=== PATIENT | female | born 1950 | race Caucasian/White ===

== ENCOUNTER 2024-06-10 10:24 | Inpatient (IN) | payer OTHER, MEDICARE ==
--- NOTE | 2024-06-10 10:47 | ED ---
Chest Pain HPI - General Source: patient, family, RN notes reviewed Mode of arrival: wheelchair Limitations: physical limitation - History of Present Illness MD Complaint: chest pain <Yumiko Woody - Last Filed: 06/10/24 10:45> - General Source: patient, family, RN notes reviewed <Omer Singh - Last Filed: 06/10/24 12:01> - General Chief Complaint: Chest Pain Stated Complaint: Chest pain Time Seen by Provider: 06/10/24 10:45 - History of Present Illness Initial Comments: Quick Note: This is a 74-year-old female who presents to the emergency department for chest pain. Patient reports left-sided chest pain starting about 45 minutes prior to arrival. This does radiate into the left arm and back as well. She has had similar pain before, but states that it usually resolves on its own within a few seconds. She tried taking Tums to see if it was related to gas, however that was not effective. Denies any history of heart attacks or stents. (Yumiko Woody) Patient is a 74-year-old female presenting to the emergency department with concerns with chest discomfort. Onset of symptoms was around an hour prior to arrival. Discomfort felt like an ache. Discomfort is improving was severe. Discomfort currently is 6/10. Patient does have some mild associated dyspnea. No nausea. Patient has had similar symptoms previously however normally resolves after around 10 minutes. Patient denies any history of previous heart problems. (Omer Singh) - Related Data Allergies Allergy/AdvReac Type Severity Reaction Status Date / Time lorazepam [From Ativan] Allergy Unknown Verified 06/10/24 10:32 Review of Systems ROS Other: All systems not noted in ROS Statement are negative. <Yumiko Woody - Last Filed: 06/10/24 10:45> ROS Other: All systems not noted in ROS Statement are negative. Constitutional: Denies: fever Eyes: Denies: eye pain ENT: Denies: ear pain Respiratory: Reports: as per HPI Cardiovascular: Reports: as per HPI, chest pain Endocrine: Denies: fatigue Gastrointestinal: Denies: abdominal pain Neurological: Denies: weakness <Omer Singh - Last Filed: 06/10/24 12:01> ROS Statement: Those systems with pertinent positive or pertinent negative responses have been documented in the HPI. EKG Findings - EKG Results: EKG: interpreted by ERMD (non Specific ST-T.), sinus rhythm, normal axis, normal QRS EKG shows: tachycardia <Omer Singh - Last Filed: 06/10/24 12:01> Past Medical History Past Medical History: No Reported History Past Surgical History: Back Surgery Smoking Status: Never smoker Past Alcohol Use History: None Reported Past Drug Use History: None Reported <Yumiko Woody - Last Filed: 06/10/24 10:45> General Exam Limitations: physical limitation <Yumiko Woody - Last Filed: 06/10/24 10:45> Limitations: no limitations General appearance: alert, in no apparent distress Head exam: Present: normocephalic Eye exam: Present: normal appearance Neck exam: Present: normal inspection Respiratory exam: Present: normal lung sounds bilaterally. Absent: chest wall tenderness Cardiovascular Exam: Present: regular rate, normal rhythm, normal heart sounds Expanded Peripheral pulses: 2+: Radial (R), Radial (L), Posterior Tibialis (R), Posterior Tibialis (L) GI/Abdominal exam: Present: soft. Absent: tenderness Extremities exam: Present: normal inspection. Absent: pedal edema, calf tenderness Neurological exam: Present: alert Psychiatric exam: Present: normal affect, normal mood Skin exam: Present: normal color <Omer Singh - Last Filed: 06/10/24 12:01> - General Exam Comments Initial Comments: Visual Physical Exam Vital signs reviewed General: Well-appearing, nontoxic, no acute distress. Head: Normocephalic, atraumatic Eyes: PERRLA, EOMI ENT: Airway patent Chest: Nonlabored breathing Skin: No visual rash, normal skin tone Neuro: Alert and oriented 3 Musculoskeletal: No gross abnormalities (Yumiko Woody) Course Vital Signs 06/10/24 06/10/24 06/10/24 10:28 10:58 11:04 Temperature 97.5 F L Pulse Rate 105 H 94 Pulse Rate [ 97 Pulse Oximetery ] Respiratory 20 18 Rate Blood Pressure 154/93 156/88 O2 Sat by Pulse 92 L 98 Oximetry Chest Pain MDM <Yumiko Woody - Last Filed: 06/10/24 10:45> <Omer Singh - Last Filed: 06/10/24 12:01> - MDM I performed the QuickNote portion of this chart. Signed Yumiko Woody PA-C. (Yumiko oWody) Was pt. sent in by a medical professional or institution (ROSANA Adair, EMERGENCY TECHNICIAN, urgent care, hospital, or longterm...) When possible be specific @ -No Did you speak to anyone other than the patient for history (EMS, parent, family, police, friend...)? What history was obtained from this source @ -Family is present and helps provide history including patient's symptoms and onset of 1 hour ago Did you review nursing and triage notes (agree or disagree)? Why? @ -I reviewed and agree with nursing and triage notes Were old charts reviewed (outside hosp., previous admission, EMS record, old EKG, old radiological studies, urgent care reports/EKG's, longterm records)? Report findings @ -No old charts were reviewed Differential Diagnosis (chest pain, altered mental status, abdominal pain women, abdominal pain men, vaginal bleeding, weakness, fever, dyspnea, syncope, headache, dizziness, GI bleed, back pain, seizure, CVA, palpatations, mental health, musculoskeletal)? @ -MDM differential chest differential Chest Pain: Stable Angina, Unstable Angina, STEMI, NSTEMI Aortic Dissection, Pneumothorax, Musculoskeletal, Esophageal Spasm GERD, Cholecystitis, Pancreatitis, Zoster, this is not meant to be an all-inclusive list. EKG interpreted by me (3pts min.). @ -As above X-rays interpreted by me (1pt min.). @ -Chest x-ray shows no acute process CT interpreted by me (1pt min.). @ -None done U/S interpreted by me (1pt. min.). @ -None done What testing was considered but not performed or refused? (CT, X-rays, U/S, labs)? Why? @ -None What meds were considered but not given or refused? Why? @ -None Did you discuss the management of the patient with other professionals (professionals i.e. ROSANA Adair, EMERGENCY TECHNICIAN, lab, RT, psych nurse, social economist, construction trench digger, teacher, landcare officer, case management social worker)? Give summary @ -[facility] physician groupSmith practitioner who will admit covering hospital call Was smoking cessation discussed for >3mins.? @ -No Was critical care preformed (if so, how long)? @ -No Were there social determinants of health that impacted care today? How? (Homelessness, low income, unemployed, alcoholism, drug addiction, transportation, low edu. Level, literacy, decrease access to med. care, long term, rehab)? @ -No Was there de-escalation of care discussed even if they declined (Discuss DNR or withdrawal of care, Hospice)? DNR status @ -No What co-morbidities impacted this encounter? (DM, HTN, Smoking, COPD, CAD, Cancer, CVA, ARF, Chemo, Hep., AIDS, mental health diagnosis, sleep apnea, morbid obesity)? @ -None Was patient admitted / discharged? Hospital course, mention meds given and route, prescriptions, significant lab abnormalities, going to OR and other pertinent info. @ -Patient presents with chest discomfort. Initial evaluation unremarkable. Patient reevaluated. Patient and family updated. Patient will be admitted with cardiac consult. Admission orders written. Undiagnosed new problem with uncertain prognosis? @ -No Drug Therapy requiring intensive monitoring for toxicity (Heparin, Nitro, Insulin, Cardizem)? @ -No Were any procedures done? @ -No Diagnosis/symptom? @ -Chest pain Acute, or Chronic, or Acute on Chronic? @ -Acute Uncomplicated (without systemic symptoms) or Complicated (systemic symptoms)? @ -Default Side effects of treatment? @ -No Exacerbation, Progression, or Severe Exacerbation? @ -No Poses a threat to life or bodily function? How? (Chest pain, [place], [place], pneumonia, PE, COPD, DKA, ARF, appy, cholecystitis, CVA, Diverticulitis, Homicidal, Suicidal, threat to staff... and all critical care pts) @ -Threat to cardiac function (Omer Singh) Disposition <Yumiko Woody - Last Filed: 06/10/24 10:45> Is patient prescribed a controlled substance at d/c from ED?: No Time of Disposition: 12:01 <Omer Singh - Last Filed: 06/10/24 12:01> Clinical Impression: Chest pain Disposition: ADMITTED IP TO THIS HOSP Referrals: None,Stated [Primary Care Provider] - 1-2 days
[2024-06-10 11:04] LABS: Basophils # (A) 0.1 k/uL (0-0.2); Basophils % (A) 1 %; Eosinophils # (A) 0.3 k/uL (0-0.7); Eosinophils % (A) 4 %; HCT 43.9 % (34.0-46.0); HGB 14.3 gm/dL (11.4-16.0); Lymphocytes # (A) 1.9 k/uL (1.0-4.8); Lymphocytes % (A) 26 %; MCH 31.1 pg (25.0-35.0); MCHC 32.6 g/dL (31.0-37.0); MCV 95.4 fL (80.0-100.0); Mean Platelet Volume 6.5; Monocytes # (A) 0.5 k/uL (0-1.0); Monocytes % (A) 7 %; Neutrophils # (A) 4.3 k/uL (1.3-7.7); Neutrophils % (A) 61 %; Platelet Count 312 k/uL (150-450); RBC 4.61 m/uL (3.80-5.40); RDW 12.5 % (11.5-15.5); WBC 7.1 k/uL (3.8-10.6)
[2024-06-10 11:14] LABS: ALT 15 U/L (4-34); AST 19 U/L (14-36); African American GFR (CKD) 74 (>60 ml/min/1.73 sqM); Albumin 4.3 g/dL (3.5-5.0); Alkaline Phosphatase 85 U/L (38-126); Anion Gap 6 mmol/L; Blood Urea Nitrogen 25 mg/dL (7-17); Calcium 9.2 mg/dL (8.4-10.2); Carbon Dioxide 31 mmol/L (22-30); Chloride 102 mmol/L (98-107); Glucose 114 mg/dL (74-99); Non-African American GFR(CKD) 64 (>60 ml/min/1.73 sqM); Potassium 4.3 mmol/L (3.5-5.1); Sodium 139 mmol/L (137-145); Total Bilirubin 0.5 mg/dL (0.2-1.3); Total Protein 6.9 g/dL (6.3-8.2)
[2024-06-10 11:21] LABS: INR 0.9 (<1.2); Partial Thromboplastin Time 22.1 sec (22.0-30.0); Prothrombin Time 10.1 sec (10.0-12.5)
[2024-06-10 11:22] LABS: NT-Pro-B-Type Natriuretic Pept 52 pg/mL
--- NOTE | 2024-06-10 11:31 | XR ---
EXAMINATION TYPE: XR chest 2V DATE OF EXAM: 06/10/2024 11:24 AM COMPARISON: None. CLINICAL INDICATION: Female, 74 years old with history of Chest Pain, TECHNIQUE: XR chest 2V view(s) obtained. FINDINGS: The heart size is upper limits of normal for size. The pulmonary vasculature is normal. The lungs are clear. IMPRESSION: 1. No acute pulmonary process. [facility], , 06/10/2024 11:28 AM
[2024-06-10] MEDS: NITROGLYCERIN OINT 1 INCH/GM PACKET TOPICAL STA (11:32)
[2024-06-10] MEDS: ASPIRIN 81 MG PO STA (11:32)
[2024-06-10] MEDS ORDERED: NITROGLYCERIN SL TABS 0.4 MG TAB SUBLINGUAL PRN (12:01)
--- NOTE | 2024-06-10 12:28 | P.HPIM ---
History of Present Illness H&P Date: 06/10/24 History of Presenting Illness: Patient is a very pleasant 74-year-old female with a past medical history of hypertension tracheostomy status post reversal (50 years ago) and chronic back pain status postsurgical procedures. She presented to the emergency department with a chief complaint of chest pain. Patient reports awakening this morning with pain to her left anterior chest radiating into her back and left shoulder. She reports the pain was intense and pressure-like. She reports she woke up and took a couple Tums thinking maybe it was some reflux but states she received no improvement and was persistent so her daughter brought her to the emergency department for evaluation. She reports she has experienced pain similar to this in the past but states it typically goes away after a couple of minutes, but states this time it was persistent and lasted greater than an hour prior to resolving. In addition patient reports exertional shortness of breath, fatigue, abdominal bloating, and constipation. She denies having any fevers, chills, diaphoresis, headache, lightheadedness, dizziness, palpitations, cough or congestion, nausea, vomiting, or experiencing any numbness/tingling/weakness/swelling in her extremities. Upon arrival to our facility, patient underwent evaluation in the emergency department. Vital signs upon arrival show blood pressure 154/93, heart rate 105, respiratory rate 20, temp 97.5 F, and SpO2 of 92% on room air. EKG was completed showing sinus tachycardia at 102 bpm with no significant T wave or ST abnormalities upon personal review and interpretation. Chest x-ray completed negative for acute cardiopulmonary process. Labs completed and reviewed. CBC unremarkable. Coagulation profile showing an elevated D-dimer of 1.06. BMP showing hypercarbia with bicarb of 31 and mild prerenal azotemia with BUN of 25. Blood glucose 114. Magnesium 2.0. Liver profile unremarkable. Troponin was negative at less than 0.012. proBNP 52. CTA chest completed negative for pulmonary emboli showing a couple of pulmonary nodules measuring up to 4 mm and a moderate sized hiatal hernia. Patient admitted under our services with consultation to cardiology and general surgery. Review of systems: Pertinent positives and negatives as discussed in HPI, a complete review of systems was performed and all other systems are negative. Physical exam: Vital signs reviewed and stable. General: Nontoxic, no distress and appears stated age. Derm: Skin warm and dry, normal coloration for ethnicity. Head: Atraumatic, normocephalic and symmetric. Eyes: EOM's intact, no lid lag, and anicteric sclera Mouth: no lip lesions, mucus membranes moist Cardiovascular: regular rate and rhythm with normal S1S2, no murmur, positive posterior tibial pulses bilaterally, and cap refill < 2 seconds. Lungs: Respirations even, regular, and unlabored on room air. Lungs CTA bilaterally, no rhonchi, no rales, no wheezing, and no accessory muscle usage. Abdominal: soft, nontender to palpation, no guarding, no appreciable organomegaly Ext: ROM intact. No gross muscle atrophy, no edema, no contractures Neuro: Speech clear, face symmetrical and CN II-XII grossly intact with no noted focal neuro deficits Psych: Alert and oriented to person, place, time, and situation. Appropriate and pleasant affect. Assessment and Plan of Care: Chest pain, rule out acute coronary event Hypertension Elevated D-dimer, CTA negative for PE -Cardiology consulted, appreciate recommendations -Telemetry monitoring -Trend troponins -Cardiac diet, NPO at midnight -Aspirin 81 mg daily, atorvastatin 40 mg nightly, metoprolol 25 mg daily. -Sublingual nitroglycerin 0.4 mg every 5 minutes as needed for chest pain. -Lipid profile with a.m. labs. -Echocardiogram Abdominal bloating and constipation Moderate sized hiatal hernia -Order placed for KUB -Consult placed to general surgery for evaluation and possible recommendations. -Will start patient on MiraLAX 17 g nightly. Chronic back pain -Continue home medication regimen with oxycodone 30 mg p.o. 3 times daily as needed for moderate to severe pain. Pulmonary nodules -Patient will require outpatient follow-up with repeat imaging for surveillance. Data and imaging reviewed: As stated above in HPI The patient is admitted with an anticipated less than 2 midnight stay for evaluation of pain. CODE STATUS: Full code DVT prophylaxis: Heparin Discussed with: ED physician, patient, RN, and patient's family Anticipated discharge date: Pending clinical course Anticipated discharge place: Home Patient was seen independently by Nurse Practitioner. This document was prepared using [employer] dictation software. Please allow for errors in development vice president while rare they do occur. Smith Peter NP rendered care for this patient independently, reviewed the findings and plan as documented in the note above and agree with plan. I did not physically speak with or examine the patient on this date. Past Medical History Past Medical History: No Reported History Past Surgical History: Back Surgery Smoking Status: Never smoker Past Alcohol Use History: None Reported Past Drug Use History: None Reported Medications and Allergies Home Medications Medication Instructions Recorded Confirmed Type DULoxetine HCL [Cymbalta] 60 mg PO BID 06/10/24 06/10/24 History HYDROcodone/APAP 10-325MG [[place] 1 tab PO TID PRN 06/10/24 06/10/24 History 10-325] Metoprolol Tartrate [Lopressor] 25 mg PO DAILY 06/10/24 06/10/24 History oxyCODONE HCL [OxyCONTIN] 30 mg PO TID PRN 06/10/24 06/10/24 History traZODone HCL [Desyrel] 200 mg PO HS 06/10/24 06/10/24 History Allergies Allergy/AdvReac Type Severity Reaction Status Date / Time lorazepam [From Ativan] Allergy Unknown Verified 06/10/24 12:35 Physical Exam Vitals: Vital Signs Temp Pulse Pulse Resp BP Pulse Ox 06/10/24 11:04 94 18 156/88 98 06/10/24 10:58 97 06/10/24 10:28 97.5 F L 105 H 20 154/93 92 L Intake and Output 06/09/24 06/10/24 06/10/24 22:59 06:59 14:59 Other: Weight 72.575 kg Results CBC & Chem 7: 06/10/24 10:52 06/10/24 10:52 Labs: Abnormal Lab Results - Last 24 Hours (Table) 06/10/24 Range/Units 10:52 Carbon Dioxide 31 H (22-30) mmol/L BUN 25 H (7-17) mg/dL Glucose 114 H (74-99) mg/dL
--- NOTE | 2024-06-10 13:18 | CT ---
EXAMINATION TYPE: CT angio chest CT DLP: 235.2 mGycm, Automated exposure control for dose reduction was used. DATE OF EXAM: 06/10/2024 1:02 PM COMPARISON: Chest radiograph from same day. CLINICAL INDICATION:Female, 74 years old with history of cp; POSTIVE DIMER TECHNIQUE/CONTRAST: CTA scan of the thorax is performed with IV Contrast, patient injected with 70 mL of Isovue 370, pulm onary embolism protocol. MIP images are created and reviewed. FINDINGS: Pulmonary Artery: There is no evidence for a filling defect within the pulmonary vasculature to sugge st acute pulmonary embolism. The pulmonary artery is of normal size. Lungs/Pleura: No evidence of focal consolidation, pleural effusion or pneumothorax. Mild biapical ple ural-parenchymal scarring. Right middle lobe 3 mm pulmonary nodule (series 406, image 74). Right midd le lobe 4 mm groundglass pulmonary nodule (series 406, image 71). Airway: Large airways are patent. Heart: The heart is mildly enlarged for size.. Trace pericardial effusion. Moderate coronary artery c alcifications. Vasculature: No evidence of aortic aneurysm. Mediastinum: No evidence of adenopathy. Musculoskeletal: Mild degenerative disc disease changes are present throughout the thoracolumbar spin e. No acute osseous abnormality. Soft Tissues: Multiple dystrophic calcifications within both breasts. Lower neck: No significant findings. Upper Abdomen: Moderate size hiatal hernia.. Periampullary duodenal diverticulum. IMPRESSION: 1. No evidence of pulmonary embolism. 2. Couple of pulmonary nodules measuring up to 4 mm. In a low-risk patient, no follow-up is recommend ed. In a high-risk patient consider optional CT chest in 12 months. 3. Moderate-sized hiatal hernia. [facility], , 06/10/2024 1:15 PM
[2024-06-10] MEDS: HYDROcodone/APAP 10-325MG 1 EACH TAB PO PRN (15:54)
--- NOTE | 2024-06-10 15:54 | XR ---
EXAMINATION TYPE: XR KUB DATE OF EXAM: 06/10/2024 1:38 PM COMPARISON: None. CLINICAL INDICATION: Female, 74 years old with history of abdominal distention, constipation, TECHNIQUE: XR KUB view(s) obtained. FINDINGS: Nonspecific bowel gas is present. No suspicious air-fluid levels are evident. No free air is present. Faint calcification is noted within the renal collecting system. Postsurgical changes are within the lower lumbar spine. Degenerative disc changes are present. Psoas margins are normal. No organomegaly is present. IMPRESSION: 1. Nonspecific abdomen [facility], , 06/10/2024 3:52 PM
[2024-06-10] MEDS: NITROGLYCERIN OINT 1 INCH/GM PACKET TOPICAL SCH (17:20)
[2024-06-10] MEDS ORDERED: HEPARIN SODIUM 1,000 UN/ML (10ML VL) IV PRN (17:45)
[2024-06-10] MEDS: oxyCODONE ER 15 MG TAB.ER.12H PO PRN (20:02)
[2024-06-10] MEDS: HEPARIN SODIUM 1,000 UN/ML (10ML VL) IV ONE (20:03)
[2024-06-10] MEDS: HEPARIN SOD,PORK IN 0.45% NACL 25,000 UNIT in 0.45% NACL 1 250ML.BAG IV SCH (20:05)
[2024-06-10] MEDS: DULoxetine HCL 60 MG CAPSULE.DR PO SCH (20:42)
[2024-06-10] MEDS: ATORVASTATIN 40 MG TAB PO SCH (20:42)
[2024-06-10] MEDS: traZODone HCL 100 MG TAB PO SCH (20:42)
[2024-06-10] MEDS: polyethylene glycoL 3350 17 GM POWD.PACK PO SCH (20:44)
[2024-06-11] MEDS ORDERED: HEPARIN SODIUM,PORCINE 5,000 UNIT/ML 1 ML VIAL SQ SCH
[2024-06-11 02:42] LABS: HCT 38.7 % (34.0-46.0); HGB 12.3 gm/dL (11.4-16.0); MCH 30.7 pg (25.0-35.0); MCHC 31.7 g/dL (31.0-37.0); MCV 96.7 fL (80.0-100.0); Mean Platelet Volume 6.7; Platelet Count 281 k/uL (150-450); RDW 12.7 % (11.5-15.5); WBC 5.4 k/uL (3.8-10.6)
[2024-06-11 03:03] LABS: Prothrombin Time 10.7 sec (10.0-12.5)
[2024-06-11 03:04] LABS: ALT 13 U/L (4-34); AST 17 U/L (14-36); African American GFR (CKD) 72 (>60 ml/min/1.73 sqM); Alkaline Phosphatase 78 U/L (38-126); Anion Gap 5 mmol/L; Blood Urea Nitrogen 21 mg/dL (7-17); Calcium 8.7 mg/dL (8.4-10.2); Carbon Dioxide 33 mmol/L (22-30); Chloride 99 mmol/L (98-107); Glucose 127 mg/dL (74-99); Magnesium 2.2 mg/dL (1.6-2.3); Non-African American GFR(CKD) 62 (>60 ml/min/1.73 sqM); Sodium 137 mmol/L (137-145); Total Bilirubin 0.2 mg/dL (0.2-1.3); Total Protein 6.4 g/dL (6.3-8.2)
[2024-06-11] MEDS: ASPIRIN 81 MG PO SCH (08:34)
[2024-06-11] MEDS: METOPROLOL TARTRATE 25 MG TAB PO SCH ×2 (08:34→20:23)
[2024-06-11] MEDS ORDERED: ASPIRIN 325 MG TAB PO SCH (09:00)
[2024-06-11] MEDS ORDERED: NITROGLYCERIN SL TABS 0.4 MG TAB SUBLINGUAL PRN (09:42)
[2024-06-11] MEDS ORDERED: ALPRAZolam 0.5 MG TAB PO PRN (09:42)
[2024-06-11] MEDS: ATORVASTATIN 80 MG TAB PO STA (09:56)
[2024-06-11] MEDS: ASPIRIN 325 MG TAB PO STA (09:57)
[2024-06-11] MEDS ORDERED: ACETAMINOPHEN TAB 325 MG TAB PO PRN (10:04)
[2024-06-11] MEDS ORDERED: ONDANSETRON 4 MG/2 ML VIAL IVP PRN (10:04)
[2024-06-11 10:37] LABS: Chol/HDL Ratio 3.76 Ratio; LDL Cholesterol,Calculated 137.7 mg/dL (0.0-131.0)
[2024-06-11] MEDS: diphenhydrAMINE 50 MG/ML 1 ML VIAL IVP STA (10:56)
[2024-06-11] MEDS: KETOROLAC 15 MG/ML 1 ML VIAL IVP STA (10:56)
[2024-06-11] MEDS: SODIUM CHLORIDE 0.9% 1,000 ML in EMPTY BAG 1 BAG IV SCH (10:57)
[2024-06-11] MEDS: PROCHLORPERAZINE INJ 10 MG/2 ML VIAL IVP STA (10:57)
--- NOTE | 2024-06-11 12:35 | P.CRDCN ---
History of Present Illness History of present illness: HISTORY OF PRESENT ILLNESS: This is a 74-year-old female with a past medical history significant for hypertension. 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 Patient does report she has not followed with a primary care physician in 20 to 30 years. we have been asked to see the patient in consultation for chest pain. Patient examined at the bedside in the emergency room. Patient states she has been having chest pain on and off for the past month. She states the episodes usually last about 10 minutes and then will resolve on their own or with peppermint candy. She states that the pain is usually in the middle of her chest and then will radiate into her left shoulder and arm. She does report feeling short of breath with these episodes. She states she had another episode of chest discomfort yesterday but this episode lasted for about an hour which concerned her so she came to the emergency room for further evaluation. She does report having another episode since coming to the hospital. She received Nitropaste which improved her chest pain. DIAGNOSTICS: - EKG reveals sinus mechanism with T wave inversions in V3V4. - Chest xray negative for acute process - Chest CTA: Negative for pulmonary embolism. A couple of pulmonary nodules measuring up to 4 mm. Trace pericardial effusion. Moderate coronary artery calcifications. - Laboratory data: WBC 5.4. Hemoglobin 12.3. Platelet count 281. Sodium 137. Potassium 4.0. BUN 21. Creatinine 0.91. Troponin 0.012. 0.021. 0.057. 0.050. - Current home cardiac medications include metoprolol 25 mg daily -No previous echocardiogram, stress test, or cardiac catheterization available in EMR for review REVIEW OF SYSTEMS: At the time of my exam: CONSTITUTIONAL: Denies fever or chills. HEENT: Denies blurred vision, vision changes, or eye pain. Denies hemoptysis CARDIOVASCULAR: Denies chest pain. Denies orthopnea. Denies PND. Denies palpitations RESPIRATORY: Denies shortness of breath. GASTROINTESTINAL: Denies abdominal pain. Denies nausea or vomiting. HEMATOLOGIC: Denies bleeding disorders. GENITOURINARY: Denies any blood in urine. SKIN: Denies pruitis. Denies rash. PHYSICAL EXAM: VITAL SIGNS: Reviewed. GENERAL: Well-developed in no acute distress. HEENT: Head is normocephalic. Pupils are equal, round. Sclerae anicteric. Mucous membranes of the mouth are moist. Neck supple. No JVD or thyromegaly LUNGS: Respirations even and unlabored. Lungs essentially clear to auscultation bilaterally. HEART: Regular rate and rhythm. S1 and S2 heard. ABDOMEN: Soft. Nondistended. Nontender. EXTREMITIES: Normal range of motion. No clubbing or cyanosis. Peripheral pulses intact. No lower extremity edema NEUROLOGIC: Awake and alert. Oriented x 3. ASSESSMENT: Chest pain Non-STEMI Moderate coronary artery calcifications per CTA Hypertension Hyperlipidemia, LDL 137 Moderate sized hiatal hernia Pulmonary nodules noted on CTA History of rheumatic fever as a child PLAN: Obtain 2D echo to assess cardiac structure and function Continue IV heparin Patient has been started on aspirin 81 mg daily and atorvastatin 40 mg at night Continue Nitropaste Continue home dose of metoprolol. Change dosing to twice daily instead of daily. Patient to undergo cardiac catheterization today with Dr. Segal Further recommendations pending patient course Nurse practitioner note has been reviewed by physician. Signing provider agrees with the documented findings, assessment, and plan of care documented by COLLECTION SYSTEMS ADMINISTRATOR as a scribe. Past Medical History Past Medical History: No Reported History Past Surgical History: Back Surgery Smoking Status: Never smoker Past Alcohol Use History: None Reported Past Drug Use History: None Reported Medications and Allergies Home Medications Medication Instructions Recorded Confirmed Type DULoxetine HCL [Cymbalta] 60 mg PO BID 06/10/24 06/10/24 History HYDROcodone/APAP 10-325MG [[place] 1 tab PO TID PRN 06/10/24 06/10/24 History 10-325] Metoprolol Tartrate [Lopressor] 25 mg PO DAILY 06/10/24 06/10/24 History oxyCODONE HCL [OxyCONTIN] 30 mg PO TID PRN 06/10/24 06/10/24 History traZODone HCL [Desyrel] 200 mg PO HS 06/10/24 06/10/24 History Allergies Allergy/AdvReac Type Severity Reaction Status Date / Time lorazepam [From Ativan] Allergy Unknown Verified 06/10/24 12:35 Physical Exam Vitals: Vital Signs Temp Pulse Pulse Resp BP Pulse Ox 06/11/24 08:37 93 128/73 94 L 06/11/24 07:46 85 16 128/73 96 06/11/24 05:19 98 F 84 18 163/93 96 06/11/24 05:17 98.0 F 78 17 163/96 95 06/11/24 03:13 87 16 96 06/11/24 02:10 103 H 16 93 L 06/10/24 23:00 98.5 F 102 H 16 146/87 94 L 06/10/24 20:57 103 H 18 142/92 94 L 06/10/24 17:18 106 H 18 166/84 96 06/10/24 15:52 104 H 18 118/82 94 L 06/10/24 14:22 98.1 F 82 18 118/82 97 06/10/24 11:04 94 18 156/88 98 06/10/24 10:58 97 06/10/24 10:28 97.5 F L 105 H 20 154/93 92 L Intake and Output 06/10/24 06/11/24 06/11/24 22:59 06:59 14:59 Intake Total 61.689 Balance 61.689 Intake: Intake, IV Titration 61.689 Amount Heparin Sod,Pork in 0.45% 61.689 NaCl 25,000 unit In 0.45 % NaCl 1 250ml.bag @ 12 UNITS/KG/HR 8.709 mls/hr IV .Q24H [facility] Rx#: [id number] Results 06/11/24 02:31 06/11/24 02:31 Cardiac Enzymes 06/10/24 06/10/24 06/10/24 Range/Units 10:52 10:52 12:20 AST 19 (14-36) U/L Troponin I <0.012 0.021 (0.000-0.034) ng/mL 06/10/24 06/10/24 06/11/24 Range/Units 16:48 19:10 02:31 AST 17 (14-36) U/L Troponin I 0.057 H* 0.050 H* (0.000-0.034) ng/mL Coagulation 06/10/24 06/11/24 Range/Units 10:52 02:01 PT 10.1 10.7 (10.0-12.5) sec APTT 22.1 44.0 H (22.0-30.0) sec CBC 06/10/24 06/11/24 Range/Units 10:52 02:31 WBC 7.1 5.4 (3.8-10.6) k/uL RBC 4.61 4.00 (3.80-5.40) m/uL Hgb 14.3 12.3 (11.4-16.0) gm/dL Hct 43.9 38.7 (34.0-46.0) % Plt Count 312 281 (150-450) k/uL Comprehensive Metabolic Panel 06/10/24 06/11/24 Range/Units 10:52 02:31 Sodium 139 137 (137-145) mmol/L Potassium 4.3 4.0 (3.5-5.1) mmol/L Chloride 102 99 (98-107) mmol/L Carbon Dioxide 31 H 33 H (22-30) mmol/L BUN 25 H 21 H (7-17) mg/dL Creatinine 0.89 0.91 (0.52-1.04) mg/dL Glucose 114 H 127 H (74-99) mg/dL Calcium 9.2 8.7 (8.4-10.2) mg/dL AST 19 17 (14-36) U/L ALT 15 13 (4-34) U/L Alkaline Phosphatase 85 78 (38-126) U/L Total Protein 6.9 6.4 (6.3-8.2) g/dL Albumin 4.3 4.0 (3.5-5.0) g/dL Current Medications Generic Name Dose Route Start Last Admin Trade Name Freq PRN Reason Stop Dose Admin Hydrocodone Bitart/Acetaminophen 1 each 06/10/24 12:42 06/10/24 15:54 Hydrocodone/Apap 10-325mg 1 Each Tab PO 1 each TID PRN Administration Pain Aspirin 81 mg 06/11/24 09:00 06/11/24 08:34 Aspirin 81 Mg PO 81 mg DAILY ASIF Administration Atorvastatin Calcium 40 mg 06/10/24 21:00 06/10/24 20:42 Atorvastatin 40 Mg Tab PO 40 mg HS ASIF Administration Duloxetine HCl 60 mg 06/10/24 21:00 06/11/24 08:34 Duloxetine Hcl 60 Mg Capsule.Dr PO 60 mg BID ASIF Administration Heparin Sodium (Porcine) 0 unit 06/10/24 17:45 Heparin Sodium 1,000 Un/Ml (10ml Vl) IV PER PROTOCOL PRN Low PTT Protocol Heparin Sodium/Sodium Chloride 250 mls @ 8.709 mls/hr 06/10/24 18:00 06/11/24 03:10 25,000 unit/ Sodium Chloride IV 12 units/kg/hr .Q24H ASIF 8.709 mls/hr Titration Protocol 12 UNITS/KG/HR Metoprolol Tartrate 25 mg 06/11/24 21:00 Metoprolol Tartrate 25 Mg Tab PO BID ASIF Nitroglycerin 0.4 mg 06/10/24 12:01 Nitroglycerin Sl Tabs 0.4 Mg Tab SUBLINGUAL Q5M PRN Chest Pain Nitroglycerin 1 inch 06/10/24 18:00 06/11/24 06:32 Nitroglycerin Oint 1 Inch/Gm Packet TOPICAL 1 inch Q6HR ASIF Administration Oxycodone HCl 30 mg 06/10/24 12:42 06/10/24 20:02 Oxycodone Er 15 Mg Tab.Er.12h PO 30 mg TID PRN Administration Pain Polyethylene Glycol 17 gm 06/10/24 21:00 06/10/24 20:44 Polyethylene Glycol 3350 17 Gm Powd.Pack PO Not Given HS ASIF Trazodone HCl 200 mg 06/10/24 21:00 06/10/24 20:42 Trazodone Hcl 100 Mg Tab PO 200 mg HS ASIF Administration Intake and Output 06/10/24 06/11/24 06/11/24 22:59 06:59 14:59 Intake Total 61.689 Balance 61.689 Intake: Intake, IV Titration 61.689 Amount Heparin Sod,Pork in 0.45% 61.689 NaCl 25,000 unit In 0.45 % NaCl 1 250ml.bag @ 12 UNITS/KG/HR 8.709 mls/hr IV .Q24H AS[facility] Rx#: [id number] 06/11/24 02:31 06/11/24 02:31
--- NOTE | 2024-06-11 12:44 | P.CON ---
Consult Note - . Consult date: 06/11/24 Assessment/Plan:: Patient is a 74-year-old female presenting to the emergency department with concerns with chest discomfort. Onset of symptoms was around an hour prior to arrival. Discomfort felt like an ache. Discomfort is improving was severe. Discomfort currently is 6/10. Patient does have some mild associated dyspnea. No nausea. Patient has had similar symptoms previously however normally resolves after around 10 minutes. Patient denies any history of previous heart problems. She had a CTA Chest which showed a moderate sized hiatal hernia. She is having associated GERD and dysphagia. She is having constipation. Her daughter believes she has never had a colonoscopy. Review of Systems ROS Other: All systems not noted in ROS Statement are negative. <Yumiko Woody - Last Filed: 06/10/24 10:45> ROS Other: All systems not noted in ROS Statement are negative. Constitutional: Denies: fever Eyes: Denies: eye pain ENT: Denies: ear pain Respiratory: Reports: as per HPI Cardiovascular: Reports: as per HPI, chest pain Endocrine: Denies: fatigue Gastrointestinal: Denies: abdominal pain Neurological: Denies: weakness Past Medical History Past Medical History: No Reported History Past Surgical History: Back Surgery Smoking Status: Never smoker Past Alcohol Use History: None Reported Past Drug Use History: None Reported General Exam Limitations: physical limitation <Yumiko Woody - Last Filed: 06/10/24 10:45> Limitations: no limitations General appearance: alert, in no apparent distress Head exam: Present: normocephalic Eye exam: Present: normal appearance Neck exam: Present: normal inspection Respiratory exam: Present: normal lung sounds bilaterally. Absent: chest wall tenderness Cardiovascular Exam: Present: regular rate, normal rhythm, normal heart sounds Expanded Peripheral pulses: 2+: Radial (R), Radial (L), Posterior Tibialis (R), Posterior Tibialis (L) GI/Abdominal exam: Present: soft. Absent: tenderness Extremities exam: Present: normal inspection. Absent: pedal edema, calf tenderness Neurological exam: Present: alert Psychiatric exam: Present: normal affect, normal mood Skin exam: Present: normal color 74 year old female with moderate sized hiatal hernia, dysphagia, and constipation -Patient would benefit from outpatient EGD and colonoscopy -Hiatal Hernia repair discussed extensively with patient and daughter. Instructed to follow up in office and we can discuss in further detail -Ok for Diet from General Surgery perspective -Recommend PPI Peter Brewster DO [facility] [phone]
--- NOTE | 2024-06-11 13:57 | CA ---
Transthoracic Echo Report Name: Carly Mason Age: 74 Gender: F : 1950 Exam Date: 06/11/2024 08:52 Exam Location: [place] Echo Ht (in): 64 Wt (lb): 160 Ordering Physician: Smith Peter Attending/Referring Phys: Special Certificate Dictator Nahed Keating RDCS Procedure CPT: Indications: chest pain, tachycardia hx of htn Cardiac Hx: Technical Quality: Fair Contrast 1: Total Dose (mL): Contrast 2: Total Dose (mL): MEASUREMENTS (Male / Female) Normal Values 2D ECHO LV Diastolic Diameter PLAX 4.4 cm 4.2 - 5.9 / 3.9 - 5.3 cm LV Systolic Diameter PLAX 2.8 cm IVS Diastolic Thickness 1.1 cm 0.6 - 1.0 / 0.6 - 0.9 cm LVPW Diastolic Thickness 1.2 cm 0.6 - 1.0 / 0.6 - 0.9 cm LV Relative Wall Thickness 0.5 RV Internal Dim ED PLAX 1.1 cm M-MODE Aortic Root Diameter MM 3.3 cm LA Systolic Diameter MM 3.4 cm LA Ao Ratio MM 1.0 AV Cusp Separation MM 2.2 cm DOPPLER MV E' Velocity 4.2 cm/s TR Peak Velocity 204.9 cm/s TR Peak Gradient 16.8 mmHg Right Ventricular Systolic Press 26.8 mmHg FINDINGS Left Ventricle Left ventricular ejection fraction is estimated at 55-60 %. Mildly increased left ventricular wall thickness. . Normal left ventricular systolic function with no obvious regional wall motion abnormalities. Right Ventricle Normal right ventricular size and function. Right ventricular systolic pressure within normal limits. Right Atrium Normal right atrial size. Prominent eustachian valve in the right atrium (normal variant). Left Atrium Normal left atrial size. Interatrial septal aneurysm. No evidence for an atrial septal defect. Mitral Valve Structurally normal mitral valve. Mild mitral regurgitation. No mitral stenosis.mitral annular calcification. Aortic Valve Trileaflet aortic valve. Trace aortic regurgitation. No aortic stenosis.aortic valve sclerosis. Tricuspid Valve Structurally normal tricuspid valve. Mild tricuspid regurgitation. No tricuspid stenosis. Pulmonic Valve Structurally normal pulmonic valve. Trace pulmonic regurgitation. No pulmonic stenosis. Pericardium No pericardial or pleural effusion. Aorta Normal size aortic root and proximal ascending aorta. CONCLUSIONS 1. Normal left ventricular size and systolic function 2. Mild mitral and tricuspid regurgitation with no evidence of pulmonary hypertension Previewed by: Dr. Janet Segal MD (Electronically Signed) Final Date: 11 June 2024 13:56
[2024-06-11] MEDS: ASPIRIN 81 MG PO ONE (14:00)
[2024-06-11] MEDS: fentaNYL (PF) 50 MCG/ML 2 ML AMP IVP ONE (14:05)
[2024-06-11] MEDS: LIDOCAINE 1% INJ 10MG/ML (20 ML MDV) SQ ONE (14:08)
[2024-06-11] MEDS: IV FLUID CONTINUATION 500 ML IV ONE (14:08)
[2024-06-11] MEDS: HEPARIN SODIUM,PORCINE 10,000 UNIT in SODIUM CHLORIDE 0.9% 1,000 ML IRRIGATION PRN (14:09)
[2024-06-11] MEDS: HEPARIN SODIUM,PORCINE (1 ML) 2,500 UNIT in SODIUM CHLORIDE 0.9% 250 ML IRRIGATION PRN (14:09)
[2024-06-11] MEDS: VERAPAMIL SYRINGE (5 MG/10 ML) INTRAARTER ONE (14:09)
[2024-06-11] MEDS: HEPARIN SODIUM 1,000 UN/ML (10ML VL) IV ONE (14:15)
[2024-06-11] MEDS: IOPAMIDOL-370 100ML BTL INJ ONE (14:21)
[2024-06-11] MEDS ORDERED: RX INFO: IV CONTRAST WAS GIVEN 1 EACH MISC MISCELLANE PRN (14:33)
--- NOTE | 2024-06-11 14:42 | P.CARDCATH ---
Date of Procedure: 06/11/24 Description of Procedure: Cardiac Catheterization: The patient is a 74-year-old female who has not been seen by a physician for a long time and presented with worsening chest discomfort, had mild troponin elevation and mild EKG changes with T wave inversion in the anterolateral leads. Recommendations were made regarding cardiac catheterization, the risks and the complications were discussed with the patient who is in full understanding and agreement. Procedure Description: Patient was brought to laborer tin can in fasting semi-sedated state after receiving Fentanyl and Benadryl achieiving moderate conscious sedated state. Using Xylocaine Anesthesia and modified Seldinger technique, a 6-Malian sheath was introduced in the right radial artery . Subsequently, selective coronary angiography was performed using a 5-Malian 3.5 bend Katia catheter. Multiple views of the coronary artery including hemiaxial views were obtained. The 5 Malian pigtail catheter was used to cross the aortic valve and LVEDP was calculated. Following that, catheter and sheath were removed. Hemostasis was obtained with deployment of vascular band . There was no immediate complication. Patient was returned to room in stable condition. Of note, the patient received a total of 3500 units of intravenous heparin as well as intra-arterial verapamil. Findings: Fluoroscopy: Significant calcifications in the left main and LAD was noted Left main: This is a short size vessel, bifurcating into LAD and left circumflex, left main has no significant disease. LAD: This vessel is totally occluded proximally with very slow antegrade and retrograde filling of the LAD and the diagonal branch. There is collaterals from the septal pasting inspector from the RCA and through the OM. Left circumflex: This is a codominant vessel, bifurcating distally to PDA and PLV. It gives rise to a first obtuse marginal branch that has a 90% stenosis the left PDA has a 95% stenosis, the proximal left circumflex has a 60 to 70% plaque. RCA: This is a codominant small size vessel, giving rise to a small PDA distally the mid RCA has diffuse intimal disease with a area of stenosis up to 90% and gives collaterals to the distal LAD Left Ventriculogram: Not performed Hemodynamics: There was no gradient across aortic valve, LVEDP was 25-28 mmHg Conclusion: 1. Calcified left main and LAD 2. Totally occluded proximal LAD with collaterals noted, ipsilateral and contralateral 3. Significant disease in the left circumflex, OM1 and left PLV 4. Significant disease in the mid codominant RCA 5. Elevated LVEDP Recommendations: In view of her anatomy and presentation I have recommended to proceed with evaluation for coronary artery bypass grafting. The findings and the recommendations were discussed with the patient and the family and they were in full understanding and agreement. Duration of sedation is 15 minutes.
[2024-06-11 15:27] LABS: Basophils % (A) 1 %; Eosinophils # (A) 0.2 k/uL (0-0.7); Eosinophils % (A) 3 %; HCT 40.6 % (34.0-46.0); HGB 12.9 gm/dL (11.4-16.0); Lymphocytes % (A) 33 %; MCH 30.8 pg (25.0-35.0); MCHC 31.8 g/dL (31.0-37.0); MCV 96.7 fL (80.0-100.0); Mean Platelet Volume 6.7; Monocytes # (A) 0.4 k/uL (0-1.0); Monocytes % (A) 7 %; Neutrophils # (A) 3.3 k/uL (1.3-7.7); Neutrophils % (A) 55 %; Platelet Count 288 k/uL (150-450); RDW 12.7 % (11.5-15.5)
[2024-06-11 15:31] LABS: Prothrombin Time 10.9 sec (10.0-12.5)
[2024-06-11 15:32] LABS: Partial Thromboplastin Time 85.6 sec (22.0-30.0)
[2024-06-11] MEDS: HEPARIN SOD,PORK IN 0.45% NACL 25,000 UNIT in 0.45% NACL 1 250ML.BAG IV SCH (16:29)
[2024-06-11 16:44] LABS: African American GFR (CKD) 76 (>60 ml/min/1.73 sqM); Anion Gap 8 mmol/L; Blood Urea Nitrogen 17 mg/dL (7-17); Carbon Dioxide 30 mmol/L (22-30); Chloride 100 mmol/L (98-107); Glucose 97 mg/dL (74-99); Non-African American GFR(CKD) 66 (>60 ml/min/1.73 sqM); Potassium 4.6 mmol/L (3.5-5.1); Sodium 138 mmol/L (137-145)
--- NOTE | 2024-06-11 17:21 | P.PN ---
Subjective Progress Note Date: 06/11/24 Hospital course: Patient is a very pleasant 74-year-old female with a past medical history of hypertension tracheostomy status post reversal (50 years ago) and chronic back pain status postsurgical procedures. She presented to the emergency department with a chief complaint of chest pain. Patient reports awakening this morning with pain to her left anterior chest radiating into her back and left shoulder. She reports the pain was intense and pressure-like. She reports she woke up and took a couple Tums thinking maybe it was some reflux but states she received no improvement and was persistent so her daughter brought her to the emergency department for evaluation. She reports she has experienced pain similar to this in the past but states it typically goes away after a couple of minutes, but states this time it was persistent and lasted greater than an hour prior to resolving. In addition patient reports exertional shortness of breath, fatigue, abdominal bloating, and constipation. She denies having any fevers, chills, diaphoresis, headache, lightheadedness, dizziness, palpitations, cough or congestion, nausea, vomiting, or experiencing any numbness/tingling/weakness/swelling in her extremities. Upon arrival to our facility, patient underwent evaluation in the emergency department. Vital signs upon arrival show blood pressure 154/93, heart rate 105, respiratory rate 20, temp 97.5 F, and SpO2 of 92% on room air. EKG was completed showing sinus tachycardia at 102 bpm with no significant T wave or ST abnormalities upon personal review and interpretation. Chest x-ray completed negative for acute cardiopulmonary process. Labs completed and reviewed. CBC unremarkable. Coagulation profile showing an elevated D-dimer of 1.06. BMP showing hypercarbia with bicarb of 31 and mild prerenal azotemia with BUN of 25. Blood glucose 114. Magnesium 2.0. Liver profile unremarkable. Troponin was negative at less than 0.012. proBNP 52. CTA chest completed negative for pulmonary emboli showing a couple of pulmonary nodules measuring up to 4 mm and a moderate sized hiatal hernia. Patient admitted under our services with consultation to cardiology and general surgery. Troponins were trended resulting at less than 0.012, 0.021, 0.057 and patient was started on low intensity heparin infusion for treatment of NSTEMI. Cardiology evaluated and planning to take patient for cardiac catheterization later today. Physical exam: Patient seen and fully evaluated at bedside this morning. She reports having a persistent headache this morning. She denies any further episodes of chest pa in/pressure but states feeling a soft ache to left anterior chest and her left shoulder remaining. She denies having any dizziness/lightheadedness, shortness of breath, palpitations, or any other complaints at this time. Vital signs reviewed and stable. General: Nontoxic, no distress and appears stated age. Derm: Skin warm and dry, normal coloration for ethnicity. Head: Atraumatic, normocephalic and symmetric. Eyes: EOM's intact, no lid lag, and anicteric sclera Mouth: no lip lesions, mucus membranes moist Cardiovascular: regular rate and rhythm with normal S1S2, no murmur, positive posterior tibial pulses bilaterally, and cap refill < 2 seconds. Lungs: Respirations even, regular, and unlabored on room air. Lungs CTA bilaterally, no rhonchi, no rales, no wheezing, and no accessory muscle usage. Abdominal: soft, nontender to palpation, no guarding, no appreciable organomegaly Ext: ROM intact. No gross muscle atrophy, no edema, no contractures Neuro: Speech clear, face symmetrical and CN II-XII grossly intact with no noted focal neuro deficits Psych: Alert and oriented to person, place, time, and situation. Appropriate and pleasant affect. Assessment and Plan of Care: NSTEMI Hypertension Elevated D-dimer, CTA negative for PE -Cardiology consulted, planning to take patient for cardiac catheterization later today. -Continue low intensity heparin infusion for treatment of NSTEMI with close monitoring of PTT every 6 hours for goal therapeutic range of 45 to 79 seconds. PTT currently subtherapeutic at 44.0. -Telemetry monitoring -Troponins were trended resulting at less than 0.012, 0.021, 0.057 -Aspirin 81 mg daily, atorvastatin 40 mg nightly, metoprolol 25 mg daily. -Sublingual nitroglycerin 0.4 mg every 5 minutes as needed for chest pain. -Lipid profile with a.m. labs. -Echocardiogram Abdominal bloating and constipation Moderate sized hiatal hernia -KUB negative for acute process showing nonspecific abdomen with nonspecific bowel gas pattern. -Consult placed to general surgery for evaluation and possible recommendations. -Continue MiraLAX 17 g nightly. Chronic back pain -Continue home medication regimen with oxycodone 30 mg p.o. 3 times daily as needed for moderate to severe pain. Pulmonary nodules -Patient will require outpatient follow-up with repeat imaging for surveillance. Data and imaging reviewed: Troponins were trended resulting at less than 0.012, 0.021, 0.057. Morning labs showing CBC unremarkable. Coagulation profile showing PTT subtherapeutic at 44.0. BMP showing hypercarbia with bicarb of 33 and mild prerenal azotemia with BUN of 21. Blood glucose 127. Magnesium 2.2. Liver profile unremarkable. Lipid profile pending. Vital signs reviewed. Blood pressure 135/82, heart rate 71, respiratory rate 19, temp 98.4 F, and SpO2 of 94% on 2 L. CODE STATUS: Full code DVT prophylaxis: Heparin infusion Anticipated discharge date: Pending clinical course Anticipated discharge place: Pending clinical course Patient was seen independently by Nurse Practitioner. This document was prepared using [employer] dictation software. Please allow for errors in chinese language professor while rare they do occur. Smith Peter NP rendered care for this patient independently, reviewed the findings and plan as documented in the note above and agree with plan. I did not physically speak with or examine the patient on this date. Objective - Vital Signs Vital signs: Vital Signs Temp 98 F 06/11/24 05:19 Pulse 93 06/11/24 08:37 Resp 16 06/11/24 07:46 BP 128/73 06/11/24 08:37 Pulse Ox 94 L 06/11/24 08:37 FiO2 Intake & Output 06/10/24 06/11/24 06/11/24 18:59 06:59 18:59 Intake Total 61.689 Balance 61.689 Weight 72.575 kg Intake: Intake, IV Titration 61.689 Amount Heparin Sod,Pork in 0.45% 61.689 NaCl 25,000 unit In 0.45 % NaCl 1 250ml.bag @ 12 UNITS/KG/HR 8.709 mls/hr IV .Q24H [facility] Rx#: [id number] - Labs CBC & Chem 7: 06/11/24 14:53 06/11/24 14:53 Labs: Abnormal Lab Results - Last 24 Hours (Table) 06/10/24 06/10/24 06/10/24 Range/Units 10:52 10:52 16:48 APTT (22.0-30.0) sec D-Dimer 1.06 H (<0.60) mg/L FEU Carbon Dioxide 31 H (22-30) mmol/L BUN 25 H (7-17) mg/dL Glucose 114 H (74-99) mg/dL Troponin I 0.057 H* (0.000-0.034) ng/mL 06/10/24 06/11/24 06/11/24 Range/Units 19:10 02:01 02:31 APTT 44.0 H (22.0-30.0) sec D-Dimer (<0.60) mg/L FEU Carbon Dioxide 33 H (22-30) mmol/L BUN 21 H (7-17) mg/dL Glucose 127 H (74-99) mg/dL Troponin I 0.050 H* (0.000-0.034) ng/mL
[2024-06-11] MEDS: SODIUM CHLORIDE 0.9% 1,000 ML IV SCH (17:30)
[2024-06-11] MEDS: SENNOSIDES 8.6 MG TAB PO PRN (20:23)
[2024-06-11] MEDS: HEPARIN SODIUM 1,000 UN/ML (10ML VL) IV PRN (23:29)
[2024-06-12] MEDS: PANTOPRAZOLE 40 MG/10 ML VIAL IVP SCH (08:26)
[2024-06-12 09:33] LABS: INR 0.9 (<1.2); Prothrombin Time 10.4 sec (10.0-12.5)
[2024-06-12 09:42] LABS: Basophils % (A) 1 %; Eosinophils # (A) 0.2 k/uL (0-0.7); Eosinophils % (A) 4 %; HCT 39.9 % (34.0-46.0); HGB 12.8 gm/dL (11.4-16.0); Lymphocytes # (A) 2.1 k/uL (1.0-4.8); Lymphocytes % (A) 41 %; MCH 31.4 pg (25.0-35.0); MCHC 32.1 g/dL (31.0-37.0); MCV 97.8 fL (80.0-100.0); Mean Platelet Volume 7.4; Monocytes # (A) 0.4 k/uL (0-1.0); Monocytes % (A) 7 %; Neutrophils # (A) 2.4 k/uL (1.3-7.7); Neutrophils % (A) 46 %; Platelet Count 271 k/uL (150-450); RBC 4.08 m/uL (3.80-5.40); RDW 13.1 % (11.5-15.5); WBC 5.2 k/uL (3.8-10.6)
[2024-06-12 10:09] LABS: African American GFR (CKD) 61 (>60 ml/min/1.73 sqM); Albumin 3.6 g/dL (3.5-5.0); Carbon Dioxide 36 mmol/L (22-30); Non-African American GFR(CKD) 53 (>60 ml/min/1.73 sqM)
--- NOTE | 2024-06-12 10:18 | US ---
EXAMINATION TYPE: US vein mapping BILAT DATE OF EXAM: 06/12/2024 9:42 AM COMPARISON: NONE CLINICAL INDICATION: Female, 74 years old with history of PreOp Cardiac Surgery; , Preop- Cardiac Dorota shell TECHNIQUE: Grayscale and color Doppler imaging of the lower extremity venous system. SIDE PERFORMED: Bilateral FINDINGS: DUPLEX FINDINGS: Greater Saphenous: Color flow seen Measurements in mm: Right Greater Saphenous: Groin: 5.4 x 6.7 mm High Thigh: 3.2 x 3.8 mm Mid Thigh: 3.2 x 3.3 mm Above Knee: 3.2 x 3.5 mm Knee: 3.2 x 3.4 mm Below Knee: 2.3 x 2.1 mm Mid Calf: 1.9 x 2.2 mm At Ankle: 2.2 x 1.8 mm Left Greater Saphenous: Groin: 5.2 x 5.8 mm High Thigh: 3.4 x 3.7 mm Mid Thigh: 2.5 x 2.9 mm Above Knee: 3.2 x 3.9 mm Knee: 1.7 x 2.4 mm Below Knee: 2.9 x 3.1 mm Mid Calf: 2.2 x 2.2 mm At Ankle: 2.4 x 3.1 mm IMPRESSION: 1. No evidence for occlusion. 2. GSV measurements listed above. 3. Performing surgeon to determine viability as conduit. [facility], , 06/12/2024 10:16 AM
--- NOTE | 2024-06-12 10:19 | US ---
EXAMINATION TYPE: Pre-Operative Non-Invasive Evaluation of the hand for Potential Radial Artery Todd smith, Measurements only DATE OF EXAM: 06/12/2024 9:42 AM CLINICAL INDICATION: Female, 74 years old with history of Pre-Op Cardiac Surgery;, Preop- Cardiac Dorota shell TECHNIQUE:Grayscale and color Doppler imaging of the radial artery(s) SIDE PERFORMED: Left FINDINGS: Dominant hand: Right Duplex Findings: Radial Artery: Color flow seen Measurements in mm, transverse view: Left Radial: Proximal: 1.9 x 1.9mm Mid: 1.8 x 1.7mm Distal: 1.8 x 2.2mm IMPRESSION: 1. No evidence for vascular occlusion. 2. Measurements as described above. [facility], , 06/12/2024 10:16 AM
--- NOTE | 2024-06-12 10:20 | US ---
EXAMINATION TYPE: US carotid duplex BILAT DATE OF EXAM: 06/12/2024 COMPARISON: NONE CLINICAL INDICATION: Female, 74 years old with history of Pre-Op Cardiac Surgery; precabg Additional History: .... TECHNIQUE: Grayscale, color Doppler and spectral Doppler evaluation of the bilateral carotid systems and vertebral arteries. Indirect Doppler criteria was utilized. FINDINGS: EXAM MEASUREMENTS: RIGHT: Peak Systolic Velocity (PSV) cm/sec ----- Right CCA: 139.0 ----- Right ICA: 85.5 ----- Right ECA: 110.0 ICA/CCA ratio: 0.6 RIGHT: End Diastole cm/sec ----- Right CCA: 27.2 ----- Right ICA: 24.7 ----- Right ECA: 6.9 LEFT: Peak Systolic Velocity (PSV) cm/sec ----- Left CCA: 94.8 ----- Left ICA: 92.2 ----- Left ECA: 119.0 ICA/CCA ratio: 1.0 LEFT: End Diastole cm/sec ----- Left CCA: 26.6 ----- Left ICA: 16.2 ----- Left ECA: 9.7 VERTEBRALS (direction of flow): Right Vertebral: Antegrade Left Vertebral: Antegrade Rhythm: Normal EELER NOTES: Mild homogeneous plaque with no stenosis seen Color Doppler imaging shows patency with blood flow throughout the carotid artery. Spectral waveforms are within normal limits. IMPRESSION: Right: No hemodynamically significant stenosis. Left: No hemodynamically significant stenosis. Criteria for Assigning % of Stenosis / Diameter reduction (Estimation based on the indirect measurements of the internal carotid artery velocities (ICA PSV). 1. Normal (no stenosis)=ICA PSV < 125 cm/s: ratio < 2.0: ICA EDV<40 cm/s. 2. Less than 50% stenosis=ICA PSV < 125 cm/s: ratio < 2.0: ICA EDV<40 cm/s. 3. 50 to 69% stenosis=ICA PSV of 125 to 230 cm/s: ration 2.0 ? 4.0: ICA EDV 40-100 cm/s. 4. Greater than 70% stenosis to near occlusion= ICA PSV > 230 cm/s: ratio > 4.0: ICA EDV > 100 cm/s. 5. Near occlusion= ICA PSV velocities may be low or undetectable: variable ratio and ICA EDV. 6. Total occlusion=unable to detect flow. [facility], , 06/12/2024 10:17 AM
--- NOTE | 2024-06-12 10:52 | US ---
EXAMINATION TYPE: US arterial LE single level DATE OF EXAM: 06/12/2024 10:23 AM COMPARISONS: None. CLINICAL INDICATION: Female, 74 years old with history of Ankle Brachial Index (VIKASH) ; precabg TECHNIQUE: Systolic pressures were taken of the upper and lower extremity arteries with ankle-brachia l indices and toe brachial indices calculated bilaterally. FINDINGS: Doppler Waveforms: Right: Multiphasic Left: Multiphasic Brachial Artery systolic pressure: Right: not done, radial cath Left: 133 Posterior Tibial artery systolic pressure: Right: 172 Left: 161 Dorsalis Pedis artery systolic pressure: Right: 129 Left: 139 Ankle-Brachial Indices: Right: 1.29 Left: 1.21 IMPRESSION: VIKASH: Right: Normal 0.9 - 1.4, Recommendation: None Left: Normal 0.9 - 1.4, Recommendation: None [facility], , 06/12/2024 10:50 AM
[2024-06-12 11:33] LABS: ALT 13 U/L (4-34); AST 17 U/L (14-36); Alkaline Phosphatase 86 U/L (38-126); Anion Gap 3 mmol/L; Blood Urea Nitrogen 23 mg/dL (7-17); Chloride 102 mmol/L (98-107); Glucose 143 mg/dL (74-99); Magnesium 2.3 mg/dL (1.6-2.3); Potassium 4.3 mmol/L (3.5-5.1); Sodium 141 mmol/L (137-145); Total Bilirubin 0.2 mg/dL (0.2-1.3)
--- NOTE | 2024-06-12 11:35 | P.GSCN ---
History of Present Illness Consult date: 06/12/24 Reason for Consult: Multivessel coronary artery disease, non-ST elevated myocardial infarction this admission Requesting physician: Janet Segal History of present illness: This is a 74-year-old female patient who does not follow with a primary care physician on a regular basis. Her family present at the bedside says she has not seen a doctor in about 20 years. She has a past medical history significant for hypertension, tracheostomy, status post reversal 50 years ago, reports she had the tracheostomy for about 10 years, chronic back pain, dropfoot to her right foot, constipation, dysphagia, depression and is a lifetime non-smoker. She presented to the emergency department here at [facility] on June 10, 2024 with complaints of chest pain radiating to her left shoulder and left arm, she also complained of some abdominal discomfort and bloating. She denies any complaints of nausea, vomiting, diarrhea, diaphoresis, shortness of breath, headache, visual disturbances, palpitations, presyncope or syncope. The patient states that she took couple of Tums and a candycane thinking it may be gas pain. There is no relief with the pain after the Tums or candycane, the pain was present for about an hour and she decided to present to the emergency department for further evaluation and treatment recommendations. The patient reports she has been having episodes of chest pain off and on for the past year. A twelve-lead EKG was completed which showed sinus tachycardia with nonspecific T wave abnormality with a heart rate of 102 bpm. Initial laboratory results showed a WBC count of 7.1, hemoglobin 14.3, hematocrit 43.9, platelets 312, PT 10.1, INR 0.9, PTT 22.1, D-dimer 1.06, sodium 139, potassium 4.3, chloride 102, CO2 31, BUN 25, creatinine 0.89, glucose 114, calcium 9.2, magnesium 2.0, AST 19, ALT 15, proBNP 52 and serial troponins were as high as 0.057. Due to the patient's elevated D-dimer and presenting symptoms a CTA of the chest was completed which showed no evidence of pulmonary embolism, a couple of pulmonary nodules measuring up to 4 mm, and a moderate-sized hiatal hernia. A chest x-ray was also completed which showed no acute pulmonary process. Cardiology was consulted due to her presenting symptoms and elevated troponins, and the patient underwent a transthoracic 2D echocardiogram which demonstrated a left ventricular ejection fraction estimated at 55 to 60%, normal left ventricular systolic function with no obvious wall motion abnormalities, mild mitral valve regurgitation, trace aortic valve regurgitation, mild tricuspid valve regurgitation, trace pulmonic valve regurgitation, and no pericardial or pleural effusion. Dr. Segal from cardiology met with the patient and recommended a cardiac catheterization which was completed yesterday June 11, 2024. The cardiac catheterization revealed triple-vessel coronary artery disease with a totally occluded LAD proximally with very slow antegrade and retrograde filling of the LAD and the diagonal branch, collaterals from the septal senior reactor operator from the right coronary artery and through the obtuse marginal coronary artery. It also demonstrated a 90% stenosis to the first obtuse marginal coronary artery, a 95% stenosis to the left posterior descending coronary artery, and a 60 to 70% stenosis to the left circumflex coronary artery, and her right coronary artery showed a 90% stenosis to her mid right coronary artery. Subsequently due to the findings on the cardiac catheterization films a consult was placed to Dr. Meadows from cardiothoracic surgery for further evaluation and treatment recommendations including myocardial revascularization surgery. Review of Systems A review of systems was completed and was negative except as mentioned in the HPI. 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 History of Any Multi-Drug Resistant Organisms: None Reported Past Surgical History: Back Surgery, Orthopedic Surgery (Right leg surgery) Additional Past Surgical History / Comment(s): trachea surgery Past Anesthesia/Blood Transfusion Reactions: No Reported Reaction Past Psychological History: Depression Smoking Status: Never smoker Past Alcohol Use History: None Reported Past Drug Use History: None Reported - Past Family History Father Family Medical History: Cancer, Dementia Mother Additional Family Medical History / Comment(s): Gastrointestinal issues Medications and Allergies Home Medications Medication Instructions Recorded Confirmed Type DULoxetine HCL [Cymbalta] 60 mg PO BID 06/10/24 06/10/24 History HYDROcodone/APAP 10-325MG [[place] 1 tab PO TID PRN 06/10/24 06/10/24 History 10-325] Metoprolol Tartrate [Lopressor] 25 mg PO DAILY 06/10/24 06/10/24 History oxyCODONE HCL [OxyCONTIN] 30 mg PO TID PRN 06/10/24 06/10/24 History traZODone HCL [Desyrel] 200 mg PO HS 06/10/24 06/10/24 History Allergies Allergy/AdvReac Type Severity Reaction Status Date / Time lorazepam [From Ativan] Allergy Unknown Verified 06/10/24 12:35 Surgical - Exam Vital Signs Temp Pulse Resp BP Pulse Ox 97.5 F L 105 H 20 154/93 92 L 06/10/24 10:28 06/10/24 10:28 06/10/24 10:28 06/10/24 10:28 06/10/24 10:28 - General well developed, well nourished, no distress, no pain - Eyes PERRL, normal ocular movement, no pale, no icteric - ENT normal pinna, normal nares, normal mucosa, no hearing loss, no congestion, den tures - Neck Neck is supple, no lymphadenopathy. no masses, no bruits, trachea midline, no venous distension - Respiratory Lung sounds essentially clear throughout. No wheezes, rhonchi or crackles. Respirations are symmetrical and nonlabored. - Cardiovascular Regular rhythm and rate. S1 and S2 present, negative for S3, gallop or murmur. No peripheral edema. - Abdomen Abdomen is soft, nontender and nondistended. Active bowel sounds present all 4 abdominal quadrants. No guarding or rigidity. No organomegaly appreciated. - Genitourinary Deferred - Rectum Deferred - Integumentary Skin is warm and dry. No clubbing or cyanosis is present. no rash, no growths, no abnormal pigmentation - Neurologic No focal deficits. - Musculoskeletal Moves all 4 extremities with equal strength bilateral, chronic dropfoot to her right foot. - Psychiatric oriented to time, oriented to person, oriented to place, speech is normal, memory intact Results - Labs 06/12/24 08:36 06/12/24 08:36 Abnormal Lab Results - Last 24 Hours (Table) 06/11/24 06/11/24 Range/Units 02:31 14:53 APTT 85.6 H (22.0-30.0) sec Cholesterol 219.00 H (0.00-200.00) mg/dL LDL Cholesterol, Calc 137.7 H (0.0-131.0) mg/dL Diabetes panel 06/11/24 06/11/24 Range/Units 02:31 14:53 Sodium 138 (137-145) mmol/L Potassium 4.6 (3.5-5.1) mmol/L Chloride 100 (98-107) mmol/L Carbon Dioxide 30 (22-30) mmol/L BUN 17 (7-17) mg/dL Creatinine 0.87 (0.52-1.04) mg/dL Glucose 97 (74-99) mg/dL Calcium 9.0 (8.4-10.2) mg/dL Triglycerides 115.00 (0.00-149.00) mg/dL HDL Cholesterol 58.30 (40.00-60.00) mg/dL Calcium panel 06/11/24 Range/Units 14:53 Calcium 9.0 (8.4-10.2) mg/dL Pituitary panel 06/11/24 Range/Units 14:53 Sodium 138 (137-145) mmol/L Potassium 4.6 (3.5-5.1) mmol/L Chloride 100 (98-107) mmol/L Carbon Dioxide 30 (22-30) mmol/L BUN 17 (7-17) mg/dL Creatinine 0.87 (0.52-1.04) mg/dL Glucose 97 (74-99) mg/dL Calcium 9.0 (8.4-10.2) mg/dL Adrenal panel 06/11/24 Range/Units 14:53 Sodium 138 (137-145) mmol/L Potassium 4.6 (3.5-5.1) mmol/L Chloride 100 (98-107) mmol/L Carbon Dioxide 30 (22-30) mmol/L BUN 17 (7-17) mg/dL Creatinine 0.87 (0.52-1.04) mg/dL Glucose 97 (74-99) mg/dL Calcium 9.0 (8.4-10.2) mg/dL - Imaging Chest x-ray: report reviewed, image reviewed CT scan - chest: report reviewed, image reviewed EKG: image reviewed Additional studies: Transthoracic 2D echocardiogram results and cardiac catheterization films results reviewed. Assessment and Plan Assessment: Multivessel coronary artery disease Non-ST elevated myocardial infarction this admission Hypertension Chronic back pain Chronic dropfoot, right foot Depression, recent loss of her History of tracheostomy with reversal 50 years ago, had trach for 10 years History of dysphagia Moderate-sized hiatal hernia on CT scan Lifetime non-smoker Plan: The patient was seen and examined at her bedside on the third floor cardiac stepdown unit. She has 3 family members present at her bedside. Her chart and diagnostics were reviewed. Her case was discussed in detail with Dr. Power Meadows from cardiothoracic surgery. At this time the patient is unsure whether she wants to proceed with myocardial revascularization surgery if she is deemed a surgical candidate. The usual course of myocardial vascularization surgery was discussed with the patient and her family members present at her bedside. She i s willing to undergo preoperative workup, preoperative teaching and preoperative testing has been initiated. A clinical frailty score has been calculated, her score equaling 3. A 5 m walk test has been completed with the patient, the patient tolerated well and used a cane during the walk test time 1: 6.50 seconds, time 2: 7.66 seconds, time 3: 6.88 seconds. The patient uses a cane with ambulating. Once her preoperative testing has been completed and results obtained an STS risk or will be calculated and discussed with the patient. Medical management of other comorbidities per internal medicine, and cardiology services. Continue to maximize medical management with aspirin, statin and be ta-jason. Heparin drip management per cardiology recommendations. More recommendations to follow based on patient's clinical course and has her preoperative testing has been obtained. Thank you Dr. Segal for this consult and we look forward to working with you in the care of this patient. I have personally seen and examined the patient, performed the documentation and the assessment and plan as written. Number of minutes spent on the visit: 30. ROYA Fisher. The patient was seen and examined. Cardiac cath reveals multi-vessel CAD with CENTRIFUGAL EXTRACTOR OPERATOR of proximal LAD and faint distal filling via collaterals. Echo reveals preserved EF with mild valvular pathology. We have started to obtain pre- operative workup. She has a history of some sort of airway surgery 40 years ago for which she had a tracheostomy. Her FEV1 is 40% and she is overall inactive and frail-appearing. At this point, the patient is unsure whether she wants surgery and would like to discuss her options with her family. She is currently hemodynamically stable and chest pain free. Additional recommendations will follow pending completion of her workup. I have personally seen and examined the patient, reviewed the documentation and the assessment and plan as written. Number of minutes spent on the visit: 45. Power Meadows M.D.
[2024-06-12 12:58] LABS: Hepatitis A Antibody IgM Nonreactive (Nonreactive); Hepatitis B Core IgM Nonreactive (Nonreactive); Hepatitis B Surface Antigen Nonreactive (Nonreactive); Hepatitis C IgG Antibody Nonreactive (Nonreactive)
[2024-06-12] MEDS: ALPRAZolam 0.25 MG TAB PO PRN (13:11)
--- NOTE | 2024-06-12 13:23 | P.PN ---
Subjective HISTORY OF PRESENT ILLNESS: This is a 74-year-old female with a past medical history significant for hypertension. Patient does not follow with a drop wire builder. Patient does report she has not followed with a primary care physician in 20 to 30 years. we have been asked to see the patient in consultation for chest pain. Patient examined at the bedside in the emergency room. Patient states she has been having chest pain on and off for the past month. She states the episodes usually last about 10 minutes and then will resolve on their own or with peppermint candy. She states that the pain is usually in the middle of her chest and then will radiate into her left shoulder and arm. She does report feeling short of breath with these episodes. She states she had another episode of chest discomfort yesterday but this episode lasted for about an hour which concerned her so she came to the emergency room for further evaluation. She does report having another episode since coming to the hospital. She received Nitropaste which improved her chest pain. DIAGNOSTICS: - EKG reveals sinus mechanism with T wave inversions in V3V4. - Chest xray negative for acute process - Chest CTA: Negative for pulmonary embolism. A couple of pulmonary nodules measuring up to 4 mm. Trace pericardial effusion. Moderate coronary artery calcifications. - Laboratory data: WBC 5.4. Hemoglobin 12.3. Platelet count 281. Sodium 137. Potassium 4.0. BUN 21. Creatinine 0.91. Troponin 0.012. 0.021. 0.057. 0.050. - Current home cardiac medications include metoprolol 25 mg daily -No previous echocardiogram, stress test, or cardiac catheterization available in EMR for review 06/12/2024 Patient underwent cardiac catheterization yesterday with Dr. Segal revealing calcified left main and LAD, totally occluded proximal LAD with collaterals noted ipsilateral and contralateral, significant disease in the left circumflex, OM1, and left PLV, and significant disease in the mid codominant RCA. CT surgery has been consulted for evaluation of coronary artery bypass grafting. She is to be evaluated by the surgeon today. Patient currently remains on IV heparin. She denies chest pain or pressure. She denies shortness of breath. Vital signs are stable. Echocardiogram completed revealing ejection fraction 55 to 60% with mild tricuspid regurgitation PHYSICAL EXAM: VITAL SIGNS: Reviewed. GENERAL: Well-developed in no acute distress. HEENT: Head is normocephalic. Pupils are equal, round. Sclerae anicteric. Mucous membranes of the mouth are moist. Neck supple. No JVD or thyromegaly LUNGS: Respirations even and unlabored. Lungs essentially clear to auscultation bilaterally. HEART: Regular rate and rhythm. S1 and S2 heard. ABDOMEN: Soft. Nondistended. Nontender. EXTREMITIES: Normal range of motion. No clubbing or cyanosis. Peripheral pulses intact. No lower extremity edema NEUROLOGIC: Awake and alert. Oriented x 3. ASSESSMENT: Chest pain Non-STEMI, status post cardiac catheterization revealing multivessel coronary artery disease Hypertension Hyperlipidemia, LDL 137 Moderate sized hiatal hernia Pulmonary nodules noted on CTA History of rheumatic fever as a child PLAN: Continue IV heparin Continue high intensity statin Continue aspirin aspirin and metoprolol Continue telemetry monitoring CT surgery consulted for CABG evaluation. Await further input and recommendations Further recommendations pending patient course Nurse practitioner note has been reviewed by physician. Signing provider agrees with the documented findings, assessment, and plan of care documented by CLAIM CLINICIAN as a scribe. Objective - Vital Signs Vital signs: Vital Signs Temp 98.1 F 06/12/24 08:00 Pulse 70 06/12/24 11:09 Resp 18 06/12/24 11:09 BP 137/80 06/12/24 11:09 Pulse Ox 91 L 06/12/24 11:09 FiO2 Intake & Output 06/11/24 06/12/24 06/12/24 18:59 06:59 18:59 Intake Total 200 61.108 388.231 Balance 200 61.108 388.231 Weight 72.575 kg 68.6 kg Intake: IV 200 Intake, IV Titration 61.108 148.231 Amount Heparin Sod,Pork in 0.45% 61.108 148.231 NaCl 25,000 unit In 0.45 % NaCl 1 250ml.bag @ 12 UNITS/KG/HR 8.709 mls/hr IV .Q24H ASIF Rx#: [id number] Oral 240 Other: Voiding Method Toilet Toilet # Voids 1 1 - Labs CBC & Chem 7: 06/12/24 08:36 06/12/24 08:36 Labs: Abnormal Lab Results - Last 24 Hours (Table) 06/11/24 06/12/24 06/12/24 Range/Units 14:53 08:36 08:36 APTT 85.6 H 98.6 H (22.0-30.0) sec Carbon Dioxide 36 H (22-30) mmol/L BUN 23 H (7-17) mg/dL Glucose 143 H (74-99) mg/dL Total Protein 6.0 L (6.3-8.2) g/dL
--- NOTE | 2024-06-12 14:07 | P.PN ---
Subjective Progress Note Date: 06/12/24 Hospital course: Patient is a very pleasant 74-year-old female with a past medical history of hypertension tracheostomy status post reversal (50 years ago) and chronic back pain status postsurgical procedures. She presented to the emergency department with a chief complaint of chest pain. Patient reports awakening this morning with pain to her left anterior chest radiating into her back and left shoulder. She reports the pain was intense and pressure-like. She reports she woke up and took a couple Tums thinking maybe it was some reflux but states she received no improvement and was persistent so her daughter brought her to the emergency department for evaluation. She reports she has experienced pain similar to this in the past but states it typically goes away after a couple of minutes, but states this time it was persistent and lasted greater than an hour prior to resolving. In addition patient reports exertional shortness of breath, fatigue, abdominal bloating, and constipation. She denies having any fevers, chills, diaphoresis, headache, lightheadedness, dizziness, palpitations, cough or congestion, nausea, vomiting, or experiencing any numbness/tingling/weakness/swelling in her extremities. Upon arrival to our facility, patient underwent evaluation in the emergency department. Vital signs upon arrival show blood pressure 154/93, heart rate 105, respiratory rate 20, temp 97.5 F, and SpO2 of 92% on room air. EKG was completed showing sinus tachycardia at 102 bpm with no significant T wave or ST abnormalities upon personal review and interpretation. Chest x-ray completed negative for acute cardiopulmonary process. Labs completed and reviewed. CBC unremarkable. Coagulation profile showing an elevated D-dimer of 1.06. BMP showing hypercarbia with bicarb of 31 and mild prerenal azotemia with BUN of 25. Blood glucose 114. Magnesium 2.0. Liver profile unremarkable. Troponin was negative at less than 0.012. proBNP 52. CTA chest completed negative for pulmonary emboli showing a couple of pulmonary nodules measuring up to 4 mm and a moderate sized hiatal hernia. Patient admitted under our services with consultation to cardiology and general surgery. Troponins were trended resulting at less than 0.012, 0.021, 0.057 and patient was started on low intensity heparin infusion for treatment of NSTEMI. Cardiology evaluated and planning to take patient for cardiac catheterization later today. Physical exam: Patient seen and fully evaluated at bedside this morning. She was visiting with family at bedside. She denies any further episodes of headache. She currently denies any further episodes of chest pain or discomfort at this time. Patient expresses that she is undecided on whether or not she wants to go through with CABG as recommended. Patient reports once preoperative testing is completed she will discuss further with cardiothoracic surgeon and make her decision then. Vital signs reviewed and stable. General: Nontoxic, no distress and appears stated age. Derm: Skin warm and dry, normal coloration for ethnicity. Head: Atraumatic, normocephalic and symmetric. Eyes: EOM's intact, no lid lag, and anicteric sclera Mouth: no lip lesions, mucus membranes moist Cardiovascular: regular rate and rhythm with normal S1S2, no murmur, positive posterior tibial pulses bilaterally, and cap refill < 2 seconds. Lungs: Respirations even, regular, and unlabored on room air. Lungs CTA bilaterally, no rhonchi, no rales, no wheezing, and no accessory muscle usage. Abdominal: soft, nontender to palpation, no guarding, no appreciable organomegaly Ext: ROM intact. No gross muscle atrophy, no edema, no contractures Neuro: Speech clear, face symmetrical and CN II-XII grossly intact with no noted focal neuro deficits Psych: Alert and oriented to person, place, time, and situation. Appropriate and pleasant affect. Assessment and Plan of Care: NSTEMI Hypertension Elevated D-dimer, CTA negative for PE -Cardiology following and took patient for cardiac catheterization on 06/11/24. Revealing severe triple-vessel disease recommending evaluation for CABG. -CardiothoracicThoracic surgery following, patient undergoing evaluation for CABG. Discussed plan of care in detail with cardiothoracic HIDE CURER. -Continue low intensity heparin infusion with close monitoring of PTT every 6 hours for goal therapeutic range of 45 to 79 seconds. PTT currently supratherapeutic at 98.6. -Telemetry monitoring -Aspirin 81 mg daily, atorvastatin 80 mg nightly, and metoprolol 25 mg twice daily. -Sublingual nitroglycerin 0.4 mg every 5 minutes as needed for chest pain. -Lipid profile revealed elevated total cholesterol of 219.00 and LDL of 137.7. -Echocardiogram revealing a preserved EF of 55 to 60% with mild mitral and tricuspid regurgitation and no evidence of pulmonary hypertension. Abdominal bloating and constipation Moderate sized hiatal hernia -KUB negative for acute process showing nonspecific abdomen with nonspecific bowel gas pattern. -Consult placed to general surgery for evaluation and possible recommendations. -Continue MiraLAX 17 g nightly. Chronic back pain -Continue home medication regimen with oxycodone 30 mg p.o. 3 times daily as needed for moderate to severe pain. Pulmonary nodules -Patient will require outpatient follow-up with repeat imaging for surveillance. Data and imaging reviewed: -Labs reviewed. CBC unremarkable. Coagulation profile showing a supratherapeutic PTT of 98.6. BMP showing hypercarbia with bicarb of 36 and mild prerenal azotemia with BUN of 23. Liver profile unremarkable. Magnesium 2.3. TSH 2.060. Lipid profile revealed elevated total cholesterol of 219.00 and LDL of 137.7. -Echocardiogram revealing a preserved EF of 55 to 60% with mild mitral and tr icuspid regurgitation and no evidence of pulmonary hypertension. -Vital signs reviewed. Blood pressure 133/79, heart rate 82, respiratory rate 16, temp 98.1 F, and SpO2 of 91% on room air. CODE STATUS: Full code DVT prophylaxis: Heparin infusion Anticipated discharge date: Pending clinical course Anticipated discharge place: Pending clinical course Patient was seen independently by Nurse Practitioner. This document was prepared using [employer] dictation software. Please allow for errors in hims manager while rare they do occur. Smith Peter NP rendered care for this patient independently, reviewed the findings and plan as documented in the note above and agree with plan. I did not physically speak with or examine the patient on this date. Objective - Vital Signs Vital signs: Vital Signs Temp 97.9 F 06/12/24 03:35 Pulse 67 06/12/24 03:35 Resp 16 06/12/24 03:35 BP 111/56 06/12/24 03:35 Pulse Ox 92 L 06/12/24 03:35 FiO2 Intake & Output 06/11/24 06/12/24 06/12/24 18:59 06:59 18:59 Intake Total 200 61.108 Balance 200 61.108 Weight 72.575 kg 68.6 kg Intake: IV 200 Intake, IV Titration 61.108 Amount Heparin Sod,Pork in 0.45% 61.108 NaCl 25,000 unit In 0.45 % NaCl 1 250ml.bag @ 12 UNITS/KG/HR 8.709 mls/hr IV .Q24H ASIF Rx#: [id number] Other: Voiding Method Toilet # Voids 1 - Labs CBC & Chem 7: 06/12/24 08:36 06/12/24 08:36 Labs: Abnormal Lab Results - Last 24 Hours (Table) 06/11/24 06/11/24 Range/Units 02:31 14:53 APTT 85.6 H (22.0-30.0) sec Cholesterol 219.00 H (0.00-200.00) mg/dL LDL Cholesterol, Calc 137.7 H (0.0-131.0) mg/dL
[2024-06-12 16:01] LABS: Appearance,Urine Clear (Clear); Bilirubin,Urine Negative (Negative); Blood,Urine Negative (Negative); Color,Urine Yellow; Glucose,Urine (UA) Negative (Negative); Ketones,Urine Negative (Negative); Leukocyte Esterase,Urine Small (Negative); Mucus,Urine Occasional /hpf; Nitrite,Urine Negative (Negative); PH, Urine 5.5 (5.0-8.0); Protein,Urine Negative (Negative); RBC,Urine <1 /hpf (0-5); Specific Gravity,Urine 1.023 (1.001-1.035); Squamous Epithelial Cell,Urine 1 /hpf (0-4); Urobilinogen,Urine <2.0 mg/dL (<2.0); WBC,Urine 1 /hpf (0-5)
[2024-06-12] MEDS: MUPIROCIN 2% OINT 22 GM TUBE NASAL SCH (20:24)
[2024-06-12] MEDS: ATORVASTATIN 80 MG TAB PO SCH (20:25)
--- NOTE | 2024-06-13 04:44 | P.CNPUL ---
History of Present Illness Consult date: 06/13/24 Requesting physician: Jimmy Hernandez Reason for consult: other (Preop CABG) Chief complaint: Chest pain History of present illness: Patient is a 74-year-old female with past medical history significant for hypertension, previous tracheostomy that was reversed approximately 50 years ago. States that she has had issues with her breathing after a previous suicide attempt and she spent some time on a mechanical ventilator. She has had multiple neck surgeries at the [facility]. She has not followed up with a primary care provider in some time. She is a lifelong non-smoker. Presented to the emergency department back on June 10 with a chief complaint of chest pain. Chest pain described as substernal intermittent and radiating to her left chest and left arm. Lasts approximately 10 to 15 minutes with exertion. Usually subsides with rest or antacids, however, persistent on June 10, so she called her daughter to take her to the emergency department. Denies any associated nausea, diaphoresis, heart palpitations, lightheadedness/syncopal events. Denies any lower extremity swelling. Was found to have elevated troponins and admitted with non-ST elevation [place]. Heart catheterization done on 06/11/2024 showing multivessel coronary artery disease with a calcified left main and LAD, totally occluded proximal LAD with collaterals, significant disease of involving the left circumflex, OM1, PLV, and significant disease in the mid codominant RCA. With elevated LVEDP. Echocardiogram showing preserved left ventricular ejection fraction of 55 to 60%, with mild mitral and tricuspid regurgitation. A surgical consult was placed. Pulmonary was also consulted for surgical clearance. CBC and CMP unremarkable. Recent APTT therapeutic. Chest CTA did not show any evidence of pulmonary embolism. Couple pulmonary nodules measuring up to 4 mm. Stated above, patient is not a non-smoker. Moderate size hiatal hernia. Bedside spirometry performed demonstrating and FEV1 0.85 L or 41% of predicted. Patient is a lifelong nontobacco smoker. Has no known history of COPD. She is currently sitting up in bed on room air oxygen. Nondistressed. She does have hoarse voice. Remote appearing tracheostomy incisional scar. Patient remains on heparin infusion per protocol. Also nitroglycerin paste ordered. Denies any current chest pain. Current vitals: Temperature 97.1 F, heart rate 62 bpm, blood pressure 100/63 mmHg, nontachypneic, 93% on room air oxygen. Review of Systems Constitutional: Reports fatigue, Denies chills, Denies fever, Denies poor appetite, Denies weight gain, Denies weight loss Ears, nose, mouth and throat: Reports voice changes, Denies dysphagia, Denies epistaxis, Denies headache, Denies nasal congestion, Denies nasal discharge, Denies neck fullness/pressure, Denies odynophagia, Denies post-nasal drip, Denies sinus pain, Denies sinus pressure, Denies sore throat Cardiovascular: Reports as per HPI Respiratory: Denies congestion, Denies cough, Denies cough with sputum, Denies dyspnea, Denies hemoptysis, Denies home oxygen, Denies wheezing Gastrointestinal: Denies abdominal pain, Denies change in bowel habits, Denies diarrhea, Denies heartburn, Denies nausea, Denies vomiting Genitourinary: Denies dysuria Musculoskeletal: Denies limitation of motion Integumentary: Denies rash Neurological: Denies head injury, Denies headaches, Denies seizures, Denies syncope Psychiatric: Reports depression, Denies anxiety, Denies suicidal ideation Past Medical History Past Medical History: Hypertension Additional Past Medical History / Comment(s): 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 History of Any Multi-Drug Resistant Organisms: None Reported Past Surgical History: Back Surgery, Orthopedic Surgery (Right leg surgery) Additional Past Surgical History / Comment(s): trachea surgery Past Anesthesia/Blood Transfusion Reactions: No Reported Reaction Past Psychological History: Depression Smoking Status: Never smoker Past Alcohol Use History: None Reported Past Drug Use History: None Reported - Past Family History Father Family Medical History: Cancer, Dementia Mother Additional Family Medical History / Comment(s): Gastrointestinal issues Medications and Allergies Home Medications Medication Instructions Recorded Confirmed Type DULoxetine HCL [Cymbalta] 60 mg PO BID 06/10/24 06/10/24 History HYDROcodone/APAP 10-325MG [Jasper 1 tab PO TID PRN 06/10/24 06/10/24 History 10-325] Metoprolol Tartrate [Lopressor] 25 mg PO DAILY 06/10/24 06/10/24 History oxyCODONE HCL [OxyCONTIN] 30 mg PO TID PRN 06/10/24 06/10/24 History traZODone HCL [Desyrel] 200 mg PO HS 06/10/24 06/10/24 History Allergies Allergy/AdvReac Type Severity Reaction Status Date / Time lorazepam [From Ativan] Allergy Unknown Verified 06/10/24 12:35 Physical Exam Vitals: Vital Signs Temp Pulse Resp BP Pulse Ox 06/13/24 04:00 97.1 F L 63 18 100/63 91 L 06/12/24 23:32 63 16 99/58 93 L 06/12/24 20:00 98.1 F 66 18 136/68 93 L 06/12/24 19:28 66 18 06/12/24 16:00 97.5 F L 64 18 117/70 92 L 06/12/24 13:35 70 18 06/12/24 11:09 70 18 137/80 91 L 06/12/24 08:00 98.1 F 82 16 133/79 91 L Intake and Output 06/12/24 06/12/24 06/13/24 14:59 22:59 06:59 Intake Total 1011.231 400.661 Balance 1011.231 400.661 Intake: Intake, IV Titration 231.231 40.661 Amount Heparin Sod,Pork in 0.45% 148.231 40.661 NaCl 25,000 unit In 0.45 % NaCl 1 250ml.bag @ 12 UNITS/KG/HR 8.709 mls/hr IV .Q24H ASIF Rx#: [id number] Sodium Chloride 0.9% 1, 83 000 ml In Empty Bag 1 bag @ 1 ML/KG/HR 72.575 mls/ hr IV .[id number] ASIF Rx#: [id number] Oral 780 360 Other: Voiding Method Toilet Toilet Toilet # Voids 1 1 1 GENERAL EXAM: Alert, pleasant 74-year-old white female, sitting up in bed, comfortable in no apparent distress. HEAD: Normocephalic and atraumatic EYES: Normal reaction of pupils, equal size. NOSE: Clear with pink turbinates. THROAT: No erythema or exudates. Voice hoarseness. No stridor NECK: No masses, no JVD. Remote appearing tracheostomy incisional scar. CHEST: No chest wall deformity. LUNGS: Equal air entry with no crackles, wheeze, rhonchi or dullness. On room air. No conversational dyspnea or accessory muscle use.. CVS: S1 and S2 normal with no audible murmur, regular rhythm. No extra heart sounds ABDOMEN: No hepatosplenomegaly, active bowel sounds, no guarding or rigidity. SPINE: No scoliosis or deformity SKIN: No rashes CENTRAL NERVOUS SYSTEM: No focal deficits, tone is normal in all 4 extremities. EXTREMITIES: There is no peripheral edema, clubbing, or cyanosis. Peripheral pulses are intact. Right-sided foot drop Results - Laboratory Findings CBC and BMP: 06/13/24 05:57 06/13/24 05:57 PT/INR, D-dimer PT 10.4 sec (10.0-12.5) 06/12/24 08:36 INR 0.9 (<1.2) 06/12/24 08:36 D-Dimer 1.06 mg/L FEU (<0.60) H 06/10/24 10:52 Abnormal lab findings: Abnormal Labs 06/10/24 06/10/24 06/10/24 10:52 10:52 16:48 APTT D-Dimer 1.06 H Carbon Dioxide 31 H BUN 25 H Glucose 114 H Troponin I 0.057 H* Total Protein Cholesterol LDL Cholesterol, Calc Ur Leukocyte Esterase Urine Mucus 06/10/24 06/11/24 06/11/24 19:10 02:01 02:31 APTT 44.0 H D-Dimer Carbon Dioxide 33 H BUN 21 H Glucose 127 H Troponin I 0.050 H* Total Protein Cholesterol 219.00 H LDL Cholesterol, Calc 137.7 H Ur Leukocyte Esterase Urine Mucus 06/11/24 06/12/24 06/12/24 14:53 08:36 08:36 APTT 85.6 H 98.6 H D-Dimer Carbon Dioxide 36 H BUN 23 H Glucose 143 H Troponin I Total Protein 6.0 L Cholesterol LDL Cholesterol, Calc Ur Leukocyte Esterase Urine Mucus 06/12/24 06/12/24 15:35 19:40 APTT 40.0 H D-Dimer Carbon Dioxide BUN Glucose Troponin I Total Protein Cholesterol LDL Cholesterol, Calc Ur Leukocyte Esterase Small H Urine Mucus Occasional H - Diagnostic Findings Chest x-ray: image reviewed CT scan - chest: image reviewed Assessment and Plan Assessment: Multivessel coronary artery disease; heart catheterization done on 06/11/2024 showing multivessel coronary artery disease with a calcified left main and LAD, totally occluded proximal LAD with collaterals, significant disease of involving the left circumflex, OM1, PLV, and significant disease in the mid codominant RCA. With elevated LVEDP. Patient is being considered for surgical revascularization Non-ST elevation myocardial infarction, currently on IV heparin infusion per protocol History of tracheostomy, with reversal approximately 50 years ago, states she has had multiple neck surgeries FEV1 0.85 L or 41% of predicted. Lifelong non-smoker Hypertension Moderate-sized hiatal hernia, as reported in CT scan Chronic lumbar back pain Plan: Patient's medications, labs, imaging reviewed Patient continues on heparin infusion per cardiology Patient is currently being worked up for possible surgical revascularization, STS score is being calculated Ordered CT without contrast of the upper airway/neck FEV1 0.85 L or 41% of predicted We will continue to follow, additional recommendations to follow. I have personally seen and examined the patient, performed the documentation and the assessment and plan as written. Number of minutes spent on the visit:20 On 06/13/2024, the patient is being seen in joint evaluation along with the nurse practitioner. This evaluation was done more than 30 minutes. Case was also discussed with the nurse practitioner from the cardiothoracic team. The patient is being considered for cardiac bypass surgery as the patient was found to have multivessel coronary artery disease based on a cardiac catheterization that was done on 06/11/2024. The patient is also status post non-ST segment elevation myocardial infarction the patient remains on IV heparin. In terms of her respiratory status, the patient is a lifetime non-smoker. Nevertheless, she has had a previous tracheostomy tube insertion at a young age. The spirometry was done and showed restrictive physiology with an FVC of 45% and FEV1 of 41% of predicted. Based on the flow volume loops, there is no evidence of any upper airway obstruction. CAT scan of the chest and the neck was also noted. The CAT scan of the chest showed no acute abnormalities. CAT scan of the neck showed some midline scarring related to the previous tracheostomy and there is also evidence of tracheal distortion and asymmetric thickening of the left aryepiglottic fold and medial positioning of the left vocal cord. Consider vocal cord dysfunction versus paralysis of the left vocal cord. She has a weak cough. No active stridor. Will discuss the findings with the cardiothoracic team. May be beneficial to do a bronchoscopic upper and lower airway inspection prior to the procedure if the patient is decided to proceed with the surgery. Will continue to follow. P Time with Patient: Greater than 30
[2024-06-13 07:15] LABS: HCT 38.6 % (34.0-46.0); HGB 11.9 gm/dL (11.4-16.0); Hypochromasia Slight; MCH 30.4 pg (25.0-35.0); MCHC 30.8 g/dL (31.0-37.0); MCV 98.6 fL (80.0-100.0); Mean Platelet Volume 6.7; Platelet Count 266 k/uL (150-450); RBC 3.91 m/uL (3.80-5.40); RDW 12.7 % (11.5-15.5); WBC 5.8 k/uL (3.8-10.6)
[2024-06-13 07:40] LABS: ALT 11 U/L (4-34); AST 17 U/L (14-36); African American GFR (CKD) 65 (>60 ml/min/1.73 sqM); Albumin 3.6 g/dL (3.5-5.0); Alkaline Phosphatase 74 U/L (38-126); Anion Gap 3 mmol/L; Blood Urea Nitrogen 19 mg/dL (7-17); Calcium 8.7 mg/dL (8.4-10.2); Carbon Dioxide 34 mmol/L (22-30); Chloride 103 mmol/L (98-107); Glucose 96 mg/dL (74-99); Magnesium 2.4 mg/dL (1.6-2.3); Non-African American GFR(CKD) 57 (>60 ml/min/1.73 sqM); Potassium 4.6 mmol/L (3.5-5.1); Sodium 140 mmol/L (137-145); Total Bilirubin 0.2 mg/dL (0.2-1.3); Total Protein 5.9 g/dL (6.3-8.2)
--- NOTE | 2024-06-13 07:49 | P.PN ---
Progress Note - Text Progress Note Date: 06/12/24 No acute events overnight. General appearance: alert, in no apparent distress Head exam: Present: normocephalic Eye exam: Present: normal appearance Neck exam: Present: normal inspection Respiratory exam: Present: normal lung sounds bilaterally. Absent: chest wall tenderness Cardiovascular Exam: Present: regular rate, normal rhythm, normal heart sounds Expanded Peripheral pulses: 2+: Radial (R), Radial (L), Posterior Tibialis (R), Posterior Tibialis (L) GI/Abdominal exam: Present: soft. Absent: tenderness Extremities exam: Present: normal inspection. Absent: pedal edema, calf tenderness Neurological exam: Present: alert Psychiatric exam: Present: normal affect, normal mood Skin exam: Present: normal color 74 year old female with moderate sized hiatal hernia, dysphagia, and constipation -Patient would benefit from outpatient EGD and colonoscopy -Hiatal Hernia repair discussed extensively with patient and daughter. Instructed to follow up in office and we can discuss in further detail -Ok for Diet from General Surgery perspective -No acute surgical intervention -Recommend PPI Peter Brewster DO [facility] [phone]
--- NOTE | 2024-06-13 09:15 | P.PN ---
Subjective Progress Note Date: 06/13/24 Principal diagnosis: Multivessel coronary artery disease, non-ST elevated myocardial infarction this admission. Past medical history significant for hypertension, tracheostomy aft er a suicide attempt years ago, status post reversal 50 years ago, reports she had the tracheostomy for about 10 years, chronic back pain, dropfoot to her right foot, constipation, dysphagia, depression and is a lifetime non-smoker. The patient was seen and examined in follow-up today June 13, 2024 at her bedside on the third floor cardiac stepdown unit. The patient is currently laying in bed, is awake, alert, oriented x 3 and is in no acute apparent distress. She denies any complaints of shortness of breath, nausea, vomiting, or chest pain/chest pressure. Heparin drip remains infusing per protocol. Oxygen saturations are 91% on room air and she is achieving 1500 mL on her incentive spirometry with encouragement. A bedside FEV1 was completed yesterday which showed a 0.85 L which is a predicted value of 41%. Pulmonary/critical care medicine has been consulted for further evaluation. A CT scan of the neck and chest is pending. An STS risk or has been calculated and discussed with the patient and the patient's daughter present at her bedside. The patient reports she has been up ambulating in the cardiac stepdown unit hallway with standby assistance from nursing staff and family and tolerating well. A clinical frailty score was calculated yesterday which equaled 3. A carotid duplex study was completed yesterday which showed no hemodynamically significant stenosis. Objective - Vital Signs Vital signs: Vital Signs Temp 97.1 F L 06/13/24 04:00 Pulse 63 06/13/24 04:00 Resp 18 06/13/24 04:00 BP 100/63 06/13/24 04:00 Pulse Ox 91 L 06/13/24 04:00 FiO2 Intake & Output 06/12/24 06/13/24 06/13/24 18:59 06:59 18:59 Intake Total 1171.892 240 Balance 1171.892 240 Weight 68.8 kg Intake: Intake, IV Titration 271.892 Amount Heparin Sod,Pork in 0.45% 188.892 NaCl 25,000 unit In 0.45 % NaCl 1 250ml.bag @ 12 UNITS/KG/HR 8.709 mls/hr IV .Q24H [facility] Rx#: [id number] Sodium Chloride 0.9% 1, 83 000 ml In Empty Bag 1 bag @ 1 ML/KG/HR 72.575 mls/ hr IV .[id number] [facility] Rx#: [id number] Oral 900 240 Other: Voiding Method Toilet Toilet # Voids 1 1 - Exam CONSTITUTIONAL: Appears comfortable, cooperative, no apparent acute distress. HEENT: Neck is supple, no JVD, no lymphadenopathy. RESPIRATORY: Lungs sounds essentially clear throughout, diminished to his bilateral bases. Respirations are symmetrical and nonlabored. Currently on room air with oxygen saturations 91%. Able to achieve 1500 mL on her incentive s pirometry. Strong cough. CARDIOVASCULAR: Regular rhythm and rate. S1 and S2 present, negative for S3, gallop or murmur. Sternum is stable. Palpable peripheral pulses bilaterally. No calf pain or tenderness noted. GASTROINTESTINAL: Abdomen soft, nontender, nondistended. Active bowel sounds present 4 quadrants. Tolerating diet. Passing flatus. GENITOURINARY: Continues to void. INTEGUMENTARY: Skin is warm and dry with no evidence of clubbing or cyanosis. NEUROLOGIC: Cranial nerves II through XII intact. No focal deficits. MUSKULOSKELETAL: Able to move all extremities, strength equal bilaterally, chronic dropfoot, right foot. PSYCHIATRIC: Alert and oriented to person place and time, appropriate affect, intact judgment and insight. - Allied health notes Allied health notes reviewed: nursing - Labs CBC & Chem 7: 06/13/24 05:57 06/13/24 05:57 Labs: Abnormal Lab Results - Last 24 Hours (Table) 06/12/24 06/12/24 06/12/24 Range/Units 08:36 08:36 15:35 MCHC (31.0-37.0) g/dL APTT 98.6 H (22.0-30.0) sec Carbon Dioxide 36 H (22-30) mmol/L BUN 23 H (7-17) mg/dL Glucose 143 H (74-99) mg/dL Magnesium (1.6-2.3) mg/dL Total Protein 6.0 L (6.3-8.2) g/dL Ur Leukocyte Esterase Small H (Negative) Urine Mucus Occasional H (None) /hpf 06/12/24 06/13/24 06/13/24 Range/Units 19:40 05:57 05:57 MCHC 30.8 L (31.0-37.0) g/dL APTT 40.0 H (22.0-30.0) sec Carbon Dioxide 34 H (22-30) mmol/L BUN 19 H (7-17) mg/dL Glucose (74-99) mg/dL Magnesium 2.4 H (1.6-2.3) mg/dL Total Protein 5.9 L (6.3-8.2) g/dL Ur Leukocyte Esterase (Negative) Urine Mucus (None) /hpf 06/13/24 Range/Units 05:57 MCHC (31.0-37.0) g/dL APTT 45.1 H (22.0-30.0) sec Carbon Dioxide (22-30) mmol/L BUN (7-17) mg/dL Glucose (74-99) mg/dL Magnesium (1.6-2.3) mg/dL Total Protein (6.3-8.2) g/dL Ur Leukocyte Esterase (Negative) Urine Mucus (None) /hpf Assessment and Plan Assessment: Multivessel coronary artery disease Non-ST elevated myocardial infarction this admission Hypertension Hyperlipidemia, cholesterol 219, LDL 137 Chronic back pain Chronic dropfoot, right foot Depression, recent loss of her History of tracheostomy with reversal 50 years ago, had trach for 10 years, status post suicide attempt History of dysphagia Moderate-sized hiatal hernia on CT scan Lifetime non-smoker Plan: An STS risk or has been calculated and discussed with the patient and her daughter present at her bedside. CT of the chest/neck pending. Pulmonary/critical care medicine consult noted and appreciated. Increase activity as tolerated. Preoperative teaching has been reinforced with the patient. The patient is still unsure whether she would like to proceed with myocardial revascularization surgery, the patient is still wanting time to decide. Encourage use of incentive spirometry 10 times every hour while awake. Continue to maximize medical management with aspirin, statin and beta-jason. Heparin drip management per cardiology recommendations. More recommendations to follow based on patient's clinical course and when the patient makes her decision regarding proceeding with myocardial revascularization surgery. Time with Patient: Greater than 30
--- NOTE | 2024-06-13 09:48 | CT ---
EXAMINATION TYPE: CT neck chest without con DATE OF EXAM: 06/13/2024 COMPARISON: Chest 06/10/2024 CLINICAL INDICATION: Female, 74 years old with shortness of breath, history of questionable tracheal stenosis; PHH, tracheal stenosis TECHNIQUE: CT of the soft tissues of the neck and chest were performed without IV contrast. Coronal a nd sagittal reconstructions performed. CT DLP: 684.7 mGycm Automated exposure control for dose reduction was used. FINDINGS: Neck: There is medial deviation of the left vocal fold, axial image 31 and slight asymmetric thickening of the left aryepiglottic fold, axial image 35. Mild left-sided lingual tonsillar hypertrophy noted, axial image 41. Mild to moderate bilateral palatine tonsillar hypertrophy with foci of calcification on both sides me asuring up to 5 mm, possibly sequela of prior infection. Rightward nasal septal deviation. Trace mucosal thickening floors of the maxillary sinuses. Visualized nasopharynx is clear. Epiglottis and prevertebral soft tissues are satisfactory. There is some scarring in the suprasternal midline suggesting prior tracheotomy. No abnormal tracheal narrowing is seen here. Bones: Moderate to severe degenerative disc disease C4-C7 levels with reversal of the normal cervical lordosis. CHEST: Heart normal size without pericardial effusion. LAD coronary artery calcifications are present. Ectatic ascending aorta 3.5 cm. Conventional arch vessel branching anatomy. No thoracic lymphadenopathy by CT size criteria. Minimal biapical pleural-parenchymal scarring. Mild diffuse bronchial wall thickening. Mild emphysema tous change. Some strandy scarring/atelectasis at the lung bases. A couple pulmonary nodules right mi d lung measuring 4 mm and 5 mm back in the reassessed at follow-up. No pleural effusion. Small to moderate-sized hiatal hernia. Partially visualized cyst posterior right liver lobe measuring at least 1.6 cm. Moderate degenerative disc disease throughout the thoracic spine. IMPRESSION: NECK: 1. SOME SUPRASTERNAL MIDLINE SCARRING SUGGESTING PREVIOUS TRACHEOSTOMY. THERE IS SOME TRACHEAL DISTOR TION RELATING TO THE PRIOR SURGERY BUT NO SIGNIFICANT TRACHEAL NARROWING HERE. 2. ASYMMETRIC THICKENING ALONG THE LEFT ARYEPIGLOTTIC FOLD AND MEDIAL POSITIONING OF THE LEFT VOCAL F OLD. RECOMMEND DIRECT VISUALIZATION TO EXCLUDE A MUCOSAL LESION AND ANY VOCAL FOLD DYSFUNCTION. 3. Bilateral palatine tonsillar hypertrophy. Numerous foci of calcification measuring up to 5 mm sugg est sequela of prior infection. CHEST: 4. COPD with mild emphysema. Strandy bibasilar scarring/atelectasis. 5. A couple pulmonary nodules at the right midlung measuring 4 mm and 5 mm. Six-month follow-up CT ch est to reassess. 6. LAD coronary artery calcifications. Small to moderate-sized hiatal hernia. [facility], Workstation: [facility], 06/13/2024 9:45 AM
--- NOTE | 2024-06-13 10:31 | XR ---
EXAMINATION TYPE: XR shoulder complete RT DATE OF EXAM: 06/13/2024 10:25 AM COMPARISON: None. CLINICAL INDICATION: Female, 74 years old with history of right shoulder pain, pain TECHNIQUE: Three views of the right shoulder are obtained. FINDINGS: Demineralization is present. There is no acute fracture/dislocation evident in the right shoulder. [id number]-dw-[id number] narrowing at the acromioclavicular joint with moderate to severe superior capsular hypertrophy. Glenohumeral joint is maintained. The visualized right lung is clear. IMPRESSION: As above. [facility], , 06/13/2024 10:29 AM
--- NOTE | 2024-06-13 11:42 | P.PN ---
Subjective HISTORY OF PRESENT ILLNESS: This is a 74-year-old female with a past medical history significant for hypertension. 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 Patient does report she has not followed with a primary care physician in 20 to 30 years. we have been asked to see the patient in consultation for chest pain. Patient examined at the bedside in the emergency room. Patient states she has been having chest pain on and off for the past month. She states the episodes usually last about 10 minutes and then will resolve on their own or with peppermint candy. She states that the pain is usually in the middle of her chest and then will radiate into her left shoulder and arm. She does report feeling short of breath with these episodes. She states she had another episode of chest discomfort yesterday but this episode lasted for about an hour which concerned her so she came to the emergency room for further evaluation. She does report having another episode since coming to the hospital. She received Nitropaste which improved her chest pain. DIAGNOSTICS: - EKG reveals sinus mechanism with T wave inversions in V3V4. - Chest xray negative for acute process - Chest CTA: Negative for pulmonary embolism. A couple of pulmonary nodules measuring up to 4 mm. Trace pericardial effusion. Moderate coronary artery calcifications. - Laboratory data: WBC 5.4. Hemoglobin 12.3. Platelet count 281. Sodium 137. Potassium 4.0. BUN 21. Creatinine 0.91. Troponin 0.012. 0.021. 0.057. 0.050. - Current home cardiac medications include metoprolol 25 mg daily -No previous echocardiogram, stress test, or cardiac catheterization available in EMR for review 06/12/2024 Patient underwent cardiac catheterization yesterday with Dr. Segal revealing calcified left main and LAD, totally occluded proximal LAD with collaterals noted ipsilateral and contralateral, significant disease in the left circumflex, OM1, and left PLV, and significant disease in the mid codominant RCA. CT surgery has been consulted for evaluation of coronary artery bypass grafting. She is to be evaluated by the surgeon today. Patient currently remains on IV heparin. She denies chest pain or pressure. She denies shortness of breath. Vital signs are stable. Echocardiogram completed revealing ejection fraction 55 to 60% with mild tricuspid regurgitation 06/13/24 Patient examined this morning at the bedside. Patients family present. Patient reports having an episode of chest pain after using the bathroom this morning. Pain lasted for 15 minutes and resolved on its own. She remains on IV heparin. Vital signs stable. PHYSICAL EXAM: VITAL SIGNS: Reviewed. GENERAL: Well-developed in no acute distress. HEENT: Head is normocephalic. Pupils are equal, round. Sclerae anicteric. Mucous membranes of the mouth are moist. Neck supple. No JVD or thyromegaly LUNGS: Respirations even and unlabored. Lungs essentially clear to auscultation bilaterally. HEART: Regular rate and rhythm. S1 and S2 heard. ABDOMEN: Soft. Nondistended. Nontender. EXTREMITIES: Normal range of motion. No clubbing or cyanosis. Peripheral pulses intact. No lower extremity edema NEUROLOGIC: Awake and alert. Oriented x 3. ASSESSMENT: Chest pain Non-STEMI, status post cardiac catheterization revealing multivessel coronary artery disease Hypertension Hyperlipidemia, LDL 137 Moderate sized hiatal hernia Pulmonary nodules noted on CTA History of rheumatic fever as a child PLAN: Continue IV heparin Continue high intensity statin Continue aspirin aspirin and metoprolol Continue telemetry monitoring CT surgery consulted for CABG evaluation. Patient hesitant to pursue CABG. Await further input from CT surgery. Further recommendations pending patient course Nurse practitioner note has been reviewed by physician. Signing provider agrees with the documented findings, assessment, and plan of care documented by BARREL HANDLER as a scribe. Objective - Vital Signs Vital signs: Vital Signs Temp 98.1 F 06/13/24 11:09 Pulse 60 06/13/24 11:09 Resp 16 06/13/24 11:09 BP 149/86 06/13/24 11:09 Pulse Ox 93 L 06/13/24 11:09 FiO2 Intake & Output 06/12/24 06/13/24 06/13/24 18:59 06:59 18:59 Intake Total 1171.892 240 200 Balance 1171.892 240 200 Weight 68.8 kg Intake: Intake, IV Titration 271.892 Amount Heparin Sod,Pork in 0.45% 188.892 NaCl 25,000 unit In 0.45 % NaCl 1 250ml.bag @ 12 UNITS/KG/HR 8.709 mls/hr IV .Q24H [facility] Rx#: [id number] Sodium Chloride 0.9% 1, 83 000 ml In Empty Bag 1 bag @ 1 ML/KG/HR 72.575 mls/ hr IV .[id number] [facility] Rx#: [id number] Oral 900 240 200 Other: Voiding Method Toilet Toilet Toilet # Voids 1 1 - Labs CBC & Chem 7: 06/13/24 05:57 06/13/24 05:57 Labs: Abnormal Lab Results - Last 24 Hours (Table) 06/12/24 06/12/24 06/13/24 Range/Units 15:35 19:40 05:57 MCHC 30.8 L (31.0-37.0) g/dL APTT 40.0 H (22.0-30.0) sec Carbon Dioxide (22-30) mmol/L BUN (7-17) mg/dL Magnesium (1.6-2.3) mg/dL Total Protein (6.3-8.2) g/dL Ur Leukocyte Esterase Small H (Negative) Urine Mucus Occasional H (None) /hpf 06/13/24 06/13/24 Range/Units 05:57 05:57 MCHC (31.0-37.0) g/dL APTT 45.1 H (22.0-30.0) sec Carbon Dioxide 34 H (22-30) mmol/L BUN 19 H (7-17) mg/dL Magnesium 2.4 H (1.6-2.3) mg/dL Total Protein 5.9 L (6.3-8.2) g/dL Ur Leukocyte Esterase (Negative) Urine Mucus (None) /hpf
--- NOTE | 2024-06-13 12:45 | P.PN ---
Subjective Progress Note Date: 06/13/24 Hospital course: Patient is a very pleasant 74-year-old female with a past medical history of hypertension tracheostomy status post reversal (50 years ago) and chronic back pain status postsurgical procedures. She presented to the emergency department with a chief complaint of chest pain. Patient reports awakening this morning with pain to her left anterior chest radiating into her back and left shoulder. She reports the pain was intense and pressure-like. She reports she woke up and took a couple Tums thinking maybe it was some reflux but states she received no improvement and was persistent so her daughter brought her to the emergency department for evaluation. She reports she has experienced pain similar to this in the past but states it typically goes away after a couple of minutes, but states this time it was persistent and lasted greater than an hour prior to resolving. In addition patient reports exertional shortness of breath, fatigue, abdominal bloating, and constipation. She denies having any fevers, chills, diaphoresis, headache, lightheadedness, dizziness, palpitations, cough or congestion, nausea, vomiting, or experiencing any numbness/tingling/weakness/swelling in her extremities. Upon arrival to our facility, patient underwent evaluation in the emergency department. Vital signs upon arrival show blood pressure 154/93, heart rate 105, respiratory rate 20, temp 97.5 F, and SpO2 of 92% on room air. EKG was completed showing sinus tachycardia at 102 bpm with no significant T wave or ST abnormalities upon personal review and interpretation. Chest x-ray completed negative for acute cardiopulmonary process. Labs completed and reviewed. CBC unremarkable. Coagulation profile showing an elevated D-dimer of 1.06. BMP showing hypercarbia with bicarb of 31 and mild prerenal azotemia with BUN of 25. Blood glucose 114. Magnesium 2.0. Liver profile unremarkable. Troponin was negative at less than 0.012. proBNP 52. CTA chest completed negative for pulmonary emboli showing a couple of pulmonary nodules measuring up to 4 mm and a moderate sized hiatal hernia. Patient admitted under our services with consultation to cardiology and general surgery. Troponins were trended resulting at less than 0.012, 0.021, 0.057 and patient was started on low intensity heparin infusion for treatment of NSTEMI. Cardiology evaluated and planning to take patient for cardiac catheterization later today. Physical exam: Patient seen and fully evaluated at bedside this morning. She was visiting with family at bedside. Patient currently making pros and cons list to discuss with cardiothoracic surgeon regarding CABG. She denies any further episodes of chest pain or any other complaints at this time.. Vital signs reviewed and stable. General: Nontoxic, no distress and appears stated age. Derm: Skin warm and dry, normal coloration for ethnicity. Head: Atraumatic, normocephalic and symmetric. Eyes: EOM's intact, no lid lag, and anicteric sclera Mouth: no lip lesions, mucus membranes moist Cardiovascular: regular rate and rhythm with normal S1S2, no murmur, positive posterior tibial pulses bilaterally, and cap refill < 2 seconds. Lungs: Respirations even, regular, and unlabored on room air. Lungs CTA bilaterally, no rhonchi, no rales, no wheezing, and no accessory muscle usage. Abdominal: soft, nontender to palpation, no guarding, no appreciable organomeg reilly Ext: ROM intact. No gross muscle atrophy, no edema, no contractures Neuro: Speech clear, face symmetrical and CN II-XII grossly intact with no noted focal neuro deficits Psych: Alert and oriented to person, place, time, and situation. Appropriate and pleasant affect. Assessment and Plan of Care: NSTEMI Hypertension Elevated D-dimer, CTA negative for PE -Cardiology following and took patient for cardiac catheterization on 06/11/24. Revealing severe triple-vessel disease recommending evaluation for CABG. -CardiothoracicThoracic surgery following, patient undergoing evaluation for CABG. Discussed plan of care in detail with cardiothoracic SALES VICE PRESIDENT, patient to discuss further with cardiothoracic surgeon later today. -Continue low intensity heparin infusion with close monitoring of PTT every 6 hours for goal therapeutic range of 45 to 79 seconds. PTT currently therapeutic at 45.1. -Telemetry monitoring -Aspirin 81 mg daily, atorvastatin 80 mg nightly, and metoprolol 25 mg twice daily. -Sublingual nitroglycerin 0.4 mg every 5 minutes as needed for chest pain. -Lipid profile revealed elevated total cholesterol of 219.00 and LDL of 137.7. -Echocardiogram revealing a preserved EF of 55 to 60% with mild mitral and tricuspid regurgitation and no evidence of pulmonary hypertension. Abdominal bloating and constipation Moderate sized hiatal hernia -KUB negative for acute process showing nonspecific abdomen with nonspecific bowel gas pattern. -Consult placed to general surgery for evaluation and possible recommendations. -Continue MiraLAX 17 g nightly. Chronic back pain -Continue home medication regimen with oxycodone 30 mg p.o. 3 times daily as needed for moderate to severe pain. Pulmonary nodules -Patient will require outpatient follow-up with repeat imaging for surveillance. Data and imaging reviewed: -Labs reviewed. CBC unremarkable. Coagulation profile showing a therapeutic PTT of 45.1. BMP showing hypercarbia with bicarb of 34 and mild prerenal azotemia with BUN of 19. Liver profile unremarkable. Magnesium 2.3. TSH 2.060. Liver profile unremarkable. -Echocardiogram revealing a preserved EF of 55 to 60% with mild mitral and tricuspid regurgitation and no evidence of pulmonary hypertension. -Vital signs reviewed. Blood pressure 149/86, heart rate 60, respiratory rate 16, temp 98.1 F, and SpO2 of 93% on room air.. CODE STATUS: Full code DVT prophylaxis: Heparin infusion Anticipated discharge date: Pending clinical course Anticipated discharge place: Pending clinical course Patient was seen independently by Nurse Practitioner. This document was prepared using [employer] dictation software. Please allow for errors in breeding technician while rare they do occur. Smith Peter NP rendered care for this patient independently, reviewed the findings and plan as documented in the note above and agree with plan. I did not physically speak with or examine the patient on this date. Objective - Vital Signs Vital signs: Vital Signs Temp 98.0 F 06/13/24 08:00 Pulse 67 06/13/24 08:00 Resp 18 06/13/24 08:00 BP 153/84 06/13/24 08:00 Pulse Ox 93 L 06/13/24 08:00 FiO2 Intake & Output 06/12/24 06/13/24 06/13/24 18:59 06:59 18:59 Intake Total 1171.892 240 Balance 1171.892 240 Weight 68.8 kg Intake: Intake, IV Titration 271.892 Amount Heparin Sod,Pork in 0.45% 188.892 NaCl 25,000 unit In 0.45 % NaCl 1 250ml.bag @ 12 UNITS/KG/HR 8.709 mls/hr IV .Q24H [facility] Rx#: [id number] Sodium Chloride 0.9% 1, 83 000 ml In Empty Bag 1 bag @ 1 ML/KG/HR 72.575 mls/ hr IV .[id number] [facility] Rx#: [id number] Oral 900 240 Other: Voiding Method Toilet Toilet # Voids 1 1 - Labs CBC & Chem 7: 06/13/24 05:57 06/13/24 05:57 Labs: Abnormal Lab Results - Last 24 Hours (Table) 06/12/24 06/12/24 06/12/24 Range/Units 08:36 08:36 15:35 MCHC (31.0-37.0) g/dL APTT 98.6 H (22.0-30.0) sec Carbon Dioxide 36 H (22-30) mmol/L BUN 23 H (7-17) mg/dL Glucose 143 H (74-99) mg/dL Magnesium (1.6-2.3) mg/dL Total Protein 6.0 L (6.3-8.2) g/dL Ur Leukocyte Esterase Small H (Negative) Urine Mucus Occasional H (None) /hpf 06/12/24 06/13/24 06/13/24 Range/Units 19:40 05:57 05:57 MCHC 30.8 L (31.0-37.0) g/dL APTT 40.0 H (22.0-30.0) sec Carbon Dioxide 34 H (22-30) mmol/L BUN 19 H (7-17) mg/dL Glucose (74-99) mg/dL Magnesium 2.4 H (1.6-2.3) mg/dL Total Protein 5.9 L (6.3-8.2) g/dL Ur Leukocyte Esterase (Negative) Urine Mucus (None) /hpf 06/13/24 Range/Units 05:57 MCHC (31.0-37.0) g/dL APTT 45.1 H (22.0-30.0) sec Carbon Dioxide (22-30) mmol/L BUN (7-17) mg/dL Glucose (74-99) mg/dL Magnesium (1.6-2.3) mg/dL Total Protein (6.3-8.2) g/dL Ur Leukocyte Esterase (Negative) Urine Mucus (None) /hpf
--- NOTE | 2024-06-13 13:50 | P.PN ---
Subjective Progress Note Date: 06/13/24 SURGICAL PROGRESS NOTE CHIEF COMPLAINT: Chest pain HISTORY OF PRESENT ILLNESS: Surgical service following in regards to patient's moderate hiatal hernia, dysphagia and constipation. Patient did have a bowel movement. She is tolerating diet. Cardiothoracic surgery is following patient regards to evaluation for CABG. Patient with non-ST elevated [place] and multivessel coronary artery disease. Afebrile. WBC 5.8 PHYSICAL EXAM: VITAL SIGNS: Reviewed. GENERAL: Well-developed in no acute distress. ABDOMEN: Soft. Nondistended. Nontender. NEUROLOGIC: Alert and oriented. Cranial nerves II through XII grossly intact. ASSESSMENT: 1. Moderate size hiatal hernia, dysphagia and constipation PLAN: -Recommend outpatient EGD and colonoscopy -Recommend hiatal hernia repair outpatient -No surgical intervention planned during this admission -Continue Senokot for constipation -Continue Protonix -Continue heart healthy diet Physician Principal Web Developer note has been reviewed by physician. Signing provider agrees with the documented findings, assessment, and plan of care. Objective - Vital Signs Vital signs: Vital Signs Temp 98.1 F 06/13/24 11:09 Pulse 60 06/13/24 11:09 Resp 16 06/13/24 11:09 BP 149/86 06/13/24 11:09 Pulse Ox 93 L 06/13/24 11:09 FiO2 Intake & Output 06/12/24 06/13/24 06/13/24 18:59 06:59 18:59 Intake Total 1171.892 240 400 Balance 1171.892 240 400 Weight 68.8 kg Intake: Intake, IV Titration 271.892 Amount Heparin Sod,Pork in 0.45% 188.892 NaCl 25,000 unit In 0.45 % NaCl 1 250ml.bag @ 12 UNITS/KG/HR 8.709 mls/hr IV .Q24H [facility] Rx#: [id number] Sodium Chloride 0.9% 1, 83 000 ml In Empty Bag 1 bag @ 1 ML/KG/HR 72.575 mls/ hr IV .[id number] [facility] Rx#: [id number] Oral 900 240 400 Other: Voiding Method Toilet Toilet Toilet # Voids 1 1 - Labs CBC & Chem 7: 06/13/24 05:57 06/13/24 05:57 Labs: Abnormal Lab Results - Last 24 Hours (Table) 06/12/24 06/12/24 06/13/24 Range/Units 15:35 19:40 05:57 MCHC 30.8 L (31.0-37.0) g/dL APTT 40.0 H (22.0-30.0) sec Carbon Dioxide (22-30) mmol/L BUN (7-17) mg/dL Magnesium (1.6-2.3) mg/dL Total Protein (6.3-8.2) g/dL Ur Leukocyte Esterase Small H (Negative) Urine Mucus Occasional H (None) /hpf 06/13/24 06/13/24 Range/Units 05:57 05:57 MCHC (31.0-37.0) g/dL APTT 45.1 H (22.0-30.0) sec Carbon Dioxide 34 H (22-30) mmol/L BUN 19 H (7-17) mg/dL Magnesium 2.4 H (1.6-2.3) mg/dL Total Protein 5.9 L (6.3-8.2) g/dL Ur Leukocyte Esterase (Negative) Urine Mucus (None) /hpf
[2024-06-14 08:02] LABS: HCT 34.1 % (34.0-46.0); Hypochromasia Moderate; MCH 31.7 pg (25.0-35.0); MCHC 32.2 g/dL (31.0-37.0); MCV 98.5 fL (80.0-100.0); Mean Platelet Volume 6.9; Platelet Count 256 k/uL (150-450); RBC 3.47 m/uL (3.80-5.40); RDW 12.9 % (11.5-15.5); WBC 5.2 k/uL (3.8-10.6)
[2024-06-14 08:21] LABS: ALT 11 U/L (4-34); AST 15 U/L (14-36); African American GFR (CKD) 60 (>60 ml/min/1.73 sqM); Albumin 3.1 g/dL (3.5-5.0); Alkaline Phosphatase 70 U/L (38-126); Anion Gap 0 mmol/L; Blood Urea Nitrogen 18 mg/dL (7-17); Calcium 8.2 mg/dL (8.4-10.2); Carbon Dioxide 37 mmol/L (22-30); Chloride 103 mmol/L (98-107); Glucose 100 mg/dL (74-99); Magnesium 2.2 mg/dL (1.6-2.3); Non-African American GFR(CKD) 52 (>60 ml/min/1.73 sqM); Potassium 4.5 mmol/L (3.5-5.1); Sodium 140 mmol/L (137-145); Total Bilirubin <0.1 mg/dL (0.2-1.3); Total Protein 5.3 g/dL (6.3-8.2)
--- NOTE | 2024-06-14 11:05 | P.PN ---
Subjective Progress Note Date: 06/14/24 SURGICAL PROGRESS NOTE CHIEF COMPLAINT: Chest pain HISTORY OF PRESENT ILLNESS: Surgical service following in regards to patient's moderate hiatal hernia, dysphagia and constipation. Patient denies any ab dominal pain. Denies any difficulty swallowing. She did have a bowel movement yesterday. She is anticipating CABG tomorrow. Afebrile. PHYSICAL EXAM: VITAL SIGNS: Reviewed. GENERAL: Well-developed in no acute distress. ABDOMEN: Soft. Nondistended. Nontender. NEUROLOGIC: Alert and oriented. Cranial nerves II through XII grossly intact. ASSESSMENT: 1. Moderate size hiatal hernia, dysphagia and constipation PLAN: -Recommend outpatient EGD and colonoscopy -Recommend hiatal hernia repair outpatient -No surgical intervention planned during this admission -Continue Senokot for constipation -Continue Protonix -Continue heart healthy diet Physician Winch Driver note has been reviewed by physician. Signing provider agrees with the documented findings, assessment, and plan of care. Objective - Vital Signs Vital signs: Vital Signs Temp 97.4 F L 06/14/24 08:30 Pulse 68 06/14/24 08:30 Resp 15 06/14/24 08:30 BP 117/68 06/14/24 08:30 Pulse Ox 91 L 06/14/24 08:30 FiO2 Intake & Output 06/13/24 06/14/24 06/14/24 18:59 06:59 18:59 Intake Total 1240 352.385 Balance 1240 352.385 Weight 68.9 kg Intake: Intake, IV Titration 160 232.385 Amount Heparin Sod,Pork in 0.45% 232.385 NaCl 25,000 unit In 0.45 % NaCl 1 250ml.bag @ 12 UNITS/KG/HR 8.709 mls/hr IV .Q24H [facility] Rx#: [id number] IV Fluid Continuation 500 80 ml @ 0 mls/hr IV .STK- [facility] Rx#:[id number] Sodium Chloride 0.9% 1, 80 000 ml In Empty Bag 1 bag @ 1 ML/KG/HR 72.575 mls/ hr IV .[id number] [facility] Rx#: [id number] Oral 1080 120 Other: Voiding Method Toilet Toilet Toilet # Voids 1 - Labs CBC & Chem 7: 06/14/24 06:36 06/14/24 06:36 Labs: Abnormal Lab Results - Last 24 Hours (Table) 06/14/24 06/14/24 06/14/24 Range/Units 06:36 06:36 06:36 RBC 3.47 L (3.80-5.40) m/uL Hgb 11.0 L (11.4-16.0) gm/dL APTT 52.8 H (22.0-30.0) sec Carbon Dioxide 37 H (22-30) mmol/L BUN 18 H (7-17) mg/dL Creatinine 1.06 H (0.52-1.04) mg/dL Glucose 100 H (74-99) mg/dL Calcium 8.2 L (8.4-10.2) mg/dL Total Bilirubin <0.1 L (0.2-1.3) mg/dL Total Protein 5.3 L (6.3-8.2) g/dL Albumin 3.1 L (3.5-5.0) g/dL
--- NOTE | 2024-06-14 13:06 | P.PN ---
Subjective HISTORY OF PRESENT ILLNESS: This is a 74-year-old female with a past medical history significant for hypertension. Patient does not follow with a traveling electrician. Patient does report she has not followed with a primary care physician in 20 to 30 years. we have been asked to see the patient in consultation for chest pain. Patient examined at the bedside in the emergency room. Patient states she has been having chest pain on and off for the past month. She states the episodes usually last about 10 minutes and then will resolve on their own or with peppermint candy. She states that the pain is usually in the middle of her chest and then will radiate into her left shoulder and arm. She does report feeling short of breath with these episodes. She states she had another episode of chest discomfort yesterday but this episode lasted for about an hour which concerned her so she came to the emergency room for further evaluation. She does report having another episode since coming to the hospital. She received Nitropaste which improved her chest pain. DIAGNOSTICS: - EKG reveals sinus mechanism with T wave inversions in V3V4. - Chest xray negative for acute process - Chest CTA: Negative for pulmonary embolism. A couple of pulmonary nodules measuring up to 4 mm. Trace pericardial effusion. Moderate coronary artery calcifications. - Laboratory data: WBC 5.4. Hemoglobin 12.3. Platelet count 281. Sodium 137. Potassium 4.0. BUN 21. Creatinine 0.91. Troponin 0.012. 0.021. 0.057. 0.050. - Current home cardiac medications include metoprolol 25 mg daily -No previous echocardiogram, stress test, or cardiac catheterization available in EMR for review 06/12/2024 Patient underwent cardiac catheterization yesterday with Dr. Segal revealing calcified left main and LAD, totally occluded proximal LAD with collaterals noted ipsilateral and contralateral, significant disease in the left circumflex, OM1, and left PLV, and significant disease in the mid codominant RCA. CT surgery has been consulted for evaluation of coronary artery bypass grafting. She is to be evaluated by the surgeon today. Patient currently remains on IV heparin. She denies chest pain or pressure. She denies shortness of breath. Vital signs are stable. Echocardiogram completed revealing ejection fraction 55 to 60% with mild tricuspid regurgitation 06/13/24 Patient examined this morning at the bedside. Patients family present. Patient reports having an episode of chest pain after using the bathroom this morning. Pain lasted for 15 minutes and resolved on its own. She remains on IV heparin. Vital signs stable. 06/14/2024 Patient examined this morning at the bedside. Patient remains on IV heparin. No complaints of shortness of breath. She currently denies any chest pain or pressure. Vital signs are stable. Telemetry reveals sinus mechanism. PHYSICAL EXAM: VITAL SIGNS: Reviewed. GENERAL: Well-developed in no acute distress. HEENT: Head is normocephalic. Pupils are equal, round. Sclerae anicteric. Mucous membranes of the mouth are moist. Neck supple. No JVD or thyromegaly LUNGS: Respirations even and unlabored. Lungs essentially clear to auscultation bilaterally. HEART: Regular rate and rhythm. S1 and S2 heard. ABDOMEN: Soft. Nondistended. Nontender. EXTREMITIES: Normal range of motion. No clubbing or cyanosis. Peripheral pulses intact. No lower extremity edema NEUROLOGIC: Awake and alert. Oriented x 3. ASSESSMENT: Chest pain Non-STEMI, status post cardiac catheterization revealing multivessel coronary artery disease Hypertension Hyperlipidemia, LDL 137 Moderate sized hiatal hernia Pulmonary nodules noted on CTA History of rheumatic fever as a child PLAN: Continue IV heparin Continue high intensity statin Continue aspirin and metoprolol Continue telemetry monitoring CT surgery following. Timing of CABG to be determined. Further recommendations pending patient course Nurse practitioner note has been reviewed by physician. Signing provider agrees with the documented findings, assessment, and plan of care documented by MEDIA RELATIONS COORDINATOR as a scribe. Objective - Vital Signs Vital signs: Vital Signs Temp 98.4 F 06/14/24 04:00 Pulse 66 06/14/24 04:00 Resp 12 06/14/24 04:00 BP 95/51 06/14/24 04:00 Pulse Ox 92 L 06/14/24 04:00 FiO2 Intake & Output 06/13/24 06/14/24 06/14/24 18:59 06:59 18:59 Intake Total 1240 352.385 Balance 1240 352.385 Weight 68.9 kg Intake: Intake, IV Titration 160 232.385 Amount Heparin Sod,Pork in 0.45% 232.385 NaCl 25,000 unit In 0.45 % NaCl 1 250ml.bag @ 12 UNITS/KG/HR 8.709 mls/hr IV .Q24H [facility] Rx#: [id number] IV Fluid Continuation 500 80 ml @ 0 mls/hr IV .STK- [facility] Rx#:[id number] Sodium Chloride 0.9% 1, 80 000 ml In Empty Bag 1 bag @ 1 ML/KG/HR 72.575 mls/ hr IV .[id number] [facility] Rx#: [id number] Oral 1080 120 Other: Voiding Method Toilet Toilet # Voids 1 - Labs CBC & Chem 7: 06/14/24 06:36 06/14/24 06:36 Labs: Abnormal Lab Results - Last 24 Hours (Table) 06/14/24 06/14/24 06/14/24 Range/Units 06:36 06:36 06:36 RBC 3.47 L (3.80-5.40) m/uL Hgb 11.0 L (11.4-16.0) gm/dL APTT 52.8 H (22.0-30.0) sec Carbon Dioxide 37 H (22-30) mmol/L BUN 18 H (7-17) mg/dL Creatinine 1.06 H (0.52-1.04) mg/dL Glucose 100 H (74-99) mg/dL Calcium 8.2 L (8.4-10.2) mg/dL Total Bilirubin <0.1 L (0.2-1.3) mg/dL Total Protein 5.3 L (6.3-8.2) g/dL Albumin 3.1 L (3.5-5.0) g/dL
--- NOTE | 2024-06-14 13:24 | P.PN ---
Subjective Progress Note Date: 06/14/24 Hospital course: Patient is a very pleasant 74-year-old female with a past medical history of hypertension tracheostomy status post reversal (50 years ago) and chronic back pain status postsurgical procedures. She presented to the emergency department with a chief complaint of chest pain. Patient reports awakening this morning with pain to her left anterior chest radiating into her back and left shoulder. She reports the pain was intense and pressure-like. She reports she woke up and took a couple Tums thinking maybe it was some reflux but states she received no improvement and was persistent so her daughter brought her to the emergency department for evaluation. She reports she has experienced pain similar to this in the past but states it typically goes away after a couple of minutes, but states this time it was persistent and lasted greater than an hour prior to resolving. In addition patient reports exertional shortness of breath, fatigue, abdominal bloating, and constipation. She denies having any fevers, chills, diaphoresis, headache, lightheadedness, dizziness, palpitations, cough or congestion, nausea, vomiting, or experiencing any numbness/tingling/weakness/swelling in her extremities. Upon arrival to our facility, patient underwent evaluation in the emergency department. Vital signs upon arrival show blood pressure 154/93, heart rate 105, respiratory rate 20, temp 97.5 F, and SpO2 of 92% on room air. EKG was completed showing sinus tachycardia at 102 bpm with no significant T wave or ST abnormalities upon personal review and interpretation. Chest x-ray completed negative for acute cardiopulmonary process. Labs completed and reviewed. CBC unremarkable. Coagulation profile showing an elevated D-dimer of 1.06. BMP showing hypercarbia with bicarb of 31 and mild prerenal azotemia with BUN of 25. Blood glucose 114. Magnesium 2.0. Liver profile unremarkable. Troponin was negative at less than 0.012. proBNP 52. CTA chest completed negative for pulmonary emboli showing a couple of pulmonary nodules measuring up to 4 mm and a moderate sized hiatal hernia. Patient admitted under our services with consultation to cardiology and general surgery. Troponins were trended resulting at less than 0.012, 0.021, 0.057 and patient was started on low intensity heparin infusion for treatment of NSTEMI. Cardiology evaluated and planning to take patient for cardiac catheterization later today. Physical exam: Patient seen and fully evaluated at bedside this morning. Daughter and grandaughter at bedside. Patient has made the decision to undergo CABG. She is scheduled to undergo cardiac revascularization surgery tomorrow. Patient and family deny having any questions, needs, or concerns at this time. Vital signs reviewed and stable. General: Nontoxic, no distress and appears stated age. Derm: Skin warm and dry, normal coloration for ethnicity. Head: Atraumatic, normocephalic and symmetric. Eyes: EOM's intact, no lid lag, and anicteric sclera Mouth: no lip lesions, mucus membranes moist Cardiovascular: regular rate and rhythm with normal S1S2, no murmur, positive posterior tibial pulses bilaterally, and cap refill < 2 seconds. Lungs: Respirations even, regular, and unlabored on room air. Lungs CTA bilaterally, no rhonchi, no rales, no wheezing, and no accessory muscle usage. Abdominal: soft, nontender to palpation, no guarding, no appreciable organomegaly Ext: ROM intact. No gross muscle atrophy, no edema, no contractures Neuro: Speech clear, face symmetrical and CN II-XII grossly intact with no noted focal neuro deficits Psych: Alert and oriented to person, place, time, and situation. Appropriate and pleasant affect. Assessment and Plan of Care: NSTEMI Triple-vessel occlusive coronary artery disease Hypertension Elevated D-dimer, CTA negative for PE -Cardiology following and took patient for cardiac catheterization on 06/11/24. Revealing severe triple-vessel disease recommending evaluation for CABG. -CardiothoracicThoracic surgery following, patient scheduled for CABG tomorrow. -Continue low intensity heparin infusion with close monitoring of PTT every 6 hours for goal therapeutic range of 45 to 79 seconds. PTT currently therapeutic at 52.8. -Telemetry monitoring -Aspirin 81 mg daily, atorvastatin 80 mg nightly, and metoprolol 25 mg twice daily. -Sublingual nitroglycerin 0.4 mg every 5 minutes as needed for chest pain. -Lipid profile revealed elevated total cholesterol of 219.00 and LDL of 137.7. -Echocardiogram revealing a preserved EF of 55 to 60% with mild mitral and tricuspid regurgitation and no evidence of pulmonary hypertension. Abdominal bloating and constipation Moderate sized hiatal hernia -KUB negative for acute process showing nonspecific abdomen with nonspecific bowel gas pattern. -Consult placed to general surgery for evaluation and possible recommendations. -Continue MiraLAX 17 g nightly. Chronic back pain -Continue home medication regimen with oxycodone 30 mg p.o. 3 times daily as needed for moderate to severe pain. Pulmonary nodules -Patient will require outpatient follow-up with repeat imaging for surveillance. Data and imaging reviewed: -Labs reviewed. CBC showing stable normocytic anemia with hemoglobin of 11.0. Coagulation profile showing therapeutic PTT of 52.8. BMP showing hypercarbia with bicarb of 37 and renal function showing BUN of 18, creatinine of 1.06, GFR 52. Magnesium 2.2. -Vital signs reviewed. Blood pressure 117/68, heart rate 68, respiratory rate 15, temp 97.4 F, and SpO2 of 91% on room air. CODE STATUS: Full code DVT prophylaxis: Heparin infusion Anticipated discharge date: Pending clinical course Anticipated discharge place: Pending clinical course Patient was seen independently by Nurse Practitioner. This document was prepared using [employer] dictation software. Please allow for errors in railroad operating engineer while rare they do occur. Smith Peter NP rendered care for this patient independently, reviewed the findings and plan as documented in the note above and agree with plan. I did not physically speak with or examine the patient on this date. Objective - Vital Signs Vital signs: Vital Signs Temp 98.4 F 06/14/24 04:00 Pulse 66 06/14/24 04:00 Resp 12 06/14/24 04:00 BP 95/51 06/14/24 04:00 Pulse Ox 92 L 06/14/24 04:00 FiO2 Intake & Output 06/13/24 06/14/24 06/14/24 18:59 06:59 18:59 Intake Total 1240 352.385 Balance 1240 352.385 Weight 68.9 kg Intake: Intake, IV Titration 160 232.385 Amount Heparin Sod,Pork in 0.45% 232.385 NaCl 25,000 unit In 0.45 % NaCl 1 250ml.bag @ 12 UNITS/KG/HR 8.709 mls/hr IV .Q24H [facility] Rx#: [id number] IV Fluid Continuation 500 80 ml @ 0 mls/hr IV .STK- [facility] Rx#:[id number] Sodium Chloride 0.9% 1, 80 000 ml In Empty Bag 1 bag @ 1 ML/KG/HR 72.575 mls/ hr IV .[id number] [facility] Rx#: [id number] Oral 1080 120 Other: Voiding Method Toilet Toilet # Voids 1 - Labs CBC & Chem 7: 06/14/24 06:36 06/14/24 06:36
--- NOTE | 2024-06-14 16:22 | P.PN ---
Subjective Progress Note Date: 06/14/24 Principal diagnosis: Multivessel coronary artery disease, non-ST elevated myocardial infarction this admission. Past medical history significant for hypertension, tracheostomy aft er a suicide attempt years ago, status post reversal 50 years ago, reports she had the tracheostomy for about 10 years, chronic back pain, dropfoot to her right foot, constipation, dysphagia, depression and is a lifetime non-smoker. The patient was seen and examined in follow-up today June 14, 2024 at her bedside on the third floor cardiac stepdown unit. Her daughter is present at her bedside. The patient is sitting up in bed, is awake, alert, oriented x 3 and is in no acute apparent distress. She denies any complaints of pain or shortness of breath at this time. She also denies any complaints of nausea or vomiting. Heparin drip remains infusing per protocol. She remains hemodynamic ally stable and is currently on no inotropic or pressor support. She continues on maximize medical therapy with aspirin, statin and beta-jason. Dr. Jimenez met with the patient today, and the patient's daughter, the patient is willing to proceed with myocardial vascularization surgery. Objective - Vital Signs Vital signs: Vital Signs Temp 98.7 F 06/14/24 11:30 Pulse 64 06/14/24 11:30 Resp 17 06/14/24 14:00 BP 105/60 06/14/24 11:30 Pulse Ox 92 L 06/14/24 11:30 FiO2 Intake & Output 06/13/24 06/14/24 06/14/24 18:59 06:59 18:59 Intake Total 1240 352.385 180 Balance 1240 352.385 180 Weight 68.9 kg Intake: Intake, IV Titration 160 232.385 Amount Heparin Sod,Pork in 0.45% 232.385 NaCl 25,000 unit In 0.45 % NaCl 1 250ml.bag @ 12 UNITS/KG/HR 8.709 mls/hr IV .Q24H [facility] Rx#: [id number] IV Fluid Continuation 500 80 ml @ 0 mls/hr IV .STK- [facility] Rx#:[id number] Sodium Chloride 0.9% 1, 80 000 ml In Empty Bag 1 bag @ 1 ML/KG/HR 72.575 mls/ hr IV .[id number] [facility] Rx#: [id number] Oral 1080 120 180 Other: Voiding Method Toilet Toilet Toilet # Voids 1 - Exam CONSTITUTIONAL: Appears comfortable, cooperative, no apparent acute distress. HEENT: Neck is supple, no JVD, no lymphadenopathy. RESPIRATORY: Lungs sounds essentially clear throughout, diminished to his bilateral bases. Respirations are symmetrical and nonlabored. Currently on room air with oxygen saturations 92%. Able to achieve 1500 mL on her incentive spirometry. Strong cough. CARDIOVASCULAR: Regular rhythm and rate. S1 and S2 present, negative for S3, gallop or murmur. Sternum is stable. Palpable peripheral pulses bilaterally. No calf pain or tenderness noted. GASTROINTESTINAL: Abdomen soft, nontender, nondistended. Active bowel sounds present 4 quadrants. Tolerating diet. Passing flatus. GENITOURINARY: Continues to void. INTEGUMENTARY: Skin is warm and dry with no evidence of clubbing or cyanosis. NEUROLOGIC: Cranial nerves II through XII intact. No focal deficits. MUSKULOSKELETAL: Able to move all extremities, strength equal bilaterally, chronic dropfoot, right foot. PSYCHIATRIC: Alert and oriented to person place and time, appropriate affect, intact judgment and insight. - Allied health notes Allied health notes reviewed: nursing - Labs CBC & Chem 7: 06/14/24 06:36 06/14/24 06:36 Labs: Abnormal Lab Results - Last 24 Hours (Table) 06/14/24 06/14/24 06/14/24 Range/Units 06:36 06:36 06:36 RBC 3.47 L (3.80-5.40) m/uL Hgb 11.0 L (11.4-16.0) gm/dL APTT 52.8 H (22.0-30.0) sec Carbon Dioxide 37 H (22-30) mmol/L BUN 18 H (7-17) mg/dL Creatinine 1.06 H (0.52-1.04) mg/dL Glucose 100 H (74-99) mg/dL Calcium 8.2 L (8.4-10.2) mg/dL Total Bilirubin <0.1 L (0.2-1.3) mg/dL Total Protein 5.3 L (6.3-8.2) g/dL Albumin 3.1 L (3.5-5.0) g/dL Microbiology - Last 24 Hours (Table) 06/12/24 11:00 Nasal Screen MRSA/MSSA - Final Nasal Swab Staphylococcus aureus,Not MRSA Assessment and Plan Assessment: Multivessel coronary artery disease Non-ST elevated myocardial infarction this admission Hypertension Hyperlipidemia, cholesterol 219, LDL 137 Chronic back pain Chronic dropfoot, right foot Depression, recent loss of her History of tracheostomy with reversal 50 years ago, had trach for 10 years, status post suicide attempt History of dysphagia Moderate-sized hiatal hernia on CT scan Lifetime non-smoker Plan: An STS risk or has been calculated and discussed with the patient and her daughter present at her bedside. Dr. Jimenez met with the patient again today, the patient is willing to proceed w [facility] myocardial vascularization surgery. She will be scheduled for myocardial vascularization surgery with left internal mammary artery, endoscopic vein harvest, exclusion left atrial appendage and intraoperative transesophageal echocardiogram to be scheduled for 2024 to be completed by Dr. Armani Cho. Dr. Pulido from ENT has been consulted to evaluate the patient's vocal cords. Increase activity as tolerated. Preoperative teaching has been reinforced with the patient. Encourage use of incentive spirometry 10 times every hour while awake. Continue to maximize medical management with aspirin, statin and beta-jason. Heparin drip management per cardiology recommendations. Continue to maximize medical management with aspirin, statin and beta-jason. More recommendations to follow based on patient's clinical course and when the patient makes her decision regarding proceeding with myocardial revascularization surgery. Time with Patient: Greater than 30
--- NOTE | 2024-06-14 21:08 | P.PN ---
Subjective Progress Note Date: 06/14/24 Patient is a 74-year-old female with past medical history significant for hypertension, previous tracheostomy that was reversed approximately 50 years ago. States that she has had issues with her breathing after a previous suicide attempt and she spent some time on a mechanical ventilator. She has had multiple neck surgeries at the [facility]. She has not followed up with a primary care provider in some time. She is a lifelong non-smoker. Presented to the emergency department back on June 10 with a chief complaint of chest pain. Chest pain described as substernal intermittent and radiating to her left chest and left arm. Lasts approximately 10 to 15 minutes with exertion. [facility] ally subsides with rest or antacids, however, persistent on June 10, so she called her daughter to take her to the emergency department. Denies any associated nausea, diaphoresis, heart palpitations, lightheadedness/syncopal events. Denies any lower extremity swelling. Was found to have elevated troponins and admitted with non-ST elevation [place]. Heart catheterization done on 06/11/2024 showing multivessel coronary artery disease with a calcified left main and LAD, totally occluded proximal LAD with collaterals, significant disease of involving the left circumflex, OM1, PLV, and significant disease in the mid codominant RCA. With elevated LVEDP. Echocardiogram showing preserved left ventricular ejection fraction of 55 to 60%, with mild mitral and tricuspid regurgitation. A surgical consult was placed. Pulmonary was also consulted for surgical clearance. CBC and CMP unremarkable. Recent APTT therapeutic. Chest CTA did not show any evidence of pulmonary embolism. Couple pulmonary nodules measuring up to 4 mm. Stated above, patient is not a non-smoker. Moderate size hiatal hernia. Bedside spirometry performed demonstrating and FEV1 0.85 L or 41% of predicted. Patient is a lifelong nontobacco smoker. Has no known history of COPD. She is currently sitting up in bed on room air oxygen. Nondistressed. She does have hoarse voice. Remote appearing tracheostomy inci sional scar. Patient remains on heparin infusion per protocol. Also nitroglycerin paste ordered. Denies any current chest pain. Current vitals: Temperature 97.1 F, heart rate 62 bpm, blood pressure 100/63 mmHg, nontachypneic, 93% on room air oxygen. On 06/14/2024, the patient is being seen for a follow-up. Doing well and she is free of any chest pain and the patient remains on IV heparin. The patient is status post non-ST segment elevation myocardial infarction due to an underlying multivessel coronary artery disease. She is awake and alert and communicating. Denies having any chest pain or shortness of breath. No nausea or emesis and the patient remains in sinus rhythm and hemodynamically stable. The patient is to meet the cardiothoracic surgeon today. Sodium is at 140, BUN is 18 with a creatinine of 1.06. Potassium level is at 4.5. WBC count is at 5.2 with a hemoglobin of 11 and a platelet count of 256. No other significant events overnight. The plan is still still undergo cardiac revascularization surgery and the patient is meeting their cardiothoracic surgeon today. The patient will also have a ENT evaluation by Dr. Beaulieu regarding possibility of vocal cord dysfunction. Objective - Vital Signs Vital signs: Vital Signs Temp 98.7 F 06/14/24 11:30 Pulse 64 06/14/24 11:30 Resp 17 06/14/24 11:30 BP 105/60 06/14/24 11:30 Pulse Ox 92 L 06/14/24 11:30 FiO2 Intake & Output 06/13/24 06/14/24 06/14/24 18:59 06:59 18:59 Intake Total 1240 352.385 Balance 1240 352.385 Weight 68.9 kg Intake: Intake, IV Titration 160 232.385 Amount Heparin Sod,Pork in 0.45% 232.385 NaCl 25,000 unit In 0.45 % NaCl 1 250ml.bag @ 12 UNITS/KG/HR 8.709 mls/hr IV .Q[facility]H [facility] Rx#: [id number] IV Fluid Continuation 500 80 ml @ 0 mls/hr IV .[facility] Rx#:[id number] Sodium Chloride 0.9% 1, 80 000 ml In Empty Bag 1 bag @ 1 ML/KG/HR 72.575 mls/ hr IV .[id number] [facility] Rx#: [id number] Oral 1080 120 Other: Voiding Method Toilet Toilet Toilet # Voids 1 - Exam GENERAL EXAM: Alert, pleasant 74-year-old white female, sitting up in bed, comfortable in no apparent distress. HEAD: Normocephalic and atraumatic EYES: Normal reaction of pupils, equal size. NOSE: Clear with pink turbinates. THROAT: No erythema or exudates. Voice hoarseness. No stridor NECK: No masses, no JVD. Remote appearing tracheostomy incisional scar. CHEST: No chest wall deformity. LUNGS: Equal air entry with no crackles, wheeze, rhonchi or dullness. On room air. No conversational dyspnea or accessory muscle use.. CVS: S1 and S2 normal with no audible murmur, regular rhythm. No extra heart sounds ABDOMEN: No hepatosplenomegaly, active bowel sounds, no guarding or rigidity. SPINE: No scoliosis or deformity SKIN: No rashes CENTRAL NERVOUS SYSTEM: No focal deficits, tone is normal in all 4 extremities. EXTREMITIES: There is no peripheral edema, clubbing, or cyanosis. Peripheral pulses are intact. Right-sided foot drop - Labs CBC & Chem 7: 06/14/24 06:36 06/14/24 06:36 Labs: Abnormal Lab Results - Last 24 Hours (Table) 06/14/24 06/14/24 06/14/24 Range/Units 06:36 06:36 06:36 RBC 3.47 L (3.80-5.40) m/uL Hgb 11.0 L (11.4-16.0) gm/dL APTT 52.8 H (22.0-30.0) sec Carbon Dioxide 37 H (22-30) mmol/L BUN 18 H (7-17) mg/dL Creatinine 1.06 H (0.52-1.04) mg/dL Glucose 100 H (74-99) mg/dL Calcium 8.2 L (8.4-10.2) mg/dL Total Bilirubin <0.1 L (0.2-1.3) mg/dL Total Protein 5.3 L (6.3-8.2) g/dL Albumin 3.1 L (3.5-5.0) g/dL Microbiology - Last 24 Hours (Table) 06/12/24 11:00 Nasal Screen MRSA/MSSA - Final Nasal Swab Staphylococcus aureus,Not MRSA Assessment and Plan Assessment: Multivessel coronary artery disease; heart catheterization done on 06/11/2024 showing multivessel coronary artery disease with a calcified left main and LAD, totally occluded proximal LAD with collaterals, significant disease of involving the left circumflex, OM1, PLV, and significant disease in the mid codominant RCA. With elevated LVEDP. Patient is being considered for surgical revascularization. The patient is currently on IV heparin. Free of any chest pain. Cardiac rhythm is sinus. Awaiting consultation with cardiothoracic surgery. Non-ST elevation myocardial infarction, currently on IV heparin infusion per protocol History of tracheostomy, with reversal approximately 50 years ago, states she has had multiple neck surgeries. Ongoing concern for vocal cord dysfunction/paralysis (unilateral) and the patient is awaiting ENT evaluation by Dr. Pulido. FEV1 0.85 L or 41% of predicted. Lifelong non-smoker Hypertension Moderate-sized hiatal hernia, as reported in CT scan Chronic lumbar back pain Plan: Continue IV heparin Cardiothoracic consultation today ENT consultation and the patient would likely need a direct laryngoscopy FEV1 0.85 L or 41% of predicted We will continue to follow, additional recommendations to follow. P
--- NOTE | 2024-06-15 00:15 | CONS ---
CONSULTATION REASON FOR CONSULTATION: Laryngoscopy. HISTORY: This is a 74-year-old white female, who presented last week with chest pain and workup has ensued. She apparently scheduled for bypass surgery tomorrow, but they wanted her larynx checked and upper airway due to the fact that she has history of tracheostomy after a failed suicide attempt 47 years ago, which required intubation, long-term ventilation and tracheostomy. Since that time, she has had hoarseness and apparently was told she had a right vocal cord paralysis at one time, but is not sure when this was. She does not have stridor, but does have some chronic hoarseness. She has no respiratory difficulty. She did have back surgery about 25 years ago, which required general anesthesia with intubation and she tolerated this well with no airway issues. PAST MEDICAL HISTORY: Positive for hypertension, coronary artery disease, moderate size hiatal hernia. PAST SURGICAL HISTORY: Back surgery as well as above otherwise. SOCIAL HISTORY: Does not have history of smoking or alcohol use. MEDICATIONS: At home: 1. Cymbalta. 2. Hydrocodone. 3. Lopressor. 4. OxyContin. 5. Desyrel. ALLERGIES: To lorazepam. REVIEW OF SYSTEMS: Pertinent positives are as above and negative otherwise. PHYSICAL EXAMINATION: VITAL SIGNS: In the chart already and will not be reviewed. GENERAL: This is a well-developed adult white female, in no acute distress. She does have mild hoarseness. No stridor is noted. HEENT: Head, normocephalic and atraumatic. Ears, bilateral canals are clear. Tympanic membranes unremarkable and mobile. The nose shows no drainage or obstruction. Septum is deviated to the right, however, mildly. The nasopharynx is unremarkable. Oropharynx and oral cavity, no abnormal masses or erythema. Hypopharynx and larynx exam including a flexible laryngoscopy shows a right vocal cord paralysis in the paramedian position. Good overall airway on abduction with minimal posterior glottic approximately 1 mm. Subglottis cannot be evaluated. NECK: Supple without adenopathy or tenderness. There is a well-healed tracheostomy scar with indentation. PROCEDURE: Flexible laryngoscopy. Note, the patient was in her hospital bed in a sitting position. Informed consent was obtained. Flexible laryngoscopy was performed through the left nasal cavity with systematic evaluation of the left nasal cavity, nasopharynx, oropharynx, hypopharynx, and larynx with the above findings noted. The patient tolerated this well with no complications. ASSESSMENT: Right vocal cord paralysis. PLAN: The patient is scheduled for coronary artery bypass surgery, possibly tomorrow. She has tolerated general anesthesia with intubation previously and therefore it is expected that she should tolerate this well. We would recommend a small endotracheal tube possible with the possibility that due to the fact that her vocal cord does not completely abduct with any intraoperative swelling from intubation could result in some issues with airway obstruction and need for tracheostomy tube at least temporarily. If there are any questions or concerns regarding this consultation, please feel free to contact me. LORE / IJN: [id number] /
--- NOTE | 2024-06-15 08:10 | P.PN ---
Subjective Progress Note Date: 06/15/24 Principal diagnosis: Multivessel coronary artery disease, non-ST elevated myocardial infarction this admission. Past medical history significant for hypertension, tracheostomy aft er a suicide attempt years ago, status post reversal 50 years ago, reports she had the tracheostomy for about 10 years, chronic back pain, dropfoot to her right foot, constipation, dysphagia, depression and is a lifetime non-smoker. The patient was seen and examined in follow-up today June 2024 at her bedside in the third floor cardiac stepdown unit. The patient is currently sitting up in bed, is awake, alert, oriented x 3 and is in no acute apparent distress. Her daughter is present at her bedside. The patient denies any complaints of pain or shortness of breath at this time. No further complaints of chest pain. She remains on heparin drip per protocol. The patient reports she was being prepping her for surgery this morning, although the patient is scheduled for surgery on Thursday, June 17, 2024. She is scheduled for myocardial revascularization surgery with left internal mammary artery, endoscopic vein harvest, exclusion left atrial appendage and intraoperative transesophageal echocardiogram for June 17, 2024 to be performed by Dr. Armani Cho. She was seen by Dr. Pulido from ENT yesterday and has been cleared for surgery by his standpoint. The patient has been up ambulating in the room. Oxygen saturations are 92% on room air and she is achieving 1500 mL on her incentive spirometry with encouragement. Remote telemetry is showing normal sinus rhythm heart rate 63 bpm. She remains hemodynamically stable and is currently on no inotropic or pressor support. Preoperative teaching has been reinforced with the patient and her family member present at her bedside. Objective - Vital Signs Vital signs: Vital Signs Temp 98.1 F 06/15/24 04:08 Pulse 63 06/15/24 04:08 Resp 17 06/15/24 04:08 BP 163/78 06/15/24 04:08 Pulse Ox 92 L 06/15/24 04:08 FiO2 Intake & Output 06/14/24 06/15/24 06/15/24 18:59 06:59 18:59 Intake Total 180 370 Balance 180 370 Weight 70.2 kg Intake: Intake, IV Titration 250 Amount Heparin Sod,Pork in 0.45% 250 NaCl 25,000 unit In 0.45 % NaCl 1 250ml.bag @ 12 UNITS/KG/HR 8.709 mls/hr IV .Q24H [facility] Rx#: [id number] Oral 180 120 Other: Voiding Method Toilet Toilet # Voids 1 2 - Exam CONSTITUTIONAL: Appears comfortable, cooperative, no apparent acute distress. HEENT: Neck is supple, no JVD, no lymphadenopathy. RESPIRATORY: Lungs sounds essentially clear throughout, diminished to his bilateral bases. Respirations are symmetrical and nonlabored. Currently on room air with oxygen saturations 92%. Able to achieve 1500 mL on her incentive spirometry. Strong cough. CARDIOVASCULAR: Regular rhythm and rate. S1 and S2 present, negative for S3, gallop or murmur. Palpable peripheral pulses bilaterally. No calf pain or tenderness noted. GASTROINTESTINAL: Abdomen soft, nontender, nondistended. Active bowel sounds present 4 quadrants. Tolerating diet. Passing flatus. GENITOURINARY: Continues to void. INTEGUMENTARY: Skin is warm and dry with no evidence of clubbing or cyanosis. NEUROLOGIC: Cranial nerves II through XII intact. No focal deficits. MUSKULOSKELETAL: Able to move all extremities, strength equal bilaterally, chronic dropfoot, right foot. PSYCHIATRIC: Alert and oriented to person place and time, appropriate affect, intact judgment and insight. - Allied health notes Allied health notes reviewed: nursing - Labs CBC & Chem 7: 06/14/24 06:36 06/14/24 06:36 Labs: Abnormal Lab Results - Last 24 Hours (Table) 06/14/24 06/14/24 06/14/24 Range/Units 06:36 06:36 06:36 RBC 3.47 L (3.80-5.40) m/uL Hgb 11.0 L (11.4-16.0) gm/dL APTT 52.8 H (22.0-30.0) sec Carbon Dioxide 37 H (22-30) mmol/L BUN 18 H (7-17) mg/dL Creatinine 1.06 H (0.52-1.04) mg/dL Glucose 100 H (74-99) mg/dL Calcium 8.2 L (8.4-10.2) mg/dL Total Bilirubin <0.1 L (0.2-1.3) mg/dL Total Protein 5.3 L (6.3-8.2) g/dL Albumin 3.1 L (3.5-5.0) g/dL Microbiology - Last 24 Hours (Table) 06/12/24 11:00 Nasal Screen MRSA/MSSA - Final Nasal Swab Staphylococcus aureus,Not MRSA Assessment and Plan Assessment: Multivessel coronary artery disease Non-ST elevated myocardial infarction this admission Hypertension Hyperlipidemia, cholesterol 219, LDL 137 Chronic back pain Chronic dropfoot, right foot Depression, recent loss of her History of tracheostomy with reversal 50 years ago, had trach for 10 years, status post suicide attempt History of dysphagia Moderate-sized hiatal hernia on CT scan Lifetime non-smoker Preoperative nasal screening positive for Staphylococcus aureus, not MRSA, treated Plan: An STS risk or has been calculated and discussed with the patient and her daughter present at her bedside. Dr. Jimenez met with the patient again yesterday June 14, 2024. The patient is willing to proceed with myocardial vascularization surgery. She is scheduled for myocardial vascularization surgery with left internal mammary artery, endoscopic vein harvest, exclusion left atrial appendage and intraoperative transesophageal echocardiogram to be scheduled for Thursday,June 17, 2024 to be completed by Dr. Armani Cho. Dr. Pulido's consult has been noted and appreciated. Increase activity as tolerated. Preoperative teaching has been reinforced with the patient. Preoperative info rmation binder has been given to the patient and reviewed with the patient and her daughter. Encourage use of incentive spirometry 10 times every hour while awake. Continue to maximize medical management with aspirin, statin and beta-jason. Heparin drip management per cardiology recommendations. More recommendations to follow based on patient's clinical course. Time with Patient: Greater than 30
--- NOTE | 2024-06-15 10:28 | P.PN ---
Subjective Progress Note Date: 06/15/24 SURGICAL PROGRESS NOTE CHIEF COMPLAINT: Chest pain HISTORY OF PRESENT ILLNESS: Surgical service following in regards to patient's moderate hiatal hernia, dysphagia and constipation. Patient denies any ab dominal pain. Denies any difficulty swallowing. She did have a bowel movement yesterday. She is anticipating cardiac surgery on Thursday. PHYSICAL EXAM: VITAL SIGNS: Reviewed. GENERAL: Well-developed in no acute distress. ABDOMEN: Soft. Nondistended. Nontender. NEUROLOGIC: Alert and oriented. Cranial nerves II through XII grossly intact. ASSESSMENT: 1. Moderate size hiatal hernia, dysphagia and constipation PLAN: -Recommend outpatient EGD and colonoscopy -Recommend hiatal hernia repair outpatient -No surgical intervention planned during this admission -Continue Senokot for constipation -Continue Protonix -Continue heart healthy diet -Surgical service will sign off. Please call with any questions or concerns Physician Assistant Press Operator note has been reviewed by physician. Signing provider agrees with the documented findings, assessment, and plan of care. Attestation Patient seen and examined at bedside. Denies any difficulty swallowing and abdominal pain at this time. Her chief complaint is chest pain. She is anticipating cardiothoracic surgery on Thursday. No plan for surgical intervention for this hiatal hernia at this time as she is requiring cardiac surgery. Once she recovers from this, hiatal hernia can be addressed as an outpatient with workup with EGD and colonoscopy and further discussion at that time. Please contact surgical service for any reevaluation should her clinical progress change. Bety Harmon, DO Objective - Vital Signs Vital signs: Vital Signs Temp 97.8 F 06/15/24 08:25 Pulse 72 06/15/24 08:25 Resp 18 06/15/24 08:25 BP 153/77 06/15/24 08:25 Pulse Ox 90 L 06/15/24 08:25 FiO2 Intake & Output 06/14/24 06/15/24 06/15/24 18:59 06:59 18:59 Intake Total 180 370 221.077 Balance 180 370 221.077 Weight 70.2 kg Intake: Intake, IV Titration 250 41.077 Amount Heparin Sod,Pork in 0.45% 250 41.077 NaCl 25,000 unit In 0.45 % NaCl 1 250ml.bag @ 12 UNITS/KG/HR 8.709 mls/hr IV .Q24H [facility] Rx#: [id number] Oral 180 120 180 Other: Voiding Method Toilet Toilet Toilet # Voids 1 2 - Labs CBC & Chem 7: 06/14/24 06:36 06/14/24 06:36 Labs: Abnormal Lab Results - Last 24 Hours (Table) 06/15/24 Range/Units 07:25 APTT 39.7 H (22.0-30.0) sec Microbiology - Last 24 Hours (Table) 06/12/24 11:00 Nasal Screen MRSA/MSSA - Final Nasal Swab Staphylococcus aureus,Not MRSA
--- NOTE | 2024-06-15 11:27 | P.PN ---
Subjective HISTORY OF PRESENT ILLNESS: This is a 74-year-old female with a past medical history significant for hypertension. 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 Patient does report she has not followed with a primary care physician in 20 to 30 years. we have been asked to see the patient in consultation for chest pain. Patient examined at the bedside in the emergency room. Patient states she has been having chest pain on and off for the past month. She states the episodes usually last about 10 minutes and then will resolve on their own or with peppermint candy. She states that the pain is usually in the middle of her chest and then will radiate into her left shoulder and arm. She does report feeling short of breath with these episodes. She states she had another episode of chest discomfort yesterday but this episode lasted for about an hour which concerned her so she came to the emergency room for further evaluation. She does report having another episode since coming to the hospital. She received Nitropaste which improved her chest pain. DIAGNOSTICS: - EKG reveals sinus mechanism with T wave inversions in V3V4. - Chest xray negative for acute process - Chest CTA: Negative for pulmonary embolism. A couple of pulmonary nodules measuring up to 4 mm. Trace pericardial effusion. Moderate coronary artery calcifications. - Laboratory data: WBC 5.4. Hemoglobin 12.3. Platelet count 281. Sodium 137. Potassium 4.0. BUN 21. Creatinine 0.91. Troponin 0.012. 0.021. 0.057. 0.050. - Current home cardiac medications include metoprolol 25 mg daily -No previous echocardiogram, stress test, or cardiac catheterization available in EMR for review 06/12/2024 Patient underwent cardiac catheterization yesterday with Dr. Segal revealing calcified left main and LAD, totally occluded proximal LAD with collaterals noted ipsilateral and contralateral, significant disease in the left circumflex, OM1, and left PLV, and significant disease in the mid codominant RCA. CT surgery has been consulted for evaluation of coronary artery bypass grafting. She is to be evaluated by the surgeon today. Patient currently remains on IV heparin. She denies chest pain or pressure. She denies shortness of breath. Vital signs are stable. Echocardiogram completed revealing ejection fraction 55 to 60% with mild tricuspid regurgitation 06/13/24 Patient examined this morning at the bedside. Patients family present. Patient reports having an episode of chest pain after using the bathroom this morning. Pain lasted for 15 minutes and resolved on its own. She remains on IV heparin. Vital signs stable. 06/14/2024 Patient examined this morning at the bedside. Patient remains on IV heparin. No complaints of shortness of breath. She currently denies any chest pain or pressure. Vital signs are stable. Telemetry reveals sinus mechanism. 06/15/2024 Patient examined this morning at the bedside. Patient remains on IV heparin. No complaints of shortness of breath. She currently denies any chest pain or pressure. Vital signs are stable. Telemetry reveals sinus mechanism. PHYSICAL EXAM: VITAL SIGNS: Reviewed. GENERAL: Well-developed in no acute distress. HEENT: Head is normocephalic. Pupils are equal, round. Sclerae anicteric. Mucous membranes of the mouth are moist. Neck supple. No JVD or thyromegaly LUNGS: Respirations even and unlabored. Lungs essentially clear to auscultation bilaterally. HEART: Regular rate and rhythm. S1 and S2 heard. ABDOMEN: Soft. Nondistended. Nontender. EXTREMITIES: Normal range of motion. No clubbing or cyanosis. Peripheral pulses intact. No lower extremity edema NEUROLOGIC: Awake and alert. Oriented x 3. ASSESSMENT: Chest pain Non-STEMI, status post cardiac catheterization revealing multivessel coronary artery disease Hypertension Hyperlipidemia, LDL 137 Moderate sized hiatal hernia Pulmonary nodules noted on CTA History of rheumatic fever as a child PLAN: Continue IV heparin Continue high intensity statin Continue aspirin and metoprolol Continue telemetry monitoring CT surgery following. Patient is scheduled to undergo CABG on 06/17/2024 Further recommendations pending patient course Nurse practitioner note has been reviewed by physician. Signing provider agrees with the documented findings, assessment, and plan of care documented by MULTIFOCAL LENS INSPECTOR as a scribe. Objective - Vital Signs Vital signs: Vital Signs Temp 97.8 F 06/15/24 08:25 Pulse 72 06/15/24 08:25 Resp 18 06/15/24 08:25 BP 153/77 06/15/24 08:25 Pulse Ox 90 L 06/15/24 08:25 FiO2 Intake & Output 06/14/24 06/15/24 06/15/24 18:59 06:59 18:59 Intake Total 180 370 221.077 Balance 180 370 221.077 Weight 70.2 kg Intake: Intake, IV Titration 250 41.077 Amount Heparin Sod,Pork in 0.45% 250 41.077 NaCl 25,000 unit In 0.45 % NaCl 1 250ml.bag @ 12 UNITS/KG/HR 8.709 mls/hr IV .Q24H [facility] Rx#: [id number] Oral 180 120 180 Other: Voiding Method Toilet Toilet Toilet # Voids 1 2 - Labs CBC & Chem 7: 06/14/24 06:36 06/14/24 06:36 Labs: Abnormal Lab Results - Last 24 Hours (Table) 06/15/24 Range/Units 07:25 APTT 39.7 H (22.0-30.0) sec Microbiology - Last 24 Hours (Table) 06/12/24 11:00 Nasal Screen MRSA/MSSA - Final Nasal Swab Staphylococcus aureus,Not MRSA
--- NOTE | 2024-06-15 13:35 | P.PN ---
Subjective Progress Note Date: 06/15/24 Patient is a 74-year-old female with past medical history significant for hypertension, previous tracheostomy that was reversed approximately 50 years ago. States that she has had issues with her breathing after a previous suicide attempt and she spent some time on a mechanical ventilator. She has had multiple neck surgeries at the [facility]. She has not followed up with a primary care provider in some time. She is a lifelong non-smoker. Presented to the emergency department back on June 10 with a chief complaint of chest pain. Chest pain described as substernal intermittent and radiating to her left chest and left arm. Lasts approximately 10 to 15 minutes with exertion. Usu ally subsides with rest or antacids, however, persistent on June 10, so she called her daughter to take her to the emergency department. Denies any associated nausea, diaphoresis, heart palpitations, lightheadedness/syncopal events. Denies any lower extremity swelling. Was found to have elevated troponins and admitted with non-ST elevation AK. Heart catheterization done on 06/11/2024 showing multivessel coronary artery disease with a calcified left main and LAD, totally occluded proximal LAD with collaterals, significant disease of involving the left circumflex, OM1, PLV, and significant disease in the mid codominant RCA. With elevated LVEDP. Echocardiogram showing preserved left ventricular ejection fraction of 55 to 60%, with mild mitral and tricuspid regurgitation. A surgical consult was placed. Pulmonary was also consulted for surgical clearance. CBC and CMP unremarkable. Recent APTT therapeutic. Chest CTA did not show any evidence of pulmonary embolism. Couple pulmonary nodules measuring up to 4 mm. Stated above, patient is not a non-smoker. Moderate size hiatal hernia. Bedside spirometry performed demonstrating and FEV1 0.85 L or 41% of predicted. Patient is a lifelong nontobacco smoker. Has no known history of COPD. She is currently sitting up in bed on room air oxygen. Nondistressed. She does have hoarse voice. Remote appearing tracheostomy inci sional scar. Patient remains on heparin infusion per protocol. Also nitroglycerin paste ordered. Denies any current chest pain. Current vitals: Temperature 97.1 F, heart rate 62 bpm, blood pressure 100/63 mmHg, nontachypneic, 93% on room air oxygen. On 06/14/2024, the patient is being seen for a follow-up. Doing well and she is free of any chest pain and the patient remains on IV heparin. The patient is status post non-ST segment elevation myocardial infarction due to an underlying multivessel coronary artery disease. She is awake and alert and communicating. Denies having any chest pain or shortness of breath. No nausea or emesis and the patient remains in sinus rhythm and hemodynamically stable. The patient is to meet the cardiothoracic surgeon today. Sodium is at 140, BUN is 18 with a creatinine of 1.06. Potassium level is at 4.5. WBC count is at 5.2 with a hemoglobin of 11 and a platelet count of 256. No other significant events overnight. The plan is still still undergo cardiac revascularization surgery and the patient is meeting their cardiothoracic surgeon today. The patient will also have a ENT evaluation by Dr. Beaulieu regarding possibility of vocal cord dysfunction. On 06/15/2024, the patient is resting comfortably in bed. She is free of any chest pain. Scheduled tentatively for cardiac revascularization surgery on 06/17/2024. Meanwhile, the patient had an ENT evaluation and a direct laryngoscopy was also done and the patient was found to have a right vocal cord paralysis. This is probably related to an injury that occurred many years back and the patient required a tracheostomy tube insertion following a suicidal attempt and at that time the patient required intubation and long-term mechanical ventilation and tracheostomy tube insertion. Since then, the patient has been hoarse. No stridor. Rest of the medications remain unchanged. The patient remains on IV heparin. Hemodynamically stable. Cardiac rhythm is sinus. Objective - Vital Signs Vital signs: Vital Signs Temp 97.8 F 06/15/24 08:25 Pulse 78 06/15/24 12:00 Resp 17 06/15/24 12:00 BP 120/65 06/15/24 12:00 Pulse Ox 91 L 06/15/24 12:00 FiO2 Intake & Output 06/14/24 06/15/24 06/15/24 18:59 06:59 18:59 Intake Total 180 370 221.077 Balance 180 370 221.077 Weight 70.2 kg Intake: Intake, IV Titration 250 41.077 Amount Heparin Sod,Pork in 0.45% 250 41.077 NaCl 25,000 unit In 0.45 % NaCl 1 250ml.bag @ 12 UNITS/KG/HR 8.709 mls/hr IV .Q24H [facility] Rx#: [id number] Oral 180 120 180 Other: Voiding Method Toilet Toilet Toilet # Voids 1 2 - Exam GENERAL EXAM: Alert, pleasant 74-year-old white female, sitting up in bed, comfortable in no apparent distress. HEAD: Normocephalic and atraumatic EYES: Normal reaction of pupils, equal size. NOSE: Clear with pink turbinates. THROAT: No erythema or exudates. Voice hoarseness. No stridor NECK: No masses, no JVD. Remote appearing tracheostomy incisional scar. CHEST: No chest wall deformity. LUNGS: Equal air entry with no crackles, wheeze, rhonchi or dullness. On room air. No conversational dyspnea or accessory muscle use.. CVS: S1 and S2 normal with no audible murmur, regular rhythm. No extra heart so unds ABDOMEN: No hepatosplenomegaly, active bowel sounds, no guarding or rigidity. SPINE: No scoliosis or deformity SKIN: No rashes CENTRAL NERVOUS SYSTEM: No focal deficits, tone is normal in all 4 extremities. EXTREMITIES: There is no peripheral edema, clubbing, or cyanosis. Peripheral pulses are intact. Right-sided foot drop - Labs CBC & Chem 7: 06/14/24 06:36 06/14/24 06:36 Labs: Abnormal Lab Results - Last 24 Hours (Table) 06/15/24 Range/Units 07:25 APTT 39.7 H (22.0-30.0) sec Microbiology - Last 24 Hours (Table) 06/12/24 11:00 Nasal Screen MRSA/MSSA - Final Nasal Swab Staphylococcus aureus,Not MRSA Assessment and Plan Assessment: Multivessel coronary artery disease; heart catheterization done on 06/11/2024 showing multivessel coronary artery disease with a calcified left main and LAD, totally occluded proximal LAD with collaterals, significant disease of involving the left circumflex, OM1, PLV, and significant disease in the mid codominant RCA. With elevated LVEDP. Patient is being considered for surgical r evascularization. The patient is currently on IV heparin. Free of any chest pain. Cardiac rhythm is sinus. Awaiting consultation with cardiothoracic surgery. Non-ST elevation myocardial infarction, currently on IV heparin infusion per protocol Right vocal cord paralysis History of tracheostomy, with reversal approximately 50 years ago, states she has had multiple neck surgeries. FEV1 0.85 L or 41% of predicted. Lifelong non-smoker Hypertension Moderate-sized hiatal hernia, as reported in CT scan Chronic lumbar back pain Plan: Continue IV heparin Awaiting coronary bypass surgery scheduled to be on 07/07/2024 ENT consultation is appreciated Right vocal cord paralysis No stridor FEV1 0.85 L or 41% of predicted We will continue to follow, additional recommendations to follow. P
--- NOTE | 2024-06-15 16:41 | P.PN ---
Subjective Progress Note Date: 06/15/24 Hospital course: Patient is a very pleasant 74-year-old female with a past medical history of hypertension tracheostomy status post reversal (50 years ago) and chronic back pain status postsurgical procedures. She presented to the emergency department with a chief complaint of chest pain. Upon arrival to our facility, patient underwent evaluation in the emergency department. Vital signs upon arrival show blood pressure 154/93, heart rate 105, respiratory rate 20, temp 97.5 F, and SpO2 of 92% on room air. EKG was completed showing sinus tachycardia at 102 bpm with no significant T wave or ST abnormalities upon personal review and interpretation. Chest x-ray completed negative for acute cardiopulmonary process. Labs completed and reviewed. CBC unremarkable. Coagulation profile showing an elevated D-dimer of 1.06. BMP showing hypercarbia with bicarb of 31 and mild prerenal azotemia with BUN of 25. Blood glucose 114. Magnesium 2.0. Liver profile unremarkable. Troponin was negative at less than 0.012. proBNP 52. CTA chest completed negative for pulmonary emboli showing a couple of pulmonary nodules measuring up to 4 mm and a moderate sized hiatal hernia. Patient admitted under our services with consultation to cardiology and general surgery. Troponins were trended resulting at less than 0.012, 0.021, 0.057 and patient was started on low intensity heparin infusion for treatment of NSTEMI. Cardiology evaluated and took patient for cardiac catheterization on 06/11/24. Revealing severe triple-vessel disease recommending evaluation for CABG. CardiothoracicThoracic surgery following, patient scheduled for CABG on 06/17/24. Physical exam: Patient seen and fully evaluated at bedside this morning. She was again visiting with family at bedside. She currently denies having any complaints at this time and denies having any chest pain, palpitations, shortness of breath, cough or congestion, or any numbness/tingling/weakness in her extremities. Vital signs reviewed and stable. General: Nontoxic, no distress and appears stated age. Derm: Skin warm and dry, normal coloration for ethnicity. Head: Atraumatic, normocephalic and symmetric. Eyes: EOM's intact, no lid lag, and anicteric sclera Mouth: no lip lesions, mucus membranes moist Cardiovascular: regular rate and rhythm with normal S1S2, no murmur, positive posterior tibial pulses bilaterally, and cap refill < 2 seconds. Lungs: Respirations even, regular, and unlabored on room air. Lungs CTA bilaterally, no rhonchi, no rales, no wheezing, and no accessory muscle usage. Abdominal: soft, nontender to palpation, no guarding, no appreciable organomegaly Ext: ROM intact. No gross muscle atrophy, no edema, no contractures Neuro: Speech clear, face symmetrical and CN II-XII grossly intact with no noted focal neuro deficits Psych: Alert and oriented to person, place, time, and situation. Appropriate and pleasant affect. Assessment and Plan of Care: NSTEMI Triple-vessel occlusive coronary artery disease Hypertension Elevated D-dimer, CTA negative for PE -Cardiology following and took patient for cardiac catheterization on 06/11/24. Revealing severe triple-vessel disease recommending evaluation for CABG. -CardiothoracicThoracic surgery following, patient scheduled for CABG on 06/17/24 -Continue low intensity heparin infusion with close monitoring of PTT every 6 hours for goal therapeutic range of 45 to 79 seconds. PTT currently subtherapeutic at 39.7.. -Telemetry monitoring -Aspirin 81 mg daily, atorvastatin 80 mg nightly, and metoprolol 25 mg twice daily. -Sublingual nitroglycerin 0.4 mg every 5 minutes as needed for chest pain. -Lipid profile revealed elevated total cholesterol of 219.00 and LDL of 137.7. -Echocardiogram revealing a preserved EF of 55 to 60% with mild mitral and tricuspid regurgitation and no evidence of pulmonary hypertension. Abdominal bloating and constipation Moderate sized hiatal hernia -KUB negative for acute process showing nonspecific abdomen with nonspecific bowel gas pattern. -General Surgery evaluated, reviewed documentation in chart. -Continue MiraLAX 17 g nightly. Chronic back pain -Continue home medication regimen with oxycodone 30 mg p.o. 3 times daily as needed for moderate to severe pain. Pulmonary nodules -Patient will require outpatient follow-up with repeat imaging for surveillance. Data and imaging reviewed: -Labs reviewed. CBC showing stable normocytic anemia with hemoglobin of 11.0. BMP showing hypercarbia with bicarb of 37 and renal function showing BUN of 18, creatinine of 1.06, GFR 52. Magnesium 2.2. Coagulation profile showing subtherapeutic PTT of 39.7. -Vital signs reviewed. Blood pressure 153/77, heart rate 72, respiratory rate 18, temp 97.8 F, and SpO2 of 90% on room air. CODE STATUS: Full code DVT prophylaxis: Heparin infusion Anticipated discharge date: Pending clinical course Anticipated discharge place: Pending clinical course Patient was seen independently by Nurse Practitioner. This document was prepared using [employer] dictation software. Please allow for errors in motor vehicle field representative while rare they do occur. Smith Peter DIRECTOR OPERATING rendered care for this patient independently, reviewed the findings and plan as documented in the note above and agree with plan. I did not physically speak with or examine the patient on this date. Objective - Vital Signs Vital signs: Vital Signs Temp 98.1 F 06/15/24 04:08 Pulse 63 06/15/24 04:08 Resp 17 06/15/24 04:08 BP 163/78 06/15/24 04:08 Pulse Ox 92 L 06/15/24 04:08 FiO2 Intake & Output 06/14/24 06/15/24 06/15/24 18:59 06:59 18:59 Intake Total 180 370 Balance 180 370 Weight 70.2 kg Intake: Intake, IV Titration 250 Amount Heparin Sod,Pork in 0.45% 250 NaCl 25,000 unit In 0.45 % NaCl 1 250ml.bag @ 12 UNITS/KG/HR 8.709 mls/hr IV .Q24H [facility] Rx#: [id number] Oral 180 120 Other: Voiding Method Toilet Toilet # Voids 1 2 - Labs CBC & Chem 7: 06/14/24 06:36 06/14/24 06:36 Labs: Abnormal Lab Results - Last 24 Hours (Table) 06/14/24 06/14/24 06/14/24 Range/Units 06:36 06:36 06:36 RBC 3.47 L (3.80-5.40) m/uL Hgb 11.0 L (11.4-16.0) gm/dL APTT 52.8 H (22.0-30.0) sec Carbon Dioxide 37 H (22-30) mmol/L BUN 18 H (7-17) mg/dL Creatinine 1.06 H (0.52-1.04) mg/dL Glucose 100 H (74-99) mg/dL Calcium 8.2 L (8.4-10.2) mg/dL Total Bilirubin <0.1 L (0.2-1.3) mg/dL Total Protein 5.3 L (6.3-8.2) g/dL Albumin 3.1 L (3.5-5.0) g/dL Microbiology - Last 24 Hours (Table) 06/12/24 11:00 Nasal Screen MRSA/MSSA - Final Nasal Swab Staphylococcus aureus,Not MRSA
[2024-06-16 07:12] LABS: HCT 36.2 % (34.0-46.0); HGB 11.6 gm/dL (11.4-16.0); MCH 31.1 pg (25.0-35.0); MCV 97.4 fL (80.0-100.0); Mean Platelet Volume 7.8; Platelet Count 267 k/uL (150-450); RBC 3.72 m/uL (3.80-5.40); RDW 13.2 % (11.5-15.5); WBC 6.5 k/uL (3.8-10.6)
[2024-06-16 07:26] LABS: ALT 15 U/L (4-34); AST 20 U/L (14-36); African American GFR (CKD) 66 (>60 ml/min/1.73 sqM); Albumin 3.5 g/dL (3.5-5.0); Alkaline Phosphatase 77 U/L (38-126); Anion Gap 4 mmol/L; Blood Urea Nitrogen 16 mg/dL (7-17); Calcium 8.7 mg/dL (8.4-10.2); Carbon Dioxide 34 mmol/L (22-30); Chloride 103 mmol/L (98-107); Glucose 105 mg/dL (74-99); Magnesium 2.2 mg/dL (1.6-2.3); Non-African American GFR(CKD) 57 (>60 ml/min/1.73 sqM); Potassium 4.2 mmol/L (3.5-5.1); Sodium 141 mmol/L (137-145); Total Bilirubin 0.2 mg/dL (0.2-1.3); Total Protein 5.7 g/dL (6.3-8.2)
--- NOTE | 2024-06-16 08:51 | P.PN ---
Subjective Progress Note Date: 06/16/24 Principal diagnosis: Multivessel coronary artery disease, non-ST elevated myocardial infarction this admission, moderate size hiatal hernia found on CT scan. Previous medical hist ory of hypertension, hyperlipidemia, tracheostomy 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 status post reversal 50 years ago, depression, severe restrictive lung disease, chronic back pain, right drop foot, chronic constipation and dysphagia, lifelong non- smoker. Preoperative nasal screen positive for MSSA The patient was seen and examined this morning laying in bed on the cardiac stepdown unit in no acute distress. Denies any chest pain or shortness of breath. Remains in sinus rhythm, hemodynamically stable. Currently on room air with oxygen saturation in the low to mid 90s. She was seen by Dr. Jimenez yes to reinforce surgery being scheduled Thursday, no new questions. Objective - Vital Signs Vital signs: Vital Signs Temp 98.2 F 06/16/24 03:49 Pulse 64 06/16/24 03:49 Resp 19 06/16/24 03:49 BP 131/81 06/16/24 03:49 Pulse Ox 93 L 06/16/24 03:49 FiO2 Intake & Output 06/15/24 06/16/24 06/16/24 18:59 06:59 18:59 Intake Total 581.077 191.027 Balance 581.077 191.027 Weight 70.5 kg Intake: Intake, IV Titration 41.077 191.027 Amount Heparin Sod,Pork in 0.45% 41.077 191.027 NaCl 25,000 unit In 0.45 % NaCl 1 250ml.bag @ 12 UNITS/KG/HR 8.709 mls/hr IV .Q24H [facility] Rx#: [id number] Oral 540 Other: Voiding Method Toilet Toilet # Voids 2 2 - Exam CONSTITUTIONAL: Appears comfortable, cooperative, no acute distress RESPIRATORY: Lungs sounds diminished bilaterally. Respirations even, nonlabored. Currently on room air with oxygen saturation 93% CARDIOVASCULAR: S1, S2 present. Regular rate and rhythm, sinus rhythm on telemetry. Palpable peripheral pulses bilaterally. No edema present GASTROINTESTINAL: Abdomen soft, nontender, nondistended. Active bowel sounds present 4 quadrants. Tolerating diet GENITOURINARY: Continues to void INTEGUMENTARY: Skin is warm and dry. Well-healed tracheostomy scar present NEUROLOGIC: Cranial nerves II through XII intact MUSKULOSKELETAL: Able to move all extremities, strength equal bilaterally, gait normal PSYCHIATRIC: Alert and oriented to person place and time, appropriate affect, intact judgment and insight - Allied health notes Allied health notes reviewed: nursing - Labs CBC & Chem 7: 06/16/24 05:59 06/16/24 05:59 Labs: Abnormal Lab Results - Last 24 Hours (Table) 06/15/24 06/16/24 06/16/24 Range/Units 16:18 05:59 05:59 RBC 3.72 L (3.80-5.40) m/uL APTT 58.5 H 69.6 H (22.0-30.0) sec Carbon Dioxide (22-30) mmol/L Glucose (74-99) mg/dL Total Protein (6.3-8.2) g/dL Crossmatch 06/16/24 06/16/24 Range/Units 05:59 06:39 RBC (3.80-5.40) m/uL APTT (22.0-30.0) sec Carbon Dioxide 34 H (22-30) mmol/L Glucose 105 H (74-99) mg/dL Total Protein 5.7 L (6.3-8.2) g/dL Crossmatch See Detail Assessment and Plan Assessment: Multivessel coronary artery disease, non-ST elevated myocardial infarction this admission Moderate size hiatal hernia found on CT scan, no surgical intervention planned at this time Preoperative nasal screen positive for MSSA, treated Previous medical history of hypertension Hyperlipidemia, cholesterol 219, LDL 137 Right vocal cord paralysis Tracheostomy 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 status post reversal 50 years ago Depression Severe restrictive lung disease, preoperative FEV1 41% of predicted Chronic back pain, on multiple narcotics Right drop foot Chronic constipation and dysphagia Lifelong non-smoker Plan: Continue to maximize medical therapy with aspirin, statin, beta-jason IV heparin per cardiology, needs to be stopped 2 hours prior to surgery Encourage incentive spirometry use Increase activity as tolerated Preoperative teaching reinforced Anticipate off-pump myocardial revascularization with left internal mammary artery, endoscopic vein harvesting, exclusion of the left atrial appendage by Dr. Jimenez tomorrow, June 17 N.p.o. after midnight More recommendations to follow
--- NOTE | 2024-06-16 10:27 | P.PN ---
Subjective HISTORY OF PRESENT ILLNESS: This is a 74-year-old female with a past medical history significant for hypertension. Patient does not follow with a veterans service representative. Patient does report she has not followed with a primary care physician in 20 to 30 years. we have been asked to see the patient in consultation for chest pain. Patient examined at the bedside in the emergency room. Patient states she has been having chest pain on and off for the past month. She states the episodes usually last about 10 minutes and then will resolve on their own or with peppermint candy. She states that the pain is usually in the middle of her chest and then will radiate into her left shoulder and arm. She does report feeling short of breath with these episodes. She states she had another episode of chest discomfort yesterday but this episode lasted for about an hour which concerned her so she came to the emergency room for further evaluation. She does report having another episode since coming to the hospital. She received Nitropaste which improved her chest pain. DIAGNOSTICS: - EKG reveals sinus mechanism with T wave inversions in V3V4. - Chest xray negative for acute process - Chest CTA: Negative for pulmonary embolism. A couple of pulmonary nodules measuring up to 4 mm. Trace pericardial effusion. Moderate coronary artery calcifications. - Laboratory data: WBC 5.4. Hemoglobin 12.3. Platelet count 281. Sodium 137. Potassium 4.0. BUN 21. Creatinine 0.91. Troponin 0.012. 0.021. 0.057. 0.050. - Current home cardiac medications include metoprolol 25 mg daily -No previous echocardiogram, stress test, or cardiac catheterization available in EMR for review 06/12/2024 Patient underwent cardiac catheterization yesterday with Dr. Segal revealing calcified left main and LAD, totally occluded proximal LAD with collaterals noted ipsilateral and contralateral, significant disease in the left circumflex, OM1, and left PLV, and significant disease in the mid codominant RCA. CT surgery has been consulted for evaluation of coronary artery bypass grafting. She is to be evaluated by the surgeon today. Patient currently remains on IV heparin. She denies chest pain or pressure. She denies shortness of breath. Vital signs are stable. Echocardiogram completed revealing ejection fraction 55 to 60% with mild tricuspid regurgitation 06/13/24 Patient examined this morning at the bedside. Patients family present. Patient reports having an episode of chest pain after using the bathroom this morning. Pain lasted for 15 minutes and resolved on its own. She remains on IV heparin. Vital signs stable. 06/14/2024 Patient examined this morning at the bedside. Patient remains on IV heparin. No complaints of shortness of breath. She currently denies any chest pain or pressure. Vital signs are stable. Telemetry reveals sinus mechanism. 06/15/2024 Patient examined this morning at the bedside. Patient remains on IV heparin. No complaints of shortness of breath. She currently denies any chest pain or pressure. Vital signs are stable. Telemetry reveals sinus mechanism. 06/16/2024 Patient examined this morning at the bedside. No family present. Patient remains on IV heparin. No complaints of shortness of breath. She currently denies any chest pain or pressure. Vital signs are stable. Telemetry reveals sinus mechanism. PHYSICAL EXAM: VITAL SIGNS: Reviewed. GENERAL: Well-developed in no acute distress. HEENT: Head is normocephalic. Pupils are equal, round. Sclerae anicteric. Mucous membranes of the mouth are moist. Neck supple. No JVD or thyromegaly LUNGS: Respirations even and unlabored. Lungs essentially clear to auscultation bilaterally. HEART: Regular rate and rhythm. S1 and S2 heard. ABDOMEN: Soft. Nondistended. Nontender. EXTREMITIES: Normal range of motion. No clubbing or cyanosis. Peripheral pulses intact. No lower extremity edema NEUROLOGIC: Awake and alert. Oriented x 3. ASSESSMENT: Chest pain Non-STEMI, status post cardiac catheterization revealing multivessel coronary artery disease Hypertension Hyperlipidemia, LDL 137 Moderate sized hiatal hernia Pulmonary nodules noted on CTA History of rheumatic fever as a child PLAN: Continue IV heparin Continue high intensity statin Continue aspirin and metoprolol Continue telemetry monitoring CT surgery following. Patient is scheduled to undergo CABG on 06/17/2024 Further recommendations pending patient course Nurse practitioner note has been reviewed by physician. Signing provider agrees with the documented findings, assessment, and plan of care documented by FILTER TIP CATCHER as a scribe. Objective - Vital Signs Vital signs: Vital Signs Temp 97.9 F 06/16/24 09:20 Pulse 65 06/16/24 09:20 Resp 18 06/16/24 09:20 BP 160/80 06/16/24 09:20 Pulse Ox 93 L 06/16/24 09:20 FiO2 Intake & Output 06/15/24 06/16/24 06/16/24 18:59 06:59 18:59 Intake Total 581.077 191.027 Balance 581.077 191.027 Weight 70.5 kg Intake: Intake, IV Titration 41.077 191.027 Amount Heparin Sod,Pork in 0.45% 41.077 191.027 NaCl 25,000 unit In 0.45 % NaCl 1 250ml.bag @ 12 UNITS/KG/HR 8.709 mls/hr IV .Q24H [facility] Rx#: [id number] Oral 540 Other: Voiding Method Toilet Toilet Toilet # Voids 2 2 - Labs CBC & Chem 7: 06/16/24 05:59 06/16/24 05:59 Labs: Abnormal Lab Results - Last 24 Hours (Table) 06/15/24 06/16/24 06/16/24 Range/Units 16:18 05:59 05:59 RBC 3.72 L (3.80-5.40) m/uL APTT 58.5 H 69.6 H (22.0-30.0) sec Carbon Dioxide (22-30) mmol/L Glucose (74-99) mg/dL Total Protein (6.3-8.2) g/dL Crossmatch 06/16/24 06/16/24 Range/Units 05:59 06:39 RBC (3.80-5.40) m/uL APTT (22.0-30.0) sec Carbon Dioxide 34 H (22-30) mmol/L Glucose 105 H (74-99) mg/dL Total Protein 5.7 L (6.3-8.2) g/dL Crossmatch See Detail
--- NOTE | 2024-06-16 12:16 | P.PN ---
Subjective Progress Note Date: 06/16/24 Subjective: Patient seen and examined at bedside. No acute events overnight. Pertinent positives and negatives as discussed above, a complete review of systems was performed and all other systems are negative. Vitals Signs Reviewed. General: Nontoxic, no distress, appears at stated age Derm: Warm, dry Head: Atraumatic, normocephalic, symmetric Eyes: EOMI, no lid lag, anicteric sclera Mouth: No lip lesion, mucus membranes moist Cardiovascular: S1S2 reg, no murmur Lungs: CTA bilateral, no rhonchi, no rales, no accessory muscle use Abdominal: Soft, nontender to palpation, no guarding, no appreciable organomegaly Ext: No gross muscle atrophy, no edema, no contractures Neuro: CN II-XI grossly intact, no focal neuro deficits Psych: Alert, oriented, appropriate affect Data Reviewed Today: Pertinent Labs: Hemoglobin 11.6, bicarb 34, creatinine 0.98, blood sugars 105 Imaging: No new imaging Assessment and Plan: Active: Acute NSTEMI Multivessel coronary artery disease Hypertension -Continue heparin drip, monitor APTT, monitor for bleeding -Cardiothoracic surgery note reviewed, plan for CABG tomorrow -Cardiology note reviewed, continue aspirin 81 mg, metoprolol 25 twice daily, atorvastatin 80 mg nightly -Pulmonology also following Constipation Moderate-sized hiatal hernia -General Surgery following -On MiraLAX 17 g daily Chronic: Chronic back pain Pulmonary nodules, outpatient follow-up Insomnia DVT ppx: Heparin drip Code status: Full code Anticipated discharge place: Pending clinical course Anticipated discharge time: Pending clinical course Objective - Vital Signs Vital signs: Vital Signs Temp 97.9 F 06/16/24 09:20 Pulse 65 06/16/24 09:20 Resp 18 06/16/24 09:20 BP 160/80 06/16/24 09:20 Pulse Ox 93 L 06/16/24 09:20 FiO2 Intake & Output 06/15/24 06/16/24 06/16/24 18:59 06:59 18:59 Intake Total 581.077 191.027 Balance 581.077 191.027 Weight 70.5 kg Intake: Intake, IV Titration 41.077 191.027 Amount Heparin Sod,Pork in 0.45% 41.077 191.027 NaCl 25,000 unit In 0.45 % NaCl 1 250ml.bag @ 12 UNITS/KG/HR 8.709 mls/hr IV .Q[facility]H [facility] Rx#: [id number] Oral 540 Other: Voiding Method Toilet Toilet Toilet # Voids 2 2 - Labs CBC & Chem 7: 06/16/24 05:59 06/16/24 05:59 Labs: Abnormal Lab Results - Last 24 Hours (Table) 06/15/24 06/16/24 06/16/24 Range/Units 16:18 05:59 05:59 RBC 3.72 L (3.80-5.40) m/uL APTT 58.5 H 69.6 H (22.0-30.0) sec Carbon Dioxide (22-30) mmol/L Glucose (74-99) mg/dL Total Protein (6.3-8.2) g/dL Crossmatch 06/16/24 06/16/24 Range/Units 05:59 06:39 RBC (3.80-5.40) m/uL APTT (22.0-30.0) sec Carbon Dioxide 34 H (22-30) mmol/L Glucose 105 H (74-99) mg/dL Total Protein 5.7 L (6.3-8.2) g/dL Crossmatch See Detail
--- NOTE | 2024-06-16 16:56 | P.PN ---
Subjective Progress Note Date: 06/16/24 Patient is a 74-year-old female with past medical history significant for hypertension, previous tracheostomy that was reversed approximately 50 years ago. States that she has had issues with her breathing after a previous suicide attempt and she spent some time on a mechanical ventilator. She has had multiple neck surgeries at the [facility]. She has not followed up with a primary care provider in some time. She is a lifelong non-smoker. Presented to the emergency department back on June 10 with a chief complaint of chest pain. Chest pain described as substernal intermittent and radiating to her left chest and left arm. Lasts approximately 10 to 15 minutes with exertion. Usu ally subsides with rest or antacids, however, persistent on June 10, so she called her daughter to take her to the emergency department. Denies any associated nausea, diaphoresis, heart palpitations, lightheadedness/syncopal events. Denies any lower extremity swelling. Was found to have elevated troponins and admitted with non-ST elevation [place]. Heart catheterization done on 06/11/2024 showing multivessel coronary artery disease with a calcified left main and LAD, totally occluded proximal LAD with collaterals, significant disease of involving the left circumflex, OM1, PLV, and significant disease in the mid codominant RCA. With elevated LVEDP. Echocardiogram showing preserved left ventricular ejection fraction of 55 to 60%, with mild mitral and tricuspid regurgitation. A surgical consult was placed. Pulmonary was also consulted for surgical clearance. CBC and CMP unremarkable. Recent APTT therapeutic. Chest CTA did not show any evidence of pulmonary embolism. Couple pulmonary nodules measuring up to 4 mm. Stated above, patient is not a non-smoker. Moderate size hiatal hernia. Bedside spirometry performed demonstrating and FEV1 0.85 L or 41% of predicted. Patient is a lifelong nontobacco smoker. Has no known history of COPD. She is currently sitting up in bed on room air oxygen. Nondistressed. She does have hoarse voice. Remote appearing tracheostomy inci sional scar. Patient remains on heparin infusion per protocol. Also nitroglycerin paste ordered. Denies any current chest pain. Current vitals: Temperature 97.1 F, heart rate 62 bpm, blood pressure 100/63 mmHg, nontachypneic, 93% on room air oxygen. On 06/14/2024, the patient is being seen for a follow-up. Doing well and she is free of any chest pain and the patient remains on IV heparin. The patient is status post non-ST segment elevation myocardial infarction due to an underlying multivessel coronary artery disease. She is awake and alert and communicating. Denies having any chest pain or shortness of breath. No nausea or emesis and the patient remains in sinus rhythm and hemodynamically stable. The patient is to meet the cardiothoracic surgeon today. Sodium is at 140, BUN is 18 with a creatinine of 1.06. Potassium level is at 4.5. WBC count is at 5.2 with a hemoglobin of 11 and a platelet count of 256. No other significant events overnight. The plan is still still undergo cardiac revascularization surgery and the patient is meeting their cardiothoracic surgeon today. The patient will also have a ENT evaluation by Dr. Beaulieu regarding possibility of vocal cord dysfunction. On 06/15/2024, the patient is resting comfortably in bed. She is free of any chest pain. Scheduled tentatively for cardiac revascularization surgery on 06/17/2024. Meanwhile, the patient had an ENT evaluation and a direct laryngoscopy was also done and the patient was found to have a right vocal cord paralysis. This is probably related to an injury that occurred many years back and the patient required a tracheostomy tube insertion following a suicidal attempt and at that time the patient required intubation and long-term mechanical ventilation and tracheostomy tube insertion. Since then, the patient has been hoarse. No stridor. Rest of the medications remain unchanged. The patient remains on IV heparin. Hemodynamically stable. Cardiac rhythm is sinus. On 06/16/2024, no new complaints of the patient's condition remains essentially stable. Using incentive spirometer. Remains on IV heparin. Free of any chest pain or shortness of breath. The patient is scheduled to undergo coronary revascularization surgery on 06/17/2024. Labs were checked. Hemoglobin 11.6, white cell count 6.5, BUN 16 with a creatinine of 0.9 and sodium levels at 141. She remains on room air oxygen. No respiratory difficulties for now. Will continue to follow. Objective - Vital Signs Vital signs: Vital Signs Temp 97.9 F 06/16/24 09:20 Pulse 65 06/16/24 09:20 Resp 18 06/16/24 09:20 BP 160/80 06/16/24 09:20 Pulse Ox 93 L 06/16/24 09:20 FiO2 Intake & Output 06/15/24 06/16/24 06/16/24 18:59 06:59 18:59 Intake Total 581.077 191.027 Balance 581.077 191.027 Weight 70.5 kg Intake: Intake, IV Titration 41.077 191.027 Amount Heparin Sod,Pork in 0.45% 41.077 191.027 NaCl 25,000 unit In 0.45 % NaCl 1 250ml.bag @ 12 UNITS/KG/HR 8.709 mls/hr IV .Q24H [facility] Rx#: [id number] Oral 540 Other: Voiding Method Toilet Toilet Toilet # Voids 2 2 - Exam GENERAL EXAM: Alert, pleasant 74-year-old white female, sitting up in bed, comfortable in no apparent distress. HEAD: Normocephalic and atraumatic EYES: Normal reaction of pupils, equal size. NOSE: Clear with pink turbinates. THROAT: No erythema or exudates. Voice hoarseness. No stridor NECK: No masses, no JVD. Remote appearing tracheostomy incisional scar. CHEST: No chest wall deformity. LUNGS: Equal air entry with no crackles, wheeze, rhonchi or dullness. On room air. No conversational dyspnea or accessory muscle use.. CVS: S1 and S2 normal with no audible murmur, regular rhythm. No extra heart sounds ABDOMEN: No hepatosplenomegaly, active bowel sounds, no guarding or rigidity. SPINE: No scoliosis or deformity SKIN: No rashes CENTRAL NERVOUS SYSTEM: No focal deficits, tone is normal in all 4 extremities. EXTREMITIES: There is no peripheral edema, clubbing, or cyanosis. Peripheral pulses are intact. Right-sided foot drop - Labs CBC & Chem 7: 06/16/24 05:59 06/16/24 05:59 Labs: Abnormal Lab Results - Last 24 Hours (Table) 06/15/24 06/16/24 06/16/24 Range/Units 16:18 05:59 05:59 RBC 3.72 L (3.80-5.40) m/uL APTT 58.5 H 69.6 H (22.0-30.0) sec Carbon Dioxide (22-30) mmol/L Glucose (74-99) mg/dL Total Protein (6.3-8.2) g/dL Crossmatch 06/16/24 06/16/24 Range/Units 05:59 06:39 RBC (3.80-5.40) m/uL APTT (22.0-30.0) sec Carbon Dioxide 34 H (22-30) mmol/L Glucose 105 H (74-99) mg/dL Total Protein 5.7 L (6.3-8.2) g/dL Crossmatch See Detail Assessment and Plan Assessment: Multivessel coronary artery disease; heart catheterization done on 06/11/2024 showing multivessel coronary artery disease with a calcified left main and LAD, totally occluded proximal LAD with collaterals, significant disease of involving the left circumflex, OM1, PLV, and significant disease in the mid codominant RCA. With elevated LVEDP. Patient is being considered for surgical revascularization. The patient is currently on IV heparin. Free of any chest pain. Cardiac rhythm is sinus. Awaiting consultation with cardiothoracic surgery. Non-ST elevation myocardial infarction, currently on IV heparin infusion per protocol Right vocal cord paralysis History of tracheostomy, with reversal approximately 50 years ago, states she has had multiple neck surgeries. FEV1 0.85 L or 41% of predicted. Lifelong non-smoker Hypertension Moderate-sized hiatal hernia, as reported in CT scan Chronic lumbar back pain Plan: Clinically stable and the patient has no complaints. Will proceed with coronary revascularization surgery on 06/17/2024 Continue IV heparin ENT consultation is appreciated Right vocal cord paralysis No stridor FEV1 0.85 L or 41% of predicted We will continue to follow, additional recommendations to follow. P
[2024-06-17] MEDS ORDERED: NOREPINEPHRINE 4 MG in SODIUM CHLORIDE 0.9% 250 ML IV SCH (05:00)
[2024-06-17] MEDS ORDERED: INSULIN REGULAR 100 UNIT in SODIUM CHLORIDE 0.9% 100 ML IV SCH (05:00)
[2024-06-17] MEDS ORDERED: CARDIOPLEGIC SOLN (K+ 16 MEQ/L 1,000 ML with SOD BICARB SYR 8.4% (1 MEQ/ML) 20 ML, LIDO... PERFUSION NR (05:00)
[2024-06-17] MEDS: ASPIRIN 325 MG TAB PO ONE (05:14)
[2024-06-17] MEDS: METOPROLOL TARTRATE 12.5 MG TAB PO ONE (05:14)
[2024-06-17] MEDS: ATORVASTATIN 10 MG TAB PO ONE (05:14)
[2024-06-17 06:30] LABS: Glucose,Whole Blood 99 mg/dL (70-110)
[2024-06-17] MEDS: IV FLUID CONTINUATION 1,000 ML IV ONE (06:38)
[2024-06-17] MEDS: LACTATED RINGERS 1,000 ML IV SCH (06:39)
[2024-06-17] MEDS ORDERED: fentaNYL (PF) 50 MCG/ML 50 ML VIAL ONE (07:38)
[2024-06-17] MEDS ORDERED: PROPOFOL 10 MG/ML 20 ML VIAL IV ONE (07:38)
[2024-06-17] MEDS ORDERED: PROTAMINE SULFATE 10 MG/ML 25 ML VIAL IV ONE (07:38)
[2024-06-17] MEDS ORDERED: MIDAZOLAM HCL 10 MG/10 ML VIAL ONE (07:38)
[2024-06-17] MEDS ORDERED: ALBUMIN HUMAN 5% (25gm) 500 ML VIAL IVPB ONE (07:38)
[2024-06-17] MEDS ORDERED: HEPARIN SODIUM,PORCINE 10,000 UNIT/ML 1 ML VIAL ONE (07:38)
[2024-06-17] MEDS ORDERED: VECURONIUM 10 MG VIAL IV ONE (07:38)
[2024-06-17] MEDS ORDERED: HEPARIN SODIUM,PORCINE 5,000 UNIT/ML 1 ML VIAL ONE (07:38)
[2024-06-17 08:32] LABS: ABG Base Excess 5.4 mmol/L; ABG HCO3 30 mmol/L (21-25); ABG Hematocrit 29 % (34.0-46.0); ABG Ionized Calcium 4.6 mg/dL (4.5-5.3); ABG Lactic Acid Whole Blood 0.9 mmol/L (0.5-1.6); ABG Oxygen Saturation >99.4 % (94-97); ABG PCO2 45 mmHg (35-45); ABG PH 7.44 (7.35-7.45); ABG Potassium Whole Blood 4.5 mmol/L (3.4-4.5); ABG Sodium Whole Blood 141 mmol/L (135-146); Allen Test Performed? Yes
[2024-06-17 08:33] LABS: ABG Base Excess 5.6 mmol/L; ABG HCO3 30 mmol/L (21-25); ABG Hematocrit 30 % (34.0-46.0); ABG Ionized Calcium 4.6 mg/dL (4.5-5.3); ABG Lactic Acid Whole Blood 0.9 mmol/L (0.5-1.6); ABG Oxygen Saturation >99.4 % (94-97); ABG PCO2 44 mmHg (35-45); ABG PH 7.44 (7.35-7.45); ABG Potassium Whole Blood 4.5 mmol/L (3.4-4.5); ABG Sodium Whole Blood 141 mmol/L (135-146); Allen Test Performed? Yes
[2024-06-17] MEDS: HEPARIN SODIUM,PORCINE (1 ML) 5,000 UNIT in SODIUM CHLORIDE 0.9% 500 ML 500 ML IV ONE (08:56)
[2024-06-17] MEDS: PAPAVERINE 360 MG in SODIUM CHLORIDE 0.9% 90 ML IV ONE (08:57)
[2024-06-17] MEDS: ceFAZolin 1,000 MG in SODIUM CHLORIDE 0.9% IRRIGATIO 1,000 ML IRRIGATION ONE (08:57)
--- NOTE | 2024-06-17 09:34 | P.ANPRN ---
Procedure Note - Anesthesia - Invasive Line Right Central Line Time Out Performed: Yes Date of Procedure: 06/17/24 Location of Patient: PreOp Preparation: Sterile Prep, Sterile Dressing Central Line Location: Internal Jugular Ultrasound Used: Yes Purpose - Visualization and Identification of Vasculature: Yes Image Stored and Saved: Yes Narrative: Invasive line placement per sterile protocol utilized. Informed consent obtained.Right Internal jugular vein cannulated under aseptic p recautions. 3cc 1% lidocaine infiltrated initially after cleaning with iodine based prep and draping. Ultrasound used to locate the vein and Seldinger technique used. 9Fr introduced sheath inserted and after the finding the needle with steamboat pilot needle/catheter. The introducer sheath was sutured in place. After the insertion of PA Catheter the insertion site was dressed with biopatch and tegaderm. Patient tolerated the procedure well. Right [place] Karen Time Out Performed: Yes Location of Patient: PreOp Preparation: Sterile Prep, Sterile Dressing [place] Karen Line Location: Internal Jugular Narrative: Invasive line placement per sterile protocol utilized. 8Ff PA catheter threaded through the Right IJ introducer sheath under asepsis with continuous waveform monitoring. Catheter at 48 cms gordo. - DARYL Intraop Pre Bypass DARYL Intraop - Anesthesia Indication: coronary artery disease for CABG Date of Procedure: 06/17/24 Pre-operative Diagnosis: coronary artery disease Post-operative Diagnosis: status post coronary artery bypass graft Surgeon: Dc Jimenez Ejection Fraction: Normal Left Ventricle Hypertrophy: No R. Ventricle Function: Normal Anatomy: Trileaflet Aortic Stenosis: None Aortic Regurgitation: None Mitral Stenosis: None Mitral Regurgitation: Trace Tricuspid Stenosis: None Tricuspid Regurgitation: Trace Pulmonic Stenosis: None Pulmonic Regurgitation: None R. Atrial Dilation: No R. Atrial PFO: No L. Atrial Dilation: No Aortic Dissection: No - DARYL Intraop Post Bypass DARYL Intraop Post Bypass Procedure Performed: coronary artery bypass graft Ejection Fraction: Normal Regional Wall Motion Abnormalities: None R. Ventricle Function: Normal Aortic Valve: Unchanged Mitral Valve: Unchanged Tricuspid: Unchanged Pulmonic: Unchanged Aortic Dissection: No
[2024-06-17 10:07] LABS: ABG Base Excess 4.8 mmol/L; ABG Glucose Whole Blood 114 mg/dL (75-99); ABG HCO3 29 mmol/L (21-25); ABG Hematocrit 26 % (34.0-46.0); ABG Ionized Calcium 4.4 mg/dL (4.5-5.3); ABG Lactic Acid Whole Blood 1.1 mmol/L (0.5-1.6); ABG Oxygen Saturation 98.8 % (94-97); ABG PCO2 39 mmHg (35-45); ABG PH 7.47 (7.35-7.45); ABG PO2 134 mmHg (83-108); ABG Potassium Whole Blood 4.1 mmol/L (3.4-4.5); ABG Sodium Whole Blood 140 mmol/L (135-146); ABG TCO2 27 mmol/L (19-24); Allen Test Performed? Yes
[2024-06-17 10:50] LABS: ABG Base Excess 3.6 mmol/L; ABG Glucose Whole Blood 115 mg/dL (75-99); ABG HCO3 28 mmol/L (21-25); ABG Ionized Calcium 4.4 mg/dL (4.5-5.3); ABG Lactic Acid Whole Blood 1.2 mmol/L (0.5-1.6); ABG Oxygen Saturation 99.1 % (94-97); ABG PCO2 43 mmHg (35-45); ABG PH 7.43 (7.35-7.45); ABG PO2 156 mmHg (83-108); ABG Sodium Whole Blood 141 mmol/L (135-146); ABG TCO2 27 mmol/L (19-24); Allen Test Performed? Yes
[2024-06-17 11:27] LABS: ABG Base Excess 3.4 mmol/L; ABG Glucose Whole Blood 123 mg/dL (75-99); ABG HCO3 28 mmol/L (21-25); ABG Ionized Calcium 4.3 mg/dL (4.5-5.3); ABG PCO2 42 mmHg (35-45); ABG PH 7.43 (7.35-7.45); ABG PO2 127 mmHg (83-108); ABG Potassium Whole Blood 3.9 mmol/L (3.4-4.5); ABG Sodium Whole Blood 141 mmol/L (135-146); ABG TCO2 27 mmol/L (19-24); Allen Test Performed? Yes
[2024-06-17 11:50] LABS: ABG PO2 325 mmHg (83-108)
[2024-06-17 11:51] LABS: ABG Glucose Whole Blood 95 mg/dL (75-99)
[2024-06-17 11:55] LABS: ABG Hematocrit 24 % (34.0-46.0)
[2024-06-17 11:56] LABS: ABG Hematocrit 22 % (34.0-46.0)
[2024-06-17 12:16] LABS: ABG Base Excess 3.2 mmol/L; ABG Glucose Whole Blood 126 mg/dL (75-99); ABG HCO3 28 mmol/L (21-25); ABG Ionized Calcium 5.4 mg/dL (4.5-5.3); ABG Lactic Acid Whole Blood 1.2 mmol/L (0.5-1.6); ABG Oxygen Saturation 98.4 % (94-97); ABG PCO2 45 mmHg (35-45); ABG PH 7.41 (7.35-7.45); ABG PO2 98 mmHg (83-108); ABG Potassium Whole Blood 3.9 mmol/L (3.4-4.5); ABG Sodium Whole Blood 140 mmol/L (135-146); ABG TCO2 27 mmol/L (19-24); Allen Test Performed? Yes
--- NOTE | 2024-06-17 12:57 | P.OP ---
Date of Procedure: 06/17/24 Preoperative Diagnosis: Three-vessel coronary artery disease, non-ST elevation AR Postoperative Diagnosis: Same Procedure(s) Performed: Off-pump CABG x 4 with JESSICA to LAD, sequential saphenous vein graft to first obtuse marginal and third obtuse marginal (posterior lateral circumflex branch), saphenous vein graft to posterior descending (terminal circumflex), bilateral endoscopic harvest of greater saphenous vein, ligation left atrial appendage with 35 mm AtriCure clip, DARYL by anesthesia. Implants: 35 mm AtriCure clip Anesthesia: AYAKA Surgeon: Dc Jimenez Jig Worker #1: Jimmy Hernandez Estimated Blood Loss (ml): 400 IV fluids (ml): 2,000 Urine output (ml): 500 Pathology: none sent Condition: stable Disposition: ICU Indications for Procedure: 74-year-old female who has no good primary medical care for many years presented with anginal symptomatology and ruled in for subendocardial infarction. She underwent cardiac catheterization shortly after admission and was found to have severe three-vessel coronary artery disease with occluded LAD. Patient was recommended to undergo bypass surgery. She took some time to decide that she would agree to this. We then proceeded with appropriate workup in preparation and brought her to surgery as an inpatient on June 17. Operative Findings: Ventricular function was good by DARYL. Coronary targets were reasonable. The LAD was a severely and diffusely diseased vessel which was very deep in the intramyocardial fat. We could palpate a soft area and exposed it and grafted the LAD here. This was just beyond the second diagonal branch. There was significant back wall plaque in the LAD however it had a good 1.5+ millimeter lumen. The other 3 coronary targets were good quality vessels. Saphenous vein was somewhat limited due to irregularities in size and the patient's short stature. The saphenous vein was initially harvested from the left lower extremity but we did not have adequate vein to do all 3 branches that we wish to graft and so a second piece was taken from the right thigh. Description of Procedure: Patient was brought to the operating room and placed supine on the operating table. General anesthesia was induced. She was intubated and DARYL probe was placed. [place]Karen and radial arterial lines have been placed in the preop holding area. Anterior torso and bilateral lower extremities were sterilely prepped and draped. Greater saphenous vein was harvested initially from the left lower extremity from mid calf to groin. Simultaneous sternotomy was performed and the left hemisternum was retracted upwards. The left internal mammary artery was harvested on a vascularized pedicle and left intact on its origin from the subclavian proximally. Left chest was drained with 36 [place] chest tube through separate stab incision secured with an 0 Ethibond suture. Standard sternal retractor was placed. The pericardium was opened in the midl ine. The heart was exposed. Targets were identified. Graft lengths were measured. Saphenous vein was now evaluated. Was not felt to be adequate to reach all 3 distal targets that we needed. Here for a second piece of saphenous vein was harvested from the right thigh endoscopically. While this was proceeding we proceeded with heparinizing the patient. ACT's were maintained greater than 250 during grafting. The left atrial appendage was exposed and occluded in its base with a 35 mm AtriCure clip. The JESSICA was tunneled into the left pleural space. The LAD was explored and a soft spot identified and exposed and stabilized with the suction stabilizer. The lead was cut to appropriate length and the end prepared. LAD was opened and blood flow controlled with a 1.5 mm flow-through. End-to-side anastomosis between the JESSICA to the LAD was performed with running 8-0 Prolene suture. On completion of the anastomosis the flow through was removed effectively probing the proximal and distal portion of the anastomosis. Suture was tied with good resultant hemostasis. Inflow was opened. The heart was noted to fill well. There was good hemostasis. Next the inferior wall of the heart was exposed. Posterior lateral branch of the circumflex was stabilized and opened fairly proximally. It was a 1.75 mm vessel. Blood flow was controlled with a 1.5 mm flow-through. Left greater s aphenous vein was anastomosed end to side fashion with running 7-0 Prolene suture. On completion of the anastomosis the flow through was removed effectively probing the proximal distal portion of the anastomosis. Suture was tied with good resultant hemostasis. Good backbleeding was noted into the vein graft to the first valve. Vein was brought around the left side of the heart. First obtuse marginal coronary artery was now exposed and stabilized. It was opened and blood flow controlled with a 1.5 mm flow-through. It was a 2 mm good vessel. [id number] anastomosis between the saphenous vein to the first obtuse marginal was performed with running 7-0 Prolene suture. On completion of the anastomosis the flow through was removed effectively probing the proximal and distal portion of the anastomosis. Suture was tied with good resultant hemostasis. The heart was lowered into anatomic position. Vein was cut to appropriate length to reach the ascending aorta. Heartstring device was deployed in the ascending aorta to the left of midline at the distal third of the ascending aorta. Proximal anastomosis was constructed with running 5-0 Prolene suture. On completion of the proximal anastomosis, heartstring device was removed and the suture tied with good resultant hemostasis. Inflow was opened. Graft was noted to lay well with apparent good flow to both distal anastomoses. Saphenous vein from the right thigh was now available. The inferior wall was again exposed and the posterior descending coronary artery (terminal circumflex) was stabilized proximally. It was opened and blood flow controlled with a 1.5 mm flow-through. It was a 1.75 mm vessel. End-to-side anastomosis between the second piece of saphenous vein of the PDA was performed with running 7-0 Prolene suture. On completion of the anastomosis the flow through was removed effectively probing the proximal and distal portion of the anastomosis. Suture was tied with good resultant hemostasis. The heart was lowered into anatomic position and the vein brought to the right side of the heart up to the ascending aorta. Heartstring to plot device was deployed in the mid ascending aorta in the midline. Proximal anastomosis was constructed with running 5-0 Prolene suture. On completion of the anastomosis the heartstring device was removed and the suture tied with good hemostasis. Vein graft was de- aired with needle holes and inflow open. Vein was noted to lay well with good length. There was no kinking. Mosher filled well. All anastomoses were hemostatic. Heparin was reversed with protamine. Good hemostasis was obtained throughout. The right pleural space and then opened it was drained with a 32 [place] chest tube. Mediastinum was drained with a 36 [place] chest tube. Mediastinum was irrigated with antibiotic solution. After assuring good hemostasis, sternum was closed with 3 manubrial wires and 4 Mersilene bands in the sternal body. Fascia was closed with 0 Ethibond. Subcutaneous layer of the subcutaneous layers and the chest and both legs were closed with layers of Vicryl suture. Dry sterile dressings were applied. Patient was transferred to the ICU in stable condition. She was on no inotropic support and received no blood products.
[2024-06-17] MEDS ORDERED: Magnesium Replacement Protocol 1 EACH MISC MISCELLANE PRN (13:00)
[2024-06-17] MEDS ORDERED: DEXTROSE 5% IN WATER 100 ML with AMIODARONE 150 MG IV PRN (13:00)
[2024-06-17] MEDS ORDERED: DEXTROSE 50% SYRINGE 50 ML IVP PRN ×2 (13:00)
[2024-06-17] MEDS ORDERED: Potassium Replacement Protocol 1 EACH MISC MISCELLANE PRN (13:00)
[2024-06-17] MEDS ORDERED: BENZOCAINE/MENTHOL LOZENG 1 EACH LOZENGE MUCOUS MEM PRN (13:00)
[2024-06-17] MEDS ORDERED: AMIODARONE 360 MG in DEXTROSE 5% IN WATER 200 ML IV PRN (13:00)
[2024-06-17] MEDS ORDERED: ONDANSETRON 4 MG/2 ML VIAL IVP PRN (13:00)
[2024-06-17] MEDS ORDERED: IPRATROPIUM-ALBUTEROL 3 ML NEB INHALATION PRN (13:00)
[2024-06-17] MEDS ORDERED: AMIODARONE 450 MG in DEXTROSE 5% IN WATER 250 ML IV PRN (13:00)
[2024-06-17] MEDS ORDERED: CALCIUM GLUCONATE IN NACL 2 GM in SALINE 1 100ML.BAG IVPB PRN (13:00)
[2024-06-17 13:18] LABS: Glucose,Whole Blood 121 mg/dL (70-110)
[2024-06-17 13:36] LABS: Basophils % (A) 0 %; Eosinophils # (A) 0.2 k/uL (0-0.7); Eosinophils % (A) 2 %; HCT 25.8 % (34.0-46.0); Lymphocytes # (A) 1.4 k/uL (1.0-4.8); Lymphocytes % (A) 17 %; MCH 31.7 pg (25.0-35.0); MCV 95.8 fL (80.0-100.0); Mean Platelet Volume 7.7; Monocytes # (A) 0.4 k/uL (0-1.0); Monocytes % (A) 5 %; Neutrophils # (A) 6.2 k/uL (1.3-7.7); Neutrophils % (A) 76 %; Platelet Count 143 k/uL (150-450); RBC 2.69 m/uL (3.80-5.40); RDW 13.3 % (11.5-15.5); WBC 8.2 k/uL (3.8-10.6)
[2024-06-17 13:42] LABS: ABG Base Excess 1.9 mmol/L; ABG HCO3 26 mmol/L (21-25); ABG Oxygen Saturation >100.0 % (94-97); ABG PCO2 40 mmHg (35-45); ABG PH 7.43 (7.35-7.45); ABG PO2 338 mmHg (83-108); ABG TCO2 28 mmol/L (19-24)
[2024-06-17 13:43] LABS: HGB 8.5 gm/dL (11.4-16.0)
[2024-06-17 13:45] LABS: Allen Test Performed? no
[2024-06-17 13:46] LABS: Ionized Calcium 4.7 mg/dL (4.5-5.3)
--- NOTE | 2024-06-17 13:49 | P.PN ---
Subjective Progress Note Date: 06/17/24 Hospital Course: A 74-year-old female with PMH of HTN, history of tracheostomy around 40 years ago, who presented to the ED on 06/10/2024 with chest pain, was found to have elevated troponins and admitted with non-ST CO, heart cath done 06/11/2024 and showed multivessel CAD, calcified left main and LAD, complete occlusion of proximal LAD with collaterals, significant disease involving left circumflex, OM1, PLV, mid codominant RCA, elevated LVEDP. DARYL DARYL showed EF of 55 to 60% with mild tricuspid and mitral regurg. Chest CTA showed no PE, couple pulmonary nodules up to 4 mm. CABG was performed on 06/17/2024, patient was transferred to the ICU in stable condition, intubated, no inotropic support or blood products needed during the surgery. Patient was seen postop, intubated, sedated. Postop blood work showed hemoglobin drop from 11.6-8.5. Subjective: D intubated sedated Vitals Signs Reviewed. General: Intubated, sedated Derm: [warm], [dry] Head: [atraumatic], [normocephalic], [symmetric] Eyes: [EOMI], [no lid lag], [anicteric sclera] Mouth: [no lip lesion], [mucus membranes moist], ETT in place Cardiovascular: [S1S2 reg], Lungs: [CTA bilateral], [no rhonchi, no rales] , [no accessory muscle use]. Chest tubes in place, serosanguineous drainage Abdominal: [soft], [ nontender to palpation], [no guarding], [no appreciable organomegaly] Ext: [no gross muscle atrophy], [no edema], [no contractures], bilateral lower extremity veins were used for CABG Neuro: [ CN II-XI grossly intact], [no focal neuro deficits], unable to perform full exam as patient is intubated and sedated Psych: Intubated and sedated, unable to assess Assessment and Plan: Acute NSTEMI Multivessel coronary artery disease s/p CABG 06/17/2024 Hypertension -Patient in the ICU, intubated on 06/17/2024 -Postop management per cardiothoracic surgery, ICU -Operative note reviewed -Pulmonology following -Patient's blood pressure in 160s, blood glucose 110s to 120s, no insulin drip ordered as of now -Continue Accu-Cheks [id number] -Patient has chronic hoarseness, history of tracheostomy, might require tracheostomy at this time per Anesthesia Constipation Moderate-sized hiatal hernia -General Surgery following -On MiraLAX 17 g daily Chronic: Chronic back pain Pulmonary nodules, outpatient follow-up Insomnia DVT ppx: Heparin drip Code status: Full code Anticipated discharge place: Pending clinical course Anticipated discharge time: Pending clinical course Objective - Vital Signs Vital signs: Vital Signs Temp 96.8 F L 06/17/24 06:31 Pulse 60 06/17/24 06:31 Resp 16 06/17/24 06:31 BP 172/84 06/17/24 06:31 Pulse Ox 94 L 06/17/24 06:31 FiO2 50 06/17/24 13:45 Intake & Output 06/16/24 06/17/24 06/17/24 18:59 06:59 18:59 Intake Total 360 220 53 Output Total 1350 Balance 360 220 -1297 Weight 70.5 kg 70.3 kg Intake: IV 100 53 Oral 360 120 Output: Urine 1100 Estimated Blood Loss 250 Other: Voiding Method Toilet Toilet # Voids 2 1 - Labs CBC & Chem 7: 06/17/24 13:15 06/16/24 05:59 Labs: Abnormal Lab Results - Last 24 Hours (Table) 06/16/24 06/17/24 06/17/24 Range/Units 06:39 08:33 10:08 RBC (3.80-5.40) m/uL Hgb (11.4-16.0) gm/dL Hct (34.0-46.0) % Plt Count (150-450) k/uL ABG pH 7.47 H (7.35-7.45) ABG pO2 325 H 134 H (83-108) mmHg ABG HCO3 30 H 29 H (21-25) mmol/L ABG Total CO2 27 H (19-24) mmol/L ABG O2 Saturation >99.4 H 98.8 H (94-97) % ABG Hematocrit 29 L 26 L (34.0-46.0) % ABG Ionized Calcium 4.4 L (4.5-5.3) mg/dL ABG Glucose 114 H (75-99) mg/dL Hemoglobin 9.6 L 8.3 L (11.4-16.0) gm/dL POC Glucose (mg/dL) (70-110) mg/dL Arterial Blood Glucose 114 H (75-99) mg/dL Crossmatch See Detail 06/17/24 06/17/24 06/17/24 Range/Units 10:50 11:28 13:15 RBC 2.69 L (3.80-5.40) m/uL Hgb 8.5 L D (11.4-16.0) gm/dL Hct 25.8 L (34.0-46.0) % Plt Count 143 L (150-450) k/uL ABG pH (7.35-7.45) ABG pO2 156 H 127 H (83-108) mmHg ABG HCO3 28 H 28 H (21-25) mmol/L ABG Total CO2 27 H 27 H (19-24) mmol/L ABG O2 Saturation 99.1 H 99.0 H (94-97) % ABG Hematocrit 24 L 22 L (34.0-46.0) % ABG Ionized Calcium 4.4 L 4.3 L (4.5-5.3) mg/dL ABG Glucose 115 H 123 H (75-99) mg/dL Hemoglobin 7.9 L 7.3 L (11.4-16.0) gm/dL POC Glucose (mg/dL) (70-110) mg/dL Arterial Blood Glucose 115 H 123 H (75-99) mg/dL Crossmatch 06/17/24 06/17/24 Range/Units 13:16 13:40 RBC (3.80-5.40) m/uL Hgb (11.4-16.0) gm/dL Hct (34.0-46.0) % Plt Count (150-450) k/uL ABG pH (7.35-7.45) ABG pO2 338 H (83-108) mmHg ABG HCO3 26 H (21-25) mmol/L ABG Total CO2 28 H (19-24) mmol/L ABG O2 Saturation >100.0 H (94-97) % ABG Hematocrit (34.0-46.0) % ABG Ionized Calcium (4.5-5.3) mg/dL ABG Glucose (75-99) mg/dL Hemoglobin 8.2 L (11.4-16.0) gm/dL POC Glucose (mg/dL) 121 H (70-110) mg/dL Arterial Blood Glucose (75-99) mg/dL Crossmatch
[2024-06-17 13:51] LABS: INR 1.2 (<1.2); Partial Thromboplastin Time 31.1 sec (22.0-30.0); Prothrombin Time 13.3 sec (10.0-12.5)
[2024-06-17 13:57] LABS: ALT 11 U/L (4-34); AST 19 U/L (14-36); African American GFR (CKD) >90 (>60 ml/min/1.73 sqM); Albumin 3.4 g/dL (3.5-5.0); Alkaline Phosphatase 30 U/L (38-126); Anion Gap 6 mmol/L; Blood Urea Nitrogen 12 mg/dL (7-17); Calcium 8.7 mg/dL (8.4-10.2); Carbon Dioxide 26 mmol/L (22-30); Chloride 106 mmol/L (98-107); Glucose 115 mg/dL (74-99); Magnesium 1.6 mg/dL (1.6-2.3); Non-African American GFR(CKD) 81 (>60 ml/min/1.73 sqM); Potassium 4.4 mmol/L (3.5-5.1); Sodium 138 mmol/L (137-145); Total Bilirubin 0.3 mg/dL (0.2-1.3); Total Protein 4.7 g/dL (6.3-8.2)
[2024-06-17] MEDS: SODIUM CHLORIDE 0.9% 1,000 ML IV SCH (14:04)
[2024-06-17] MEDS: CLEVIDIPINE BUTYRATE 25 MG in EMPTY BAG 1 BAG IV SCH (14:04)
[2024-06-17] MEDS: HYDROcodone/APAP 10-325MG 1 EACH TAB PO PRN (14:12)
[2024-06-17] MEDS: NITROGLYCERIN-D5W PMX 50 MG in DEXTROSE/WATER 1 250ML.BAG IV SCH (14:14)
[2024-06-17 14:19] LABS: Glucose,Whole Blood 125 mg/dL (70-110)
[2024-06-17] MEDS: INSULIN REGULAR 100 UNIT in SODIUM CHLORIDE 0.9% 100 ML IV SCH (14:20)
[2024-06-17] MEDS: ALBUMIN HUMAN 5% 250 ML in EMPTY BAG 1 BAG IVPB PRN (14:21)
--- NOTE | 2024-06-17 14:47 | XR ---
EXAMINATION TYPE: XR chest 1V portable DATE OF EXAM: 06/17/2024 CLINICAL HISTORY: Postoperative cardiac surgery. TECHNIQUE: Single AP portable upright view of the chest is obtained. COMPARISON CTA chest from one week earlier FINDINGS: Endotracheal tube is low lying at the wolf into the right mainstem bronchus and should b e pulled back approximately 4 to 5 cm to be in more ideal position. Orogastric tube projects below the diaphragm. There is a right internal jugular Bogata-Karen catheter te rminating likely in the proximal right pulmonary artery outflow tract. There is mediastinal drainage catheter along with bilateral chest tubes. No obvious pneumothorax given limitation of supine technique. Overlying sternal wires and mediastinal clips along the left atrial appendage are now present. There is left basilar opacity and central vas cular congestion. Osseous structures are intact. IMPRESSION: 1. Low-lying endotracheal tube past wolf should be pulled back 4 to 5 cm to be in ideal position. 2. Bilateral chest tubes without obvious pneumothorax on supine x-ray. If this is a concern repeat up right view would be advised. 3. New moderate central vascular congestion and left basilar opacity favoring atelectasis. [facility], , 06/17/2024 2:44 PM
--- NOTE | 2024-06-17 14:54 | P.PN ---
Subjective Progress Note Date: 06/17/24 Patient is a 74-year-old female with past medical history significant for hypertension, previous tracheostomy that was reversed approximately 50 years ago. States that she has had issues with her breathing after a previous suicide attempt and she spent some time on a mechanical ventilator. She has had multiple neck surgeries at the [facility]. She has not followed up with a primary care provider in some time. She is a lifelong non-smoker. Presented to the emergency department back on June 10 with a chief complaint of chest pain. Chest pain described as substernal intermittent and radiating to her left chest and left arm. Lasts approximately 10 to 15 minutes with exertion. Usu ally subsides with rest or antacids, however, persistent on June 10, so she called her daughter to take her to the emergency department. Denies any associated nausea, diaphoresis, heart palpitations, lightheadedness/syncopal events. Denies any lower extremity swelling. Was found to have elevated troponins and admitted with non-ST elevation VT. Heart catheterization done on 06/11/2024 showing multivessel coronary artery disease with a calcified left main and LAD, totally occluded proximal LAD with collaterals, significant disease of involving the left circumflex, OM1, PLV, and significant disease in the mid codominant RCA. With elevated LVEDP. Echocardiogram showing preserved left ventricular ejection fraction of 55 to 60%, with mild mitral and tricuspid regurgitation. A surgical consult was placed. Pulmonary was also consulted for surgical clearance. CBC and CMP unremarkable. Recent APTT therapeutic. Chest CTA did not show any evidence of pulmonary embolism. Couple pulmonary nodules measuring up to 4 mm. Stated above, patient is not a non-smoker. Moderate size hiatal hernia. Bedside spirometry performed demonstrating and FEV1 0.85 L or 41% of predicted. Patient is a lifelong nontobacco smoker. Has no known history of COPD. She is currently sitting up in bed on room air oxygen. Nondistressed. She does have hoarse voice. Remote appearing tracheostomy inci sional scar. Patient remains on heparin infusion per protocol. Also nitroglycerin paste ordered. Denies any current chest pain. Current vitals: Temperature 97.1 F, heart rate 62 bpm, blood pressure 100/63 mmHg, nontachypneic, 93% on room air oxygen. On 06/14/2024, the patient is being seen for a follow-up. Doing well and she is free of any chest pain and the patient remains on IV heparin. The patient is status post non-ST segment elevation myocardial infarction due to an underlying multivessel coronary artery disease. She is awake and alert and communicating. Denies having any chest pain or shortness of breath. No nausea or emesis and the patient remains in sinus rhythm and hemodynamically stable. The patient is to meet the cardiothoracic surgeon today. Sodium is at 140, BUN is 18 with a creatinine of 1.06. Potassium level is at 4.5. WBC count is at 5.2 with a hemoglobin of 11 and a platelet count of 256. No other significant events overnight. The plan is still still undergo cardiac revascularization surgery and the patient is meeting their cardiothoracic surgeon today. The patient will also have a ENT evaluation by Dr. Beaulieu regarding possibility of vocal cord dysfunction. On 06/15/2024, the patient is resting comfortably in bed. She is free of any chest pain. Scheduled tentatively for cardiac revascularization surgery on 06/17/2024. Meanwhile, the patient had an ENT evaluation and a direct laryngoscopy was also done and the patient was found to have a right vocal cord paralysis. This is probably related to an injury that occurred many years back and the patient required a tracheostomy tube insertion following a suicidal attempt and at that time the patient required intubation and long-term mechanical ventilation and tracheostomy tube insertion. Since then, the patient has been hoarse. No stridor. Rest of the medications remain unchanged. The patient remains on IV heparin. Hemodynamically stable. Cardiac rhythm is sinus. On 06/16/2024, no new complaints of the patient's condition remains essentially stable. Using incentive spirometer. Remains on IV heparin. Free of any chest pain or shortness of breath. The patient is scheduled to undergo coronary revascularization surgery on 06/17/2024. Labs were checked. Hemoglobin 11.6, white cell count 6.5, BUN 16 with a creatinine of 0.9 and sodium levels at 141. She remains on room air oxygen. No respiratory difficulties for now. Will continue to follow. 06/17/2024, the patient is being seen in the intensive care unit. The patient was seen immediately after the patient arrived to the intensive care unit following her off-pump four-vessel bypass surgery. The patient had JESSICA to LAD and sequential vein graft to obtuse marginal and third obtuse marginal branch/posterior lateral circumflex branch. Also had a saphenous vein graft to PDA. Postop, the patient was kept intubated on mechanical ventilator and the patient was brought in to the intensive care unit. At this point, the patient is sedated on propofol which is running at 20 mcg/kg/min. The patient arrived to the ICU on Cleviprex drip for blood pressure control and this was weaned off and discontinued. Currently, on assist-control mode rate of 14, tidal volume of 400, FiO2 of 50% with a PEEP of 5. Blood gas showed a pH of 7.43 with a pCO2 of 40 and pO2 of 338. Chest x-ray postop showed adequate positioning of the ET tube, and the patient has a right pleural left pleural and mediastinal chest tube. No evidence of any pneumothorax. There is some mild pulm vascular congestion and left basilar atelectatic change. Knifley-Karen catheter is appropriately placed. The patient's cardiac output is at 4.6 with an index of 2.6. The patient is on insulin drip at 1 unit an hour. Cardiac rhythm is sinus. The output from the right right, left and mediastinal chest tube was noted. Output from mediastinal chest tube was 75, left was 50 and right was 0. No evidence of any air leak. Urine output is excellent at this point in time. The blood work showed a WBC count of 8.2 with a hemoglobin 8.5 and a platelet count of 143. Electrolytes are all within normal limits with a BUN of 12 and a creatinine of 0.7. The patient is slightly hypothermic and the patient has a Marcus hugger. Patient is currently postop day #0. Objective - Vital Signs Vital signs: Vital Signs Temp 93.2 F L 06/17/24 13:15 Pulse 54 L 06/17/24 14:30 Resp 14 06/17/24 14:30 BP 113/70 06/17/24 14:30 Pulse Ox 96 06/17/24 14:30 FiO2 50 06/17/24 13:45 Intake & Output 06/16/24 06/17/24 06/17/24 18:59 06:59 18:59 Intake Total 360 220 353 Output Total 2004 Balance 360 220 -1652 Weight 70.5 kg 70.3 kg Intake: IV 100 353 Albumin Human 5% 250 ml 250 In Empty Bag 1 bag @ 250 mls/hr IVPB Q1HR PRN Rx#: [id number] Sodium Chloride 0.9% 1, 50 000 ml @ 50 mls/hr IV . Q20H ASIF Rx#:[id number] Oral 360 120 Output: Chest Tube Drainage 130 Left Pleural 40 Mediastinal 90 Right Pleural 0 Urine 1625 Estimated Blood Loss 250 Other: Voiding Method Toilet Toilet # Voids 2 1 ABP, PAP, CO, CI - Last Documented Arterial Blood Pressure 127/58 Pulmonary Artery Pressure 25/14 Cardiac Output 4.6 Cardiac Index 2.6 - Exam GENERAL EXAM: Intubated on the mechanical ventilator. Orotracheal and orogastric tube are both in place. The patient is sedated and calm and comfortable. HEAD: Normocephalic and atraumatic EYES: Normal reaction of pupils, equal size. NOSE: Clear with pink turbinates. THROAT: No erythema or exudates. Voice hoarseness. No stridor NECK: No masses, no JVD. Remote appearing tracheostomy incisional scar. The patient has a right IJ Knifley-Karen catheter. CHEST: No chest wall deformity. LUNGS: Equal air entry with no crackles, wheeze, rhonchi or dullness. On room air. No conversational dyspnea or accessory muscle use.. The patient has a right pleural, left pleural and mediastinal chest tube and there is no evidence of any air leak. CVS: S1 and S2 normal with no audible murmur, regular rhythm. No extra heart sounds, thoracotomy scar is dry clean and intact. ABDOMEN: No hepatosplenomegaly, active bowel sounds, no guarding or rigidity. SPINE: No scoliosis or deformity SKIN: No rashes CENTRAL NERVOUS SYSTEM: No focal deficits, tone is normal in all 4 extremities. EXTREMITIES: There is no peripheral edema, clubbing, or cyanosis. Peripheral pulses are intact. Right-sided foot drop. Surgical wound site over the lower extremities are dry clean and intact. - Labs CBC & Chem 7: 06/17/24 13:15 06/17/24 13:15 Labs: Abnormal Lab Results - Last 24 Hours (Table) 06/16/24 06/17/24 06/17/24 Range/Units 06:39 08:33 10:08 RBC (3.80-5.40) m/uL Hgb (11.4-16.0) gm/dL Hct (34.0-46.0) % Plt Count (150-450) k/uL PT (10.0-12.5) sec INR (<1.2) APTT (22.0-30.0) sec ABG pH 7.47 H (7.35-7.45) ABG pO2 325 H 134 H (83-108) mmHg ABG HCO3 30 H 29 H (21-25) mmol/L ABG Total CO2 27 H (19-24) mmol/L ABG O2 Saturation >99.4 H 98.8 H (94-97) % ABG Hematocrit 29 L 26 L (34.0-46.0) % ABG Ionized Calcium 4.4 L (4.5-5.3) mg/dL ABG Glucose 114 H (75-99) mg/dL Hemoglobin 9.6 L 8.3 L (11.4-16.0) gm/dL Glucose (74-99) mg/dL POC Glucose (mg/dL) (70-110) mg/dL Alkaline Phosphatase (38-126) U/L Total Protein (6.3-8.2) g/dL Albumin (3.5-5.0) g/dL Arterial Blood Glucose 114 H (75-99) mg/dL Crossmatch See Detail 06/17/24 06/17/24 06/17/24 Range/Units 10:50 11:28 13:15 RBC 2.69 L (3.80-5.40) m/uL Hgb 8.5 L D (11.4-16.0) gm/dL Hct 25.8 L (34.0-46.0) % Plt Count 143 L (150-450) k/uL PT (10.0-12.5) sec INR (<1.2) APTT (22.0-30.0) sec ABG pH (7.35-7.45) ABG pO2 156 H 127 H (83-108) mmHg ABG HCO3 28 H 28 H (21-25) mmol/L ABG Total CO2 27 H 27 H (19-24) mmol/L ABG O2 Saturation 99.1 H 99.0 H (94-97) % ABG Hematocrit 24 L 22 L (34.0-46.0) % ABG Ionized Calcium 4.4 L 4.3 L (4.5-5.3) mg/dL ABG Glucose 115 H 123 H (75-99) mg/dL Hemoglobin 7.9 L 7.3 L (11.4-16.0) gm/dL Glucose (74-99) mg/dL POC Glucose (mg/dL) (70-110) mg/dL Alkaline Phosphatase (38-126) U/L Total Protein (6.3-8.2) g/dL Albumin (3.5-5.0) g/dL Arterial Blood Glucose 115 H 123 H (75-99) mg/dL Crossmatch 06/17/24 06/17/24 06/17/24 Range/Units 13:15 13:15 13:16 RBC (3.80-5.40) m/uL Hgb (11.4-16.0) gm/dL Hct (34.0-46.0) % Plt Count (150-450) k/uL PT 13.3 H (10.0-12.5) sec INR 1.2 H (<1.2) APTT 31.1 H (22.0-30.0) sec ABG pH (7.35-7.45) ABG pO2 (83-108) mmHg ABG HCO3 (21-25) mmol/L ABG Total CO2 (19-24) mmol/L ABG O2 Saturation (94-97) % ABG Hematocrit (34.0-46.0) % ABG Ionized Calcium (4.5-5.3) mg/dL ABG Glucose (75-99) mg/dL Hemoglobin (11.4-16.0) gm/dL Glucose 115 H (74-99) mg/dL POC Glucose (mg/dL) 121 H (70-110) mg/dL Alkaline Phosphatase 30 L (38-126) U/L Total Protein 4.7 L (6.3-8.2) g/dL Albumin 3.4 L (3.5-5.0) g/dL Arterial Blood Glucose (75-99) mg/dL Crossmatch 06/17/24 06/17/24 Range/Units 13:40 14:18 RBC (3.80-5.40) m/uL Hgb (11.4-16.0) gm/dL Hct (34.0-46.0) % Plt Count (150-450) k/uL PT (10.0-12.5) sec INR (<1.2) APTT (22.0-30.0) sec ABG pH (7.35-7.45) ABG pO2 338 H (83-108) mmHg ABG HCO3 26 H (21-25) mmol/L ABG Total CO2 28 H (19-24) mmol/L ABG O2 Saturation >100.0 H (94-97) % ABG Hematocrit (34.0-46.0) % ABG Ionized Calcium (4.5-5.3) mg/dL ABG Glucose (75-99) mg/dL Hemoglobin 8.2 L (11.4-16.0) gm/dL Glucose (74-99) mg/dL POC Glucose (mg/dL) 125 H (70-110) mg/dL Alkaline Phosphatase (38-126) U/L Total Protein (6.3-8.2) g/dL Albumin (3.5-5.0) g/dL Arterial Blood Glucose (75-99) mg/dL Crossmatch Assessment and Plan Assessment: Multivessel coronary artery disease; heart catheterization done on 06/11/2024 showing multivessel coronary artery disease with a calcified left main and LAD, totally occluded proximal LAD with collaterals, significant disease of involving the left circumflex, OM1, PLV, and significant disease in the mid codominant RCA. With elevated LVEDP. The patient is status post Off-pump CABG x 4 with JESSICA to LAD, sequential saphenous vein graft to first obtuse marginal and third obtuse marginal (posterior lateral circumflex branch), saphenous vein graft to posterior descending (terminal circumflex), bilateral endoscopic harvest of gre ater saphenous vein, ligation left atrial appendage with 35 mm AtriCure clip, and the patient is currently postop day #0. Hemodynamically stable. Adequate cardiac output and index. No pressors Postthoracotomy, remains intubated on mechanical ventilator. Chest tubes are in place. Output is minimal and there is no evidence of air leak. Chest x-ray was noted. Blood gas were also noted. Postop hypertension, currently off Cleviprex drip. Non-ST elevation myocardial infarction, currently on IV heparin infusion per protocol Right vocal cord paralysis History of tracheostomy, with reversal approximately 50 years ago, states she has had multiple neck surgeries. FEV1 0.85 L or 41% of predicted. Lifelong non-smoker Hypertension Moderate-sized hiatal hernia, as reported in CT scan Chronic lumbar back pain Plan: Wean down FiO2 as tolerated to maintain saturation above 90% Monitor hemodynamics including cardiac output and index No need for pressors at this point in time Monitor output from the chest tubes Insulin drip at 1 unit an hour Cardiac rhythm is sinus Patient is currently off Cleviprex Anticipate weaning and possible extubation within the next 2 to 4 hours. Will continue to follow. Critical care evaluation that was done more than 30 minutes. Will continue to follow. P Time with Patient: Greater than 30
[2024-06-17 15:09] LABS: Glucose,Whole Blood 132 mg/dL (70-110)
[2024-06-17] MEDS: DEXMEDETOMIDINE/0.9% NACL(PMX) 400 MCG in EMPTY BAG 1 BAG IV SCH (15:25)
[2024-06-17] MEDS: MAGNESIUM SULFATE-D5W PMX 1 GM in DEXTROSE/WATER 1 100ML.BAG IVPB SCH (15:50)
[2024-06-17] MEDS: HEPARIN SODIUM,PORCINE 5,000 UNIT/ML 1 ML VIAL SQ SCH (15:51)
[2024-06-17] MEDS: IPRATROPIUM-ALBUTEROL 3 ML NEB INHALATION SCH ×2 (16:09→20:12)
[2024-06-17 16:10] LABS: Glucose,Whole Blood 127 mg/dL (70-110)
[2024-06-17 16:39] LABS: Basophils % (A) 0 %; Eosinophils # (A) 0.1 k/uL (0-0.7); Eosinophils % (A) 1 %; HCT 26.6 % (34.0-46.0); HGB 8.6 gm/dL (11.4-16.0); Lymphocytes # (A) 1.3 k/uL (1.0-4.8); Lymphocytes % (A) 15 %; MCHC 32.5 g/dL (31.0-37.0); MCV 95.4 fL (80.0-100.0); Mean Platelet Volume 8.1; Monocytes # (A) 0.4 k/uL (0-1.0); Monocytes % (A) 5 %; Neutrophils # (A) 6.9 k/uL (1.3-7.7); Neutrophils % (A) 79 %; Platelet Count 168 k/uL (150-450); RBC 2.79 m/uL (3.80-5.40); RDW 13.2 % (11.5-15.5); WBC 8.8 k/uL (3.8-10.6)
[2024-06-17] MEDS: ACETAMINOPHEN IV (For NPO) 1,000 MG in EMPTY BAG 1 BAG IVPB SCH (16:59)
[2024-06-17 17:07] LABS: Glucose,Whole Blood 153 mg/dL (70-110)
[2024-06-17 18:11] LABS: Glucose,Whole Blood 138 mg/dL (70-110)
[2024-06-17 19:00] LABS: Glucose,Whole Blood 131 mg/dL (70-110)
[2024-06-17 19:08] LABS: Basophils % (A) 0 %; Eosinophils % (A) 0 %; HCT 27.8 % (34.0-46.0); HGB 9.1 gm/dL (11.4-16.0); Lymphocytes # (A) 0.8 k/uL (1.0-4.8); Lymphocytes % (A) 9 %; MCH 31.5 pg (25.0-35.0); MCHC 32.8 g/dL (31.0-37.0); MCV 95.9 fL (80.0-100.0); Mean Platelet Volume 8.3; Monocytes # (A) 0.6 k/uL (0-1.0); Monocytes % (A) 7 %; Neutrophils # (A) 7.8 k/uL (1.3-7.7); Neutrophils % (A) 84 %; Platelet Count 175 k/uL (150-450); RDW 12.8 % (11.5-15.5); WBC 9.3 k/uL (3.8-10.6)
[2024-06-17 19:51] LABS: Glucose,Whole Blood 132 mg/dL (70-110)
[2024-06-17 21:11] LABS: Glucose,Whole Blood 124 mg/dL (70-110)
[2024-06-17] MEDS: SENNOSIDES-DOCUSATE SODIUM 1 EACH TAB PO SCH (21:41)
[2024-06-17] MEDS: MUPIROCIN 2% OINT 22 GM TUBE NASAL SCH (21:50)
[2024-06-17 22:08] LABS: Glucose,Whole Blood 129 mg/dL (70-110)
[2024-06-17 23:01] LABS: Glucose,Whole Blood 141 mg/dL (70-110)
[2024-06-18 00:11] LABS: Glucose,Whole Blood 138 mg/dL (70-110)
[2024-06-18 01:08] LABS: Glucose,Whole Blood 124 mg/dL (70-110)
[2024-06-18 02:04] LABS: Glucose,Whole Blood 119 mg/dL (70-110)
[2024-06-18 03:04] LABS: Glucose,Whole Blood 118 mg/dL (70-110)
[2024-06-18 04:08] LABS: Glucose,Whole Blood 123 mg/dL (70-110)
[2024-06-18 04:32] LABS: Ionized Calcium 4.7 mg/dL (4.5-5.3)
[2024-06-18 04:34] LABS: Basophils % (A) 0 %; Eosinophils % (A) 0 %; HCT 30.6 % (34.0-46.0); HGB 10.2 gm/dL (11.4-16.0); Lymphocytes % (A) 8 %; MCH 31.5 pg (25.0-35.0); MCHC 33.2 g/dL (31.0-37.0); MCV 94.7 fL (80.0-100.0); Mean Platelet Volume 7.7; Monocytes # (A) 0.8 k/uL (0-1.0); Monocytes % (A) 6 %; Neutrophils # (A) 9.9 k/uL (1.3-7.7); Neutrophils % (A) 84 %; Platelet Count 216 k/uL (150-450); RBC 3.23 m/uL (3.80-5.40); RDW 12.7 % (11.5-15.5); WBC 11.7 k/uL (3.8-10.6)
[2024-06-18 04:44] LABS: ALT 12 U/L (4-34); AST 23 U/L (14-36); African American GFR (CKD) >90 (>60 ml/min/1.73 sqM); Albumin 4.1 g/dL (3.5-5.0); Alkaline Phosphatase 37 U/L (38-126); Anion Gap 12 mmol/L; Blood Urea Nitrogen 10 mg/dL (7-17); Calcium 8.8 mg/dL (8.4-10.2); Carbon Dioxide 23 mmol/L (22-30); Chloride 98 mmol/L (98-107); Glucose 118 mg/dL (74-99); Magnesium 1.9 mg/dL (1.6-2.3); Non-African American GFR(CKD) 88 (>60 ml/min/1.73 sqM); Potassium 4.2 mmol/L (3.5-5.1); Sodium 133 mmol/L (137-145); Total Bilirubin 0.6 mg/dL (0.2-1.3); Total Protein 5.7 g/dL (6.3-8.2)
[2024-06-18] MEDS: MAGNESIUM SULFATE-D5W PMX 1 GM in DEXTROSE/WATER 1 100ML.BAG IVPB ONE (05:58)
[2024-06-18 06:04] LABS: Glucose,Whole Blood 135 mg/dL (70-110)
[2024-06-18 06:05] LABS: ABG Base Excess 0.2 mmol/L; ABG HCO3 25 mmol/L (21-25); ABG Oxygen Saturation 96.8 % (94-97); ABG PCO2 39 mmHg (35-45); ABG PH 7.41 (7.35-7.45); ABG PO2 79 mmHg (83-108); ABG TCO2 26 mmol/L (19-24)
[2024-06-18 06:06] LABS: Allen Test Performed? no
[2024-06-18 06:30] LABS: ABG Hematocrit 23 % (34.0-46.0)
[2024-06-18 06:58] LABS: Glucose,Whole Blood 161 mg/dL (70-110)
[2024-06-18] MEDS: METOPROLOL TARTRATE 12.5 MG TAB PO SCH (07:45)
[2024-06-18] MEDS: ASPIRIN 325 MG TAB PO SCH (07:45)
[2024-06-18] MEDS: CLOPIDOGREL 75 MG TAB PO SCH (07:45)
[2024-06-18 08:03] LABS: Glucose,Whole Blood 118 mg/dL (70-110)
[2024-06-18] MEDS: KETOROLAC 15 MG/ML 1 ML VIAL IVP SCH (08:04)
[2024-06-18] MEDS: methylPREDNISolone SOD SUCCI 125 MG/2 ML VIAL IV STA (08:36)
[2024-06-18] MEDS: fentaNYL (PF) 50 MCG/ML 2 ML AMP IVP PRN (08:41)
--- NOTE | 2024-06-18 08:41 | P.PN ---
Subjective Progress Note Date: 06/18/24 Principal diagnosis: Multivessel coronary artery disease, non-ST elevated myocardial infarction this admission, moderate size hiatal hernia found on CT scan. Previous medical hist ory of hypertension, hyperlipidemia, tracheostomy 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 status post reversal 50 years ago, depression, severe restrictive lung disease, chronic back pain, right drop foot, chronic constipation and dysphagia, lifelong non- smoker. Preoperative nasal screen positive for MSSA POD #1 off-pump CABG x 4 with JESSICA to LAD, sequential saphenous vein graft to first obtuse marginal and third obtuse marginal (posterior lateral circumflex branch), saphenous vein graft to posterior descending (terminal circumflex), bilateral endoscopic harvest of greater saphenous vein, ligation left atrial appendage with 35 mm AtriCure clip, DARYL by anesthesia Postoperative acute blood loss anemia, expected given hemodilution The patient was seen and examined this morning laying in bed in the intensive care unit in no acute distress although does complain of expected postsurgical pain. She failed weaning trials last night multiple times due to tachypnea, tachycardia, hypertension. Each time when asked if she felt she could not breathe she nodded her head yes, likely due to small endotracheal tube. She was extubated this morning to BiPAP, reevaluated at the bedside with Dr. Connors, patient does have some stridor, she is a bit tachycardic and hypertensive. Will give IV Solu-Medrol, IV pain medication, start low-dose Precedex. If she decompensates or does not significantly improve over the next couple of hours Dr. Connors may reintubate with larger ET tube. Chest x-ray, labs reviewed. Right internal jugular [place]/Cordis, right radial arterial line, mediastinal/right/left pleural chest tubes all remain. Case discussed with Dr. Peterson, on-call cardiothoracic surgeon. Objective - Vital Signs Vital signs: Vital Signs Temp 99.7 F H 06/18/24 04:00 Pulse 122 H 06/18/24 08:07 Resp 37 H 06/18/24 08:07 BP 135/65 06/18/24 06:45 Pulse Ox 92 L 06/18/24 07:54 FiO2 40 06/18/24 08:12 Intake & Output 06/17/24 06/18/24 06/18/24 18:59 06:59 18:59 Intake Total 1834.042 7487.445 147.1 Output Total 3450 2225 65 Balance -2136.907 -564.276 82.1 Weight 73.4 kg Intake: IV 1198 1086 79 ACETAMINOPHEN IV (For NPO 100 ) 1,000 mg In Empty Bag 1 bag @ 400 mls/hr IVPB Q6HR [facility] Rx#:[id number] Albumin Human 5% 250 ml 500 In Empty Bag 1 bag @ 250 mls/hr IVPB Q1HR PRN Rx#: [id number] CO/CI 100 240 20 Lines 45 96 9 Magnesium Sulfate-D5w Pmx 200 1 gm In Dextrose/Water 1 100ml.bag @ 100 mls/hr IVPB Q1H ASIF Rx#: [id number] Sodium Chloride 0.9% 1, 250 600 50 000 ml @ 50 mls/hr IV . Q20H [facility] Rx#:[id number] ceFAZolin 2 gm In Sodium 50 50 Chloride 0.9% 50 ml @ 100 mls/hr IVPB ONCE ONE Rx# :[id number] Intake, IV Titration 45.093 214.445 8.1 Amount Clevidipine Butyrate 25 86.034 8.1 mg In Empty Bag 1 bag @ 1 MG/HR 2 mls/hr IV .Q24H ASIF Rx#:[id number] Dexmedetomidine/0.9% NaCl 20.154 3.165 (Pmx) 400 mcg In Empty Bag 1 bag @ Titrate IV . Q0M [facility] Rx#:[id number] Insulin Regular 100 unit 2.794 16.843 In Sodium Chloride 0.9% 100 ml @ Per Protocol IV .Q0M [facility] Rx#:[id number] propofoL 1,000 mg In 22.145 108.403 Empty Bag 1 bag @ Titrate IV .Q0M [facility] Rx#: [id number] Oral 70 Tube Feeding 120 60 Other 240 Output: Chest Tube Drainage 245 345 20 Left Pleural 85 160 10 Mediastinal 130 170 10 Right Pleural 30 15 0 Drainage 20 45 Left Calf 20 15 Right Calf 30 Urine 2935 1835 45 Estimated Blood Loss 250 Other: Voiding Method Indwelling Catheter ABP, PAP, CO, CI - Last Documented Arterial Blood Pressure 140/49 Pulmonary Artery Pressure 15/9 Cardiac Output 5.1 Cardiac Index 2.9 - Exam CONSTITUTIONAL: Appears anxious but cooperative RESPIRATORY: Lungs sounds diminished in the bases. Respirations slightly tachypneic. Currently on BiPAP, FiO2 40%, IPAP 14, EPAP 8 CARDIOVASCULAR: S1, S2 present. Tacky but regular rate and rhythm, sinus tach on telemetry. Sternum stable. Palpable peripheral pulses bilaterally. No edema present. No calf pain or tenderness noted. Heart hugger, antiembolism stockings, SCDs present. GASTROINTESTINAL: Abdomen soft, nontender, nondistended. Hypoactive bowel sounds present 4 quadrants. GENITOURINARY: Naik present draining clear, yellow urine. Output overnight 60-240 mL per hour INTEGUMENTARY: Skin is warm and dry with evidence of good perfusion. Anterior chest incision well approximated and covered with dry intact dressing. Bilateral lower extremity EVH sites well approximated without redness, JAYE drains present with minimal drainage NEUROLOGIC: Cranial nerves II through XII intact MUSKULOSKELETAL: Able to move all extremities, strength equal bilaterally PSYCHIATRIC: Alert and oriented to person place and time, appropriate affect INVASIVE LINES AND TUBES: Mediastinal/left/right pleural chest tubes present and connected to wall suction, no air leaks present. Mediastinal tube with 110 mL serosanguineous drainage overnight, 300 mL since surgery. Left pleural chest tube with 130 mL serosanguineous drainage overnight, 250 mL since surgery. Right pleural chest tube with 10 mL serosanguineous drainage overnight, 45 mL since surgery. Right internal jugular [place]/Cordis, right radial arterial line present. Last CO/CI 5.1/2.9, PA 24/04, CVP 3. - Allied health notes Allied health notes reviewed: nursing - Labs CBC & Chem 7: 06/18/24 04:08 06/18/24 04:08 Labs: Abnormal Lab Results - Last 24 Hours (Table) 06/16/24 06/17/24 06/17/24 Range/Units 06:39 08:33 08:34 WBC (3.8-10.6) k/uL RBC (3.80-5.40) m/uL Hgb (11.4-16.0) gm/dL Hct (34.0-46.0) % Plt Count (150-450) k/uL Neutrophils # (1.3-7.7) k/uL Lymphocytes # (1.0-4.8) k/uL PT (10.0-12.5) sec INR (<1.2) APTT (22.0-30.0) sec ABG pH (7.35-7.45) ABG pO2 325 H (83-108) mmHg ABG HCO3 30 H 30 H (21-25) mmol/L ABG Total CO2 (19-24) mmol/L ABG O2 Saturation >99.4 H >99.4 H (94-97) % ABG Hematocrit 29 L 30 L (34.0-46.0) % ABG Ionized Calcium (4.5-5.3) mg/dL ABG Glucose (75-99) mg/dL Hemoglobin 9.6 L 9.6 L (11.4-16.0) gm/dL Sodium (137-145) mmol/L Glucose (74-99) mg/dL POC Glucose (mg/dL) (70-110) mg/dL Alkaline Phosphatase (38-126) U/L Total Protein (6.3-8.2) g/dL Albumin (3.5-5.0) g/dL Arterial Blood Glucose (75-99) mg/dL Crossmatch See Detail 06/17/24 06/17/24 06/17/24 Range/Units 08:38 10:08 10:50 WBC (3.8-10.6) k/uL RBC (3.80-5.40) m/uL Hgb (11.4-16.0) gm/dL Hct (34.0-46.0) % Plt Count (150-450) k/uL Neutrophils # (1.3-7.7) k/uL Lymphocytes # (1.0-4.8) k/uL PT (10.0-12.5) sec INR (<1.2) APTT (22.0-30.0) sec ABG pH 7.47 H (7.35-7.45) ABG pO2 134 H 156 H (83-108) mmHg ABG HCO3 28 H 29 H 28 H (21-25) mmol/L ABG Total CO2 27 H 27 H 27 H (19-24) mmol/L ABG O2 Saturation 98.4 H 98.8 H 99.1 H (94-97) % ABG Hematocrit 23 L 26 L 24 L (34.0-46.0) % ABG Ionized Calcium 5.4 H 4.4 L 4.4 L (4.5-5.3) mg/dL ABG Glucose 126 H 114 H 115 H (75-99) mg/dL Hemoglobin 7.5 L 8.3 L 7.9 L (11.4-16.0) gm/dL Sodium (137-145) mmol/L Glucose (74-99) mg/dL POC Glucose (mg/dL) (70-110) mg/dL Alkaline Phosphatase (38-126) U/L Total Protein (6.3-8.2) g/dL Albumin (3.5-5.0) g/dL Arterial Blood Glucose 126 H 114 H 115 H (75-99) mg/dL Crossmatch 06/17/24 06/17/24 06/17/24 Range/Units 11:28 13:15 13:15 WBC (3.8-10.6) k/uL RBC 2.69 L (3.80-5.40) m/uL Hgb 8.5 L D (11.4-16.0) gm/dL Hct 25.8 L (34.0-46.0) % Plt Count 143 L (150-450) k/uL Neutrophils # (1.3-7.7) k/uL Lymphocytes # (1.0-4.8) k/uL PT 13.3 H (10.0-12.5) sec INR 1.2 H (<1.2) APTT 31.1 H (22.0-30.0) sec ABG pH (7.35-7.45) ABG pO2 127 H (83-108) mmHg ABG HCO3 28 H (21-25) mmol/L ABG Total CO2 27 H (19-24) mmol/L ABG O2 Saturation 99.0 H (94-97) % ABG Hematocrit 22 L (34.0-46.0) % ABG Ionized Calcium 4.3 L (4.5-5.3) mg/dL ABG Glucose 123 H (75-99) mg/dL Hemoglobin 7.3 L (11.4-16.0) gm/dL Sodium (137-145) mmol/L Glucose (74-99) mg/dL POC Glucose (mg/dL) (70-110) mg/dL Alkaline Phosphatase (38-126) U/L Total Protein (6.3-8.2) g/dL Albumin (3.5-5.0) g/dL Arterial Blood Glucose 123 H (75-99) mg/dL Crossmatch 06/17/24 06/17/24 06/17/24 Range/Units 13:15 13:16 13:40 WBC (3.8-10.6) k/uL RBC (3.80-5.40) m/uL Hgb (11.4-16.0) gm/dL Hct (34.0-46.0) % Plt Count (150-450) k/uL Neutrophils # (1.3-7.7) k/uL Lymphocytes # (1.0-4.8) k/uL PT (10.0-12.5) sec INR (<1.2) APTT (22.0-30.0) sec ABG pH (7.35-7.45) ABG pO2 338 H (83-108) mmHg ABG HCO3 26 H (21-25) mmol/L ABG Total CO2 28 H (19-24) mmol/L ABG O2 Saturation >100.0 H (94-97) % ABG Hematocrit (34.0-46.0) % ABG Ionized Calcium (4.5-5.3) mg/dL ABG Glucose (75-99) mg/dL Hemoglobin 8.2 L (11.4-16.0) gm/dL Sodium (137-145) mmol/L Glucose 115 H (74-99) mg/dL POC Glucose (mg/dL) 121 H (70-110) mg/dL Alkaline Phosphatase 30 L (38-126) U/L Total Protein 4.7 L (6.3-8.2) g/dL Albumin 3.4 L (3.5-5.0) g/dL Arterial Blood Glucose (75-99) mg/dL Crossmatch 06/17/24 06/17/24 06/17/24 Range/Units 14:18 15:08 15:58 WBC (3.8-10.6) k/uL RBC (3.80-5.40) m/uL Hgb (11.4-16.0) gm/dL Hct (34.0-46.0) % Plt Count (150-450) k/uL Neutrophils # (1.3-7.7) k/uL Lymphocytes # (1.0-4.8) k/uL PT (10.0-12.5) sec INR (<1.2) APTT (22.0-30.0) sec ABG pH (7.35-7.45) ABG pO2 (83-108) mmHg ABG HCO3 (21-25) mmol/L ABG Total CO2 (19-24) mmol/L ABG O2 Saturation (94-97) % ABG Hematocrit (34.0-46.0) % ABG Ionized Calcium (4.5-5.3) mg/dL ABG Glucose (75-99) mg/dL Hemoglobin (11.4-16.0) gm/dL Sodium (137-145) mmol/L Glucose (74-99) mg/dL POC Glucose (mg/dL) 125 H 132 H 127 H (70-110) mg/dL Alkaline Phosphatase (38-126) U/L Total Protein (6.3-8.2) g/dL Albumin (3.5-5.0) g/dL Arterial Blood Glucose (75-99) mg/dL Crossmatch 06/17/24 06/17/24 06/17/24 Range/Units 16:27 17:05 18:09 WBC (3.8-10.6) k/uL RBC 2.79 L (3.80-5.40) m/uL Hgb 8.6 L (11.4-16.0) gm/dL Hct 26.6 L (34.0-46.0) % Plt Count (150-450) k/uL Neutrophils # (1.3-7.7) k/uL Lymphocytes # (1.0-4.8) k/uL PT (10.0-12.5) sec INR (<1.2) APTT (22.0-30.0) sec ABG pH (7.35-7.45) ABG pO2 (83-108) mmHg ABG HCO3 (21-25) mmol/L ABG Total CO2 (19-24) mmol/L ABG O2 Saturation (94-97) % ABG Hematocrit (34.0-46.0) % ABG Ionized Calcium (4.5-5.3) mg/dL ABG Glucose (75-99) mg/dL Hemoglobin (11.4-16.0) gm/dL Sodium (137-145) mmol/L Glucose (74-99) mg/dL POC Glucose (mg/dL) 153 H 138 H (70-110) mg/dL Alkaline Phosphatase (38-126) U/L Total Protein (6.3-8.2) g/dL Albumin (3.5-5.0) g/dL Arterial Blood Glucose (75-99) mg/dL Crossmatch 06/17/24 06/17/24 06/17/24 Range/Units 18:55 18:58 19:50 WBC (3.8-10.6) k/uL RBC 2.90 L (3.80-5.40) m/uL Hgb 9.1 L (11.4-16.0) gm/dL Hct 27.8 L (34.0-46.0) % Plt Count (150-450) k/uL Neutrophils # 7.8 H (1.3-7.7) k/uL Lymphocytes # 0.8 L (1.0-4.8) k/uL PT (10.0-12.5) sec INR (<1.2) APTT (22.0-30.0) sec ABG pH (7.35-7.45) ABG pO2 (83-108) mmHg ABG HCO3 (21-25) mmol/L ABG Total CO2 (19-24) mmol/L ABG O2 Saturation (94-97) % ABG Hematocrit (34.0-46.0) % ABG Ionized Calcium (4.5-5.3) mg/dL ABG Glucose (75-99) mg/dL Hemoglobin (11.4-16.0) gm/dL Sodium (137-145) mmol/L Glucose (74-99) mg/dL POC Glucose (mg/dL) 131 H 132 H (70-110) mg/dL Alkaline Phosphatase (38-126) U/L Total Protein (6.3-8.2) g/dL Albumin (3.5-5.0) g/dL Arterial Blood Glucose (75-99) mg/dL Crossmatch 06/17/24 06/17/24 06/17/24 Range/Units 21:09 22:06 22:59 WBC (3.8-10.6) k/uL RBC (3.80-5.40) m/uL Hgb (11.4-16.0) gm/dL Hct (34.0-46.0) % Plt Count (150-450) k/uL Neutrophils # (1.3-7.7) k/uL Lymphocytes # (1.0-4.8) k/uL PT (10.0-12.5) sec INR (<1.2) APTT (22.0-30.0) sec ABG pH (7.35-7.45) ABG pO2 (83-108) mmHg ABG HCO3 (21-25) mmol/L ABG Total CO2 (19-24) mmol/L ABG O2 Saturation (94-97) % ABG Hematocrit (34.0-46.0) % ABG Ionized Calcium (4.5-5.3) mg/dL ABG Glucose (75-99) mg/dL Hemoglobin (11.4-16.0) gm/dL Sodium (137-145) mmol/L Glucose (74-99) mg/dL POC Glucose (mg/dL) 124 H 129 H 141 H (70-110) mg/dL Alkaline Phosphatase (38-126) U/L Total Protein (6.3-8.2) g/dL Albumin (3.5-5.0) g/dL Arterial Blood Glucose (75-99) mg/dL Crossmatch 06/18/24 06/18/24 06/18/24 Range/Units 00:10 01:06 02:02 WBC (3.8-10.6) k/uL RBC (3.80-5.40) m/uL Hgb (11.4-16.0) gm/dL Hct (34.0-46.0) % Plt Count (150-450) k/uL Neutrophils # (1.3-7.7) k/uL Lymphocytes # (1.0-4.8) k/uL PT (10.0-12.5) sec INR (<1.2) APTT (22.0-30.0) sec ABG pH (7.35-7.45) ABG pO2 (83-108) mmHg ABG HCO3 (21-25) mmol/L ABG Total CO2 (19-24) mmol/L ABG O2 Saturation (94-97) % ABG Hematocrit (34.0-46.0) % ABG Ionized Calcium (4.5-5.3) mg/dL ABG Glucose (75-99) mg/dL Hemoglobin (11.4-16.0) gm/dL Sodium (137-145) mmol/L Glucose (74-99) mg/dL POC Glucose (mg/dL) 138 H 124 H 119 H (70-110) mg/dL Alkaline Phosphatase (38-126) U/L Total Protein (6.3-8.2) g/dL Albumin (3.5-5.0) g/dL Arterial Blood Glucose (75-99) mg/dL Crossmatch 06/18/24 06/18/24 06/18/24 Range/Units 03:02 04:07 04:08 WBC 11.7 H (3.8-10.6) k/uL RBC 3.23 L (3.80-5.40) m/uL Hgb 10.2 L (11.4-16.0) gm/dL Hct 30.6 L (34.0-46.0) % Plt Count (150-450) k/uL Neutrophils # 9.9 H (1.3-7.7) k/uL Lymphocytes # (1.0-4.8) k/uL PT (10.0-12.5) sec INR (<1.2) APTT (22.0-30.0) sec ABG pH (7.35-7.45) ABG pO2 (83-108) mmHg ABG HCO3 (21-25) mmol/L ABG Total CO2 (19-24) mmol/L ABG O2 Saturation (94-97) % ABG Hematocrit (34.0-46.0) % ABG Ionized Calcium (4.5-5.3) mg/dL ABG Glucose (75-99) mg/dL Hemoglobin (11.4-16.0) gm/dL Sodium (137-145) mmol/L Glucose (74-99) mg/dL POC Glucose (mg/dL) 118 H 123 H (70-110) mg/dL Alkaline Phosphatase (38-126) U/L Total Protein (6.3-8.2) g/dL Albumin (3.5-5.0) g/dL Arterial Blood Glucose (75-99) mg/dL Crossmatch 06/18/24 06/18/24 06/18/24 Range/Units 04:08 06:02 06:02 WBC (3.8-10.6) k/uL RBC (3.80-5.40) m/uL Hgb (11.4-16.0) gm/dL Hct (34.0-46.0) % Plt Count (150-450) k/uL Neutrophils # (1.3-7.7) k/uL Lymphocytes # (1.0-4.8) k/uL PT (10.0-12.5) sec INR (<1.2) APTT (22.0-30.0) sec ABG pH (7.35-7.45) ABG pO2 79 L (83-108) mmHg ABG HCO3 (21-25) mmol/L ABG Total CO2 26 H (19-24) mmol/L ABG O2 Saturation (94-97) % ABG Hematocrit (34.0-46.0) % ABG Ionized Calcium (4.5-5.3) mg/dL ABG Glucose (75-99) mg/dL Hemoglobin 9.8 L (11.4-16.0) gm/dL Sodium 133 L (137-145) mmol/L Glucose 118 H (74-99) mg/dL POC Glucose (mg/dL) 135 H (70-110) mg/dL Alkaline Phosphatase 37 L (38-126) U/L Total Protein 5.7 L (6.3-8.2) g/dL Albumin (3.5-5.0) g/dL Arterial Blood Glucose (75-99) mg/dL Crossmatch 06/18/24 06/18/24 Range/Units 06:55 08:02 WBC (3.8-10.6) k/uL RBC (3.80-5.40) m/uL Hgb (11.4-16.0) gm/dL Hct (34.0-46.0) % Plt Count (150-450) k/uL Neutrophils # (1.3-7.7) k/uL Lymphocytes # (1.0-4.8) k/uL PT (10.0-12.5) sec INR (<1.2) APTT (22.0-30.0) sec ABG pH (7.35-7.45) ABG pO2 (83-108) mmHg ABG HCO3 (21-25) mmol/L ABG Total CO2 (19-24) mmol/L ABG O2 Saturation (94-97) % ABG Hematocrit (34.0-46.0) % ABG Ionized Calcium (4.5-5.3) mg/dL ABG Glucose (75-99) mg/dL Hemoglobin (11.4-16.0) gm/dL Sodium (137-145) mmol/L Glucose (74-99) mg/dL POC Glucose (mg/dL) 161 H 118 H (70-110) mg/dL Alkaline Phosphatase (38-126) U/L Total Protein (6.3-8.2) g/dL Albumin (3.5-5.0) g/dL Arterial Blood Glucose (75-99) mg/dL Crossmatch - Imaging and Cardiology Chest x-ray: image reviewed Assessment and Plan Assessment: Multivessel coronary artery disease, non-ST elevated myocardial infarction this admission, status post four-vessel off-pump CABG Moderate size hiatal hernia found on CT scan, no surgical intervention planned at this time Preoperative nasal screen positive for MSSA, treated Postoperative acute blood loss anemia, expected given hemodilution Previous medical history of hypertension Hyperlipidemia, cholesterol 219, LDL 137 Right vocal cord paralysis Tracheostomy 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 status post reversal 50 years ago Depression Severe restrictive lung disease, preoperative FEV1 41% of predicted Chronic back pain, on multiple narcotics Right drop foot Chronic constipation and dysphagia Lifelong non-smoker Plan: Continue to maximize medical therapy with aspirin, statin, Plavix, beta-jason. Will increase beta-jason therapy as tolerated. Discontinue IV nitro, wean Cleviprex as able Continue BiPAP per Dr. Connors. Will give IV Solu-Medrol. If no improvement in the next couple of hours may need to reintubate Will monitor daily labs and x-rays, electrolyte replacement per protocol Once able will increase activity as tolerated. PT/OT/cardiac rehab consulted GI/DVT prophylaxis Pain control per current medication regimen. Toradol and fentanyl added for better pain control as patient was on chronic high-dose narcotic medication preoperatively Insulin management per internal medicine, patient is not diabetic, hemoglobin A1c 5.8%. Patient should remain on continuous IV insulin for minimum 48 hours, then may transition to subcutaneous per protocol Discontinue [place]. Connect Cordis to continuous CVP monitoring Continue chest tubes for another 24 hours, monitor output Will discontinue JAYE drains Continue Naik for another 24 hours, continue to monitor record strict accurate intake and output May continue low-dose Precedex for anxiolysis and analgesia More recommendations to follow based on patient's progress
[2024-06-18 08:59] LABS: Glucose,Whole Blood 107 mg/dL (70-110)
[2024-06-18] MEDS ORDERED: MAGNESIUM HYDROXIDE 2,400 MG/30 ML CUP PO PRN (09:00)
[2024-06-18] MEDS ORDERED: bisacodyL 10 MG SUPP RECTAL PRN (09:00)
--- NOTE | 2024-06-18 09:54 | XR ---
EXAMINATION TYPE: XR chest 1V portable DATE OF EXAM: 06/18/2024 5:36 AM COMPARISON: 06/17/2024 CLINICAL INDICATION: Female, 74 years old with history of Post Operative Cardiac Surgery, difficulty breathing TECHNIQUE: XR chest 1V portable view(s) obtained. FINDINGS: The heart size is normal. The pulmonary vasculature is normal. No suspicious infiltrate is evident. No pneumothorax is evident. Bilateral chest tubes are present. Mediastinal tube is present. Endotracheal tube tip is 2.6 cm above the wolf. Nasogastric tube transverses the thorax with tip in the left upper quadrant of the abdom en. Yale-Karen catheter is present with the tip in the main pulmonary artery region IMPRESSION: 1. No acute pulmonary process. 2. Multiple lines and catheters discussed above [facility], , 06/18/2024 9:52 AM
[2024-06-18 10:04] LABS: Glucose,Whole Blood 124 mg/dL (70-110)
[2024-06-18 11:14] LABS: Glucose,Whole Blood 164 mg/dL (70-110)
[2024-06-18] MEDS: PANTOPRAZOLE 40 MG/10 ML VIAL IVP SCH (11:33)
--- NOTE | 2024-06-18 11:46 | P.PN ---
Subjective Progress Note Date: 06/18/24 Hospital Course: A 74-year-old female with PMH of HTN, history of tracheostomy around 40 years ago, who presented to the ED on 06/10/2024 with chest pain, was found to have elevated troponins and admitted with non-ST TX, heart cath done 06/11/2024 and showed multivessel CAD, calcified left main and LAD, complete occlusion of proximal LAD with collaterals, significant disease involving left circumflex, OM1, PLV, mid codominant RCA, elevated LVEDP. DARYL DARYL showed EF of 55 to 60% with mild tricuspid and mitral regurg. Chest CTA showed no PE, couple pulmonary nodules up to 4 mm. CABG was performed on 06/17/2024, patient was transferred to the ICU in stable condition, intubated, no inotropic support needed during the surgery. intubated on 06/17/2024, extubated 06/18 in the morning to BiPAP, IV Solu-Medrol given for stridor, started on Precedex. JAYE drain to discontinue Postop blood work showed hemoglobin drop from 11.6-8.5 improved after transfusion up to 10.2. Subjective: Was seen and examined at bedside, was on BiPAP, too weak to participate in full ROS Pertinent positives and negatives as discussed above, a complete review of systems was performed and all other systems are negative. Vitals Signs Reviewed. General: Ill-appearing, on BiPAP Derm: [warm], [dry], right internal jugular Winchester catheter, right radial arterial line, mediastinal, right, left pleural chest tubes Head: [atraumatic], [normocephalic], [symmetric] Eyes: [EOMI], [no lid lag], [anicteric sclera] Mouth: [no lip lesion], [mucus membranes moist], ETT in place Cardiovascular: [S1S2 reg], Lungs: [CTA bilateral], [no rhonchi, no rales] , [no accessory muscle use]. Chest tubes in place, serosanguineous drainage Abdominal: [soft], [ nontender to palpation], [no guarding], [no appreciable organomegaly] Ext: [no gross muscle atrophy], [no edema], [no contractures], bilateral lower extremity veins were used for CABG Neuro: [ CN II-XI grossly intact], [no focal neuro deficits], Data Reviewed Today: Pertinent Labs: Leukocytosis 11.7, hemoglobin improved to 10.2, normal platelets, ABG showed normal pH, pCO2 39, pO2 79, BMP with sodium of 133, normal potassium 4.2, normal creatinine and BUN. Imaging: [] Chest x-ray showed no acute process, lines in place Assessment and Plan: Acute NSTEMI Multivessel coronary artery disease s/p CABG x4 with JESSICA to LAD 06/17/2024 Acute blood loss anemia, postop Leukocytosis, likely reactive postop Hyponatremia Hypertension -Patient in the ICU, intubated on 06/17/2024, extubated 06/18 in the morning to BiPAP, IV Solu-Medrol given for stridor, started on Precedex. JAYE drain to discontinue -Postop management per cardiothoracic surgery, ICU -Operative note reviewed -Pulmonology following -Continue insulin drip for minimum of 48 hours -Continued DAPT, high intensity statins -IV nitrate discontinued, increase beta-blockers as tolerated -Continue Accu-Cheks [id number] -Pain control per cardiac surgery: Toradol, fentanyl added -Patient has chronic hoarseness, history of tracheostomy, might require tracheostomy at this time per Anesthesia Constipation Moderate-sized hiatal hernia -General Surgery following -On MiraLAX 17 g daily Chronic: Chronic back pain Pulmonary nodules, outpatient follow-up Insomnia DVT ppx: Heparin drip Code status: Full code Anticipated discharge place: Pending clinical course Anticipated discharge time: Pending clinical course Objective - Vital Signs Vital signs: Vital Signs Temp 100.2 F H 06/18/24 08:00 Pulse 88 06/18/24 11:30 Resp 36 H 06/18/24 11:30 BP 129/67 06/18/24 11:15 Pulse Ox 94 L 06/18/24 11:30 FiO2 40 06/18/24 11:13 Intake & Output 06/17/24 06/18/24 06/18/24 18:59 06:59 18:59 Intake Total 1953.646 8407.445 683.833 Output Total 3450 2225 450 Balance -2136.907 -564.555 233.833 Weight 73.4 kg Intake: IV 1198 1086 585 ACETAMINOPHEN IV (For NPO 100 ) 1,000 mg In Empty Bag 1 bag @ 400 mls/hr IVPB Q6HR [facility] Rx#:[id number] Albumin Human 5% 250 ml 500 250 In Empty Bag 1 bag @ 250 mls/hr IVPB Q1HR PRN Rx#: [id number] CO/CI 100 240 40 Lines 45 96 45 Magnesium Sulfate-D5w Pmx 200 1 gm In Dextrose/Water 1 100ml.bag @ 100 mls/hr IVPB Q1H [facility] Rx#: [id number] Sodium Chloride 0.9% 1, 250 600 200 000 ml @ 50 mls/hr IV . Q20H [facility] Rx#:[id number] ceFAZolin 2 gm In Sodium 50 50 50 Chloride 0.9% 50 ml @ 100 mls/hr IVPB ONCE ONE Rx# :[id number] Intake, IV Titration 45.093 214.445 38.833 Amount Clevidipine Butyrate 25 86.034 31.500 mg In Empty Bag 1 bag @ 1 MG/HR 2 mls/hr IV .Q24H [facility] Rx#:[id number] Dexmedetomidine/0.9% NaCl 20.154 3.165 1.172 (Pmx) 400 mcg In Empty Bag 1 bag @ Titrate IV . Q0M [facility] Rx#:[id number] Insulin Regular 100 unit 2.794 16.843 6.161 In Sodium Chloride 0.9% 100 ml @ Per Protocol IV .Q0M [facility] Rx#:[id number] propofoL 1,000 mg In 22.145 108.403 Empty Bag 1 bag @ Titrate IV .Q0M [facility] Rx#: [id number] Oral 70 Tube Feeding 120 60 Other 240 Output: Chest Tube Drainage 245 345 165 Left Pleural 85 160 20 Mediastinal 130 170 90 Right Pleural 30 15 55 Drainage 20 45 Left Calf 20 15 Right Calf 30 Urine 2935 1835 285 Estimated Blood Loss 250 Other: Voiding Method Indwelling Catheter Indwelling Catheter ABP, PAP, CO, CI - Last Documented Arterial Blood Pressure 125/49 Pulmonary Artery Pressure 19/4 Cardiac Output 5.4 Cardiac Index 3.1 - Labs CBC & Chem 7: 06/18/24 04:08 06/18/24 04:08 Labs: Abnormal Lab Results - Last 24 Hours (Table) 06/16/24 06/17/24 06/17/24 Range/Units 06:39 08:33 08:34 WBC (3.8-10.6) k/uL RBC (3.80-5.40) m/uL Hgb (11.4-16.0) gm/dL Hct (34.0-46.0) % Plt Count (150-450) k/uL Neutrophils # (1.3-7.7) k/uL Lymphocytes # (1.0-4.8) k/uL PT (10.0-12.5) sec INR (<1.2) APTT (22.0-30.0) sec ABG pH (7.35-7.45) ABG pO2 325 H (83-108) mmHg ABG HCO3 30 H 30 H (21-25) mmol/L ABG Total CO2 (19-24) mmol/L ABG O2 Saturation >99.4 H >99.4 H (94-97) % ABG Hematocrit 29 L 30 L (34.0-46.0) % ABG Ionized Calcium (4.5-5.3) mg/dL ABG Glucose (75-99) mg/dL Hemoglobin 9.6 L 9.6 L (11.4-16.0) gm/dL Sodium (137-145) mmol/L Glucose (74-99) mg/dL POC Glucose (mg/dL) (70-110) mg/dL Alkaline Phosphatase (38-126) U/L Total Protein (6.3-8.2) g/dL Albumin (3.5-5.0) g/dL Arterial Blood Glucose (75-99) mg/dL Crossmatch See Detail 06/17/24 06/17/24 06/17/24 Range/Units 08:38 10:08 10:50 WBC (3.8-10.6) k/uL RBC (3.80-5.40) m/uL Hgb (11.4-16.0) gm/dL Hct (34.0-46.0) % Plt Count (150-450) k/uL Neutrophils # (1.3-7.7) k/uL Lymphocytes # (1.0-4.8) k/uL PT (10.0-12.5) sec INR (<1.2) APTT (22.0-30.0) sec ABG pH 7.47 H (7.35-7.45) ABG pO2 134 H 156 H (83-108) mmHg ABG HCO3 28 H 29 H 28 H (21-25) mmol/L ABG Total CO2 27 H 27 H 27 H (19-24) mmol/L ABG O2 Saturation 98.4 H 98.8 H 99.1 H (94-97) % ABG Hematocrit 23 L 26 L 24 L (34.0-46.0) % ABG Ionized Calcium 5.4 H 4.4 L 4.4 L (4.5-5.3) mg/dL ABG Glucose 126 H 114 H 115 H (75-99) mg/dL Hemoglobin 7.5 L 8.3 L 7.9 L (11.4-16.0) gm/dL Sodium (137-145) mmol/L Glucose (74-99) mg/dL POC Glucose (mg/dL) (70-110) mg/dL Alkaline Phosphatase (38-126) U/L Total Protein (6.3-8.2) g/dL Albumin (3.5-5.0) g/dL Arterial Blood Glucose 126 H 114 H 115 H (75-99) mg/dL Crossmatch 06/17/24 06/17/24 06/17/24 Range/Units 11:28 13:15 13:15 WBC (3.8-10.6) k/uL RBC 2.69 L (3.80-5.40) m/uL Hgb 8.5 L D (11.4-16.0) gm/dL Hct 25.8 L (34.0-46.0) % Plt Count 143 L (150-450) k/uL Neutrophils # (1.3-7.7) k/uL Lymphocytes # (1.0-4.8) k/uL PT 13.3 H (10.0-12.5) sec INR 1.2 H (<1.2) APTT 31.1 H (22.0-30.0) sec ABG pH (7.35-7.45) ABG pO2 127 H (83-108) mmHg ABG HCO3 28 H (21-25) mmol/L ABG Total CO2 27 H (19-24) mmol/L ABG O2 Saturation 99.0 H (94-97) % ABG Hematocrit 22 L (34.0-46.0) % ABG Ionized Calcium 4.3 L (4.5-5.3) mg/dL ABG Glucose 123 H (75-99) mg/dL Hemoglobin 7.3 L (11.4-16.0) gm/dL Sodium (137-145) mmol/L Glucose (74-99) mg/dL POC Glucose (mg/dL) (70-110) mg/dL Alkaline Phosphatase (38-126) U/L Total Protein (6.3-8.2) g/dL Albumin (3.5-5.0) g/dL Arterial Blood Glucose 123 H (75-99) mg/dL Crossmatch 06/17/24 06/17/24 06/17/24 Range/Units 13:15 13:16 13:40 WBC (3.8-10.6) k/uL RBC (3.80-5.40) m/uL Hgb (11.4-16.0) gm/dL Hct (34.0-46.0) % Plt Count (150-450) k/uL Neutrophils # (1.3-7.7) k/uL Lymphocytes # (1.0-4.8) k/uL PT (10.0-12.5) sec INR (<1.2) APTT (22.0-30.0) sec ABG pH (7.35-7.45) ABG pO2 338 H (83-108) mmHg ABG HCO3 26 H (21-25) mmol/L ABG Total CO2 28 H (19-24) mmol/L ABG O2 Saturation >100.0 H (94-97) % ABG Hematocrit (34.0-46.0) % ABG Ionized Calcium (4.5-5.3) mg/dL ABG Glucose (75-99) mg/dL Hemoglobin 8.2 L (11.4-16.0) gm/dL Sodium (137-145) mmol/L Glucose 115 H (74-99) mg/dL POC Glucose (mg/dL) 121 H (70-110) mg/dL Alkaline Phosphatase 30 L (38-126) U/L Total Protein 4.7 L (6.3-8.2) g/dL Albumin 3.4 L (3.5-5.0) g/dL Arterial Blood Glucose (75-99) mg/dL Crossmatch 06/17/24 06/17/24 06/17/24 Range/Units 14:18 15:08 15:58 WBC (3.8-10.6) k/uL RBC (3.80-5.40) m/uL Hgb (11.4-16.0) gm/dL Hct (34.0-46.0) % Plt Count (150-450) k/uL Neutrophils # (1.3-7.7) k/uL Lymphocytes # (1.0-4.8) k/uL PT (10.0-12.5) sec INR (<1.2) APTT (22.0-30.0) sec ABG pH (7.35-7.45) ABG pO2 (83-108) mmHg ABG HCO3 (21-25) mmol/L ABG Total CO2 (19-24) mmol/L ABG O2 Saturation (94-97) % ABG Hematocrit (34.0-46.0) % ABG Ionized Calcium (4.5-5.3) mg/dL ABG Glucose (75-99) mg/dL Hemoglobin (11.4-16.0) gm/dL Sodium (137-145) mmol/L Glucose (74-99) mg/dL POC Glucose (mg/dL) 125 H 132 H 127 H (70-110) mg/dL Alkaline Phosphatase (38-126) U/L Total Protein (6.3-8.2) g/dL Albumin (3.5-5.0) g/dL Arterial Blood Glucose (75-99) mg/dL Crossmatch 06/17/24 06/17/24 06/17/24 Range/Units 16:27 17:05 18:09 WBC (3.8-10.6) k/uL RBC 2.79 L (3.80-5.40) m/uL Hgb 8.6 L (11.4-16.0) gm/dL Hct 26.6 L (34.0-46.0) % Plt Count (150-450) k/uL Neutrophils # (1.3-7.7) k/uL Lymphocytes # (1.0-4.8) k/uL PT (10.0-12.5) sec INR (<1.2) APTT (22.0-30.0) sec ABG pH (7.35-7.45) ABG pO2 (83-108) mmHg ABG HCO3 (21-25) mmol/L ABG Total CO2 (19-24) mmol/L ABG O2 Saturation (94-97) % ABG Hematocrit (34.0-46.0) % ABG Ionized Calcium (4.5-5.3) mg/dL ABG Glucose (75-99) mg/dL Hemoglobin (11.4-16.0) gm/dL Sodium (137-145) mmol/L Glucose (74-99) mg/dL POC Glucose (mg/dL) 153 H 138 H (70-110) mg/dL Alkaline Phosphatase (38-126) U/L Total Protein (6.3-8.2) g/dL Albumin (3.5-5.0) g/dL Arterial Blood Glucose (75-99) mg/dL Crossmatch 06/17/24 06/17/24 06/17/24 Range/Units 18:55 18:58 19:50 WBC (3.8-10.6) k/uL RBC 2.90 L (3.80-5.40) m/uL Hgb 9.1 L (11.4-16.0) gm/dL Hct 27.8 L (34.0-46.0) % Plt Count (150-450) k/uL Neutrophils # 7.8 H (1.3-7.7) k/uL Lymphocytes # 0.8 L (1.0-4.8) k/uL PT (10.0-12.5) sec INR (<1.2) APTT (22.0-30.0) sec ABG pH (7.35-7.45) ABG pO2 (83-108) mmHg ABG HCO3 (21-25) mmol/L ABG Total CO2 (19-24) mmol/L ABG O2 Saturation (94-97) % ABG Hematocrit (34.0-46.0) % ABG Ionized Calcium (4.5-5.3) mg/dL ABG Glucose (75-99) mg/dL Hemoglobin (11.4-16.0) gm/dL Sodium (137-145) mmol/L Glucose (74-99) mg/dL POC Glucose (mg/dL) 131 H 132 H (70-110) mg/dL Alkaline Phosphatase (38-126) U/L Total Protein (6.3-8.2) g/dL Albumin (3.5-5.0) g/dL Arterial Blood Glucose (75-99) mg/dL Crossmatch 06/17/24 06/17/24 06/17/24 Range/Units 21:09 22:06 22:59 WBC (3.8-10.6) k/uL RBC (3.80-5.40) m/uL Hgb (11.4-16.0) gm/dL Hct (34.0-46.0) % Plt Count (150-450) k/uL Neutrophils # (1.3-7.7) k/uL Lymphocytes # (1.0-4.8) k/uL PT (10.0-12.5) sec INR (<1.2) APTT (22.0-30.0) sec ABG pH (7.35-7.45) ABG pO2 (83-108) mmHg ABG HCO3 (21-25) mmol/L ABG Total CO2 (19-24) mmol/L ABG O2 Saturation (94-97) % ABG Hematocrit (34.0-46.0) % ABG Ionized Calcium (4.5-5.3) mg/dL ABG Glucose (75-99) mg/dL Hemoglobin (11.4-16.0) gm/dL Sodium (137-145) mmol/L Glucose (74-99) mg/dL POC Glucose (mg/dL) 124 H 129 H 141 H (70-110) mg/dL Alkaline Phosphatase (38-126) U/L Total Protein (6.3-8.2) g/dL Albumin (3.5-5.0) g/dL Arterial Blood Glucose (75-99) mg/dL Crossmatch 06/18/24 06/18/24 06/18/24 Range/Units 00:10 01:06 02:02 WBC (3.8-10.6) k/uL RBC (3.80-5.40) m/uL Hgb (11.4-16.0) gm/dL Hct (34.0-46.0) % Plt Count (150-450) k/uL Neutrophils # (1.3-7.7) k/uL Lymphocytes # (1.0-4.8) k/uL PT (10.0-12.5) sec INR (<1.2) APTT (22.0-30.0) sec ABG pH (7.35-7.45) ABG pO2 (83-108) mmHg ABG HCO3 (21-25) mmol/L ABG Total CO2 (19-24) mmol/L ABG O2 Saturation (94-97) % ABG Hematocrit (34.0-46.0) % ABG Ionized Calcium (4.5-5.3) mg/dL ABG Glucose (75-99) mg/dL Hemoglobin (11.4-16.0) gm/dL Sodium (137-145) mmol/L Glucose (74-99) mg/dL POC Glucose (mg/dL) 138 H 124 H 119 H (70-110) mg/dL Alkaline Phosphatase (38-126) U/L Total Protein (6.3-8.2) g/dL Albumin (3.5-5.0) g/dL Arterial Blood Glucose (75-99) mg/dL Crossmatch 06/18/24 06/18/24 06/18/24 Range/Units 03:02 04:07 04:08 WBC 11.7 H (3.8-10.6) k/uL RBC 3.23 L (3.80-5.40) m/uL Hgb 10.2 L (11.4-16.0) gm/dL Hct 30.6 L (34.0-46.0) % Plt Count (150-450) k/uL Neutrophils # 9.9 H (1.3-7.7) k/uL Lymphocytes # (1.0-4.8) k/uL PT (10.0-12.5) sec INR (<1.2) APTT (22.0-30.0) sec ABG pH (7.35-7.45) ABG pO2 (83-108) mmHg ABG HCO3 (21-25) mmol/L ABG Total CO2 (19-24) mmol/L ABG O2 Saturation (94-97) % ABG Hematocrit (34.0-46.0) % ABG Ionized Calcium (4.5-5.3) mg/dL ABG Glucose (75-99) mg/dL Hemoglobin (11.4-16.0) gm/dL Sodium (137-145) mmol/L Glucose (74-99) mg/dL POC Glucose (mg/dL) 118 H 123 H (70-110) mg/dL Alkaline Phosphatase (38-126) U/L Total Protein (6.3-8.2) g/dL Albumin (3.5-5.0) g/dL Arterial Blood Glucose (75-99) mg/dL Crossmatch 06/18/24 06/18/24 06/18/24 Range/Units 04:08 06:02 06:02 WBC (3.8-10.6) k/uL RBC (3.80-5.40) m/uL Hgb (11.4-16.0) gm/dL Hct (34.0-46.0) % Plt Count (150-450) k/uL Neutrophils # (1.3-7.7) k/uL Lymphocytes # (1.0-4.8) k/uL PT (10.0-12.5) sec INR (<1.2) APTT (22.0-30.0) sec ABG pH (7.35-7.45) ABG pO2 79 L (83-108) mmHg ABG HCO3 (21-25) mmol/L ABG Total CO2 26 H (19-24) mmol/L ABG O2 Saturation (94-97) % ABG Hematocrit (34.0-46.0) % ABG Ionized Calcium (4.5-5.3) mg/dL ABG Glucose (75-99) mg/dL Hemoglobin 9.8 L (11.4-16.0) gm/dL Sodium 133 L (137-145) mmol/L Glucose 118 H (74-99) mg/dL POC Glucose (mg/dL) 135 H (70-110) mg/dL Alkaline Phosphatase 37 L (38-126) U/L Total Protein 5.7 L (6.3-8.2) g/dL Albumin (3.5-5.0) g/dL Arterial Blood Glucose (75-99) mg/dL Crossmatch 06/18/24 06/18/24 06/18/24 Range/Units 06:55 08:02 10:02 WBC (3.8-10.6) k/uL RBC (3.80-5.40) m/uL Hgb (11.4-16.0) gm/dL Hct (34.0-46.0) % Plt Count (150-450) k/uL Neutrophils # (1.3-7.7) k/uL Lymphocytes # (1.0-4.8) k/uL PT (10.0-12.5) sec INR (<1.2) APTT (22.0-30.0) sec ABG pH (7.35-7.45) ABG pO2 (83-108) mmHg ABG HCO3 (21-25) mmol/L ABG Total CO2 (19-24) mmol/L ABG O2 Saturation (94-97) % ABG Hematocrit (34.0-46.0) % ABG Ionized Calcium (4.5-5.3) mg/dL ABG Glucose (75-99) mg/dL Hemoglobin (11.4-16.0) gm/dL Sodium (137-145) mmol/L Glucose (74-99) mg/dL POC Glucose (mg/dL) 161 H 118 H 124 H (70-110) mg/dL Alkaline Phosphatase (38-126) U/L Total Protein (6.3-8.2) g/dL Albumin (3.5-5.0) g/dL Arterial Blood Glucose (75-99) mg/dL Crossmatch 06/18/24 Range/Units 11:13 WBC (3.8-10.6) k/uL RBC (3.80-5.40) m/uL Hgb (11.4-16.0) gm/dL Hct (34.0-46.0) % Plt Count (150-450) k/uL Neutrophils # (1.3-7.7) k/uL Lymphocytes # (1.0-4.8) k/uL PT (10.0-12.5) sec INR (<1.2) APTT (22.0-30.0) sec ABG pH (7.35-7.45) ABG pO2 (83-108) mmHg ABG HCO3 (21-25) mmol/L ABG Total CO2 (19-24) mmol/L ABG O2 Saturation (94-97) % ABG Hematocrit (34.0-46.0) % ABG Ionized Calcium (4.5-5.3) mg/dL ABG Glucose (75-99) mg/dL Hemoglobin (11.4-16.0) gm/dL Sodium (137-145) mmol/L Glucose (74-99) mg/dL POC Glucose (mg/dL) 164 H (70-110) mg/dL Alkaline Phosphatase (38-126) U/L Total Protein (6.3-8.2) g/dL Albumin (3.5-5.0) g/dL Arterial Blood Glucose (75-99) mg/dL Crossmatch
--- NOTE | 2024-06-18 11:50 | P.PN ---
Subjective Progress Note Date: 06/18/24 Patient is a 74-year-old female with past medical history significant for hypertension, previous tracheostomy that was reversed approximately 50 years ago. States that she has had issues with her breathing after a previous suicide attempt and she spent some time on a mechanical ventilator. She has had multiple neck surgeries at the [facility]. She has not followed up with a primary care provider in some time. She is a lifelong non-smoker. Presented to the emergency department back on June 10 with a chief complaint of chest pain. Chest pain described as substernal intermittent and radiating to her left chest and left arm. Lasts approximately 10 to 15 minutes with exertion. Usu ally subsides with rest or antacids, however, persistent on June 10, so she called her daughter to take her to the emergency department. Denies any associated nausea, diaphoresis, heart palpitations, lightheadedness/syncopal events. Denies any lower extremity swelling. Was found to have elevated troponins and admitted with non-ST elevation TN. Heart catheterization done on 06/11/2024 showing multivessel coronary artery disease with a calcified left main and LAD, totally occluded proximal LAD with collaterals, significant disease of involving the left circumflex, OM1, PLV, and significant disease in the mid codominant RCA. With elevated LVEDP. Echocardiogram showing preserved left ventricular ejection fraction of 55 to 60%, with mild mitral and tricuspid regurgitation. A surgical consult was placed. Pulmonary was also consulted for surgical clearance. CBC and CMP unremarkable. Recent APTT therapeutic. Chest CTA did not show any evidence of pulmonary embolism. Couple pulmonary nodules measuring up to 4 mm. Stated above, patient is not a non-smoker. Moderate size hiatal hernia. Bedside spirometry performed demonstrating and FEV1 0.85 L or 41% of predicted. Patient is a lifelong nontobacco smoker. Has no known history of COPD. She is currently sitting up in bed on room air oxygen. Nondistressed. She does have hoarse voice. Remote appearing tracheostomy inci sional scar. Patient remains on heparin infusion per protocol. Also nitroglycerin paste ordered. Denies any current chest pain. Current vitals: Temperature 97.1 F, heart rate 62 bpm, blood pressure 100/63 mmHg, nontachypneic, 93% on room air oxygen. On 06/14/2024, the patient is being seen for a follow-up. Doing well and she is free of any chest pain and the patient remains on IV heparin. The patient is status post non-ST segment elevation myocardial infarction due to an underlying multivessel coronary artery disease. She is awake and alert and communicating. Denies having any chest pain or shortness of breath. No nausea or emesis and the patient remains in sinus rhythm and hemodynamically stable. The patient is to meet the cardiothoracic surgeon today. Sodium is at 140, BUN is 18 with a creatinine of 1.06. Potassium level is at 4.5. WBC count is at 5.2 with a hemoglobin of 11 and a platelet count of 256. No other significant events overnight. The plan is still still undergo cardiac revascularization surgery and the patient is meeting their cardiothoracic surgeon today. The patient will also have a ENT evaluation by Dr. Beaulieu regarding possibility of vocal cord dysfunction. On 06/15/2024, the patient is resting comfortably in bed. She is free of any chest pain. Scheduled tentatively for cardiac revascularization surgery on 06/17/2024. Meanwhile, the patient had an ENT evaluation and a direct laryngoscopy was also done and the patient was found to have a right vocal cord paralysis. This is probably related to an injury that occurred many years back and the patient required a tracheostomy tube insertion following a suicidal attempt and at that time the patient required intubation and long-term mechanical ventilation and tracheostomy tube insertion. Since then, the patient has been hoarse. No stridor. Rest of the medications remain unchanged. The patient remains on IV heparin. Hemodynamically stable. Cardiac rhythm is sinus. On 06/16/2024, no new complaints of the patient's condition remains essentially stable. Using incentive spirometer. Remains on IV heparin. Free of any chest pain or shortness of breath. The patient is scheduled to undergo coronary revascularization surgery on 06/17/2024. Labs were checked. Hemoglobin 11.6, white cell count 6.5, BUN 16 with a creatinine of 0.9 and sodium levels at 141. She remains on room air oxygen. No respiratory difficulties for now. Will continue to follow. 06/17/2024, the patient is being seen in the intensive care unit. The patient was seen immediately after the patient arrived to the intensive care unit following her off-pump four-vessel bypass surgery. The patient had JESSICA to LAD and sequential vein graft to obtuse marginal and third obtuse marginal branch/posterior lateral circumflex branch. Also had a saphenous vein graft to PDA. Postop, the patient was kept intubated on mechanical ventilator and the patient was brought in to the intensive care unit. At this point, the patient is sedated on propofol which is running at 20 mcg/kg/min. The patient arrived to the ICU on Cleviprex drip for blood pressure control and this was weaned off and discontinued. Currently, on assist-control mode rate of 14, tidal volume of 400, FiO2 of 50% with a PEEP of 5. Blood gas showed a pH of 7.43 with a pCO2 of 40 and pO2 of 338. Chest x-ray postop showed adequate positioning of the ET tube, and the patient has a right pleural left pleural and mediastinal chest tube. No evidence of any pneumothorax. There is some mild pulm vascular congestion and left basilar atelectatic change. Marshall-Karen catheter is appropriately placed. The patient's cardiac output is at 4.6 with an index of 2.6. The patient is on insulin drip at 1 unit an hour. Cardiac rhythm is sinus. The output from the right right, left and mediastinal chest tube was noted. Output from mediastinal chest tube was 75, left was 50 and right was 0. No evidence of any air leak. Urine output is excellent at this point in time. The blood work showed a WBC count of 8.2 with a hemoglobin 8.5 and a platelet count of 143. Electrolytes are all within normal limits with a BUN of 12 and a creatinine of 0.7. The patient is slightly hypothermic and the patient has a Marcus hugger. Patient is currently postop day #0. On 06/18/2024, the patient is being seen for a follow-up. The patient is currently postop day #1 following coronary artery bypass surgery. The patient underwent an off-pump four-vessel bypass surgery. Noted, the patient had difficulties with weaning as the patient was becoming tachycardic and tachypneic while being checked for weaning parameters. Earlier this morning, the patient was taken off the propofol and Precedex. I noted that the patient was being ventilated through a #7 orotracheal tube. Weaning parameters were somewhat borderline. Nevertheless, the patient was unable to tolerate a spontaneous breathing trial due to a lower tidal volume. I was concerned that the smaller caliber ET tube was affecting her ability to wean. There is also an obvious ongoing concern for a right vocal cord paralysis with upper airway obstruction that may become an issue postextubation. Meanwhile, the patient was hemodynamically stable and doing well. Earlier this morning, her cardiac output was at 5.1 with an index of 2.9. PA pressures were 17/11. CVP was at 3. The chest tube output was noted and there was no evidence of any air leak. The mediastinal chest tube has produced 300 cc since surgery, left pleural 250 cc since surgery and right pleural 45 cc since surgery. The patient was started on mechanical ventilator on assist-control mode at rate of 12, tidal volume of 400, FiO2 of 40% with a PEEP of 5. She was on no pressors. Morning blood gases showed a pH of 7.41 with a pCO2 of 39 and pO2 of 79. Based on all this, I made the decision to extubate the patient to a BiPAP. The patient was extubated to the BiPAP and initially, she started having some tachypnea and subsequently respiratory rate improved. However, she started having audible stridor even at the BiPAP pressure of 14 over 5 cm of water with an FiO2 of 40%. She seems to be more comfortable. She was started on IV Solu-Medrol. She is also on a low- dose Precedex. She is being watched and monitored very closely, may need reintubation. The WBC count is 11.7 with hemoglobin 7.2 and a platelet count of 216. Sodium is at 133, BUN 17 with a creatinine of 0.6. Condition remains quite critical at this point in time and the patient is being monitored closely in the intensive care unit. Objective - Vital Signs Vital signs: Vital Signs Temp 100.2 F H 06/18/24 08:00 Pulse 88 06/18/24 11:30 Resp 36 H 06/18/24 11:30 BP 129/67 06/18/24 11:15 Pulse Ox 94 L 06/18/24 11:30 FiO2 40 06/18/24 11:13 Intake & Output 06/17/24 06/18/24 06/18/24 18:59 06:59 18:59 Intake Total 1157.825 1141.445 683.833 Output Total 3450 2225 450 Balance -2136.907 -564.555 233.833 Weight 73.4 kg Intake: IV 1198 1086 585 ACETAMINOPHEN IV (For NPO 100 ) 1,000 mg In Empty Bag 1 bag @ 400 mls/hr IVPB Q6HR [facility] Rx#:[id number] Albumin Human 5% 250 ml 500 250 In Empty Bag 1 bag @ 250 mls/hr IVPB Q1HR PRN Rx#: [id number] CO/CI 100 240 40 Lines 45 96 45 Magnesium Sulfate-D5w Pmx 200 1 gm In Dextrose/Water 1 100ml.bag @ 100 mls/hr IVPB Q1H [facility] Rx#: [id number] Sodium Chloride 0.9% 1, 250 600 200 000 ml @ 50 mls/hr IV . Q20H [facility] Rx#:[id number] ceFAZolin 2 gm In Sodium 50 50 50 Chloride 0.9% 50 ml @ 100 mls/hr IVPB ONCE ONE Rx# :[id number] Intake, IV Titration 45.093 214.445 38.833 Amount Clevidipine Butyrate 25 86.034 31.500 mg In Empty Bag 1 bag @ 1 MG/HR 2 mls/hr IV .Q24H [facility] Rx#:[id number] Dexmedetomidine/0.9% NaCl 20.154 3.165 1.172 (Pmx) 400 mcg In Empty Bag 1 bag @ Titrate IV . Q0M [facility] Rx#:[id number] Insulin Regular 100 unit 2.794 16.843 6.161 In Sodium Chloride 0.9% 100 ml @ Per Protocol IV .Q0M [facility] Rx#:[id number] propofoL 1,000 mg In 22.145 108.403 Empty Bag 1 bag @ Titrate IV .Q0M [facility] Rx#: [id number] Oral 70 Tube Feeding 120 60 Other 240 Output: Chest Tube Drainage 245 345 165 Left Pleural 85 160 20 Mediastinal 130 170 90 Right Pleural 30 15 55 Drainage 20 45 Left Calf 20 15 Right Calf 30 Urine 2935 1835 285 Estimated Blood Loss 250 Other: Voiding Method Indwelling Catheter Indwelling Catheter ABP, PAP, CO, CI - Last Documented Arterial Blood Pressure 125/49 Pulmonary Artery Pressure 19/4 Cardiac Output 5.4 Cardiac Index 3.1 - Exam CONSTITUTIONAL: Appears anxious but cooperative RESPIRATORY: Lungs sounds diminished in the bases. Respirations slightly tachypneic. Currently on BiPAP, FiO2 40%, IPAP 14, EPAP 8. Examination of the neck reveals no ongoing inspiratory stridor. CARDIOVASCULAR: S1, S2 present. Tacky but regular rate and rhythm, sinus tach on telemetry. Sternum stable. Palpable peripheral pulses bilaterally. No ed janelle present. No calf pain or tenderness noted. Heart hugger, antiembolism stockings, SCDs present. GASTROINTESTINAL: Abdomen soft, nontender, nondistended. Hypoactive bowel sounds present 4 quadrants. GENITOURINARY: Naik present draining clear, yellow urine. Output overnight 60-240 mL per hour INTEGUMENTARY: Skin is warm and dry with evidence of good perfusion. Anterior chest incision well approximated and covered with dry intact dressing. Bilateral lower extremity EVH sites well approximated without redness, JAYE drains present with minimal drainage NEUROLOGIC: Cranial nerves II through XII intact MUSKULOSKELETAL: Able to move all extremities, strength equal bilaterally PSYCHIATRIC: Alert and oriented to person place and time, appropriate affect INVASIVE LINES AND TUBES: Mediastinal/left/right pleural chest tubes present and connected to wall suction, no air leaks present. Mediastinal tube with 110 mL serosanguineous drainage overnight, 300 mL since surgery. Left pleural chest tube with 130 mL serosanguineous drainage overnight, 250 mL since surgery. Right pleural chest tube with 10 mL serosanguineous drainage overnight, 45 mL since surgery. Right internal jugular Marshall/Cordis, right radial arterial line present. Last CO/CI 5.1/2.9, PA 17, CVP 3. - Labs CBC & Chem 7: 06/18/24 04:08 06/18/24 04:08 Labs: Abnormal Lab Results - Last 24 Hours (Table) 06/16/24 06/17/24 06/17/24 Range/Units 06:39 08:33 08:34 WBC (3.8-10.6) k/uL RBC (3.80-5.40) m/uL Hgb (11.4-16.0) gm/dL Hct (34.0-46.0) % Plt Count (150-450) k/uL Neutrophils # (1.3-7.7) k/uL Lymphocytes # (1.0-4.8) k/uL PT (10.0-12.5) sec INR (<1.2) APTT (22.0-30.0) sec ABG pH (7.35-7.45) ABG pO2 325 H (83-108) mmHg ABG HCO3 30 H 30 H (21-25) mmol/L ABG Total CO2 (19-24) mmol/L ABG O2 Saturation >99.4 H >99.4 H (94-97) % ABG Hematocrit 29 L 30 L (34.0-46.0) % ABG Ionized Calcium (4.5-5.3) mg/dL ABG Glucose (75-99) mg/dL Hemoglobin 9.6 L 9.6 L (11.4-16.0) gm/dL Sodium (137-145) mmol/L Glucose (74-99) mg/dL POC Glucose (mg/dL) (70-110) mg/dL Alkaline Phosphatase (38-126) U/L Total Protein (6.3-8.2) g/dL Albumin (3.5-5.0) g/dL Arterial Blood Glucose (75-99) mg/dL Crossmatch See Detail 06/17/24 06/17/24 06/17/24 Range/Units 08:38 10:08 10:50 WBC (3.8-10.6) k/uL RBC (3.80-5.40) m/uL Hgb (11.4-16.0) gm/dL Hct (34.0-46.0) % Plt Count (150-450) k/uL Neutrophils # (1.3-7.7) k/uL Lymphocytes # (1.0-4.8) k/uL PT (10.0-12.5) sec INR (<1.2) APTT (22.0-30.0) sec ABG pH 7.47 H (7.35-7.45) ABG pO2 134 H 156 H (83-108) mmHg ABG HCO3 28 H 29 H 28 H (21-25) mmol/L ABG Total CO2 27 H 27 H 27 H (19-24) mmol/L ABG O2 Saturation 98.4 H 98.8 H 99.1 H (94-97) % ABG Hematocrit 23 L 26 L 24 L (34.0-46.0) % ABG Ionized Calcium 5.4 H 4.4 L 4.4 L (4.5-5.3) mg/dL ABG Glucose 126 H 114 H 115 H (75-99) mg/dL Hemoglobin 7.5 L 8.3 L 7.9 L (11.4-16.0) gm/dL Sodium (137-145) mmol/L Glucose (74-99) mg/dL POC Glucose (mg/dL) (70-110) mg/dL Alkaline Phosphatase (38-126) U/L Total Protein (6.3-8.2) g/dL Albumin (3.5-5.0) g/dL Arterial Blood Glucose 126 H 114 H 115 H (75-99) mg/dL Crossmatch 06/17/24 06/17/24 06/17/24 Range/Units 11:28 13:15 13:15 WBC (3.8-10.6) k/uL RBC 2.69 L (3.80-5.40) m/uL Hgb 8.5 L D (11.4-16.0) gm/dL Hct 25.8 L (34.0-46.0) % Plt Count 143 L (150-450) k/uL Neutrophils # (1.3-7.7) k/uL Lymphocytes # (1.0-4.8) k/uL PT 13.3 H (10.0-12.5) sec INR 1.2 H (<1.2) APTT 31.1 H (22.0-30.0) sec ABG pH (7.35-7.45) ABG pO2 127 H (83-108) mmHg ABG HCO3 28 H (21-25) mmol/L ABG Total CO2 27 H (19-24) mmol/L ABG O2 Saturation 99.0 H (94-97) % ABG Hematocrit 22 L (34.0-46.0) % ABG Ionized Calcium 4.3 L (4.5-5.3) mg/dL ABG Glucose 123 H (75-99) mg/dL Hemoglobin 7.3 L (11.4-16.0) gm/dL Sodium (137-145) mmol/L Glucose (74-99) mg/dL POC Glucose (mg/dL) (70-110) mg/dL Alkaline Phosphatase (38-126) U/L Total Protein (6.3-8.2) g/dL Albumin (3.5-5.0) g/dL Arterial Blood Glucose 123 H (75-99) mg/dL Crossmatch 06/17/24 06/17/24 06/17/24 Range/Units 13:15 13:16 13:40 WBC (3.8-10.6) k/uL RBC (3.80-5.40) m/uL Hgb (11.4-16.0) gm/dL Hct (34.0-46.0) % Plt Count (150-450) k/uL Neutrophils # (1.3-7.7) k/uL Lymphocytes # (1.0-4.8) k/uL PT (10.0-12.5) sec INR (<1.2) APTT (22.0-30.0) sec ABG pH (7.35-7.45) ABG pO2 338 H (83-108) mmHg ABG HCO3 26 H (21-25) mmol/L ABG Total CO2 28 H (19-24) mmol/L ABG O2 Saturation >100.0 H (94-97) % ABG Hematocrit (34.0-46.0) % ABG Ionized Calcium (4.5-5.3) mg/dL ABG Glucose (75-99) mg/dL Hemoglobin 8.2 L (11.4-16.0) gm/dL Sodium (137-145) mmol/L Glucose 115 H (74-99) mg/dL POC Glucose (mg/dL) 121 H (70-110) mg/dL Alkaline Phosphatase 30 L (38-126) U/L Total Protein 4.7 L (6.3-8.2) g/dL Albumin 3.4 L (3.5-5.0) g/dL Arterial Blood Glucose (75-99) mg/dL Crossmatch 06/17/24 06/17/24 06/17/24 Range/Units 14:18 15:08 15:58 WBC (3.8-10.6) k/uL RBC (3.80-5.40) m/uL Hgb (11.4-16.0) gm/dL Hct (34.0-46.0) % Plt Count (150-450) k/uL Neutrophils # (1.3-7.7) k/uL Lymphocytes # (1.0-4.8) k/uL PT (10.0-12.5) sec INR (<1.2) APTT (22.0-30.0) sec ABG pH (7.35-7.45) ABG pO2 (83-108) mmHg ABG HCO3 (21-25) mmol/L ABG Total CO2 (19-24) mmol/L ABG O2 Saturation (94-97) % ABG Hematocrit (34.0-46.0) % ABG Ionized Calcium (4.5-5.3) mg/dL ABG Glucose (75-99) mg/dL Hemoglobin (11.4-16.0) gm/dL Sodium (137-145) mmol/L Glucose (74-99) mg/dL POC Glucose (mg/dL) 125 H 132 H 127 H (70-110) mg/dL Alkaline Phosphatase (38-126) U/L Total Protein (6.3-8.2) g/dL Albumin (3.5-5.0) g/dL Arterial Blood Glucose (75-99) mg/dL Crossmatch 06/17/24 06/17/24 06/17/24 Range/Units 16:27 17:05 18:09 WBC (3.8-10.6) k/uL RBC 2.79 L (3.80-5.40) m/uL Hgb 8.6 L (11.4-16.0) gm/dL Hct 26.6 L (34.0-46.0) % Plt Count (150-450) k/uL Neutrophils # (1.3-7.7) k/uL Lymphocytes # (1.0-4.8) k/uL PT (10.0-12.5) sec INR (<1.2) APTT (22.0-30.0) sec ABG pH (7.35-7.45) ABG pO2 (83-108) mmHg ABG HCO3 (21-25) mmol/L ABG Total CO2 (19-24) mmol/L ABG O2 Saturation (94-97) % ABG Hematocrit (34.0-46.0) % ABG Ionized Calcium (4.5-5.3) mg/dL ABG Glucose (75-99) mg/dL Hemoglobin (11.4-16.0) gm/dL Sodium (137-145) mmol/L Glucose (74-99) mg/dL POC Glucose (mg/dL) 153 H 138 H (70-110) mg/dL Alkaline Phosphatase (38-126) U/L Total Protein (6.3-8.2) g/dL Albumin (3.5-5.0) g/dL Arterial Blood Glucose (75-99) mg/dL Crossmatch 06/17/24 06/17/24 06/17/24 Range/Units 18:55 18:58 19:50 WBC (3.8-10.6) k/uL RBC 2.90 L (3.80-5.40) m/uL Hgb 9.1 L (11.4-16.0) gm/dL Hct 27.8 L (34.0-46.0) % Plt Count (150-450) k/uL Neutrophils # 7.8 H (1.3-7.7) k/uL Lymphocytes # 0.8 L (1.0-4.8) k/uL PT (10.0-12.5) sec INR (<1.2) APTT (22.0-30.0) sec ABG pH (7.35-7.45) ABG pO2 (83-108) mmHg ABG HCO3 (21-25) mmol/L ABG Total CO2 (19-24) mmol/L ABG O2 Saturation (94-97) % ABG Hematocrit (34.0-46.0) % ABG Ionized Calcium (4.5-5.3) mg/dL ABG Glucose (75-99) mg/dL Hemoglobin (11.4-16.0) gm/dL Sodium (137-145) mmol/L Glucose (74-99) mg/dL POC Glucose (mg/dL) 131 H 132 H (70-110) mg/dL Alkaline Phosphatase (38-126) U/L Total Protein (6.3-8.2) g/dL Albumin (3.5-5.0) g/dL Arterial Blood Glucose (75-99) mg/dL Crossmatch 06/17/24 06/17/24 06/17/24 Range/Units 21:09 22:06 22:59 WBC (3.8-10.6) k/uL RBC (3.80-5.40) m/uL Hgb (11.4-16.0) gm/dL Hct (34.0-46.0) % Plt Count (150-450) k/uL Neutrophils # (1.3-7.7) k/uL Lymphocytes # (1.0-4.8) k/uL PT (10.0-12.5) sec INR (<1.2) APTT (22.0-30.0) sec ABG pH (7.35-7.45) ABG pO2 (83-108) mmHg ABG HCO3 (21-25) mmol/L ABG Total CO2 (19-24) mmol/L ABG O2 Saturation (94-97) % ABG Hematocrit (34.0-46.0) % ABG Ionized Calcium (4.5-5.3) mg/dL ABG Glucose (75-99) mg/dL Hemoglobin (11.4-16.0) gm/dL Sodium (137-145) mmol/L Glucose (74-99) mg/dL POC Glucose (mg/dL) 124 H 129 H 141 H (70-110) mg/dL Alkaline Phosphatase (38-126) U/L Total Protein (6.3-8.2) g/dL Albumin (3.5-5.0) g/dL Arterial Blood Glucose (75-99) mg/dL Crossmatch 06/18/24 06/18/24 06/18/24 Range/Units 00:10 01:06 02:02 WBC (3.8-10.6) k/uL RBC (3.80-5.40) m/uL Hgb (11.4-16.0) gm/dL Hct (34.0-46.0) % Plt Count (150-450) k/uL Neutrophils # (1.3-7.7) k/uL Lymphocytes # (1.0-4.8) k/uL PT (10.0-12.5) sec INR (<1.2) APTT (22.0-30.0) sec ABG pH (7.35-7.45) ABG pO2 (83-108) mmHg ABG HCO3 (21-25) mmol/L ABG Total CO2 (19-24) mmol/L ABG O2 Saturation (94-97) % ABG Hematocrit (34.0-46.0) % ABG Ionized Calcium (4.5-5.3) mg/dL ABG Glucose (75-99) mg/dL Hemoglobin (11.4-16.0) gm/dL Sodium (137-145) mmol/L Glucose (74-99) mg/dL POC Glucose (mg/dL) 138 H 124 H 119 H (70-110) mg/dL Alkaline Phosphatase (38-126) U/L Total Protein (6.3-8.2) g/dL Albumin (3.5-5.0) g/dL Arterial Blood Glucose (75-99) mg/dL Crossmatch 06/18/24 06/18/24 06/18/24 Range/Units 03:02 04:07 04:08 WBC 11.7 H (3.8-10.6) k/uL RBC 3.23 L (3.80-5.40) m/uL Hgb 10.2 L (11.4-16.0) gm/dL Hct 30.6 L (34.0-46.0) % Plt Count (150-450) k/uL Neutrophils # 9.9 H (1.3-7.7) k/uL Lymphocytes # (1.0-4.8) k/uL PT (10.0-12.5) sec INR (<1.2) APTT (22.0-30.0) sec ABG pH (7.35-7.45) ABG pO2 (83-108) mmHg ABG HCO3 (21-25) mmol/L ABG Total CO2 (19-24) mmol/L ABG O2 Saturation (94-97) % ABG Hematocrit (34.0-46.0) % ABG Ionized Calcium (4.5-5.3) mg/dL ABG Glucose (75-99) mg/dL Hemoglobin (11.4-16.0) gm/dL Sodium (137-145) mmol/L Glucose (74-99) mg/dL POC Glucose (mg/dL) 118 H 123 H (70-110) mg/dL Alkaline Phosphatase (38-126) U/L Total Protein (6.3-8.2) g/dL Albumin (3.5-5.0) g/dL Arterial Blood Glucose (75-99) mg/dL Crossmatch 06/18/24 06/18/24 06/18/24 Range/Units 04:08 06:02 06:02 WBC (3.8-10.6) k/uL RBC (3.80-5.40) m/uL Hgb (11.4-16.0) gm/dL Hct (34.0-46.0) % Plt Count (150-450) k/uL Neutrophils # (1.3-7.7) k/uL Lymphocytes # (1.0-4.8) k/uL PT (10.0-12.5) sec INR (<1.2) APTT (22.0-30.0) sec ABG pH (7.35-7.45) ABG pO2 79 L (83-108) mmHg ABG HCO3 (21-25) mmol/L ABG Total CO2 26 H (19-24) mmol/L ABG O2 Saturation (94-97) % ABG Hematocrit (34.0-46.0) % ABG Ionized Calcium (4.5-5.3) mg/dL ABG Glucose (75-99) mg/dL Hemoglobin 9.8 L (11.4-16.0) gm/dL Sodium 133 L (137-145) mmol/L Glucose 118 H (74-99) mg/dL POC Glucose (mg/dL) 135 H (70-110) mg/dL Alkaline Phosphatase 37 L (38-126) U/L Total Protein 5.7 L (6.3-8.2) g/dL Albumin (3.5-5.0) g/dL Arterial Blood Glucose (75-99) mg/dL Crossmatch 06/18/24 06/18/24 06/18/24 Range/Units 06:55 08:02 10:02 WBC (3.8-10.6) k/uL RBC (3.80-5.40) m/uL Hgb (11.4-16.0) gm/dL Hct (34.0-46.0) % Plt Count (150-450) k/uL Neutrophils # (1.3-7.7) k/uL Lymphocytes # (1.0-4.8) k/uL PT (10.0-12.5) sec INR (<1.2) APTT (22.0-30.0) sec ABG pH (7.35-7.45) ABG pO2 (83-108) mmHg ABG HCO3 (21-25) mmol/L ABG Total CO2 (19-24) mmol/L ABG O2 Saturation (94-97) % ABG Hematocrit (34.0-46.0) % ABG Ionized Calcium (4.5-5.3) mg/dL ABG Glucose (75-99) mg/dL Hemoglobin (11.4-16.0) gm/dL Sodium (137-145) mmol/L Glucose (74-99) mg/dL POC Glucose (mg/dL) 161 H 118 H 124 H (70-110) mg/dL Alkaline Phosphatase (38-126) U/L Total Protein (6.3-8.2) g/dL Albumin (3.5-5.0) g/dL Arterial Blood Glucose (75-99) mg/dL Crossmatch 06/18/24 Range/Units 11:13 WBC (3.8-10.6) k/uL RBC (3.80-5.40) m/uL Hgb (11.4-16.0) gm/dL Hct (34.0-46.0) % Plt Count (150-450) k/uL Neutrophils # (1.3-7.7) k/uL Lymphocytes # (1.0-4.8) k/uL PT (10.0-12.5) sec INR (<1.2) APTT (22.0-30.0) sec ABG pH (7.35-7.45) ABG pO2 (83-108) mmHg ABG HCO3 (21-25) mmol/L ABG Total CO2 (19-24) mmol/L ABG O2 Saturation (94-97) % ABG Hematocrit (34.0-46.0) % ABG Ionized Calcium (4.5-5.3) mg/dL ABG Glucose (75-99) mg/dL Hemoglobin (11.4-16.0) gm/dL Sodium (137-145) mmol/L Glucose (74-99) mg/dL POC Glucose (mg/dL) 164 H (70-110) mg/dL Alkaline Phosphatase (38-126) U/L Total Protein (6.3-8.2) g/dL Albumin (3.5-5.0) g/dL Arterial Blood Glucose (75-99) mg/dL Crossmatch Assessment and Plan Assessment: Multivessel coronary artery disease; heart catheterization done on 06/11/2024 showing multivessel coronary artery disease with a calcified left main and LAD, totally occluded proximal LAD with collaterals, significant disease of involving the left circumflex, OM1, PLV, and significant disease in the mid codominant RCA. With elevated LVEDP. The patient is status post Off-pump CABG x 4 with JESSICA to LAD, sequential saphenous vein graft to first obtuse marginal and third obtuse marginal (posterior lateral circumflex branch), saphenous vein graft to posterior descending (terminal circumflex), bilateral endoscopic harvest of greater saphenous vein, ligation left atrial appendage with 35 mm AtriCure clip, and the patient is currently postop day #1 Due to a history of a right vocal cord paralysis, the patient was intubated by a #7 orotracheal tube. This affected our ability to gradually wean the patient off the mechanical ventilator. Based on her stable status, the patient was extubated today BiPAP and currently she is on a BiPAP pressure of 14 over 5 cm of water. She did encounter respiratory difficulties postextubation. She also was encountering stridor which is expected due to her vocal cord paralysis. She is currently on steroids. She is being monitored very closely. May need reintubation if she decompensates. Postthoracotomy, remains intubated on mechanical ventilator. Chest tubes are in place. Output is minimal and there is no evidence of air leak. Chest x-ray was noted. Blood gas were also noted. Postop hypertension, currently off Cleviprex drip. Non-ST elevation myocardial infarction, currently on IV heparin infusion per protocol Right vocal cord paralysis History of tracheostomy, with reversal approximately 50 years ago, states she has had multiple neck surgeries. FEV1 0.85 L or 41% of predicted. Lifelong non-smoker Hypertension Moderate-sized hiatal hernia, as reported in CT scan Chronic lumbar back pain Plan: Extubated to BiPAP Continue BiPAP 14/5 with an FiO2 of 40% Monitor stridor IV Solu-Medrol May need to be reintubated if there is any further decompensation Low-dose Precedex No need for pressors at this point in time Monitor output from the chest tubes Insulin drip for blood sugar control Cardiac rhythm is sinus Case was discussed with the cardiothoracic team. Critical care evaluation that was done more than 30 minutes. Will continue to follow. Time with Patient: Greater than 30
[2024-06-18 12:10] LABS: Glucose,Whole Blood 174 mg/dL (70-110)
[2024-06-18 13:20] LABS: Glucose,Whole Blood 132 mg/dL (70-110)
[2024-06-18 14:15] LABS: Glucose,Whole Blood 107 mg/dL (70-110)
[2024-06-18 15:02] LABS: Glucose,Whole Blood 114 mg/dL (70-110)
[2024-06-18 16:17] LABS: Glucose,Whole Blood 160 mg/dL (70-110)
--- NOTE | 2024-06-18 16:23 | P.PN ---
Subjective HISTORY OF PRESENT ILLNESS: This is a 74-year-old female with a past medical history significant for hypertension. 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 Patient does report she has not followed with a primary care physician in 20 to 30 years. we have been asked to see the patient in consultation for chest pain. Patient examined at the bedside in the emergency room. Patient states she has been having chest pain on and off for the past month. She states the episodes usually last about 10 minutes and then will resolve on their own or with peppermint candy. She states that the pain is usually in the middle of her chest and then will radiate into her left shoulder and arm. She does report feeling short of breath with these episodes. She states she had another episode of chest discomfort yesterday but this episode lasted for about an hour which concerned her so she came to the emergency room for further evaluation. She does report having another episode since coming to the hospital. She received Nitropaste which improved her chest pain. DIAGNOSTICS: - EKG reveals sinus mechanism with T wave inversions in V3V4. - Chest xray negative for acute process - Chest CTA: Negative for pulmonary embolism. A couple of pulmonary nodules measuring up to 4 mm. Trace pericardial effusion. Moderate coronary artery calcifications. - Laboratory data: WBC 5.4. Hemoglobin 12.3. Platelet count 281. Sodium 137. Potassium 4.0. BUN 21. Creatinine 0.91. Troponin 0.012. 0.021. 0.057. 0.050. - Current home cardiac medications include metoprolol 25 mg daily -No previous echocardiogram, stress test, or cardiac catheterization available in EMR for review 06/12/2024 Patient underwent cardiac catheterization yesterday with Dr. Segal revealing calcified left main and LAD, totally occluded proximal LAD with collaterals noted ipsilateral and contralateral, significant disease in the left circumflex, OM1, and left PLV, and significant disease in the mid codominant RCA. CT surgery has been consulted for evaluation of coronary artery bypass grafting. She is to be evaluated by the surgeon today. Patient currently remains on IV heparin. She denies chest pain or pressure. She denies shortness of breath. Vital signs are stable. Echocardiogram completed revealing ejection fraction 55 to 60% with mild tricuspid regurgitation 06/13/24 Patient examined this morning at the bedside. Patients family present. Patient reports having an episode of chest pain after using the bathroom this morning. Pain lasted for 15 minutes and resolved on its own. She remains on IV heparin. Vital signs stable. 06/14/2024 Patient examined this morning at the bedside. Patient remains on IV heparin. No complaints of shortness of breath. She currently denies any chest pain or pressure. Vital signs are stable. Telemetry reveals sinus mechanism. 06/15/2024 Patient examined this morning at the bedside. Patient remains on IV heparin. No complaints of shortness of breath. She currently denies any chest pain or pressure. Vital signs are stable. Telemetry reveals sinus mechanism. 06/16/2024 Patient examined this morning at the bedside. No family present. Patient remains on IV heparin. No complaints of shortness of breath. She currently denies any chest pain or pressure. Vital signs are stable. Telemetry reveals sinus mechanism. 06/18 Seen and examined. Underwent CABG x 4 with JESSICA to LAD, sequential saphenous vein graft to first obtuse marginal and third obtuse marginal (posterior lateral circumflex branch), saphenous vein graft to posterior descending (terminal circumflex), bilateral endoscopic harvest of greater saphenous vein, ligation left atrial appendage with 35 mm AtriCure clip yesterday. Was extubated and has needed BIPAP with increased work of breathing and some concern of need for repeat intubation with stridor from prior trach. No chest pain. Arousable. Not eating anything. Was on Cleviprex drip which has been weaned. CVP around 10. Had prior episode of Afib fairly asymptomatic 06/17 PHYSICAL EXAM: VITAL SIGNS: Reviewed. GENERAL: Well-developed in no acute distress. HEENT: Head is normocephalic. Pupils are equal, round. Sclerae anicteric. Mucous membranes of the mouth are moist. Neck supple. No JVD or thyromegaly LUNGS: Respirations even and unlabored. Lungs essentially clear to auscultation bilaterally. HEART: Regular rate and rhythm. S1 and S2 heard. ABDOMEN: Soft. Nondistended. Nontender. EXTREMITIES: Normal range of motion. No clubbing or cyanosis. Peripheral pulses intact. No lower extremity edema NEUROLOGIC: Awake and alert. Oriented x 3. ASSESSMENT: Chest pain Non-STEMI, status post cardiac catheterization revealing multivessel coronary artery disease Hypertension Hyperlipidemia, LDL 137 Moderate sized hiatal hernia Pulmonary nodules noted on CTA History of rheumatic fever as a child CAD s/p CABG x 4 06/17 Anemia Acute on chronic respiratory failure Brief episode of Afib PLAN: Continue aspirin and Plavix Continue high intensity statin Continue aspirin and metoprolol Brief episode preoperatively of Afib. Continue to monitor and continue Amio Monitor respiratory status Likely add Losartan 25 tomorrow if BP remains stable Objective - Vital Signs Vital signs: Vital Signs Temp 99.9 F H 06/18/24 12:00 Pulse 77 06/18/24 15:09 Resp 12 06/18/24 15:09 BP 119/61 06/18/24 14:15 Pulse Ox 97 06/18/24 14:15 FiO2 40 06/18/24 14:52 Intake & Output 06/17/24 06/18/24 06/18/24 18:59 06:59 18:59 Intake Total 6947.745 4878.445 966.297 Output Total 3450 2225 943 Balance -2136.907 -564.555 23.297 Weight 73.4 kg Intake: IV 1198 1086 812 ACETAMINOPHEN IV (For NPO 100 ) 1,000 mg In Empty Bag 1 bag @ 400 mls/hr IVPB Q6HR [facility] Rx#:[id number] Albumin Human 5% 250 ml 500 250 In Empty Bag 1 bag @ 250 mls/hr IVPB Q1HR PRN Rx#: [id number] CO/CI 100 240 40 Lines 45 96 72 Magnesium Sulfate-D5w Pmx 200 1 gm In Dextrose/Water 1 100ml.bag @ 100 mls/hr IVPB Q1H [facility] Rx#: [id number] Sodium Chloride 0.9% 1, 250 600 400 000 ml @ 50 mls/hr IV . Q20H [facility] Rx#:[id number] ceFAZolin 2 gm In Sodium 50 50 50 Chloride 0.9% 50 ml @ 100 mls/hr IVPB ONCE ONE Rx# :[id number] Intake, IV Titration 45.093 214.445 94.297 Amount Clevidipine Butyrate 25 86.034 57.433 mg In Empty Bag 1 bag @ 1 MG/HR 2 mls/hr IV .Q24H [facility] Rx#:[id number] Dexmedetomidine/0.9% NaCl 20.154 3.165 20.595 (Pmx) 400 mcg In Empty Bag 1 bag @ Titrate IV . Q0M [facility] Rx#:[id number] Insulin Regular 100 unit 2.794 16.843 16.269 In Sodium Chloride 0.9% 100 ml @ Per Protocol IV .Q0M [facility] Rx#:[id number] propofoL 1,000 mg In 22.145 108.403 Empty Bag 1 bag @ Titrate IV .Q0M [facility] Rx#: [id number] Oral 70 Tube Feeding 120 60 Other 240 Output: Chest Tube Drainage 245 345 198 Left Pleural 85 160 23 Mediastinal 130 170 120 Right Pleural 30 15 55 Drainage 20 45 Left Calf 20 15 Right Calf 30 Urine 2935 1835 745 Estimated Blood Loss 250 Other: Voiding Method Indwelling Catheter Indwelling Catheter ABP, PAP, CO, CI - Last Documented Arterial Blood Pressure 138/58 Pulmonary Artery Pressure 21/ Cardiac Output 6.1 Cardiac Index 3.5 - Labs CBC & Chem 7: 06/18/24 04:08 06/18/24 04:08 Labs: Abnormal Lab Results - Last 24 Hours (Table) 06/16/24 06/17/24 06/17/24 Range/Units 06:39 08:34 08:38 WBC (3.8-10.6) k/uL RBC (3.80-5.40) m/uL Hgb (11.4-16.0) gm/dL Hct (34.0-46.0) % Neutrophils # (1.3-7.7) k/uL Lymphocytes # (1.0-4.8) k/uL ABG pO2 (83-108) mmHg ABG HCO3 30 H 28 H (21-25) mmol/L ABG Total CO2 27 H (19-24) mmol/L ABG O2 Saturation >99.4 H 98.4 H (94-97) % ABG Hematocrit 30 L 23 L (34.0-46.0) % ABG Ionized Calcium 5.4 H (4.5-5.3) mg/dL ABG Glucose 126 H (75-99) mg/dL Hemoglobin 9.6 L 7.5 L (11.4-16.0) gm/dL Sodium (137-145) mmol/L Glucose (74-99) mg/dL POC Glucose (mg/dL) (70-110) mg/dL Alkaline Phosphatase (38-126) U/L Total Protein (6.3-8.2) g/dL Arterial Blood Glucose 126 H (75-99) mg/dL Crossmatch See Detail 06/17/24 06/17/24 06/17/24 Range/Units 16:27 17:05 18:09 WBC (3.8-10.6) k/uL RBC 2.79 L (3.80-5.40) m/uL Hgb 8.6 L (11.4-16.0) gm/dL Hct 26.6 L (34.0-46.0) % Neutrophils # (1.3-7.7) k/uL Lymphocytes # (1.0-4.8) k/uL ABG pO2 (83-108) mmHg ABG HCO3 (21-25) mmol/L ABG Total CO2 (19-24) mmol/L ABG O2 Saturation (94-97) % ABG Hematocrit (34.0-46.0) % ABG Ionized Calcium (4.5-5.3) mg/dL ABG Glucose (75-99) mg/dL Hemoglobin (11.4-16.0) gm/dL Sodium (137-145) mmol/L Glucose (74-99) mg/dL POC Glucose (mg/dL) 153 H 138 H (70-110) mg/dL Alkaline Phosphatase (38-126) U/L Total Protein (6.3-8.2) g/dL Arterial Blood Glucose (75-99) mg/dL Crossmatch 06/17/24 06/17/24 06/17/24 Range/Units 18:55 18:58 19:50 WBC (3.8-10.6) k/uL RBC 2.90 L (3.80-5.40) m/uL Hgb 9.1 L (11.4-16.0) gm/dL Hct 27.8 L (34.0-46.0) % Neutrophils # 7.8 H (1.3-7.7) k/uL Lymphocytes # 0.8 L (1.0-4.8) k/uL ABG pO2 (83-108) mmHg ABG HCO3 (21-25) mmol/L ABG Total CO2 (19-24) mmol/L ABG O2 Saturation (94-97) % ABG Hematocrit (34.0-46.0) % ABG Ionized Calcium (4.5-5.3) mg/dL ABG Glucose (75-99) mg/dL Hemoglobin (11.4-16.0) gm/dL Sodium (137-145) mmol/L Glucose (74-99) mg/dL POC Glucose (mg/dL) 131 H 132 H (70-110) mg/dL Alkaline Phosphatase (38-126) U/L Total Protein (6.3-8.2) g/dL Arterial Blood Glucose (75-99) mg/dL Crossmatch 06/17/24 06/17/24 06/17/24 Range/Units 21:09 22:06 22:59 WBC (3.8-10.6) k/uL RBC (3.80-5.40) m/uL Hgb (11.4-16.0) gm/dL Hct (34.0-46.0) % Neutrophils # (1.3-7.7) k/uL Lymphocytes # (1.0-4.8) k/uL ABG pO2 (83-108) mmHg ABG HCO3 (21-25) mmol/L ABG Total CO2 (19-24) mmol/L ABG O2 Saturation (94-97) % ABG Hematocrit (34.0-46.0) % ABG Ionized Calcium (4.5-5.3) mg/dL ABG Glucose (75-99) mg/dL Hemoglobin (11.4-16.0) gm/dL Sodium (137-145) mmol/L Glucose (74-99) mg/dL POC Glucose (mg/dL) 124 H 129 H 141 H (70-110) mg/dL Alkaline Phosphatase (38-126) U/L Total Protein (6.3-8.2) g/dL Arterial Blood Glucose (75-99) mg/dL Crossmatch 06/18/24 06/18/24 06/18/24 Range/Units 00:10 01:06 02:02 WBC (3.8-10.6) k/uL RBC (3.80-5.40) m/uL Hgb (11.4-16.0) gm/dL Hct (34.0-46.0) % Neutrophils # (1.3-7.7) k/uL Lymphocytes # (1.0-4.8) k/uL ABG pO2 (83-108) mmHg ABG HCO3 (21-25) mmol/L ABG Total CO2 (19-24) mmol/L ABG O2 Saturation (94-97) % ABG Hematocrit (34.0-46.0) % ABG Ionized Calcium (4.5-5.3) mg/dL ABG Glucose (75-99) mg/dL Hemoglobin (11.4-16.0) gm/dL Sodium (137-145) mmol/L Glucose (74-99) mg/dL POC Glucose (mg/dL) 138 H 124 H 119 H (70-110) mg/dL Alkaline Phosphatase (38-126) U/L Total Protein (6.3-8.2) g/dL Arterial Blood Glucose (75-99) mg/dL Crossmatch 06/18/24 06/18/24 06/18/24 Range/Units 03:02 04:07 04:08 WBC 11.7 H (3.8-10.6) k/uL RBC 3.23 L (3.80-5.40) m/uL Hgb 10.2 L (11.4-16.0) gm/dL Hct 30.6 L (34.0-46.0) % Neutrophils # 9.9 H (1.3-7.7) k/uL Lymphocytes # (1.0-4.8) k/uL ABG pO2 (83-108) mmHg ABG HCO3 (21-25) mmol/L ABG Total CO2 (19-24) mmol/L ABG O2 Saturation (94-97) % ABG Hematocrit (34.0-46.0) % ABG Ionized Calcium (4.5-5.3) mg/dL ABG Glucose (75-99) mg/dL Hemoglobin (11.4-16.0) gm/dL Sodium (137-145) mmol/L Glucose (74-99) mg/dL POC Glucose (mg/dL) 118 H 123 H (70-110) mg/dL Alkaline Phosphatase (38-126) U/L Total Protein (6.3-8.2) g/dL Arterial Blood Glucose (75-99) mg/dL Crossmatch 06/18/24 06/18/24 06/18/24 Range/Units 04:08 06:02 06:02 WBC (3.8-10.6) k/uL RBC (3.80-5.40) m/uL Hgb (11.4-16.0) gm/dL Hct (34.0-46.0) % Neutrophils # (1.3-7.7) k/uL Lymphocytes # (1.0-4.8) k/uL ABG pO2 79 L (83-108) mmHg ABG HCO3 (21-25) mmol/L ABG Total CO2 26 H (19-24) mmol/L ABG O2 Saturation (94-97) % ABG Hematocrit (34.0-46.0) % ABG Ionized Calcium (4.5-5.3) mg/dL ABG Glucose (75-99) mg/dL Hemoglobin 9.8 L (11.4-16.0) gm/dL Sodium 133 L (137-145) mmol/L Glucose 118 H (74-99) mg/dL POC Glucose (mg/dL) 135 H (70-110) mg/dL Alkaline Phosphatase 37 L (38-126) U/L Total Protein 5.7 L (6.3-8.2) g/dL Arterial Blood Glucose (75-99) mg/dL Crossmatch 06/18/24 06/18/24 06/18/24 Range/Units 06:55 08:02 10:02 WBC (3.8-10.6) k/uL RBC (3.80-5.40) m/uL Hgb (11.4-16.0) gm/dL Hct (34.0-46.0) % Neutrophils # (1.3-7.7) k/uL Lymphocytes # (1.0-4.8) k/uL ABG pO2 (83-108) mmHg ABG HCO3 (21-25) mmol/L ABG Total CO2 (19-24) mmol/L ABG O2 Saturation (94-97) % ABG Hematocrit (34.0-46.0) % ABG Ionized Calcium (4.5-5.3) mg/dL ABG Glucose (75-99) mg/dL Hemoglobin (11.4-16.0) gm/dL Sodium (137-145) mmol/L Glucose (74-99) mg/dL POC Glucose (mg/dL) 161 H 118 H 124 H (70-110) mg/dL Alkaline Phosphatase (38-126) U/L Total Protein (6.3-8.2) g/dL Arterial Blood Glucose (75-99) mg/dL Crossmatch 06/18/24 06/18/24 06/18/24 Range/Units 11:13 12:08 13:18 WBC (3.8-10.6) k/uL RBC (3.80-5.40) m/uL Hgb (11.4-16.0) gm/dL Hct (34.0-46.0) % Neutrophils # (1.3-7.7) k/uL Lymphocytes # (1.0-4.8) k/uL ABG pO2 (83-108) mmHg ABG HCO3 (21-25) mmol/L ABG Total CO2 (19-24) mmol/L ABG O2 Saturation (94-97) % ABG Hematocrit (34.0-46.0) % ABG Ionized Calcium (4.5-5.3) mg/dL ABG Glucose (75-99) mg/dL Hemoglobin (11.4-16.0) gm/dL Sodium (137-145) mmol/L Glucose (74-99) mg/dL POC Glucose (mg/dL) 164 H 174 H 132 H (70-110) mg/dL Alkaline Phosphatase (38-126) U/L Total Protein (6.3-8.2) g/dL Arterial Blood Glucose (75-99) mg/dL Crossmatch 06/18/24 Range/Units 15:00 WBC (3.8-10.6) k/uL RBC (3.80-5.40) m/uL Hgb (11.4-16.0) gm/dL Hct (34.0-46.0) % Neutrophils # (1.3-7.7) k/uL Lymphocytes # (1.0-4.8) k/uL ABG pO2 (83-108) mmHg ABG HCO3 (21-25) mmol/L ABG Total CO2 (19-24) mmol/L ABG O2 Saturation (94-97) % ABG Hematocrit (34.0-46.0) % ABG Ionized Calcium (4.5-5.3) mg/dL ABG Glucose (75-99) mg/dL Hemoglobin (11.4-16.0) gm/dL Sodium (137-145) mmol/L Glucose (74-99) mg/dL POC Glucose (mg/dL) 114 H (70-110) mg/dL Alkaline Phosphatase (38-126) U/L Total Protein (6.3-8.2) g/dL Arterial Blood Glucose (75-99) mg/dL Crossmatch
[2024-06-18 17:01] LABS: Glucose,Whole Blood 171 mg/dL (70-110)
[2024-06-18 18:02] LABS: Glucose,Whole Blood 150 mg/dL (70-110)
[2024-06-18] MEDS: methylPREDNISolone SOD SUCCI 125 MG/2 ML VIAL IV SCH (18:02)
[2024-06-18] MEDS: METOPROLOL TARTRATE 12.5 MG TAB PO STA (18:02)
[2024-06-18 18:53] LABS: Glucose,Whole Blood 126 mg/dL (70-110)
[2024-06-18 20:15] LABS: Glucose,Whole Blood 105 mg/dL (70-110)
[2024-06-18] MEDS: METOPROLOL TARTRATE 25 MG TAB PO SCH (20:33)
[2024-06-18] MEDS: METOCLOPRAMIDE 5 MG/ML 2 ML VIAL IVP PRN (20:34)
[2024-06-18 21:12] LABS: Glucose,Whole Blood 148 mg/dL (70-110)
[2024-06-18 21:53] LABS: Glucose,Whole Blood 162 mg/dL (70-110)
[2024-06-18 22:59] LABS: Glucose,Whole Blood 101 mg/dL (70-110)
[2024-06-19] LABS: Glucose,Whole Blood 94 mg/dL (70-110)
[2024-06-19 01:02] LABS: Glucose,Whole Blood 151 mg/dL (70-110)
[2024-06-19 02:33] LABS: Glucose,Whole Blood 147 mg/dL (70-110)
[2024-06-19 05:12] LABS: Glucose,Whole Blood 101 mg/dL (70-110)
[2024-06-19 05:19] LABS: Basophils % (A) 0 %; Eosinophils % (A) 0 %; HGB 8.8 gm/dL (11.4-16.0); Lymphocytes # (A) 0.8 k/uL (1.0-4.8); Lymphocytes % (A) 4 %; MCH 31.3 pg (25.0-35.0); MCHC 32.5 g/dL (31.0-37.0); MCV 96.2 fL (80.0-100.0); Mean Platelet Volume 7.6; Monocytes # (A) 1.1 k/uL (0-1.0); Monocytes % (A) 6 %; Neutrophils # (A) 16.9 k/uL (1.3-7.7); Neutrophils % (A) 89 %; Platelet Count 186 k/uL (150-450); RDW 13.3 % (11.5-15.5)
[2024-06-19 05:23] LABS: Ionized Calcium 5.2 mg/dL (4.5-5.3)
[2024-06-19 05:32] LABS: ALT 11 U/L (4-34); AST 34 U/L (14-36); African American GFR (CKD) 86 (>60 ml/min/1.73 sqM); Albumin 3.7 g/dL (3.5-5.0); Alkaline Phosphatase 41 U/L (38-126); Anion Gap 7 mmol/L; Blood Urea Nitrogen 17 mg/dL (7-17); Calcium 9.4 mg/dL (8.4-10.2); Carbon Dioxide 27 mmol/L (22-30); Chloride 108 mmol/L (98-107); Glucose 100 mg/dL (74-99); Magnesium 2.3 mg/dL (1.6-2.3); Non-African American GFR(CKD) 75 (>60 ml/min/1.73 sqM); Potassium 4.1 mmol/L (3.5-5.1); Sodium 142 mmol/L (137-145); Total Bilirubin 0.6 mg/dL (0.2-1.3); Total Protein 5.6 g/dL (6.3-8.2)
[2024-06-19 06:04] LABS: Glucose,Whole Blood 137 mg/dL (70-110)
[2024-06-19 07:00] LABS: Glucose,Whole Blood 136 mg/dL (70-110)
[2024-06-19] MEDS: hydrALAZINE HCL 20 MG/ML 1 ML VIAL IVP PRN (07:08)
[2024-06-19] MEDS: fentaNYL (PF) 50 MCG/ML 2 ML AMP IVP PRN (07:09)
[2024-06-19] MEDS ORDERED: METOPROLOL TARTRATE 25 MG TAB PO SCH (08:00)
--- NOTE | 2024-06-19 08:09 | P.PN ---
Subjective Progress Note Date: 06/19/24 Principal diagnosis: Multivessel coronary artery disease, non-ST elevated myocardial infarction this admission, moderate size hiatal hernia found on CT scan. Previous medical hist ory of hypertension, hyperlipidemia, tracheostomy 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 status post reversal 50 years ago, depression, severe restrictive lung disease, chronic back pain, right drop foot, chronic constipation and dysphagia, lifelong non- smoker. Preoperative nasal screen positive for MSSA POD #2 off-pump CABG x 4 with JESSICA to LAD, sequential saphenous vein graft to first obtuse marginal and third obtuse marginal (posterior lateral circumflex branch), saphenous vein graft to posterior descending (terminal circumflex), bilateral endoscopic harvest of greater saphenous vein, ligation left atrial appendage with 35 mm AtriCure clip, DARYL by anesthesia Postoperative acute blood loss anemia, expected given hemodilution The patient was seen and examined this morning sitting up in a recliner in the intensive care unit in no acute distress although does complain of expected postsurgical pain, states [place] does not work at all, continues with Oxy, Toradol, fentanyl. She was successfully extubated to BiPAP yesterday at 7:54 AM. Currently sinus tach, a bit hypertensive on no inotropes or pressors. Currently on 6 L high flow nasal cannula with oxygen saturation in the mid to high 90s. Only able to achieve 750 mL on incentive spirometry. Chest x-ray, labs reviewed, WBC elevated at 19, however she was started on IV Solu-Medrol yesterday by Dr. Connors for stridor, she was able to avoid being reintubated. Right internal jugular cordis, right radial arterial line, mediastinal/right/lef t pleural chest tubes all remain. Case discussed with Dr. Peterson, on-call cardiothoracic surgeon. Objective - Vital Signs Vital signs: Vital Signs Temp 98.6 F 06/19/24 06:00 Pulse 105 H 06/19/24 07:00 Resp 22 06/19/24 07:00 BP 126/71 06/19/24 06:45 Pulse Ox 97 06/19/24 07:00 FiO2 40 06/19/24 02:22 Intake & Output 06/18/24 06/19/24 06/19/24 18:59 06:59 18:59 Intake Total 1204.859 793.731 36 Output Total 1545 2217 75 Balance -340.141 -1423.269 -39 Weight 75.5 kg Intake: IV 1036 396 36 Albumin Human 5% 250 ml 250 In Empty Bag 1 bag @ 250 mls/hr IVPB Q1HR PRN Rx#: [id number] CO/CI 40 Lines 96 66 6 Sodium Chloride 0.9% 1, 600 330 30 000 ml @ 20 mls/hr IV . Q24H [facility] Rx#:[id number] ceFAZolin 2 gm In Sodium 50 Chloride 0.9% 50 ml @ 100 mls/hr IVPB ONCE ONE Rx# :[id number] Intake, IV Titration 108.859 57.731 Amount Clevidipine Butyrate 25 61.566 37.135 mg In Empty Bag 1 bag @ 1 MG/HR 2 mls/hr IV .Q24H [facility] Rx#:[id number] Dexmedetomidine/0.9% NaCl 20.595 (Pmx) 400 mcg In Empty Bag 1 bag @ Titrate IV . Q0M [facility] Rx#:[id number] Insulin Regular 100 unit 26.698 20.596 In Sodium Chloride 0.9% 100 ml @ Per Protocol IV .Q0M [facility] Rx#:[id number] Oral 340 Tube Feeding 60 Output: Chest Tube Drainage 270 135 Left Pleural 25 30 Mediastinal 160 80 Right Pleural 85 25 Drainage 87 Left Calf 47 Right Calf 40 Urine 1275 1995 75 Other: Voiding Method Indwelling Catheter Indwelling Catheter ABP, PAP, CO, CI - Last Documented Arterial Blood Pressure 151/67 Pulmonary Artery Pressure 21/1 Cardiac Output 6.1 Cardiac Index 3.5 - Exam CONSTITUTIONAL: Appears comfortable, cooperative RESPIRATORY: Lungs sounds diminished in the bases. Respirations even, nonlabored. Currently on 6 L high flow nasal cannula with oxygen saturation 95%. Able to achieve 750 mL on her incentive spirometry. Weak cough. CARDIOVASCULAR: S1, S2 present. Tacky but regular rate and rhythm, sinus tach on telemetry. Sternum stable. Palpable peripheral pulses bilaterally. No edema present. No calf pain or tenderness noted. Heart hugger, antiembolism stockings, SCDs present. GASTROINTESTINAL: Abdomen soft, nontender, nondistended. Hypoactive bowel sounds present 4 quadrants. Positive flatus GENITOURINARY: Ragland present draining clear, yellow urine. Output overnight 25-350 mL per hour, 3270 mL in the last 24 hours INTEGUMENTARY: Skin is warm and dry with evidence of good perfusion. Anterior chest incision well approximated and covered with dry intact dressing. Bilateral lower extremity EVH sites well approximated without redness, right JAYE drain present with minimal drainage, left JAYE drain pulled out this morning NEUROLOGIC: Cranial nerves II through XII intact MUSKULOSKELETAL: Able to move all extremities, strength equal bilaterally, patient does have right foot drop PSYCHIATRIC: Alert and oriented to person place and time, appropriate affect INVASIVE LINES AND TUBES: Mediastinal/left/right pleural chest tubes present and connected to wall suction, no air leaks present. Mediastinal tube with 60 mL serosanguineous drainage overnight, 250 mL in the last 24 hours. Left pleural chest tube with 20 mL serosanguineous drainage overnight, 100 mL in the last 24 hours. Right pleural chest tube with 25 mL serosanguineous drainage overnight, 55 mL in the last 24 hours. Right internal jugular cordis, right radial arterial line present - Allied health notes Allied health notes reviewed: nursing - Labs CBC & Chem 7: 06/19/24 05:00 06/19/24 05:00 Labs: Abnormal Lab Results - Last 24 Hours (Table) 06/18/24 06/18/24 06/18/24 Range/Units 08:02 10:02 11:13 WBC (3.8-10.6) k/uL RBC (3.80-5.40) m/uL Hgb (11.4-16.0) gm/dL Hct (34.0-46.0) % Neutrophils # (1.3-7.7) k/uL Lymphocytes # (1.0-4.8) k/uL Monocytes # (0-1.0) k/uL Chloride (98-107) mmol/L Glucose (74-99) mg/dL POC Glucose (mg/dL) 118 H 124 H 164 H (70-110) mg/dL Total Protein (6.3-8.2) g/dL 06/18/24 06/18/24 06/18/24 Range/Units 12:08 13:18 15:00 WBC (3.8-10.6) k/uL RBC (3.80-5.40) m/uL Hgb (11.4-16.0) gm/dL Hct (34.0-46.0) % Neutrophils # (1.3-7.7) k/uL Lymphocytes # (1.0-4.8) k/uL Monocytes # (0-1.0) k/uL Chloride (98-107) mmol/L Glucose (74-99) mg/dL POC Glucose (mg/dL) 174 H 132 H 114 H (70-110) mg/dL Total Protein (6.3-8.2) g/dL 06/18/24 06/18/24 06/18/24 Range/Units 16:16 17:00 18:01 WBC (3.8-10.6) k/uL RBC (3.80-5.40) m/uL Hgb (11.4-16.0) gm/dL Hct (34.0-46.0) % Neutrophils # (1.3-7.7) k/uL Lymphocytes # (1.0-4.8) k/uL Monocytes # (0-1.0) k/uL Chloride (98-107) mmol/L Glucose (74-99) mg/dL POC Glucose (mg/dL) 160 H 171 H 150 H (70-110) mg/dL Total Protein (6.3-8.2) g/dL 06/18/24 06/18/24 06/18/24 Range/Units 18:52 21:10 21:51 WBC (3.8-10.6) k/uL RBC (3.80-5.40) m/uL Hgb (11.4-16.0) gm/dL Hct (34.0-46.0) % Neutrophils # (1.3-7.7) k/uL Lymphocytes # (1.0-4.8) k/uL Monocytes # (0-1.0) k/uL Chloride (98-107) mmol/L Glucose (74-99) mg/dL POC Glucose (mg/dL) 126 H 148 H 162 H (70-110) mg/dL Total Protein (6.3-8.2) g/dL 06/19/24 06/19/24 06/19/24 Range/Units 01:00 02:30 05:00 WBC 19.0 H (3.8-10.6) k/uL RBC 2.80 L (3.80-5.40) m/uL Hgb 8.8 L (11.4-16.0) gm/dL Hct 27.0 L (34.0-46.0) % Neutrophils # 16.9 H (1.3-7.7) k/uL Lymphocytes # 0.8 L (1.0-4.8) k/uL Monocytes # 1.1 H (0-1.0) k/uL Chloride (98-107) mmol/L Glucose (74-99) mg/dL POC Glucose (mg/dL) 151 H 147 H (70-110) mg/dL Total Protein (6.3-8.2) g/dL 06/19/24 06/19/24 06/19/24 Range/Units 05:00 06:02 06:58 WBC (3.8-10.6) k/uL RBC (3.80-5.40) m/uL Hgb (11.4-16.0) gm/dL Hct (34.0-46.0) % Neutrophils # (1.3-7.7) k/uL Lymphocytes # (1.0-4.8) k/uL Monocytes # (0-1.0) k/uL Chloride 108 H (98-107) mmol/L Glucose 100 H (74-99) mg/dL POC Glucose (mg/dL) 137 H 136 H (70-110) mg/dL Total Protein 5.6 L (6.3-8.2) g/dL - Imaging and Cardiology Chest x-ray: image reviewed Assessment and Plan Assessment: Multivessel coronary artery disease, non-ST elevated myocardial infarction this admission, status post four-vessel off-pump CABG Moderate size hiatal hernia found on CT scan, no surgical intervention planned at this time Preoperative nasal screen positive for MSSA, treated Postoperative acute blood loss anemia, expected given hemodilution Previous medical history of hypertension Hyperlipidemia, cholesterol 219, LDL 137 Right vocal cord paralysis Tracheostomy 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 status post reversal 50 years ago Depression Severe restrictive lung disease, preoperative FEV1 41% of predicted Chronic back pain, on multiple narcotics Right drop foot Chronic constipation and dysphagia Lifelong non-smoker Plan: Continue to maximize medical therapy with aspirin, statin, Plavix, beta-jason. Will increase beta-jason therapy as tolerated, increased to 50 mg twice daily today Losartan added for afterload reduction Wean O2 as tolerated. Encourage incentive spirometry use 10 times every hour while awake. Bronchodilators, steroids per pulmonology Will monitor daily labs and x-rays, electrolyte replacement per protocol, no Lasix today Increase activity, ambulate as tolerated. PT/OT/cardiac rehab consulted. May use walker for balance, patient is not to place her full weight on the walker as part of sternal precautions GI/DVT prophylaxis Pain control per current medication regimen Insulin management per internal medicine, patient is not diabetic, hemoglobin A1c 5.8% Discontinue cordis, arterial line Will discontinue chest tubes Will discontinue JAYE drain Will discontinue ragland, may bladder scan and straight cath for greater than 300 mL residual Continue to monitor record strict accurate intake and output Keep in the ICU for another 24 hours More recommendations to follow based on patient's progress Chest tubes are removed. I have d/w the patient the importance of aggressive IS. She will attempt ambulation. Pain appears to be well controlled.
[2024-06-19 08:12] LABS: Glucose,Whole Blood 164 mg/dL (70-110)
[2024-06-19] MEDS: METOPROLOL TARTRATE 50 MG TAB PO SCH (09:07)
[2024-06-19] MEDS: ALPRAZolam 0.25 MG TAB PO PRN (09:09)
[2024-06-19 09:10] LABS: Glucose,Whole Blood 130 mg/dL (70-110)
--- NOTE | 2024-06-19 09:18 | XR ---
EXAMINATION TYPE: XR chest 1V portable DATE OF EXAM: 06/19/2024 6:50 AM COMPARISON: 06/18/2024 CLINICAL INDICATION: Female, 74 years old with history of Post Operative Cardiac Surgery, TECHNIQUE: XR chest 1V portable view(s) obtained. Patient is rotated to the right FINDINGS: The heart size is upper limits of normal. The pulmonary vasculature is normal. Small left pleural effusion is present. Left-sided chest tube is present. Minimal left apical pneumo thorax. There is a small right apical pneumothorax. Right-sided chest tube is present. Mediastinal t ube is present. IMPRESSION: 1. Small bilateral apical pneumothoraces. Chest tubes remain in position. 2. Small left pleural effusion [facility], , 06/19/2024 9:16 AM
[2024-06-19 10:00] LABS: Glucose,Whole Blood 88 mg/dL (70-110)
[2024-06-19] MEDS ORDERED: DEXTROSE 50% SYRINGE 50 ML IVP PRN ×2 (10:32)
--- NOTE | 2024-06-19 10:40 | P.PN ---
Subjective Progress Note Date: 06/19/24 Hospital Course: A 74-year-old female with PMH of HTN, history of tracheostomy around 40 years ago, who presented to the ED on 06/10/2024 with chest pain, was found to have elevated troponins and admitted with non-ST MN, heart cath done 06/11/2024 and showed multivessel CAD, calcified left main and LAD, complete occlusion of proximal LAD with collaterals, significant disease involving left circumflex, OM1, PLV, mid codominant RCA, elevated LVEDP. DARYL DARYL showed EF of 55 to 60% with mild tricuspid and mitral regurg. Chest CTA showed no PE, couple pulmonary nodules up to 4 mm. CABG was performed on 06/17/2024, patient was transferred to the ICU in stable condition, intubated, no inotropic support needed during the surgery. intubated on 06/17/2024, extubated 06/18 in the morning to BiPAP, IV Solu-Medrol given for stridor, started on Precedex. JAYE drain to discontinue Postop blood work showed hemoglobin drop from 11.6-8.5 improved after transfusion up to 10.2. 06/19 doing better on nasal cannula, stridor present on exam, will continue Solu- Medrol for 1 more day. Chest tube, JAYE drains, Naik discontinued, insulin drip stopped, monitor in the ICU for 24 more hours. Started on Cozaar 25 daily, metoprolol 50 twice daily Subjective: Awake and alert today, feels better, complains of postop pain, fairly controlled, some shortness of breath Pertinent positives and negatives as discussed above, a complete review of systems was performed and all other systems are negative. Vitals Signs Reviewed. General: [nontoxic], [no distress], [appears at stated age], ill-appearing Derm: [warm], [dry] Head: [atraumatic], [normocephalic], [symmetric] Eyes: [EOMI], [no lid lag], [anicteric sclera] Mouth: [no lip lesion], [mucus membranes moist] Cardiovascular: [S1S2 reg], [no murmur], surgical dressing clean and dry Lungs: Stridor, coarse breath sounds bilaterally, on nasal cannula Abdominal: [soft], [ nontender to palpation], [no guarding], [no appreciable organomegaly] Ext: [no gross muscle atrophy], [no edema], [no contractures] Neuro: [ CN II-XI grossly intact], [no focal neuro deficits] Psych: [Alert], [oriented], [appropriate affect] Data Reviewed Today: Pertinent Labs leukocytosis 19.8, hemoglobin down to 8.8, normal platelets, hyponatremia resolved, sodium 142, kidney function WNL, glucose is controlled Imaging: Chest x-ray showed small bilateral apical pneumothoraces and small left pleural effusion Assessment and Plan:Acute NSTEMI Multivessel coronary artery disease s/p CABG x4 with JESSICA to LAD 06/17/2024 Acute hypoxic respiratory failure Acute blood loss anemia, postop Leukocytosis, likely reactive postop Small bilateral apical pneumothoraces Hyponatremia, resolved Hypertension -Patient in the ICU, intubated on 06/17/2024, extubated 06/18 in the morning to BiPAP, IV Solu-Medrol given for stridor, 06/19 on nasal cannula, 1 more day of So jammie-Medrol for continued stridor, chest tubes discontinued -Postop management per cardiothoracic surgery, ICU -Operative note reviewed -Pulmonology following -Continued DAPT, high intensity statins -Started on Cozaar 25, metoprolol up to 50 twice daily -Continue Accu-Cheks [id number], SSI -Pain control per cardiac surgery: Toradol, fentanyl added -Monitor CBC -Repeat chest x-ray in a.m. -PT OT Constipation Moderate-sized hiatal hernia -General Surgery following -On MiraLAX 17 g daily Chronic: Chronic back pain Pulmonary nodules, outpatient follow-up Insomnia Code status: Full code Anticipated discharge place: Pending clinical course Anticipated discharge time: Pending clinical course Objective - Vital Signs Vital signs: Vital Signs Temp 98.0 F 06/19/24 08:00 Pulse 106 H 06/19/24 09:45 Resp 15 06/19/24 09:45 BP 141/81 06/19/24 09:00 Pulse Ox 96 06/19/24 09:45 FiO2 40 06/19/24 07:46 Intake & Output 06/18/24 06/19/24 06/19/24 18:59 06:59 18:59 Intake Total 1204.859 793.731 48.171 Output Total 1545 2217 75 Balance -340.141 -1423.269 -26.829 Weight 75.5 kg Intake: IV 1036 396 36 Albumin Human 5% 250 ml 250 In Empty Bag 1 bag @ 250 mls/hr IVPB Q1HR PRN Rx#: [id number] CO/CI 40 Lines 96 66 6 Sodium Chloride 0.9% 1, 600 330 30 000 ml @ 20 mls/hr IV . Q24H [facility] Rx#:[id number] ceFAZolin 2 gm In Sodium 50 Chloride 0.9% 50 ml @ 100 mls/hr IVPB ONCE ONE Rx# :[id number] Intake, IV Titration 108.859 57.731 12.171 Amount Clevidipine Butyrate 25 61.566 37.135 mg In Empty Bag 1 bag @ 1 MG/HR 2 mls/hr IV .Q24H [facility] Rx#:[id number] Dexmedetomidine/0.9% NaCl 20.595 (Pmx) 400 mcg In Empty Bag 1 bag @ Titrate IV . Q0M [facility] Rx#:[id number] Insulin Regular 100 unit 26.698 20.596 12.171 In Sodium Chloride 0.9% 100 ml @ Per Protocol IV .Q0M [facility] Rx#:[id number] Oral 340 Tube Feeding 60 Output: Chest Tube Drainage 270 135 Left Pleural 25 30 Mediastinal 160 80 Right Pleural 85 25 Drainage 87 Left Calf 47 Right Calf 40 Urine 1275 1995 75 Other: Voiding Method Indwelling Catheter Indwelling Catheter ABP, PAP, CO, CI - Last Documented Arterial Blood Pressure 145/65 Pulmonary Artery Pressure 21/1 Cardiac Output 6.1 Cardiac Index 3.5 - Labs CBC & Chem 7: 06/19/24 05:00 06/19/24 05:00 Labs: Abnormal Lab Results - Last 24 Hours (Table) 06/18/24 06/18/24 06/18/24 Range/Units 11:13 12:08 13:18 WBC (3.8-10.6) k/uL RBC (3.80-5.40) m/uL Hgb (11.4-16.0) gm/dL Hct (34.0-46.0) % Neutrophils # (1.3-7.7) k/uL Lymphocytes # (1.0-4.8) k/uL Monocytes # (0-1.0) k/uL Chloride (98-107) mmol/L Glucose (74-99) mg/dL POC Glucose (mg/dL) 164 H 174 H 132 H (70-110) mg/dL Total Protein (6.3-8.2) g/dL 06/18/24 06/18/24 06/18/24 Range/Units 15:00 16:16 17:00 WBC (3.8-10.6) k/uL RBC (3.80-5.40) m/uL Hgb (11.4-16.0) gm/dL Hct (34.0-46.0) % Neutrophils # (1.3-7.7) k/uL Lymphocytes # (1.0-4.8) k/uL Monocytes # (0-1.0) k/uL Chloride (98-107) mmol/L Glucose (74-99) mg/dL POC Glucose (mg/dL) 114 H 160 H 171 H (70-110) mg/dL Total Protein (6.3-8.2) g/dL 06/18/24 06/18/24 06/18/24 Range/Units 18:01 18:52 21:10 WBC (3.8-10.6) k/uL RBC (3.80-5.40) m/uL Hgb (11.4-16.0) gm/dL Hct (34.0-46.0) % Neutrophils # (1.3-7.7) k/uL Lymphocytes # (1.0-4.8) k/uL Monocytes # (0-1.0) k/uL Chloride (98-107) mmol/L Glucose (74-99) mg/dL POC Glucose (mg/dL) 150 H 126 H 148 H (70-110) mg/dL Total Protein (6.3-8.2) g/dL 06/18/24 06/19/24 06/19/24 Range/Units 21:51 01:00 02:30 WBC (3.8-10.6) k/uL RBC (3.80-5.40) m/uL Hgb (11.4-16.0) gm/dL Hct (34.0-46.0) % Neutrophils # (1.3-7.7) k/uL Lymphocytes # (1.0-4.8) k/uL Monocytes # (0-1.0) k/uL Chloride (98-107) mmol/L Glucose (74-99) mg/dL POC Glucose (mg/dL) 162 H 151 H 147 H (70-110) mg/dL Total Protein (6.3-8.2) g/dL 06/19/24 06/19/24 06/19/24 Range/Units 05:00 05:00 06:02 WBC 19.0 H (3.8-10.6) k/uL RBC 2.80 L (3.80-5.40) m/uL Hgb 8.8 L (11.4-16.0) gm/dL Hct 27.0 L (34.0-46.0) % Neutrophils # 16.9 H (1.3-7.7) k/uL Lymphocytes # 0.8 L (1.0-4.8) k/uL Monocytes # 1.1 H (0-1.0) k/uL Chloride 108 H (98-107) mmol/L Glucose 100 H (74-99) mg/dL POC Glucose (mg/dL) 137 H (70-110) mg/dL Total Protein 5.6 L (6.3-8.2) g/dL 06/19/24 06/19/24 06/19/24 Range/Units 06:58 08:06 09:08 WBC (3.8-10.6) k/uL RBC (3.80-5.40) m/uL Hgb (11.4-16.0) gm/dL Hct (34.0-46.0) % Neutrophils # (1.3-7.7) k/uL Lymphocytes # (1.0-4.8) k/uL Monocytes # (0-1.0) k/uL Chloride (98-107) mmol/L Glucose (74-99) mg/dL POC Glucose (mg/dL) 136 H 164 H 130 H (70-110) mg/dL Total Protein (6.3-8.2) g/dL
--- NOTE | 2024-06-19 10:47 | P.PN ---
Subjective Progress Note Date: 06/19/24 HISTORY OF PRESENT ILLNESS: This is a 74-year-old female with a past medical history significant for hy pertension. 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 Patient does report she has not followed with a primary care physician in 20 to 30 years. we have been asked to see the patient in consultation for chest pain. Patient examined at the bedside in the emergency room. Patient states she has been having chest pain on and off for the past month. She states the episodes usually last about 10 minutes and then will resolve on their own or with peppermint candy. She states that the pain is usually in the middle of her chest and then will radiate into her left shoulder and arm. She does report feeling short of breath with these episodes. She states she had another episode of chest discomfort yesterday but this episode lasted for about an hour which concerned her so she came to the emergency room for further evaluation. She does report having another episode since coming to the hospital. She received Nitropaste which improved her chest pain. DIAGNOSTICS: - EKG reveals sinus mechanism with T wave inversions in V3V4. - Chest xray negative for acute process - Chest CTA: Negative for pulmonary embolism. A couple of pulmonary nodules measuring up to 4 mm. Trace pericardial effusion. Moderate coronary artery calcifications. - Laboratory data: WBC 5.4. Hemoglobin 12.3. Platelet count 281. Sodium 137. Potassium 4.0. BUN 21. Creatinine 0.91. Troponin 0.012. 0.021. 0.057. 0.050. - Current home cardiac medications include metoprolol 25 mg daily -No previous echocardiogram, stress test, or cardiac catheterization available in EMR for review 06/12/2024 Patient underwent cardiac catheterization yesterday with Dr. Segal revealing calcified left main and LAD, totally occluded proximal LAD with collaterals noted ipsilateral and contralateral, significant disease in the left circumflex, OM1, and left PLV, and significant disease in the mid codominant RCA. CT surgery has been consulted for evaluation of coronary artery bypass grafting. She is to be evaluated by the surgeon today. Patient currently remains on IV heparin. She denies chest pain or pressure. She denies shortness of breath. Vital signs are stable. Echocardiogram completed revealing ejection fraction 55 to 60% with mild tricuspid regurgitation 06/13/24 Patient examined this morning at the bedside. Patients family present. Patient reports having an episode of chest pain after using the bathroom this morning. Pain lasted for 15 minutes and resolved on its own. She remains on IV heparin. Vital signs stable. 06/14/2024 Patient examined this morning at the bedside. Patient remains on IV heparin. No complaints of shortness of breath. She currently denies any chest pain or pressure. Vital signs are stable. Telemetry reveals sinus mechanism. 06/15/2024 Patient examined this morning at the bedside. Patient remains on IV heparin. No complaints of shortness of breath. She currently denies any chest pain or pressure. Vital signs are stable. Telemetry reveals sinus mechanism. 06/16/2024 Patient examined this morning at the bedside. No family present. Patient remains on IV heparin. No complaints of shortness of breath. She currently denies any chest pain or pressure. Vital signs are stable. Telemetry reveals sinus mechanism. 06/18 Seen and examined. Underwent CABG x 4 with JESSICA to LAD, sequential saphenous vein graft to first obtuse marginal and third obtuse marginal (posterior lateral circumflex branch), saphenous vein graft to posterior descending (terminal circumflex), bilateral endoscopic harvest of greater saphenous vein, ligation left atrial appendage with 35 mm AtriCure clip yesterday. Was extubated and has needed BIPAP with increased work of breathing and some concern of need for repeat intubation with stridor from prior trach. No chest pain. Arousable. Not eating anything. Was on Cleviprex drip which has been weaned. CVP around 10. Had prior episode of Afib fairly asymptomatic 06/17 06/19 Patient seen and examined. Patient had chest tubes removed this morning. Oxygen is down to 6 L. She is scheduled to have arterial line, Naik catheter and a Cordis removed today. She has no stridor this morning. Her voice is hoarse. She complains of headache and some chest discomfort. She is currently on clear liquid diet. Patient is in a sinus rhythm. PHYSICAL EXAM: VITAL SIGNS: Reviewed. GENERAL: Well-developed in no acute distress. HEENT: Head is normocephalic. Pupils are equal, round. Sclerae anicteric. Mucous membranes of the mouth are moist. Neck supple. No JVD or thyromegaly LUNGS: Respirations even and unlabored. Lungs essentially clear to auscultation bilaterally. HEART: Regular rate and rhythm. S1 and S2 heard. ABDOMEN: Soft. Nondistended. Nontender. EXTREMITIES: Normal range of motion. No clubbing or cyanosis. Peripheral pulses intact. No lower extremity edema NEUROLOGIC: Awake and alert. Oriented x 3. ASSESSMENT: Chest pain Non-STEMI, status post cardiac catheterization revealing multivessel coronary artery disease Hypertension Hyperlipidemia, LDL 137 Moderate sized hiatal hernia Pulmonary nodules noted on CTA History of rheumatic fever as a child CAD s/p CABG x 4 06/17 Anemia Acute on chronic respiratory failure Brief episode of Afib PLAN: Continue aspirin and Plavix Continue high intensity statin Continue metoprolol Brief episode preoperatively of Afib. Continue to monitor and continue Amio. No plan to start anticoagulation at this point unless patient has further episodes. Monitor respiratory status Losartan was added 25 mg daily Nurse practitioner note has been reviewed, I agree with documented findings and plan of care. Patient was seen and examined. Objective - Vital Signs Vital signs: Vital Signs Temp 98.0 F 06/19/24 08:00 Pulse 106 H 06/19/24 09:45 Resp 15 06/19/24 09:45 BP 141/81 06/19/24 09:00 Pulse Ox 96 06/19/24 09:45 FiO2 40 06/19/24 07:46 Intake & Output 06/18/24 06/19/24 06/19/24 18:59 06:59 18:59 Intake Total 1204.859 793.731 48.171 Output Total 1545 2217 75 Balance -340.141 -1423.269 -26.829 Weight 75.5 kg Intake: IV 1036 396 36 Albumin Human 5% 250 ml 250 In Empty Bag 1 bag @ 250 mls/hr IVPB Q1HR PRN Rx#: [id number] CO/CI 40 Lines 96 66 6 Sodium Chloride 0.9% 1, 600 330 30 000 ml @ 20 mls/hr IV . Q24H [facility] Rx#:[id number] ceFAZolin 2 gm In Sodium 50 Chloride 0.9% 50 ml @ 100 mls/hr IVPB ONCE ONE Rx# :[id number] Intake, IV Titration 108.859 57.731 12.171 Amount Clevidipine Butyrate 25 61.566 37.135 mg In Empty Bag 1 bag @ 1 MG/HR 2 mls/hr IV .Q24H [facility] Rx#:[id number] Dexmedetomidine/0.9% NaCl 20.595 (Pmx) 400 mcg In Empty Bag 1 bag @ Titrate IV . Q0M [facility] Rx#:[id number] Insulin Regular 100 unit 26.698 20.596 12.171 In Sodium Chloride 0.9% 100 ml @ Per Protocol IV .Q0M [facility] Rx#:[id number] Oral 340 Tube Feeding 60 Output: Chest Tube Drainage 270 135 Left Pleural 25 30 Mediastinal 160 80 Right Pleural 85 25 Drainage 87 Left Calf 47 Right Calf 40 Urine 1275 1995 75 Other: Voiding Method Indwelling Catheter Indwelling Catheter ABP, PAP, CO, CI - Last Documented Arterial Blood Pressure 145/65 Pulmonary Artery Pressure 21/1 Cardiac Output 6.1 Cardiac Index 3.5 - Labs CBC & Chem 7: 06/19/24 05:00 06/19/24 05:00 Labs: Abnormal Lab Results - Last 24 Hours (Table) 06/18/24 06/18/24 06/18/24 Range/Units 11:13 12:08 13:18 WBC (3.8-10.6) k/uL RBC (3.80-5.40) m/uL Hgb (11.4-16.0) gm/dL Hct (34.0-46.0) % Neutrophils # (1.3-7.7) k/uL Lymphocytes # (1.0-4.8) k/uL Monocytes # (0-1.0) k/uL Chloride (98-107) mmol/L Glucose (74-99) mg/dL POC Glucose (mg/dL) 164 H 174 H 132 H (70-110) mg/dL Total Protein (6.3-8.2) g/dL 06/18/24 06/18/24 06/18/24 Range/Units 15:00 16:16 17:00 WBC (3.8-10.6) k/uL RBC (3.80-5.40) m/uL Hgb (11.4-16.0) gm/dL Hct (34.0-46.0) % Neutrophils # (1.3-7.7) k/uL Lymphocytes # (1.0-4.8) k/uL Monocytes # (0-1.0) k/uL Chloride (98-107) mmol/L Glucose (74-99) mg/dL POC Glucose (mg/dL) 114 H 160 H 171 H (70-110) mg/dL Total Protein (6.3-8.2) g/dL 06/18/24 06/18/24 06/18/24 Range/Units 18:01 18:52 21:10 WBC (3.8-10.6) k/uL RBC (3.80-5.40) m/uL Hgb (11.4-16.0) gm/dL Hct (34.0-46.0) % Neutrophils # (1.3-7.7) k/uL Lymphocytes # (1.0-4.8) k/uL Monocytes # (0-1.0) k/uL Chloride (98-107) mmol/L Glucose (74-99) mg/dL POC Glucose (mg/dL) 150 H 126 H 148 H (70-110) mg/dL Total Protein (6.3-8.2) g/dL 06/18/24 06/19/24 06/19/24 Range/Units 21:51 01:00 02:30 WBC (3.8-10.6) k/uL RBC (3.80-5.40) m/uL Hgb (11.4-16.0) gm/dL Hct (34.0-46.0) % Neutrophils # (1.3-7.7) k/uL Lymphocytes # (1.0-4.8) k/uL Monocytes # (0-1.0) k/uL Chloride (98-107) mmol/L Glucose (74-99) mg/dL POC Glucose (mg/dL) 162 H 151 H 147 H (70-110) mg/dL Total Protein (6.3-8.2) g/dL 06/19/24 06/19/24 06/19/24 Range/Units 05:00 05:00 06:02 WBC 19.0 H (3.8-10.6) k/uL RBC 2.80 L (3.80-5.40) m/uL Hgb 8.8 L (11.4-16.0) gm/dL Hct 27.0 L (34.0-46.0) % Neutrophils # 16.9 H (1.3-7.7) k/uL Lymphocytes # 0.8 L (1.0-4.8) k/uL Monocytes # 1.1 H (0-1.0) k/uL Chloride 108 H (98-107) mmol/L Glucose 100 H (74-99) mg/dL POC Glucose (mg/dL) 137 H (70-110) mg/dL Total Protein 5.6 L (6.3-8.2) g/dL 06/19/24 06/19/24 06/19/24 Range/Units 06:58 08:06 09:08 WBC (3.8-10.6) k/uL RBC (3.80-5.40) m/uL Hgb (11.4-16.0) gm/dL Hct (34.0-46.0) % Neutrophils # (1.3-7.7) k/uL Lymphocytes # (1.0-4.8) k/uL Monocytes # (0-1.0) k/uL Chloride (98-107) mmol/L Glucose (74-99) mg/dL POC Glucose (mg/dL) 136 H 164 H 130 H (70-110) mg/dL Total Protein (6.3-8.2) g/dL
[2024-06-19 10:55] LABS: Glucose,Whole Blood 118 mg/dL (70-110)
[2024-06-19 11:55] LABS: Glucose,Whole Blood 153 mg/dL (70-110)
[2024-06-19] MEDS: LOSARTAN 25 MG TAB PO SCH (11:56)
[2024-06-19] MEDS ORDERED: LOSARTAN 25 MG TAB PO SCH (12:00)
--- NOTE | 2024-06-19 12:07 | P.PN ---
Subjective Progress Note Date: 06/19/24 Patient is a 74-year-old female with past medical history significant for hypertension, previous tracheostomy that was reversed approximately 50 years ago. States that she has had issues with her breathing after a previous suicide attempt and she spent some time on a mechanical ventilator. She has had multiple neck surgeries at the [facility]. She has not followed up with a primary care provider in some time. She is a lifelong non-smoker. Presented to the emergency department back on June 10 with a chief complaint of chest pain. Chest pain described as substernal intermittent and radiating to her left chest and left arm. Lasts approximately 10 to 15 minutes with exertion. Usu ally subsides with rest or antacids, however, persistent on June 10, so she called her daughter to take her to the emergency department. Denies any associated nausea, diaphoresis, heart palpitations, lightheadedness/syncopal events. Denies any lower extremity swelling. Was found to have elevated troponins and admitted with non-ST elevation ID. Heart catheterization done on 06/11/2024 showing multivessel coronary artery disease with a calcified left main and LAD, totally occluded proximal LAD with collaterals, significant disease of involving the left circumflex, OM1, PLV, and significant disease in the mid codominant RCA. With elevated LVEDP. Echocardiogram showing preserved left ventricular ejection fraction of 55 to 60%, with mild mitral and tricuspid regurgitation. A surgical consult was placed. Pulmonary was also consulted for surgical clearance. CBC and CMP unremarkable. Recent APTT therapeutic. Chest CTA did not show any evidence of pulmonary embolism. Couple pulmonary nodules measuring up to 4 mm. Stated above, patient is not a non-smoker. Moderate size hiatal hernia. Bedside spirometry performed demonstrating and FEV1 0.85 L or 41% of predicted. Patient is a lifelong nontobacco smoker. Has no known history of COPD. She is currently sitting up in bed on room air oxygen. Nondistressed. She does have hoarse voice. Remote appearing tracheostomy inci sional scar. Patient remains on heparin infusion per protocol. Also nitroglycerin paste ordered. Denies any current chest pain. Current vitals: Temperature 97.1 F, heart rate 62 bpm, blood pressure 100/63 mmHg, nontachypneic, 93% on room air oxygen. On 06/14/2024, the patient is being seen for a follow-up. Doing well and she is free of any chest pain and the patient remains on IV heparin. The patient is status post non-ST segment elevation myocardial infarction due to an underlying multivessel coronary artery disease. She is awake and alert and communicating. Denies having any chest pain or shortness of breath. No nausea or emesis and the patient remains in sinus rhythm and hemodynamically stable. The patient is to meet the cardiothoracic surgeon today. Sodium is at 140, BUN is 18 with a creatinine of 1.06. Potassium level is at 4.5. WBC count is at 5.2 with a hemoglobin of 11 and a platelet count of 256. No other significant events overnight. The plan is still still undergo cardiac revascularization surgery and the patient is meeting their cardiothoracic surgeon today. The patient will also have a ENT evaluation by Dr. Beaulieu regarding possibility of vocal cord dysfunction. On 06/15/2024, the patient is resting comfortably in bed. She is free of any chest pain. Scheduled tentatively for cardiac revascularization surgery on 06/17/2024. Meanwhile, the patient had an ENT evaluation and a direct laryngoscopy was also done and the patient was found to have a right vocal cord paralysis. This is probably related to an injury that occurred many years back and the patient required a tracheostomy tube insertion following a suicidal attempt and at that time the patient required intubation and long-term mechanical ventilation and tracheostomy tube insertion. Since then, the patient has been hoarse. No stridor. Rest of the medications remain unchanged. The patient remains on IV heparin. Hemodynamically stable. Cardiac rhythm is sinus. On 06/16/2024, no new complaints of the patient's condition remains essentially stable. Using incentive spirometer. Remains on IV heparin. Free of any chest pain or shortness of breath. The patient is scheduled to undergo coronary revascularization surgery on 06/17/2024. Labs were checked. Hemoglobin 11.6, white cell count 6.5, BUN 16 with a creatinine of 0.9 and sodium levels at 141. She remains on room air oxygen. No respiratory difficulties for now. Will continue to follow. 06/17/2024, the patient is being seen in the intensive care unit. The patient was seen immediately after the patient arrived to the intensive care unit following her off-pump four-vessel bypass surgery. The patient had JESSICA to LAD and sequential vein graft to obtuse marginal and third obtuse marginal branch/posterior lateral circumflex branch. Also had a saphenous vein graft to PDA. Postop, the patient was kept intubated on mechanical ventilator and the patient was brought in to the intensive care unit. At this point, the patient is sedated on propofol which is running at 20 mcg/kg/min. The patient arrived to the ICU on Cleviprex drip for blood pressure control and this was weaned off and discontinued. Currently, on assist-control mode rate of 14, tidal volume of 400, FiO2 of 50% with a PEEP of 5. Blood gas showed a pH of 7.43 with a pCO2 of 40 and pO2 of 338. Chest x-ray postop showed adequate positioning of the ET tube, and the patient has a right pleural left pleural and mediastinal chest tube. No evidence of any pneumothorax. There is some mild pulm vascular congestion and left basilar atelectatic change. Alpine-Karen catheter is appropriately placed. The patient's cardiac output is at 4.6 with an index of 2.6. The patient is on insulin drip at 1 unit an hour. Cardiac rhythm is sinus. The output from the right right, left and mediastinal chest tube was noted. Output from mediastinal chest tube was 75, left was 50 and right was 0. No evidence of any air leak. Urine output is excellent at this point in time. The blood work showed a WBC count of 8.2 with a hemoglobin 8.5 and a platelet count of 143. Electrolytes are all within normal limits with a BUN of 12 and a creatinine of 0.7. The patient is slightly hypothermic and the patient has a Marcus hugger. Patient is currently postop day #0. On 06/18/2024, the patient is being seen for a follow-up. The patient is currently postop day #1 following coronary artery bypass surgery. The patient underwent an off-pump four-vessel bypass surgery. Noted, the patient had difficulties with weaning as the patient was becoming tachycardic and tachypneic while being checked for weaning parameters. Earlier this morning, the patient was taken off the propofol and Precedex. I noted that the patient was being ventilated through a #7 orotracheal tube. Weaning parameters were somewhat borderline. Nevertheless, the patient was unable to tolerate a spontaneous breathing trial due to a lower tidal volume. I was concerned that the smaller caliber ET tube was affecting her ability to wean. There is also an obvious ongoing concern for a right vocal cord paralysis with upper airway obstruction that may become an issue postextubation. Meanwhile, the patient was hemodynamically stable and doing well. Earlier this morning, her cardiac output was at 5.1 with an index of 2.9. PA pressures were 17/11. CVP was at 3. The chest tube output was noted and there was no evidence of any air leak. The mediastinal chest tube has produced 300 cc since surgery, left pleural 250 cc since surgery and right pleural 45 cc since surgery. The patient was started on mechanical ventilator on assist-control mode at rate of 12, tidal volume of 400, FiO2 of 40% with a PEEP of 5. She was on no pressors. Morning blood gases showed a pH of 7.41 with a pCO2 of 39 and pO2 of 79. Based on all this, I made the decision to extubate the patient to a BiPAP. The patient was extubated to the BiPAP and initially, she started having some tachypnea and subsequently respiratory rate improved. However, she started having audible stridor even at the BiPAP pressure of 14 over 5 cm of water with an FiO2 of 40%. She seems to be more comfortable. She was started on IV Solu-Medrol. She is also on a low- dose Precedex. She is being watched and monitored very closely, may need reintubation. The WBC count is 11.7 with hemoglobin 7.2 and a platelet count of 216. Sodium is at 133, BUN 17 with a creatinine of 0.6. Condition remains quite critical at this point in time and the patient is being monitored closely in the intensive care unit. 06/19/2024, the patient remains extubated. Noted postextubation, the patient encountered significant stridor which ultimately improved and the patient was supported on BiPAP throughout the night and she was given IV Solu-Medrol. Her stridor is less severe on today's evaluation and the patient is improved and the patient is able to talk and his voice is quite muffled still. Nevertheless, she feels much more comfortable. She is complaining of chest wall pain. She was transition to nasal cannula and the patient is currently on 5 L/min and her oxygenation is stable with a pulse ox of 96% on nasal cannula. Output from the chest tubes are minimal. The follow-up chest x-ray from today shows small left- sided pleural effusion. No pneumothorax. All of the chest tubes are in good location. Cardiac rhythm is sinus. Hemoglobin is 8.8. White cell count of 19 with a platelet count of 186. BUN is 17 with a creatinine of 0.7 and sodium levels at 142. She remains on insulin drip for blood sugar control which is running at 4 units an hour. She is using incentive spirometer. Pulling approximately 500. She is on metoprolol 50 mg p.o. twice daily and Cozaar was added at 50 mg p.o. daily. Precedex drip has been discontinued. Objective - Vital Signs Vital signs: Vital Signs Temp 98.6 F 06/19/24 06:00 Pulse 108 H 06/19/24 07:54 Resp 18 06/19/24 07:54 BP 126/71 06/19/24 06:45 Pulse Ox 95 06/19/24 07:46 FiO2 40 06/19/24 07:46 Intake & Output 06/18/24 06/19/24 06/19/24 18:59 06:59 18:59 Intake Total 1204.859 793.731 42.414 Output Total 1545 2217 75 Balance -340.141 -1423.269 -32.586 Weight 75.5 kg Intake: IV 1036 396 36 Albumin Human 5% 250 ml 250 In Empty Bag 1 bag @ 250 mls/hr IVPB Q1HR PRN Rx#: [id number] CO/CI 40 Lines 96 66 6 Sodium Chloride 0.9% 1, 600 330 30 000 ml @ 20 mls/hr IV . Q24H ASIF Rx#:[id number] ceFAZolin 2 gm In Sodium 50 Chloride 0.9% 50 ml @ 100 mls/hr IVPB ONCE ONE Rx# :[id number] Intake, IV Titration 108.859 57.731 6.414 Amount Clevidipine Butyrate 25 61.566 37.135 mg In Empty Bag 1 bag @ 1 MG/HR 2 mls/hr IV .Q24H ASIF Rx#:[id number] Dexmedetomidine/0.9% NaCl 20.595 (Pmx) 400 mcg In Empty Bag 1 bag @ Titrate IV . Q0M ASIF Rx#:[id number] Insulin Regular 100 unit 26.698 20.596 6.414 In Sodium Chloride 0.9% 100 ml @ Per Protocol IV .Q0M [facility] Rx#:[id number] Oral 340 Tube Feeding 60 Output: Chest Tube Drainage 270 135 Left Pleural 25 30 Mediastinal 160 80 Right Pleural 85 25 Drainage 87 Left Calf 47 Right Calf 40 Urine 1275 1994 Other: Voiding Method Indwelling Catheter Indwelling Catheter ABP, PAP, CO, CI - Last Documented Arterial Blood Pressure 151/67 Pulmonary Artery Pressure 21/1 Cardiac Output 6.1 Cardiac Index 3.5 - Exam CONSTITUTIONAL: Appears comfortable, cooperative RESPIRATORY: Lungs sounds diminished in the bases. Respirations even, nonlabored. Currently on 6 L high flow nasal cannula with oxygen saturation 95%. Able to achieve 750 mL on her incentive spirometry. Weak cough. CARDIOVASCULAR: S1, S2 present. Tacky but regular rate and rhythm, sinus tach on telemetry. Sternum stable. Palpable peripheral pulses bilaterally. No edema present. No calf pain or tenderness noted. Heart hugger, antiembolism stockings, SCDs present. GASTROINTESTINAL: Abdomen soft, nontender, nondistended. Hypoactive bowel sounds present 4 quadrants. Positive flatus GENITOURINARY: Naik present draining clear, yellow urine. Output overnight 25-350 mL per hour, 3270 mL in the last 24 hours INTEGUMENTARY: Skin is warm and dry with evidence of good perfusion. Anterior chest incision well approximated and covered with dry intact dressing. Bilateral lower extremity EVH sites well approximated without redness, right JAYE drain present with minimal drainage, left JAYE drain pulled out this morning NEUROLOGIC: Cranial nerves II through XII intact MUSKULOSKELETAL: Able to move all extremities, strength equal bilaterally, patient does have right foot drop PSYCHIATRIC: Alert and oriented to person place and time, appropriate affect INVASIVE LINES AND TUBES: Mediastinal/left/right pleural chest tubes present and connected to wall suction, no air leaks present. Mediastinal tube with 60 mL serosanguineous drainage overnight, 250 mL in the last 24 hours. Left pleural chest tube with 20 mL serosanguineous drainage overnight, 100 mL in the last 24 hours. Right pleural chest tube with 25 mL serosanguineous drainage overnight, 55 mL in the last 24 hours. Right internal jugular cordis, right radial arterial line present - Labs CBC & Chem 7: 06/19/24 05:00 06/19/24 05:00 Labs: Abnormal Lab Results - Last 24 Hours (Table) 06/18/24 06/18/24 06/18/24 Range/Units 10:02 11:13 12:08 WBC (3.8-10.6) k/uL RBC (3.80-5.40) m/uL Hgb (11.4-16.0) gm/dL Hct (34.0-46.0) % Neutrophils # (1.3-7.7) k/uL Lymphocytes # (1.0-4.8) k/uL Monocytes # (0-1.0) k/uL Chloride (98-107) mmol/L Glucose (74-99) mg/dL POC Glucose (mg/dL) 124 H 164 H 174 H (70-110) mg/dL Total Protein (6.3-8.2) g/dL 06/18/24 06/18/24 06/18/24 Range/Units 13:18 15:00 16:16 WBC (3.8-10.6) k/uL RBC (3.80-5.40) m/uL Hgb (11.4-16.0) gm/dL Hct (34.0-46.0) % Neutrophils # (1.3-7.7) k/uL Lymphocytes # (1.0-4.8) k/uL Monocytes # (0-1.0) k/uL Chloride (98-107) mmol/L Glucose (74-99) mg/dL POC Glucose (mg/dL) 132 H 114 H 160 H (70-110) mg/dL Total Protein (6.3-8.2) g/dL 06/18/24 06/18/24 06/18/24 Range/Units 17:00 18:01 18:52 WBC (3.8-10.6) k/uL RBC (3.80-5.40) m/uL Hgb (11.4-16.0) gm/dL Hct (34.0-46.0) % Neutrophils # (1.3-7.7) k/uL Lymphocytes # (1.0-4.8) k/uL Monocytes # (0-1.0) k/uL Chloride (98-107) mmol/L Glucose (74-99) mg/dL POC Glucose (mg/dL) 171 H 150 H 126 H (70-110) mg/dL Total Protein (6.3-8.2) g/dL 06/18/24 06/18/24 06/19/24 Range/Units 21:10 21:51 01:00 WBC (3.8-10.6) k/uL RBC (3.80-5.40) m/uL Hgb (11.4-16.0) gm/dL Hct (34.0-46.0) % Neutrophils # (1.3-7.7) k/uL Lymphocytes # (1.0-4.8) k/uL Monocytes # (0-1.0) k/uL Chloride (98-107) mmol/L Glucose (74-99) mg/dL POC Glucose (mg/dL) 148 H 162 H 151 H (70-110) mg/dL Total Protein (6.3-8.2) g/dL 06/19/24 06/19/24 06/19/24 Range/Units 02:30 05:00 05:00 WBC 19.0 H (3.8-10.6) k/uL RBC 2.80 L (3.80-5.40) m/uL Hgb 8.8 L (11.4-16.0) gm/dL Hct 27.0 L (34.0-46.0) % Neutrophils # 16.9 H (1.3-7.7) k/uL Lymphocytes # 0.8 L (1.0-4.8) k/uL Monocytes # 1.1 H (0-1.0) k/uL Chloride 108 H (98-107) mmol/L Glucose 100 H (74-99) mg/dL POC Glucose (mg/dL) 147 H (70-110) mg/dL Total Protein 5.6 L (6.3-8.2) g/dL 06/19/24 06/19/24 06/19/24 Range/Units 06:02 06:58 08:06 WBC (3.8-10.6) k/uL RBC (3.80-5.40) m/uL Hgb (11.4-16.0) gm/dL Hct (34.0-46.0) % Neutrophils # (1.3-7.7) k/uL Lymphocytes # (1.0-4.8) k/uL Monocytes # (0-1.0) k/uL Chloride (98-107) mmol/L Glucose (74-99) mg/dL POC Glucose (mg/dL) 137 H 136 H 164 H (70-110) mg/dL Total Protein (6.3-8.2) g/dL 06/19/24 Range/Units 09:08 WBC (3.8-10.6) k/uL RBC (3.80-5.40) m/uL Hgb (11.4-16.0) gm/dL Hct (34.0-46.0) % Neutrophils # (1.3-7.7) k/uL Lymphocytes # (1.0-4.8) k/uL Monocytes # (0-1.0) k/uL Chloride (98-107) mmol/L Glucose (74-99) mg/dL POC Glucose (mg/dL) 130 H (70-110) mg/dL Total Protein (6.3-8.2) g/dL Assessment and Plan Assessment: Multivessel coronary artery disease; heart catheterization done on 06/11/2024 showing multivessel coronary artery disease with a calcified left main and LAD, totally occluded proximal LAD with collaterals, significant disease of involving the left circumflex, OM1, PLV, and significant disease in the mid codominant RCA. With elevated LVEDP. The patient is status post Off-pump CABG x 4 with JESSICA to LAD, sequential saphenous vein graft to first obtuse marginal and third obtuse marginal (posterior lateral circumflex branch), saphenous vein graft to posterior descending (terminal circumflex), bilateral endoscopic harvest of greater saphenous vein, ligation left atrial appendage with 35 mm AtriCure clip, and the patient is currently postop day # 2 due to a history of a right vocal cord paralysis, the patient was intubated by a #7 orotracheal tube. This affected our ability to gradually wean the patient off the mechanical ventilator. Based on her stable status, the patient was extubated today BiPAP and currently she is on a BiPAP pressure of 14 over 5 cm of water. She did encounter respiratory difficulties postextubation. She also was encountering stridor which is expected due to her vocal cord paralysis. The patient was treated with steroids. The patient was supported with a BiPAP and currently she is off the BiPAP. She has been transitioned to 6 L of oxygen by nasal cannula. Cardiac rhythm remains sinus. Hemodynamically stable. Alpine-Karen catheter has been removed. Postthoracotomy, remains intubated on mechanical ventilator. Chest tubes are in place. Output is minimal and there is no evidence of air leak. Chest x-ray was noted. Blood gas were also noted. Postop hypertension, currently off Cleviprex drip. Non-ST elevation myocardial infarction, currently on IV heparin infusion per protocol Right vocal cord paralysis History of tracheostomy, with reversal approximately 50 years ago, states she has had multiple neck surgeries. FEV1 0.85 L or 41% of predicted. Lifelong non-smoker Hypertension Moderate-sized hiatal hernia, as reported in CT scan Chronic lumbar back pain Plan: Keep the patient on 5 L of oxygen nasal cannula Monitor stridor IV Solu-Medrol for another 24 hours White cell count slightly elevated due to steroids Patient is off Precedex Hemodynamically stable Chest tubes to be removed today Continue aspirin and Plavix Continue metoprolol 50 mg p.o. twice daily Cozaar 50 mg p.o. daily Statins Insulin drip for blood sugar control Cardiac rhythm is sinus Case was discussed with the cardiothoracic team. Critical care evaluation that was done more than 30 minutes. Will continue to follow. Time with Patient: Greater than 30
[2024-06-19] MEDS: methylPREDNISolone SOD SUCCI 125 MG/2 ML VIAL IV SCH (12:12)
[2024-06-19] MEDS: INSULIN ASPART (NovoLOG) 100 UNIT/ML VIAL SQ SCH (12:13)
[2024-06-19] MEDS: ACETAMINOPHEN TAB 500 MG TAB PO PRN (12:38)
[2024-06-19 16:10] LABS: Glucose,Whole Blood 183 mg/dL (70-110)
[2024-06-19] MEDS: ASCORBIC ACID 500 MG TAB PO SCH (18:31)
[2024-06-19] MEDS: FERROUS SULFATE 325 MG TAB PO SCH (18:31)
[2024-06-19 20:12] LABS: Glucose,Whole Blood 184 mg/dL (70-110)
[2024-06-20 04:39] LABS: Basophils % (A) 0 %; Eosinophils % (A) 0 %; HCT 26.4 % (34.0-46.0); HGB 8.5 gm/dL (11.4-16.0); Lymphocytes # (A) 0.9 k/uL (1.0-4.8); Lymphocytes % (A) 6 %; MCH 31.3 pg (25.0-35.0); MCHC 32.3 g/dL (31.0-37.0); MCV 96.9 fL (80.0-100.0); Monocytes # (A) 0.6 k/uL (0-1.0); Monocytes % (A) 4 %; Neutrophils # (A) 14.6 k/uL (1.3-7.7); Neutrophils % (A) 90 %; Platelet Count 218 k/uL (150-450); RBC 2.73 m/uL (3.80-5.40); RDW 13.8 % (11.5-15.5); WBC 16.2 k/uL (3.8-10.6)
[2024-06-20 04:45] LABS: ALT 15 U/L (4-34); AST 37 U/L (14-36); African American GFR (CKD) 62 (>60 ml/min/1.73 sqM); Albumin 3.3 g/dL (3.5-5.0); Alkaline Phosphatase 40 U/L (38-126); Anion Gap 6 mmol/L; Blood Urea Nitrogen 32 mg/dL (7-17); Calcium 9.3 mg/dL (8.4-10.2); Carbon Dioxide 29 mmol/L (22-30); Chloride 105 mmol/L (98-107); Glucose 158 mg/dL (74-99); Non-African American GFR(CKD) 54 (>60 ml/min/1.73 sqM); Potassium 4.3 mmol/L (3.5-5.1); Sodium 140 mmol/L (137-145); Total Bilirubin 0.4 mg/dL (0.2-1.3); Total Protein 5.3 g/dL (6.3-8.2)
[2024-06-20 06:37] LABS: Glucose,Whole Blood 164 mg/dL (70-110)
[2024-06-20] MEDS: PANTOPRAZOLE 40 MG TABLET PO SCH (06:41)
--- NOTE | 2024-06-20 07:17 | P.PN ---
Subjective Progress Note Date: 06/20/24 Principal diagnosis: Multivessel coronary artery disease, non-ST elevated myocardial infarction this admission, moderate size hiatal hernia found on CT scan. Previous medical hist ory of hypertension, hyperlipidemia, tracheostomy 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 status post reversal 50 years ago, depression, severe restrictive lung disease, chronic back pain, right drop foot, chronic constipation and dysphagia, lifelong non- smoker. Preoperative nasal screen positive for MSSA POD #3 off-pump CABG x 4 with JESSICA to LAD, sequential saphenous vein graft to first obtuse marginal and third obtuse marginal (posterior lateral circumflex branch), saphenous vein graft to posterior descending (terminal circumflex), bilateral endoscopic harvest of greater saphenous vein, ligation left atrial appendage with 35 mm AtriCure clip, DARYL by anesthesia Postoperative acute blood loss anemia, expected given hemodilution The patient was seen and examined this morning sitting up in a recliner in the intensive care unit in no acute distress. Currently sinus sinus rhythm, hemodynamically stable. Currently on 3 L nasal cannula with oxygen saturation in the mid 90s. Only able to achieve 750 mL on incentive spirometry. Chest x- ray, labs reviewed. She was ambulatory in her room yesterday and this morning. All lines and tubes were discontinued yesterday. She does still complain of some expected postoperative pain along with her chronic pain, although better tolerated now that chest tubes have been removed. No other new concerns. Objective - Vital Signs Vital signs: Vital Signs Temp 97.8 F 06/20/24 06:00 Pulse 84 06/20/24 06:00 Resp 22 06/20/24 06:00 BP 98/75 06/20/24 06:00 Pulse Ox 93 L 06/20/24 06:00 FiO2 40 06/19/24 07:46 Intake & Output 06/19/24 06/20/24 06/20/24 18:59 06:59 18:59 Intake Total 1373.171 430 120 Output Total 550 420 75 Balance 823.171 10 45 Weight 69.1 kg Intake: IV 261 40 0 Lines 51 Sodium Chloride 0.9% 1, 210 40 0 000 ml @ 20 mls/hr IV . Q24H ASIF Rx#:[id number] Intake, IV Titration 12.171 Amount Insulin Regular 100 unit 12.171 In Sodium Chloride 0.9% 100 ml @ Per Protocol IV .Q0M ASIF Rx#:[id number] Oral 1100 390 120 Output: Urine 550 420 75 Other: Voiding Method Indwelling Catheter Bedside Commode ABP, PAP, CO, CI - Last Documented Arterial Blood Pressure 136/63 Pulmonary Artery Pressure 21/1 Cardiac Output 6.1 Cardiac Index 3.5 - Exam CONSTITUTIONAL: Appears comfortable, cooperative RESPIRATORY: Lungs sounds diminished in the bases. Respirations even, nonlabored. Currently on 3 L nasal cannula with oxygen saturation 96%. Able to achieve 750 mL on her incentive spirometry. Strong nonproductive cough. CARDIOVASCULAR: S1, S2 present. Regular rate and rhythm, sinus rhythm on telemetry. Sternum stable. Palpable peripheral pulses bilaterally. No edema present. No calf pain or tenderness noted. Heart hugger, antiembolism stockings, SCDs present. GASTROINTESTINAL: Abdomen soft, nontender, nondistended. Active bowel sounds present 4 quadrants. Positive flatus GENITOURINARY: He is to void clear, yellow urine. Output 970 mL in the last 24 hours INTEGUMENTARY: Skin is warm and dry with evidence of good perfusion. Anterior chest incision well approximated and covered with dry intact dressing. Bilateral lower extremity EVH sites well approximated without redness or drainage NEUROLOGIC: Cranial nerves II through XII intact MUSKULOSKELETAL: Able to move all extremities, strength equal bilaterally, patient does have right foot drop PSYCHIATRIC: Alert and oriented to person place and time, appropriate affect - Allied health notes Allied health notes reviewed: nursing - Labs CBC & Chem 7: 06/20/24 03:50 06/20/24 03:50 Labs: Abnormal Lab Results - Last 24 Hours (Table) 06/19/24 06/19/24 06/19/24 Range/Units 08:06 09:08 10:54 WBC (3.8-10.6) k/uL RBC (3.80-5.40) m/uL Hgb (11.4-16.0) gm/dL Hct (34.0-46.0) % Neutrophils # (1.3-7.7) k/uL Lymphocytes # (1.0-4.8) k/uL BUN (7-17) mg/dL Glucose (74-99) mg/dL POC Glucose (mg/dL) 164 H 130 H 118 H (70-110) mg/dL AST (14-36) U/L Total Protein (6.3-8.2) g/dL Albumin (3.5-5.0) g/dL 06/19/24 06/19/24 06/19/24 Range/Units 11:53 16:07 20:10 WBC (3.8-10.6) k/uL RBC (3.80-5.40) m/uL Hgb (11.4-16.0) gm/dL Hct (34.0-46.0) % Neutrophils # (1.3-7.7) k/uL Lymphocytes # (1.0-4.8) k/uL BUN (7-17) mg/dL Glucose (74-99) mg/dL POC Glucose (mg/dL) 153 H 183 H 184 H (70-110) mg/dL AST (14-36) U/L Total Protein (6.3-8.2) g/dL Albumin (3.5-5.0) g/dL 06/20/24 06/20/24 06/20/24 Range/Units 03:50 03:50 06:35 WBC 16.2 H (3.8-10.6) k/uL RBC 2.73 L (3.80-5.40) m/uL Hgb 8.5 L (11.4-16.0) gm/dL Hct 26.4 L (34.0-46.0) % Neutrophils # 14.6 H (1.3-7.7) k/uL Lymphocytes # 0.9 L (1.0-4.8) k/uL BUN 32 H (7-17) mg/dL Glucose 158 H (74-99) mg/dL POC Glucose (mg/dL) 164 H (70-110) mg/dL AST 37 H (14-36) U/L Total Protein 5.3 L (6.3-8.2) g/dL Albumin 3.3 L (3.5-5.0) g/dL - Imaging and Cardiology Chest x-ray: image reviewed Assessment and Plan Assessment: Multivessel coronary artery disease, non-ST elevated myocardial infarction this admission, status post four-vessel off-pump CABG Moderate size hiatal hernia found on CT scan, no surgical intervention planned at this time Preoperative nasal screen positive for MSSA, treated Very brief episode of atrial fibrillation pre and postoperative, status post ligation of the left atrial appendage, currently sinus rhythm Postoperative acute blood loss anemia, expected given hemodilution Previous medical history of hypertension Hyperlipidemia, cholesterol 219, LDL 137 Right vocal cord paralysis Tracheostomy 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 status post reversal 50 years ago Depression Severe restrictive lung disease, preoperative FEV1 41% of predicted Chronic back pain, on multiple narcotics Right drop foot Chronic constipation and dysphagia Lifelong non-smoker Plan: Continue to maximize medical therapy with aspirin, statin, Plavix, beta-jason. Will increase beta-jason therapy as tolerated, increased to 50 mg twice daily yesterday Losartan added yesterday for afterload reduction Wean O2 as tolerated. Encourage incentive spirometry use 10 times every hour while awake. Bronchodilators per pulmonology Will monitor daily labs and x-rays, electrolyte replacement per protocol, no Lasix today, continue iron/vitamin C Increase activity, ambulate as tolerated. PT/OT/cardiac rehab consulted. May use walker for balance, patient is not to place her full weight on the walker as part of sternal precautions GI/DVT prophylaxis Pain control per current medication regimen. Toradol, fentanyl discontinued Insulin management per internal medicine, patient is not diabetic, hemoglobin A1c 5.8% May bladder scan and straight cath for greater than 300 mL residual Continue to monitor record strict accurate intake and output Shower daily starting today Will place transfer orders for 3 S. cardiac stepdown unit, may transfer when bed available More recommendations to follow based on patient's progress
[2024-06-20] MEDS: polyethylene glycoL 3350 17 GM POWD.PACK PO SCH (08:17)
--- NOTE | 2024-06-20 08:37 | XR ---
EXAMINATION TYPE: XR chest 1V portable DATE OF EXAM: 06/20/2024 3:51 AM COMPARISON: None. CLINICAL INDICATION: Female, 74 years old with history of Post open heart surgery, TECHNIQUE: XR chest 1V portable view(s) obtained. FINDINGS: The heart size is enlarged. The pulmonary vasculature is normal. Mild retrocardiac infiltrate is present. Small left pleural effusion may be present. There is subcuta neous air present on the left chest. No pneumothorax is evident post chest tube removal some right apical thickening may be present. IMPRESSION: 1. No pneumothorax post bilateral chest tube removal. 2. Cardiomegaly. 3. Left lower lobe infiltrate. Correlate for atelectasis or developing pneumonia. Small left pleural effusion is present [facility], , 06/20/2024 8:35 AM
--- NOTE | 2024-06-20 09:55 | P.PN ---
Subjective Progress Note Date: 06/20/24 HPI: This is a 74-year-old lady with history of hypertension who came in with episodes of chest pain and had a cardiac cath and went on to have aortocoronary bypass surgery that was performed on the of this month. She had a off-pump bypass with a JESSICA to LAD, sequential saphenous vein graft to the first and third obtuse marginal, and another vein graft to the distal PDA branch of circumflex. She also had a left atrial appendage ligation. She is making progress well she is not on any pressors. She is sitting up and doing incentive spirometry after nearly 800 cc. Maintaining sinus rhythm, hemodynamically stable. Beta-jason has been increased. PHYSICIAL EXAM: Vitals are stable JVD not evident S1-S2 heard normally no significant murmurs abdomen is soft lungs reveal fairly decent bilateral air entry abdomen is soft lower EXTR is reveal diminished pulses Central nervous system no focal deficits. IMPRESSION: 1. CAD status post bypass surgery making decent progress. 2. Hypertension. 3.. 4.. 5.. RECOMMENDATIONS: Continue current medical regimen including beta-blockers and statins. Continue incentive spirometry and pulmonary toilet. BP control is optimal agree with increasing beta-blockers. Objective - Vital Signs Vital signs: Vital Signs Temp 98.1 F 06/20/24 08:00 Pulse 93 06/20/24 09:03 Resp 20 06/20/24 09:00 BP 122/63 06/20/24 09:00 Pulse Ox 91 L 06/20/24 09:00 FiO2 40 06/19/24 07:46 Intake & Output 06/19/24 06/20/24 06/20/24 18:59 06:59 18:59 Intake Total 1373.171 430 240 Output Total 550 420 75 Balance 823.171 10 165 Weight 69.1 kg Intake: IV 261 40 0 Lines 51 Sodium Chloride 0.9% 1, 210 40 0 000 ml @ 20 mls/hr IV . Q24H ASIF Rx#:[id number] Intake, IV Titration 12.171 Amount Insulin Regular 100 unit 12.171 In Sodium Chloride 0.9% 100 ml @ Per Protocol IV .Q0M ASIF Rx#:[id number] Oral 1100 390 240 Output: Urine 550 420 75 Other: Voiding Method Indwelling Catheter Bedside Commode Bedside Commode # Voids 1 # Bowel Movements 1 ABP, PAP, CO, CI - Last Documented Arterial Blood Pressure 136/63 Pulmonary Artery Pressure 21/1 Cardiac Output 6.1 Cardiac Index 3.5 - Labs CBC & Chem 7: 06/20/24 03:50 06/20/24 03:50 Labs: Abnormal Lab Results - Last 24 Hours (Table) 06/19/24 06/19/24 06/19/24 Range/Units 10:54 11:53 16:07 WBC (3.8-10.6) k/uL RBC (3.80-5.40) m/uL Hgb (11.4-16.0) gm/dL Hct (34.0-46.0) % Neutrophils # (1.3-7.7) k/uL Lymphocytes # (1.0-4.8) k/uL BUN (7-17) mg/dL Glucose (74-99) mg/dL POC Glucose (mg/dL) 118 H 153 H 183 H (70-110) mg/dL AST (14-36) U/L Total Protein (6.3-8.2) g/dL Albumin (3.5-5.0) g/dL 06/19/24 06/20/24 06/20/24 Range/Units 20:10 03:50 03:50 WBC 16.2 H (3.8-10.6) k/uL RBC 2.73 L (3.80-5.40) m/uL Hgb 8.5 L (11.4-16.0) gm/dL Hct 26.4 L (34.0-46.0) % Neutrophils # 14.6 H (1.3-7.7) k/uL Lymphocytes # 0.9 L (1.0-4.8) k/uL BUN 32 H (7-17) mg/dL Glucose 158 H (74-99) mg/dL POC Glucose (mg/dL) 184 H (70-110) mg/dL AST 37 H (14-36) U/L Total Protein 5.3 L (6.3-8.2) g/dL Albumin 3.3 L (3.5-5.0) g/dL 06/20/24 Range/Units 06:35 WBC (3.8-10.6) k/uL RBC (3.80-5.40) m/uL Hgb (11.4-16.0) gm/dL Hct (34.0-46.0) % Neutrophils # (1.3-7.7) k/uL Lymphocytes # (1.0-4.8) k/uL BUN (7-17) mg/dL Glucose (74-99) mg/dL POC Glucose (mg/dL) 164 H (70-110) mg/dL AST (14-36) U/L Total Protein (6.3-8.2) g/dL Albumin (3.5-5.0) g/dL
[2024-06-20 11:25] LABS: Glucose,Whole Blood 138 mg/dL (70-110)
[2024-06-20 11:41] VITALS: BMI 26.1
--- NOTE | 2024-06-20 13:17 | P.PN ---
Subjective Progress Note Date: 06/20/24 Principal diagnosis: Postoperative day #3off-pump CABG x 4 with JESSICA to LAD, sequential saphenous vein graft to first obtuse marginal and third obtuse marginal (posterior lateral circumflex branch), saphenous vein graft to posterior descending (terminal circumflex), bilateral endoscopic harvest of greater saphenous vein, ligation left atrial appendage with 35 mm AtriCure clip, DARYL by anesthesia Patient is a 74-year-old female with past medical history significant for hyper tension, previous tracheostomy that was reversed approximately 50 years ago. States that she has had issues with her breathing after a previous suicide attempt and she spent some time on a mechanical ventilator. She has had multiple neck surgeries at the [facility]. She has not followed up with a primary care provider in some time. She is a lifelong non-smoker. Presented to the emergency department back on June 10 with a chief complaint of chest pain. Chest pain described as substernal intermittent and radiating to her left chest and left arm. Lasts approximately 10 to 15 minutes with exertion. Usually subsides with rest or antacids, however, persistent on June 10, so she called her daughter to take her to the emergency department. Denies any associated nausea, diaphoresis, heart palpitations, lightheadedness/syncopal events. Denies any lower extremity swelling. Was found to have elevated troponins and admitted with non-ST elevation AK. Heart catheterization done on 06/11/2024 showing multivessel coronary artery disease with a calcified left main and LAD, totally occluded proximal LAD with collaterals, significant disease of involving the left circumflex, OM1, PLV, and significant disease in the mid codominant RCA. With elevated LVEDP. Echocardiogram showing preserved left ventricular ejection fraction of 55 to 60%, with mild mitral and tricuspid regurgitation. A surgical consult was placed. Pulmonary was also consulted for surgical clearance. CBC and CMP unremarkable. Recent APTT therapeutic. Chest CTA did not show any evidence of pulmonary embolism. Couple pulmonary nodules measuring up to 4 mm. Stated above, patient is not a non-smoker. Moderate size hiatal hernia. Bedside spirometry performed demonstrating and FEV1 0.85 L or 4 1% of predicted. Patient is a lifelong nontobacco smoker. Has no known history of COPD. She is currently sitting up in bed on room air oxygen. Nondistressed. She does have hoarse voice. Remote appearing tracheostomy incisional scar. Patient remains on heparin infusion per protocol. Also nitroglycerin paste ordered. Denies any current chest pain. Current vitals: Temperature 97.1 F, heart rate 62 bpm, blood pressure 100/63 mmHg, nontachypneic, 93% on room air oxygen. On 06/14/2024, the patient is being seen for a follow-up. Doing well and she is free of any chest pain and the patient remains on IV heparin. The patient is status post non-ST segment elevation myocardial infarction due to an underlying multivessel coronary artery disease. She is awake and alert and communicating. Denies having any chest pain or shortness of breath. No nausea or emesis and the patient remains in sinus rhythm and hemodynamically stable. The patient is to meet the cardiothoracic surgeon today. Sodium is at 140, BUN is 18 with a creatinine of 1.06. Potassium level is at 4.5. WBC count is at 5.2 with a hemoglobin of 11 and a platelet count of 256. No other significant events overnight. The plan is still still undergo cardiac revascularization surgery and the patient is meeting their cardiothoracic surgeon today. The patient will also have a ENT evaluation by Dr. Beaulieu regarding possibility of vocal cord dysfunction. On 06/15/2024, the patient is resting comfortably in bed. She is free of any chest pain. Scheduled tentatively for cardiac revascularization surgery on 06/17/2024. Meanwhile, the patient had an ENT evaluation and a direct laryngoscopy was also done and the patient was found to have a right vocal cord paralysis. This is probably related to an injury that occurred many years back and the patient required a tracheostomy tube insertion following a suicidal atte mpt and at that time the patient required intubation and long-term mechanical ventilation and tracheostomy tube insertion. Since then, the patient has been hoarse. No stridor. Rest of the medications remain unchanged. The patient remains on IV heparin. Hemodynamically stable. Cardiac rhythm is sinus. On 06/16/2024, no new complaints of the patient's condition remains essentially stable. Using incentive spirometer. Remains on IV heparin. Free of any chest pain or shortness of breath. The patient is scheduled to undergo coronary revascularization surgery on 06/17/2024. Labs were checked. Hemoglobin 11.6, white cell count 6.5, BUN 16 with a creatinine of 0.9 and sodium levels at 141. She remains on room air oxygen. No respiratory difficulties for now. Will continue to follow. 06/17/2024, the patient is being seen in the intensive care unit. The patient was seen immediately after the patient arrived to the intensive care unit following her off-pump four-vessel bypass surgery. The patient had JESSICA to LAD and sequential vein graft to obtuse marginal and third obtuse marginal branch/posterior lateral circumflex branch. Also had a saphenous vein graft to PDA. Postop, the patient was kept intubated on mechanical ventilator and the patient was brought in to the intensive care unit. At this point, the patient is sedated on propofol which is running at 20 mcg/kg/min. The patient arrived to the ICU on Cleviprex drip for blood pressure control and this was weaned off and discontinued. Currently, on assist-control mode rate of 14, tidal volume of 400, FiO2 of 50% with a PEEP of 5. Blood gas showed a pH of 7.43 with a pCO2 of 40 and pO2 of 338. Chest x-ray postop showed adequate positioning of the ET tube, and the patient has a right pleural left pleural and mediastinal chest tube. No evidence of any pneumothorax. There is some mild pulm vascular congestion and left basilar atelectatic change. [place]Karen catheter is appropriately placed. The patient's cardiac output is at 4.6 with an index of 2.6. The patient is on insulin drip at 1 unit an hour. Cardiac rhythm is sinus. The output from the right right, left and mediastinal chest tube was noted. Output from mediastinal chest tube was 75, left was 50 and right was 0. No evidence of any air leak. Urine output is excellent at this point in time. The blood work showed a WBC count of 8.2 with a hemoglobin 8.5 and a platelet count of 143. Electrolytes are all within normal limits with a BUN of 12 and a creatinine of 0.7. The patient is slightly hypothermic and the patient has a Marcus hugger. Patient is currently postop day #0. On 06/18/2024, the patient is being seen for a follow-up. The patient is currently postop day #1 following coronary artery bypass surgery. The patient underwent an off-pump four-vessel bypass surgery. Noted, the patient had difficulties with weaning as the patient was becoming tachycardic and tachypneic while being checked for weaning parameters. Earlier this morning, the patient was taken off the propofol and Precedex. I noted that the patient was being ventilated through a #7 orotracheal tube. Weaning parameters were somewhat borderline. Nevertheless, the patient was unable to tolerate a spontaneous breathing trial due to a lower tidal volume. I was concerned that the smaller caliber ET tube was affecting her ability to wean. There is also an obvious ongoing concern for a right vocal cord paralysis with upper airway obstruction that may become an issue postextubation. Meanwhile, the patient was hemodynamically stable and doing well. Earlier this morning, her cardiac output was at 5.1 with an index of 2.9. PA pressures were 17/11. CVP was at 3. The chest tube output was noted and there was no evidence of any air leak. The mediastinal chest tube has produced 300 cc since surgery, left pleural 250 cc since surgery and right pleural 45 cc since surgery. The patient was started on mechanical ventilator on assist-control mode at rate of 12, tidal volume of 400, FiO2 of 40% with a PEEP of 5. She was on no pressors. Morning blood gases showed a pH of 7.41 with a pCO2 of 39 and pO2 of 79. Based on all this, I made the decision to extubate the patient to a BiPAP. The patient was extubated to the BiPAP and initially, she started having some tachypnea and subsequently respiratory rate improved. However, she started having audible stridor even at the BiPAP pressure of 14 over 5 cm of water with an FiO2 of 40%. She seems to be more comfortable. She was started on IV Solu-Medrol. She is also on a low- dose Precedex. She is being watched and monitored very closely, may need reintubation. The WBC count is 11.7 with hemoglobin 7.2 and a platelet count of 216. Sodium is at 133, BUN 17 with a creatinine of 0.6. Condition remains quite critical at this point in time and the patient is being monitored closely in the intensive care unit. 06/19/2024, the patient remains extubated. Noted postextubation, the patient en countered significant stridor which ultimately improved and the patient was supported on BiPAP throughout the night and she was given IV Solu-Medrol. Her stridor is less severe on today's evaluation and the patient is improved and the patient is able to talk and his voice is quite muffled still. Nevertheless, she feels much more comfortable. She is complaining of chest wall pain. She was transition to nasal cannula and the patient is currently on 5 L/min and her oxygenation is stable with a pulse ox of 96% on nasal cannula. Output from the chest tubes are minimal. The follow-up chest x-ray from today shows small left- sided pleural effusion. No pneumothorax. All of the chest tubes are in good location. Cardiac rhythm is sinus. Hemoglobin is 8.8. White cell count of 19 with a platelet count of 186. BUN is 17 with a creatinine of 0.7 and sodium levels at 142. She remains on insulin drip for blood sugar control which is running at 4 units an hour. She is using incentive spirometer. Pulling approximately 500. She is on metoprolol 50 mg p.o. twice daily and Cozaar was added at 50 mg p.o. daily. Precedex drip has been discontinued. Patient was seen today on 06/20/2024, patient remains in the ICU as an overflow, patient is hemodynamically stable, on 3 L nasal cannula, achieving 750 cc on incentive spirometry, chest x-ray showed mostly atelectasis specially in the left lower lobe area, doubt pneumonia, patient does not seem to be in any distress, she is not requiring any pressors or any inotropes. Plan is to transfer the patient sometime later today to evaluate cardiac floor WBC count is 16.2 hemoglobin 8.5 electrolytes are normal renal profile is normal Objective - Vital Signs Vital signs: Vital Signs Temp 98.1 F 06/20/24 12:00 Pulse 86 06/20/24 12:00 Resp 18 06/20/24 12:00 BP 121/72 06/20/24 12:00 Pulse Ox 94 L 06/20/24 12:00 FiO2 40 06/19/24 07:46 Intake & Output 06/19/24 06/20/24 06/20/24 18:59 06:59 18:59 Intake Total 1373.171 430 240 Output Total 550 420 75 Balance 823.171 10 165 Weight 69.1 kg 69.1 kg Intake: IV 261 40 0 Lines 51 Sodium Chloride 0.9% 1, 210 40 0 000 ml @ 20 mls/hr IV . Q24H ASIF Rx#:[id number] Intake, IV Titration 12.171 Amount Insulin Regular 100 unit 12.171 In Sodium Chloride 0.9% 100 ml @ Per Protocol IV .Q0M ASIF Rx#:[id number] Oral 1100 390 240 Output: Urine 550 420 75 Other: Voiding Method Indwelling Catheter Bedside Commode Bedside Commode # Voids 1 # Bowel Movements 1 ABP, PAP, CO, CI - Last Documented Arterial Blood Pressure 136/63 Pulmonary Artery Pressure 21/1 Cardiac Output 6.1 Cardiac Index 3.5 - Exam CONSTITUTIONAL: Revealed 74-year-old female in no distress RESPIRATORY: Crackles at the bases no rhonchi no wheezes on 3 L nasal cannula CARDIOVASCULAR: Distant S1-S2, no S3 gallop, no murmur. GASTROINTESTINAL: Soft nontender no MAG no rebound no guarding INTEGUMENTARY: Skin is warm and dry NEUROLOGIC: Alert oriented x 3 no gross focal deficit MUSKULOSKELETAL: No deformities no limitation range of motion she does have history of right foot drop PSYCHIATRIC: Normal mood affect and no mental status examination - Labs CBC & Chem 7: 06/20/24 03:50 06/20/24 03:50 Labs: Abnormal Lab Results - Last 24 Hours (Table) 06/19/24 06/19/24 06/20/24 Range/Units 16:07 20:10 03:50 WBC 16.2 H (3.8-10.6) k/uL RBC 2.73 L (3.80-5.40) m/uL Hgb 8.5 L (11.4-16.0) gm/dL Hct 26.4 L (34.0-46.0) % Neutrophils # 14.6 H (1.3-7.7) k/uL Lymphocytes # 0.9 L (1.0-4.8) k/uL BUN (7-17) mg/dL Glucose (74-99) mg/dL POC Glucose (mg/dL) 183 H 184 H (70-110) mg/dL AST (14-36) U/L Total Protein (6.3-8.2) g/dL Albumin (3.5-5.0) g/dL 06/20/24 06/20/24 06/20/24 Range/Units 03:50 06:35 11:23 WBC (3.8-10.6) k/uL RBC (3.80-5.40) m/uL Hgb (11.4-16.0) gm/dL Hct (34.0-46.0) % Neutrophils # (1.3-7.7) k/uL Lymphocytes # (1.0-4.8) k/uL BUN 32 H (7-17) mg/dL Glucose 158 H (74-99) mg/dL POC Glucose (mg/dL) 164 H 138 H (70-110) mg/dL AST 37 H (14-36) U/L Total Protein 5.3 L (6.3-8.2) g/dL Albumin 3.3 L (3.5-5.0) g/dL Assessment and Plan Assessment: Impression: Multivessel coronary artery disease, non-ST elevated myocardial infarction this admission, status post four-vessel off-pump CABG, postoperative day #3 Moderate size hiatal hernia found on CT scan, no surgical intervention planned at this time Very brief episode of atrial fibrillation pre and postoperative, status post ligation of the left atrial appendage, currently sinus rhythm Benign essential hypertension Dyslipidemia History of right vocal cord paralysis Tracheostomy 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 status post reversal 50 years ago History of depression History of restrictive lung disease Chronic back pain, and right foot drop Lifelong non-smoker Recommendation: Continue medical therapy including beta-blockers Plavix statin and aspirin Continue incentive spirometry Ambulate as tolerated Continue GI prophylaxis and DVT prophylaxis Continue insulin as per protocol Transfer patient to [facility] today Will continue to Time with Patient: Less than 30
--- NOTE | 2024-06-20 15:31 | P.PN ---
Subjective Progress Note Date: 06/20/24 Hospital Course: A 74-year-old female with PMH of HTN, history of tracheostomy around 40 years a go, who presented to the ED on 06/10/2024 with chest pain, was found to have elevated troponins and admitted with non-ST ME, heart cath done 06/11/2024 and showed multivessel CAD, calcified left main and LAD, complete occlusion of proximal LAD with collaterals, significant disease involving left circumflex, OM1, PLV, mid codominant RCA, elevated LVEDP. DARYL DARYL showed EF of 55 to 60% with mild tricuspid and mitral regurg. Chest CTA showed no PE, couple pulmonary nodules up to 4 mm. CABG was performed on 06/17/2024, patient was transferred to the ICU in stable condition, intubated, no inotropic support needed during the surgery. intubated on 06/17/2024, extubated 06/18 in the morning to BiPAP, IV Solu-Medrol given for stridor, started on Precedex. JAYE drain to discontinue Postop blood work showed hemoglobin drop from 11.6-8.5 improved after transfusion up to 10.2. 06/19 doing better on nasal cannula, stridor present on exam, will continue Solu- Medrol for 1 more day. Chest tube, JAYE drains, Naik discontinued, insulin drip stopped, monitor in the ICU for 24 more hours. Started on Cozaar 25 daily, metoprolol 50 twice daily Subjective: Awake and alert today, feels better, complains of postop pain, fairly controlled, some shortness of breath Pertinent positives and negatives as discussed above, a complete review of systems was performed and all other systems are negative. 06/20/2024 Patient seen and examined at bedside in ICU. She continues to have cough without sputum production. She is on 2 L nasal cannula satting at 94%. Today's labs significant for WBC 16.2, hemoglobin 8.5 BUN 32, glucose 164, AST 37. Chest x-ray independently interpreted, postsurgical changes, left lower lobe opacity. Order placed by CT surgery for transfer to . PHYSICAL EXAMINATION: Vitals reviewed GENERAL: No acute distress. Well developed, well nourished. HEENT: EOMI. No scleral icterus. Normocephalic, atraumatic. CARDIOVASCULAR: S1 and S2 present. No murmurs, rubs, or gallops. surgical dressing clean and dry PULMONARY: Stridor and wheeze bilaterally ABDOMEN: Soft, nontender, nondistended, No palpable organomegaly. MUSCULOSKELETAL: No apparent joint swelling and deformities. EXTREMITIES: No apparent cyanosis, clubbing, or pedal edema. NEUROLOGICAL: The patient is alert and oriented, Gross neurological examination did not reveal any focal deficits. SKIN: No apparent rashes. Assessment and Plan: A 74-year-old female with PMH of HTN, history of tracheostomy around 40 years ago, who presented to the ED on with chest pain and treated for multivessel CAD with CABG. Multivessel coronary artery disease s/p CABG x4 with JESSICA to LAD 06/17/2024 Acute hypoxic respiratory failure Acute blood loss anemia, postop Leukocytosis, likely reactive postop Small bilateral apical pneumothoraces Hyponatremia, resolved Hypertension -Patient in the ICU, intubated on 06/17/2024, extubated 06/18 in the morning to BiPAP, IV Solu-Medrol given for stridor, 06/19 on nasal cannula, Solu-Medrol discontinued, chest tubes removed -Postop management per cardiothoracic surgery, ICU -Pulmonology following -Continued DAPT, high intensity statins -Continue on Cozaar 25, metoprolol up to 50 twice daily -Pain control per cardiac surgery -Monitor CBC -Repeat chest x-ray in a.m. -PT OT #Prediabetes, A1c 5.8 #Hyperglycemia -Continue Accu-Cheks ACHS, monitor for hypoglycemia Prerenal azotemia BUN 32, continue to monitor Constipation Moderate-sized hiatal hernia -General Surgery following -On MiraLAX 17 g daily Chronic conditions: Chronic back pain-continue Cymbalta 60 twice daily Pulmonary nodules, outpatient follow-up Insomnia-continue trazodone 200 mg nightly F: P.o. E: Replete as needed N: Heart healthy diet Code status: Full code DVT prophylaxis heparin 5000 units SQ every [address]: Pending clinical course Anticipated discharge time: Pending clinical course Thank you for allowing us to participate in the care of this pleasant patient. Do not hesitate to contact us with questions. Someone can be reached from the [facility] hospitalist group all hours of the day at [phone] or via perfect serve. I have seen and evaluated the patient today. Discussed with the resident and agree with the residents finding and plan as documented in the resident's note. Changes highlighted in blue font. Objective - Vital Signs Vital signs: Vital Signs Temp 97.8 F 06/20/24 07:00 Pulse 86 06/20/24 07:00 Resp 20 06/20/24 07:00 BP 103/62 06/20/24 07:00 Pulse Ox 97 06/20/24 07:00 FiO2 40 06/19/24 07:46 Intake & Output 06/19/24 06/20/24 06/20/24 18:59 06:59 18:59 Intake Total 1373.171 430 120 Output Total 550 420 75 Balance 823.171 10 45 Weight 69.1 kg Intake: IV 261 40 0 Lines 51 Sodium Chloride 0.9% 1, 210 40 0 000 ml @ 20 mls/hr IV . Q24H ASIF Rx#:[id number] Intake, IV Titration 12.171 Amount Insulin Regular 100 unit 12.171 In Sodium Chloride 0.9% 100 ml @ Per Protocol IV .Q0M ASIF Rx#:[id number] Oral 1100 390 120 Output: Urine 550 420 75 Other: Voiding Method Indwelling Catheter Bedside Commode ABP, PAP, CO, CI - Last Documented Arterial Blood Pressure 136/63 Pulmonary Artery Pressure 21/1 Cardiac Output 6.1 Cardiac Index 3.5 - Labs CBC & Chem 7: 06/20/24 03:50 06/20/24 03:50 Labs: Abnormal Lab Results - Last 24 Hours (Table) 06/19/24 06/19/24 06/19/24 Range/Units 08:06 09:08 10:54 WBC (3.8-10.6) k/uL RBC (3.80-5.40) m/uL Hgb (11.4-16.0) gm/dL Hct (34.0-46.0) % Neutrophils # (1.3-7.7) k/uL Lymphocytes # (1.0-4.8) k/uL BUN (7-17) mg/dL Glucose (74-99) mg/dL POC Glucose (mg/dL) 164 H 130 H 118 H (70-110) mg/dL AST (14-36) U/L Total Protein (6.3-8.2) g/dL Albumin (3.5-5.0) g/dL 06/19/24 06/19/24 06/19/24 Range/Units 11:53 16:07 20:10 WBC (3.8-10.6) k/uL RBC (3.80-5.40) m/uL Hgb (11.4-16.0) gm/dL Hct (34.0-46.0) % Neutrophils # (1.3-7.7) k/uL Lymphocytes # (1.0-4.8) k/uL BUN (7-17) mg/dL Glucose (74-99) mg/dL POC Glucose (mg/dL) 153 H 183 H 184 H (70-110) mg/dL AST (14-36) U/L Total Protein (6.3-8.2) g/dL Albumin (3.5-5.0) g/dL 06/20/24 06/20/24 06/20/24 Range/Units 03:50 03:50 06:35 WBC 16.2 H (3.8-10.6) k/uL RBC 2.73 L (3.80-5.40) m/uL Hgb 8.5 L (11.4-16.0) gm/dL Hct 26.4 L (34.0-46.0) % Neutrophils # 14.6 H (1.3-7.7) k/uL Lymphocytes # 0.9 L (1.0-4.8) k/uL BUN 32 H (7-17) mg/dL Glucose 158 H (74-99) mg/dL POC Glucose (mg/dL) 164 H (70-110) mg/dL AST 37 H (14-36) U/L Total Protein 5.3 L (6.3-8.2) g/dL Albumin 3.3 L (3.5-5.0) g/dL
[2024-06-20 16:12] LABS: Glucose,Whole Blood 179 mg/dL (70-110)
[2024-06-20 20:15] LABS: Glucose,Whole Blood 150 mg/dL (70-110)
[2024-06-21 06:39] LABS: Glucose,Whole Blood 122 mg/dL (70-110)
[2024-06-21] MEDS ORDERED: SENNOSIDES-DOCUSATE SODIUM 1 EACH TAB PO PRN (06:49)
[2024-06-21 06:57] LABS: HGB 8.3 gm/dL (11.4-16.0); Hypochromasia Moderate; MCH 31.3 pg (25.0-35.0); MCHC 31.7 g/dL (31.0-37.0); MCV 98.5 fL (80.0-100.0); Mean Platelet Volume 7.3; Platelet Count 264 k/uL (150-450); RBC 2.64 m/uL (3.80-5.40); RDW 13.3 % (11.5-15.5); WBC 13.3 k/uL (3.8-10.6)
--- NOTE | 2024-06-21 07:16 | XR ---
EXAMINATION TYPE: XR chest 2V DATE OF EXAM: 06/21/2024 6:25 AM COMPARISON: Chest radiographs from 06/20/2024 CLINICAL INDICATION: Female, 74 years old with history o f Postcardiac surgery; [facility] TECHNIQUE: XR chest 2V Frontal and lateral views of the chest. FINDINGS: Lungs/Pleura: Prominent interstitial lung markings are seen scattered throughout the lungs with clarissa ening of the diaphragm and increased lucency of the lung apices. No evidence of focal consolidation, pneumothorax or pleural effusion. Pulmonary vascularity: Unremarkable. Heart/mediastinum: Cardiomediastinal silhouette is unremarkable. Left atrial appendage occlusion tommy ce is present. Musculoskeletal: No acute osseous pathology. Midline sternotomy wires are noted. IMPRESSION: 1. Postsurgical change no evidence for immediate postop complication. 2. COPD changes. [facility], , 06/21/2024 7:14 AM
[2024-06-21 07:17] LABS: Anion Gap 5 mmol/L; Blood Urea Nitrogen 38 mg/dL (7-17); Carbon Dioxide 29 mmol/L (22-30); Chloride 106 mmol/L (98-107); Glucose 110 mg/dL (74-99); Potassium 3.9 mmol/L (3.5-5.1); Sodium 140 mmol/L (137-145)
[2024-06-21 07:18] LABS: African American GFR (CKD) 62 (>60 ml/min/1.73 sqM); Non-African American GFR(CKD) 54 (>60 ml/min/1.73 sqM)
--- NOTE | 2024-06-21 07:46 | P.PN ---
Subjective Progress Note Date: 06/21/24 Principal diagnosis: Multivessel coronary artery disease, non-ST elevated myocardial infarction this admission, moderate size hiatal hernia found on CT scan. Previous medical hist ory of hypertension, hyperlipidemia, tracheostomy 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 status post reversal 50 years ago, depression, severe restrictive lung disease, chronic back pain, right drop foot, chronic constipation and dysphagia, lifelong non- smoker. Preoperative nasal screen positive for MSSA POD #4 off-pump CABG x 4 with JESSICA to LAD, sequential saphenous vein graft to first obtuse marginal and third obtuse marginal (posterior lateral circumflex branch), saphenous vein graft to posterior descending (terminal circumflex), bilateral endoscopic harvest of greater saphenous vein, ligation left atrial appendage with 35 mm AtriCure clip, DARYL by anesthesia Postoperative acute blood loss anemia, expected given hemodilution The patient was seen and examined this morning sitting up in a recliner in the intensive care unit in no acute distress eating breakfast. Currently sinus sinus rhythm, hemodynamically stable. Currently on 1 L nasal cannula with oxygen saturation in the mid 90s. Trialed on room air, while eating oxygen saturation drops to 87 to 89%, good recovery to 94 to 96% on 1 L nasal cannula. Able to achieve 1000 mL on incentive spirometry. Chest x-ray, labs reviewed. She has been ambulatory in the hallway, showered yesterday. She does still complain of some expected postoperative pain along with her chronic pain, although better and taking less narcotics. Discussed with Dr. Jimenez. No other new concerns. Objective - Vital Signs Vital signs: Vital Signs Temp 98.2 F 06/21/24 04:00 Pulse 75 06/21/24 04:00 Resp 16 06/21/24 04:00 BP 139/90 06/21/24 04:00 Pulse Ox 98 06/21/24 04:00 FiO2 40 06/19/24 07:46 Intake & Output 06/20/24 06/21/24 06/21/24 18:59 06:59 18:59 Intake Total 600 500 Output Total 225 800 Balance 375 500 -800 Weight 69.1 kg Intake: IV 0 Sodium Chloride 0.9% 1, 0 000 ml @ 20 mls/hr IV . Q24H [facility] Rx#:[id number] Oral 600 500 Output: Urine 225 800 Other: Voiding Method Bedside Commode Bedside Commode # Voids 1 2 # Bowel Movements 1 ABP, PAP, CO, CI - Last Documented Arterial Blood Pressure 136/63 Pulmonary Artery Pressure 21/1 Cardiac Output 6.1 Cardiac Index 3.5 - Exam CONSTITUTIONAL: Appears comfortable, cooperative RESPIRATORY: Lungs sounds diminished in the bases, inspiratory wheezes present. Respirations even, nonlabored. Currently on 1 L nasal cannula with oxygen saturation 94-96%. Able to achieve 1000 mL on her incentive spirometry. Strong nonproductive cough. CARDIOVASCULAR: S1, S2 present. Regular rate and rhythm, sinus rhythm on telemetry. Sternum stable. Palpable peripheral pulses bilaterally. No edema present. No calf pain or tenderness noted. Heart hugger, antiembolism stockings, SCDs present. GASTROINTESTINAL: Abdomen soft, nontender, nondistended. Active bowel sounds present 4 quadrants. Positive bowel movement x 2 06/20/24 GENITOURINARY: He is to void clear, yellow urine. Output 970 mL in the last 24 hours INTEGUMENTARY: Skin is warm and dry with evidence of good perfusion. Anterior chest incision well approximated. Bilateral lower extremity EVH sites well approximated without redness or drainage NEUROLOGIC: Cranial nerves II through XII intact MUSKULOSKELETAL: Able to move all extremities, strength equal bilaterally, patient does have right foot drop PSYCHIATRIC: Alert and oriented to person place and time, appropriate affect - Allied health notes Allied health notes reviewed: nursing - Labs CBC & Chem 7: 06/21/24 06:02 06/21/24 06:02 Labs: Abnormal Lab Results - Last 24 Hours (Table) 06/20/24 06/20/24 06/20/24 Range/Units 11:23 16:10 20:14 WBC (3.8-10.6) k/uL RBC (3.80-5.40) m/uL Hgb (11.4-16.0) gm/dL Hct (34.0-46.0) % BUN (7-17) mg/dL Glucose (74-99) mg/dL POC Glucose (mg/dL) 138 H 179 H 150 H (70-110) mg/dL 06/21/24 06/21/24 06/21/24 Range/Units 06:02 06:02 06:37 WBC 13.3 H (3.8-10.6) k/uL RBC 2.64 L (3.80-5.40) m/uL Hgb 8.3 L (11.4-16.0) gm/dL Hct 26.0 L (34.0-46.0) % BUN 38 H (7-17) mg/dL Glucose 110 H (74-99) mg/dL POC Glucose (mg/dL) 122 H (70-110) mg/dL - Imaging and Cardiology Chest x-ray: report reviewed, image reviewed Assessment and Plan Assessment: Multivessel coronary artery disease, non-ST elevated myocardial infarction this admission, status post four-vessel off-pump CABG Moderate size hiatal hernia found on CT scan, no surgical intervention planned at this time Preoperative nasal screen positive for MSSA, treated Very brief episode of atrial fibrillation pre and postoperative, status post l igation of the left atrial appendage, currently sinus rhythm Postoperative acute blood loss anemia, expected given hemodilution Previous medical history of hypertension Hyperlipidemia, cholesterol 219, LDL 137 Right vocal cord paralysis Tracheostomy 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 status post reversal 50 years ago Depression Severe restrictive lung disease, preoperative FEV1 41% of predicted Chronic back pain, on multiple narcotics Right drop foot Chronic constipation and dysphagia Lifelong non-smoker Plan: Continue to maximize medical therapy with aspirin, statin, Plavix, beta-jason. Will increase beta-jason therapy as tolerated Continue losartan for afterload reduction, increased to 50 mg daily today Wean O2 as tolerated. Encourage incentive spirometry use 10 times every hour while awake. Bronchodilators per pulmonology Will monitor daily labs and x-rays, electrolyte replacement per protocol, no Lasix today, continue iron/vitamin C Increase activity, ambulate as tolerated. PT/OT/cardiac rehab consulted. May use walker for balance, patient is not to place her full weight on the walker as part of sternal precautions GI/DVT prophylaxis Pain control per current medication regimen Insulin management per internal medicine, patient is not diabetic, hemoglobin A1c 5.8% Continue to monitor record strict accurate intake and output Shower daily Daily weights Transfer orders placed yesterday for 3 S. cardiac stepdown unit, may transfer when bed available Discharge planning in progress, anticipate discharge to home with home care in the next 24 hours More recommendations to follow based on patient's progress
[2024-06-21] MEDS: HYDROcodone/APAP 10-325MG 1 EACH TAB PO PRN (08:35)
[2024-06-21 09:12] LABS: Glucose,Whole Blood 86 mg/dL (70-110)
--- NOTE | 2024-06-21 09:16 | P.PN ---
Subjective Progress Note Date: 06/21/24 Principal diagnosis: HPI: [This is a 74-year-old lady who underwent aortocoronary bypass surgery off- pump. She is doing well maintaining sinus rhythm making good progress. Her inc isional pain has improved somewhat. She is doing better on incentive spirometry. She is maintaining sinus rhythm.]. PHYSICIAL EXAM: [Vitals are stable JVD not evident S1-S2 heard normally no signi ficant murmurs lungs reveal improved air entry abdomen is soft lower extremities reveal diminished pulses Central nervous system no focal deficits]. IMPRESSION: 1. [CAD status post bypass surgery making good progress]. 2. [Benign hypertension]. 3. []. 4. []. 5. []. RECOMMENDATIONS: [Continue current medical therapy including beta-blockers and statins. Continue incentive spirometry and pulmonary toilet increase activity and possible discharge tomorrow.]. Objective - Vital Signs Vital signs: Vital Signs Temp 98.7 F 06/21/24 08:00 Pulse 90 06/21/24 08:00 Resp 18 06/21/24 08:00 BP 127/94 06/21/24 08:00 Pulse Ox 94 L 06/21/24 08:00 FiO2 40 06/19/24 07:46 Intake & Output 06/20/24 06/21/24 06/21/24 18:59 06:59 18:59 Intake Total 600 500 Output Total 225 800 Balance 375 500 -800 Weight 69.1 kg Intake: IV 0 Sodium Chloride 0.9% 1, 0 000 ml @ 20 mls/hr IV . Q24H [facility] Rx#:[id number] Oral 600 500 Output: Urine 225 800 Other: Voiding Method Bedside Commode Bedside Commode Bedside Commode # Voids 1 2 # Bowel Movements 1 ABP, PAP, CO, CI - Last Documented Arterial Blood Pressure 136/63 Pulmonary Artery Pressure 21/1 Cardiac Output 6.1 Cardiac Index 3.5 - Labs CBC & Chem 7: 06/21/24 06:02 06/21/24 06:02 Labs: Abnormal Lab Results - Last 24 Hours (Table) 06/20/24 06/20/24 06/20/24 Range/Units 11:23 16:10 20:14 WBC (3.8-10.6) k/uL RBC (3.80-5.40) m/uL Hgb (11.4-16.0) gm/dL Hct (34.0-46.0) % BUN (7-17) mg/dL Glucose (74-99) mg/dL POC Glucose (mg/dL) 138 H 179 H 150 H (70-110) mg/dL 06/21/24 06/21/24 06/21/24 Range/Units 06:02 06:02 06:37 WBC 13.3 H (3.8-10.6) k/uL RBC 2.64 L (3.80-5.40) m/uL Hgb 8.3 L (11.4-16.0) gm/dL Hct 26.0 L (34.0-46.0) % BUN 38 H (7-17) mg/dL Glucose 110 H (74-99) mg/dL POC Glucose (mg/dL) 122 H (70-110) mg/dL
--- NOTE | 2024-06-21 10:27 | P.PN ---
Subjective Progress Note Date: 06/21/24 Hospital Course: A 74-year-old female with PMH of HTN, history of tracheostomy around 40 years a go, who presented to the ED on 06/10/2024 with chest pain, was found to have elevated troponins and admitted with non-ST IA, heart cath done 06/11/2024 and showed multivessel CAD, calcified left main and LAD, complete occlusion of proximal LAD with collaterals, significant disease involving left circumflex, OM1, PLV, mid codominant RCA, elevated LVEDP. DARYL DARYL showed EF of 55 to 60% with mild tricuspid and mitral regurg. Chest CTA showed no PE, couple pulmonary nodules up to 4 mm. CABG was performed on 06/17/2024, patient was transferred to the ICU in stable condition, intubated, no inotropic support needed during the surgery. intubated on 06/17/2024, extubated 06/18 in the morning to BiPAP, IV Solu-Medrol given for stridor, started on Precedex. JAYE drain to discontinue Postop blood work showed hemoglobin drop from 11.6-8.5 improved after transfusion up to 10.2. 06/19 doing better on nasal cannula, stridor present on exam, will continue Solu- Medrol for 1 more day. Chest tube, JAYE drains, Naik discontinued, insulin drip stopped, monitor in the ICU for 24 more hours. Started on Cozaar 25 daily, metoprolol 50 twice daily Subjective: Awake and alert today, feels better, complains of postop pain, fairly controlled, some shortness of breath Pertinent positives and negatives as discussed above, a complete review of systems was performed and all other systems are negative. 06/20/2024 Patient seen and examined at bedside in ICU. She continues to have cough without sputum production. She is on 2 L nasal cannula satting at 94%. Today's labs significant for WBC 16.2, hemoglobin 8.5 BUN 32, glucose 164, AST 37. Chest x-ray independently interpreted, postsurgical changes, left lower lobe opacity. Order placed by CT surgery for transfer to . 06/21/2024 Patient was seen and examined in ICU. No acute events overnight. She is currently satting at 98% on 2 L nasal cannula. Today's labs significant for WBC 13.3, hemoglobin 8.3, glucose 122. Chest x-ray independently interpreted, similar to previous with postsurgical changes and some improvement to left lower lobe opacity. She is to be transferred to 3 . PHYSICAL EXAMINATION: Vitals reviewed GENERAL: No acute distress. Well developed, well nourished. HEENT: EOMI. No scleral icterus. Normocephalic, atraumatic. CARDIOVASCULAR: S1 and S2 present. No murmurs, rubs, or gallops. surgical dressing clean and dry PULMONARY: Stridor and wheeze bilaterally ABDOMEN: Soft, nontender, nondistended, No palpable organomegaly. MUSCULOSKELETAL: No apparent joint swelling and deformities. EXTREMITIES: No apparent cyanosis, clubbing, or pedal edema. NEUROLOGICAL: The patient is alert and oriented, Gross neurological examination did not reveal any focal deficits. SKIN: No apparent rashes. Assessment and Plan: A 74-year-old female with PMH of HTN, history of tracheostomy around 40 years ago, who presented to the ED on with chest pain and treated for multivessel CAD with CABG. Multivessel coronary artery disease s/p CABG x4 with JESSICA to LAD 06/17/2024 Acute hypoxic respiratory failure Acute blood loss anemia, postop Leukocytosis, likely reactive postop Small bilateral apical pneumothoraces Hyponatremia, resolved Hypertension -Patient in the ICU, intubated on 06/17/2024, extubated 06/18 in the morning to BiPAP, IV Solu-Medrol given for stridor, 06/19 on nasal cannula, Solu-Medrol discontinued, chest tubes removed -Postop management per cardiothoracic surgery, ICU -Pulmonology following -Continued DAPT, high intensity statins -Continue on Cozaar 25, metoprolol up to 50 twice daily -Pain control per cardiac surgery Continue DuoNebs -Monitor CBC -Repeat chest x-ray in a.m. -PT OT #Prediabetes, A1c 5.8 #Hyperglycemia -Continue Accu-Cheks ACHS, monitor for hypoglycemia Prerenal azotemia BUN 32, continue to monitor Constipation Moderate-sized hiatal hernia -General Surgery following -On MiraLAX 17 g daily Chronic conditions: Chronic back pain-continue Cymbalta 60 twice daily Pulmonary nodules, outpatient follow-up Insomnia-continue trazodone 200 mg nightly F: P.o. E: Replete as needed N: Heart healthy diet Code status: Full code DVT prophylaxis heparin 5000 units SQ every [address]: Pending clinical course Anticipated discharge time: Pending clinical course Thank you for allowing us to participate in the care of this pleasant patient. Do not hesitate to contact us with questions. Someone can be reached from the [facility] hospitalist group all hours of the day at [phone] or via perfect serve. I have seen and evaluated the patient today. Discussed with the resident and agree with the residents finding and plan as documented in the resident's note. Changes highlighted in blue font. Objective - Vital Signs Vital signs: Vital Signs Temp 98.2 F 06/21/24 04:00 Pulse 75 06/21/24 04:00 Resp 16 06/21/24 04:00 BP 139/90 06/21/24 04:00 Pulse Ox 98 06/21/24 04:00 FiO2 40 06/19/24 07:46 Intake & Output 06/20/24 06/21/24 06/21/24 18:59 06:59 18:59 Intake Total 600 500 Output Total 225 800 Balance 375 500 -800 Weight 69.1 kg Intake: IV 0 Sodium Chloride 0.9% 1, 0 000 ml @ 20 mls/hr IV . Q24H [facility] Rx#:[id number] Oral 600 500 Output: Urine 225 800 Other: Voiding Method Bedside Commode Bedside Commode # Voids 1 2 # Bowel Movements 1 ABP, PAP, CO, CI - Last Documented Arterial Blood Pressure 136/63 Pulmonary Artery Pressure 21/1 Cardiac Output 6.1 Cardiac Index 3.5 - Labs CBC & Chem 7: 06/21/24 06:02 06/21/24 06:02 Labs: Abnormal Lab Results - Last 24 Hours (Table) 06/20/24 06/20/24 06/20/24 Range/Units 11:23 16:10 20:14 WBC (3.8-10.6) k/uL RBC (3.80-5.40) m/uL Hgb (11.4-16.0) gm/dL Hct (34.0-46.0) % POC Glucose (mg/dL) 138 H 179 H 150 H (70-110) mg/dL 06/21/24 06/21/24 Range/Units 06:02 06:37 WBC 13.3 H (3.8-10.6) k/uL RBC 2.64 L (3.80-5.40) m/uL Hgb 8.3 L (11.4-16.0) gm/dL Hct 26.0 L (34.0-46.0) % POC Glucose (mg/dL) 122 H (70-110) mg/dL
[2024-06-21 11:30] LABS: Glucose,Whole Blood 122 mg/dL (70-110)
[2024-06-21] MEDS: LOSARTAN 50 MG TAB PO SCH (11:59)
--- NOTE | 2024-06-21 12:44 | P.PN ---
Subjective Progress Note Date: 06/21/24 Principal diagnosis: Postoperative day # 4 off-pump CABG x 4 with JESSICA to LAD, sequential saphenous vein graft to first obtuse marginal and third obtuse marginal (posterior lateral circumflex branch), saphenous vein graft to posterior descending (terminal circumflex), bilateral endoscopic harvest of greater saphenous vein, ligation left atrial appendage with 35 mm AtriCure clip, DARYL by anesthesia Patient is a 74-year-old female with past medical history significant for hyp ertension, previous tracheostomy that was reversed approximately 50 years ago. States that she has had issues with her breathing after a previous suicide attempt and she spent some time on a mechanical ventilator. She has had multiple neck surgeries at the [facility]. She has not followed up with a primary care provider in some time. She is a lifelong non-smoker. Presented to the emergency department back on June 10 with a chief complaint of chest pain. Chest pain described as substernal intermittent and radiating to her left chest and left arm. Lasts approximately 10 to 15 minutes with exertion. Usually subsides with rest or antacids, however, persistent on June 10, so she called her daughter to take her to the emergency department. Denies any associated nausea, diaphoresis, heart palpitations, lightheadedness/syncopal events. Denies any lower extremity swelling. Was found to have elevated troponins and admitted with non-ST elevation [place]. Heart catheterization done on 06/11/2024 showing multivessel coronary artery disease with a calcified left main and LAD, totally occluded proximal LAD with collaterals, significant disease of involving the left circumflex, OM1, PLV, and significant disease in the mid codominant RCA. With elevated LVEDP. Echocardiogram showing preserved left ventricular ejection fraction of 55 to 60%, with mild mitral and tricuspid regurgitation. A surgical consult was placed. Pulmonary was also consulted for surgical clearance. CBC and CMP unremarkable. Recent APTT therapeutic. Chest CTA did not show any evidence of pulmonary embolism. Couple pulmonary nodules measuring up to 4 mm. Stated above, patient is not a non-smoker. Moderate size hiatal hernia. Bedside spirometry performed demonstrating and FEV1 0.85 L or 41% of predicted. Patient is a lifelong nontobacco smoker. Has no known history of COPD. She is currently sitting up in bed on room air oxygen. Nondistressed. She does have hoarse voice. Remote appearing tracheostomy incisional scar. Patient remains on heparin infusion per protocol. Also nit roglycerin paste ordered. Denies any current chest pain. Current vitals: Temperature 97.1 F, heart rate 62 bpm, blood pressure 100/63 mmHg, nontachypneic, 93% on room air oxygen. On 06/14/2024, the patient is being seen for a follow-up. Doing well and she is free of any chest pain and the patient remains on IV heparin. The patient is status post non-ST segment elevation myocardial infarction due to an underlying multivessel coronary artery disease. She is awake and alert and communicating. Denies having any chest pain or shortness of breath. No nausea or emesis and the patient remains in sinus rhythm and hemodynamically stable. The patient is to meet the cardiothoracic surgeon today. Sodium is at 140, BUN is 18 with a creatinine of 1.06. Potassium level is at 4.5. WBC count is at 5.2 with a hemoglobin of 11 and a platelet count of 256. No other significant events overnight. The plan is still still undergo cardiac revascularization surgery and the patient is meeting their cardiothoracic surgeon today. The patient will also have a ENT evaluation by Dr. Beaulieu regarding possibility of vocal cord dysfunction. On 06/15/2024, the patient is resting comfortably in bed. She is free of any chest pain. Scheduled tentatively for cardiac revascularization surgery on 06/17/2024. Meanwhile, the patient had an ENT evaluation and a direct laryngoscopy was also done and the patient was found to have a right vocal cord paralysis. This is probably related to an injury that occurred many years back and the patient required a tracheostomy tube insertion following a suicidal at tempt and at that time the patient required intubation and long-term mechanical ventilation and tracheostomy tube insertion. Since then, the patient has been hoarse. No stridor. Rest of the medications remain unchanged. The patient remains on IV heparin. Hemodynamically stable. Cardiac rhythm is sinus. On 06/16/2024, no new complaints of the patient's condition remains essentially stable. Using incentive spirometer. Remains on IV heparin. Free of any chest pain or shortness of breath. The patient is scheduled to undergo coronary revascularization surgery on 06/17/2024. Labs were checked. Hemoglobin 11.6, white cell count 6.5, BUN 16 with a creatinine of 0.9 and sodium levels at 141. She remains on room air oxygen. No respiratory difficulties for now. Will continue to follow. 06/17/2024, the patient is being seen in the intensive care unit. The patient was seen immediately after the patient arrived to the intensive care unit following her off-pump four-vessel bypass surgery. The patient had JESSICA to LAD and sequential vein graft to obtuse marginal and third obtuse marginal branch/posterior lateral circumflex branch. Also had a saphenous vein graft to PDA. Postop, the patient was kept intubated on mechanical ventilator and the patient was brought in to the intensive care unit. At this point, the patient is sedated on propofol which is running at 20 mcg/kg/min. The patient arrived to the ICU on Cleviprex drip for blood pressure control and this was weaned off and discontinued. Currently, on assist-control mode rate of 14, tidal volume of 400, FiO2 of 50% with a PEEP of 5. Blood gas showed a pH of 7.43 with a pCO2 of 40 and pO2 of 338. Chest x-ray postop showed adequate positioning of the ET tube, and the patient has a right pleural left pleural and mediastinal chest tube. No evidence of any pneumothorax. There is some mild pulm vascular congestion and left basilar atelectatic change. [place] catheter is appropriately placed. The patient's cardiac output is at 4.6 with an index of 2.6. The patient is on insulin drip at 1 unit an hour. Cardiac rhythm is sinus. The output from the right right, left and mediastinal chest tube was noted. Output from mediastinal chest tube was 75, left was 50 and right was 0. No evidence of any air leak. Urine output is excellent at this point in time. The blood work showed a WBC count of 8.2 with a hemoglobin 8.5 and a platelet count of 143. Electrolytes are all within normal limits with a BUN of 12 and a creatinine of 0.7. The patient is slightly hypothermic and the patient has a Marcus hugger. Patient is currently postop day #0. On 06/18/2024, the patient is being seen for a follow-up. The patient is currently postop day #1 following coronary artery bypass surgery. The patient underwent an off-pump four-vessel bypass surgery. Noted, the patient had difficulties with weaning as the patient was becoming tachycardic and tachypneic while being checked for weaning parameters. Earlier this morning, the patient was taken off the propofol and Precedex. I noted that the patient was being ventilated through a #7 orotracheal tube. Weaning parameters were somewhat borderline. Nevertheless, the patient was unable to tolerate a spontaneous breathing trial due to a lower tidal volume. I was concerned that the smaller caliber ET tube was affecting her ability to wean. There is also an obvious ongoing concern for a right vocal cord paralysis with upper airway obstruction that may become an issue postextubation. Meanwhile, the patient was hemodynamically stable and doing well. Earlier this morning, her cardiac output was at 5.1 with an index of 2.9. PA pressures were 17/11. CVP was at 3. The chest tube output was noted and there was no evidence of any air leak. The mediastinal chest tube has produced 300 cc since surgery, left pleural 250 cc since surgery and right pleural 45 cc since surgery. The patient was started on mechanical ventilator on assist-control mode at rate of 12, tidal volume of 400, FiO2 of 40% with a PEEP of 5. She was on no pressors. Morning blood gases showed a pH of 7.41 with a pCO2 of 39 and pO2 of 79. Based on all this, I made the decision to extubate the patient to a BiPAP. The patient was extubated to the BiPAP and initially, she started having some tachypnea and subsequently respiratory rate improved. However, she started having audible stridor even at the BiPAP pressure of 14 over 5 cm of water with an FiO2 of 40%. She seems to be more comfortable. She was started on IV Solu-Medrol. She is also on a low- dose Precedex. She is being watched and monitored very closely, may need reintubation. The WBC count is 11.7 with hemoglobin 7.2 and a platelet count of 216. Sodium is at 133, BUN 17 with a creatinine of 0.6. Condition remains quite critical at this point in time and the patient is being monitored closely in the intensive care unit. 06/19/2024, the patient remains extubated. Noted postextubation, the patient encountered significant stridor which ultimately improved and the patient was supported on BiPAP throughout the night and she was given IV Solu-Medrol. Her stridor is less severe on today's evaluation and the patient is improved and the patient is able to talk and his voice is quite muffled still. Nevertheless, she feels much more comfortable. She is complaining of chest wall pain. She was transition to nasal cannula and the patient is currently on 5 L/min and her oxygenation is stable with a pulse ox of 96% on nasal cannula. Output from the chest tubes are minimal. The follow-up chest x-ray from today shows small left- sided pleural effusion. No pneumothorax. All of the chest tubes are in good location. Cardiac rhythm is sinus. Hemoglobin is 8.8. White cell count of 19 with a platelet count of 186. BUN is 17 with a creatinine of 0.7 and sodium levels at 142. She remains on insulin drip for blood sugar control which is running at 4 units an hour. She is using incentive spirometer. Pulling approximately 500. She is on metoprolol 50 mg p.o. twice daily and Cozaar was added at 50 mg p.o. daily. Precedex drip has been discontinued. Patient was seen today on 06/20/2024, patient remains in the ICU as an overflow, patient is hemodynamically stable, on 3 L nasal cannula, achieving 750 cc on incentive spirometry, chest x-ray showed mostly atelectasis specially in the lef t lower lobe area, doubt pneumonia, patient does not seem to be in any distress, she is not requiring any pressors or any inotropes. Plan is to transfer the patient sometime later today to evaluate cardiac floor WBC count is 16.2 hemoglobin 8.5 electrolytes are normal renal profile is normal Patient is now postoperative day #4, I am seeing her on 06/21/2024, patient remains in the ICU as an overflow, she is in sinus rhythm, hemodynamically stable, on nasal cannula at 1 L/min, chest x-ray seems to show improvement in her atelectasis bilaterally compared to yesterday. Patient is able to achieve 1000 cc on her incentive spirometry. She is ambulating with assistance, pain is relatively under control. WBC count is 13.3 hemoglobin 8.3 electrolytes are normal BUN is 38 creatinine 1.03 Objective - Vital Signs Vital signs: Vital Signs Temp 98.7 F 06/21/24 08:00 Pulse 76 06/21/24 09:39 Resp 18 06/21/24 08:00 BP 127/94 06/21/24 08:00 Pulse Ox 94 L 01/14/25 08:00 FiO2 40 06/19/24 07:46 Intake & Output 06/20/24 06/21/24 06/21/24 18:59 06:59 18:59 Intake Total 600 500 240 Output Total 225 800 Balance 375 500 -560 Weight 69.1 kg Intake: IV 0 Sodium Chloride 0.9% 1, 0 000 ml @ 20 mls/hr IV . Q24H [facility] Rx#:[id number] Oral 600 500 240 Output: Urine 225 800 Other: Voiding Method Bedside Commode Bedside Commode Bedside Commode # Voids 1 2 1 # Bowel Movements 1 1 ABP, PAP, CO, CI - Last Documented Arterial Blood Pressure 136/63 Pulmonary Artery Pressure 21/1 Cardiac Output 6.1 Cardiac Index 3.5 - Exam CONSTITUTIONAL: Revealed 74-year-old female in no distress RESPIRATORY: Diminished breath sounds at the bases, no crackles, no rhonchi no wheezes on 1 L nasal cannula CARDIOVASCULAR: Distant S1-S2, no S3 gallop, no murmur. GASTROINTESTINAL: Soft nontender no MAG no rebound no guarding INTEGUMENTARY: Skin is warm and dry NEUROLOGIC: Alert oriented x 3 no gross focal deficit MUSKULOSKELETAL: No deformities no limitation range of motion she does have history of right foot drop PSYCHIATRIC: Normal mood affect and no mental status examination - Labs CBC & Chem 7: 06/21/24 06:02 06/21/24 06:02 Labs: Abnormal Lab Results - Last 24 Hours (Table) 06/20/24 06/20/24 06/21/24 Range/Units 16:10 20:14 06:02 WBC 13.3 H (3.8-10.6) k/uL RBC 2.64 L (3.80-5.40) m/uL Hgb 8.3 L (11.4-16.0) gm/dL Hct 26.0 L (34.0-46.0) % BUN (7-17) mg/dL Glucose (74-99) mg/dL POC Glucose (mg/dL) 179 H 150 H (70-110) mg/dL 06/21/24 06/21/24 06/21/24 Range/Units 06:02 06:37 11:29 WBC (3.8-10.6) k/uL RBC (3.80-5.40) m/uL Hgb (11.4-16.0) gm/dL Hct (34.0-46.0) % BUN 38 H (7-17) mg/dL Glucose 110 H (74-99) mg/dL POC Glucose (mg/dL) 122 H 122 H (70-110) mg/dL Assessment and Plan Assessment: Impression: Multivessel coronary artery disease, non-ST elevated myocardial infarction this admission, status post four-vessel off-pump CABG, postoperative day #4 Moderate size hiatal hernia found on CT scan, no surgical intervention planned at this time Very brief episode of atrial fibrillation pre and postoperative, status post ligation of the left atrial appendage, currently sinus rhythm Benign essential hypertension Dyslipidemia History of right vocal cord paralysis Tracheostomy 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 status post reversal 50 years ago History of depression History of restrictive lung disease Chronic back pain, and right foot drop Lifelong non-smoker Recommendation: Continue beta-blockers Plavix statin and aspirin Continue incentive spirometry, and continue ambulation Continue GI prophylaxis and DVT prophylaxis Transfer patient to [facility] today Will continue to follow Time with Patient: Less than 30
[2024-06-21] MEDS ORDERED: polyethylene glycoL 3350 17 GM POWD.PACK PO PRN (13:49)
[2024-06-21 16:55] LABS: Glucose,Whole Blood 119 mg/dL (70-110)
[2024-06-21 20:08] LABS: Glucose,Whole Blood 126 mg/dL (70-110)
[2024-06-22] MEDS: ALBUMIN HUMAN 5% 500 ML in EMPTY BAG 1 BAG IVPB ONE ×3 (05:18→05:34)
[2024-06-22] MEDS: CALCIUM CHLORIDE 100 MG/ML 10 ML SYRINGE IVP ONE (05:19)
[2024-06-22] MEDS: CLEVIDIPINE BUTYRATE 25 MG in EMPTY BAG 1 BAG IV SCH (05:20)
[2024-06-22] MEDS: CHLORHEXIDINE GLUCONATE 15 ML CUP MUCOUS MEM ONE (05:20)
[2024-06-22] MEDS: HEPARIN SODIUM 1,000 UN/ML (10ML VL) IV ONE (05:21)
[2024-06-22] MEDS: PHENYLEPHRINE 40 MG in SODIUM CHLORIDE 0.9% 250 ML IV ONE (05:22)
[2024-06-22] MEDS: MAGNESIUM SULFATE 16.24 MEQ in EMPTY SYRINGE 1 SYR IV ONE (05:22)
[2024-06-22] MEDS: MANNITOL 25% 12.5 GM/50 ML VIAL IV ONE ×2 (05:22)
[2024-06-22] MEDS: NITROGLYCERIN-D5W PMX 50 MG in DEXTROSE/WATER 1 250ML.BAG IV SCH (05:22)
[2024-06-22] MEDS: NITROGLYCERIN-D5W PMX 25 MG/250 ML BTL IV ONE (05:22)
[2024-06-22] MEDS: PROTAMINE SULFATE 10 MG/ML 25 ML VIAL IV ONE (05:23)
[2024-06-22] MEDS: PHENYLEPHRINE 10 MG/ML VIAL IV ONE (05:23)
[2024-06-22] MEDS: PROTAMINE SULFATE 250 MG in EMPTY BAG 1 BAG IV ONE (05:23)
[2024-06-22] MEDS: SODIUM BICARB 8.4% 50 ML SYR (1 MEQ/ML) IV ONE (05:23)
[2024-06-22] MEDS: TRANEXAMIC ACID 2,000 MG in SODIUM CHLORIDE 0.9% 80 ML IV ONE (05:23)
[2024-06-22] MEDS: ALBUMIN HUMAN 25% 50 ML in EMPTY BAG 1 BAG IVPB ONE (05:34)
[2024-06-22] MEDS: AMIODARONE 360 MG in DEXTROSE 5% IN WATER 200 ML IV ONE (05:35)
[2024-06-22] MEDS: AMIODARONE 450 MG in DEXTROSE 5% IN WATER 250 ML IV SCH (05:35)
[2024-06-22] MEDS: DEXTROSE 5% IN WATER 100 ML with AMIODARONE 150 MG IV ONE (05:35)
[2024-06-22] MEDS: MD COMMUNICATION TO PHARMACY 1 EACH MISC PO ONE (05:35)
[2024-06-22 05:37] LABS: HCT 26.2 % (34.0-46.0); HGB 8.4 gm/dL (11.4-16.0); Hypochromasia Slight; MCH 31.1 pg (25.0-35.0); MCV 97.1 fL (80.0-100.0); Mean Platelet Volume 7.1; Platelet Count 274 k/uL (150-450); RDW 13.1 % (11.5-15.5); WBC 7.9 k/uL (3.8-10.6)
[2024-06-22 05:54] LABS: African American GFR (CKD) 87 (>60 ml/min/1.73 sqM); Anion Gap 4 mmol/L; Blood Urea Nitrogen 25 mg/dL (7-17); Calcium 8.4 mg/dL (8.4-10.2); Carbon Dioxide 31 mmol/L (22-30); Chloride 103 mmol/L (98-107); Glucose 101 mg/dL (74-99); Non-African American GFR(CKD) 75 (>60 ml/min/1.73 sqM); Potassium 3.7 mmol/L (3.5-5.1); Sodium 138 mmol/L (137-145)
[2024-06-22] MEDS ORDERED: Potassium Replacement Protocol 1 EACH MISC MISCELLANE PRN (06:21)
[2024-06-22 06:36] LABS: Glucose,Whole Blood 98 mg/dL (70-110)
[2024-06-22] MEDS: POTASSIUM CHLORIDE ER 20 MEQ TAB.ER PO SCH (06:38)
[2024-06-22] MEDS ORDERED: FUROSEMIDE 10 MG/ML 2 ML VIAL IV ONE (06:45)
--- NOTE | 2024-06-22 06:59 | P.PN ---
Subjective Progress Note Date: 06/22/24 Principal diagnosis: Multivessel coronary artery disease, non-ST elevated myocardial infarction this admission, moderate size hiatal hernia found on CT scan. Previous medical hist ory of hypertension, hyperlipidemia, tracheostomy 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 status post reversal 50 years ago, depression, severe restrictive lung disease, chronic back pain, right drop foot, chronic constipation and dysphagia, lifelong non- smoker. Preoperative nasal screen positive for MSSA POD #5 off-pump CABG x 4 with JESSICA to LAD, sequential saphenous vein graft to first obtuse marginal and third obtuse marginal (posterior lateral circumflex branch), saphenous vein graft to posterior descending (terminal circumflex), bilateral endoscopic harvest of greater saphenous vein, ligation left atrial appendage with 35 mm AtriCure clip, DARYL by anesthesia Postoperative acute blood loss anemia, expected given hemodilution The patient was seen and examined this morning sitting up in a recliner in the intensive care unit in no acute distress. Currently sinus sinus rhythm, hemodynamically stable. Currently on 1 L nasal cannula with oxygen saturation in the mid 90s. Home oxygen test completed, oxygen saturation drops to 86% at rest on room air, will need to be discharged on oxygen via nasal cannula due to hypoxia likely related to restrictive lung disease. Able to achieve 750-1000 mL on incentive spirometry. Chest x-ray, labs reviewed. She has been ambulatory in the hallway, showering daily. She does still complain of some expected postoperative pain along with her chronic pain, although better and taking less narcotics. Discussed with Dr. Jimenez. Anticipate discharge to home with home care later this afternoon. No other new concerns. Objective - Vital Signs Vital signs: Vital Signs Temp 97.8 F 06/22/24 04:00 Pulse 82 06/22/24 04:00 Resp 15 06/22/24 04:00 BP 137/73 06/22/24 04:00 Pulse Ox 94 L 06/22/24 04:00 FiO2 40 06/19/24 07:46 Intake & Output 06/21/24 06/21/24 06/22/24 06:59 18:59 06:59 Intake Total 500 480 240 Output Total 1400 600 Balance 500 -620 -360 Weight 68.6 kg 68.6 kg Intake: Oral 500 480 240 Output: Urine 1400 600 Other: Voiding Method Bedside Commode Bedside Commode Toilet # Voids 2 1 # Bowel Movements 1 ABP, PAP, CO, CI - Last Documented Arterial Blood Pressure 136/63 Pulmonary Artery Pressure 21/1 Cardiac Output 6.1 Cardiac Index 3.5 - Exam CONSTITUTIONAL: Appears comfortable, cooperative RESPIRATORY: Lungs sounds diminished in the bases, inspiratory wheezes present. Respirations even, nonlabored. Currently on 1 L nasal cannula with oxygen saturation 95%. Able to achieve 750-1000 mL on her incentive spirometry. Strong nonproductive cough. CARDIOVASCULAR: S1, S2 present. Regular rate and rhythm, sinus rhythm on telemetry. Sternum stable. Palpable peripheral pulses bilaterally. No edema present. No calf pain or tenderness noted. Heart hugger, antiembolism stockings, SCDs present. GASTROINTESTINAL: Abdomen soft, nontender, nondistended. Active bowel sounds present 4 quadrants. Positive bowel movement 06/21/24 GENITOURINARY: Continues to void clear, yellow urine. Output 2000 mL in the last 24 hours INTEGUMENTARY: Skin is warm and dry with evidence of good perfusion. Anterior chest incision well approximated. Bilateral lower extremity EVH sites well approximated without redness or drainage NEUROLOGIC: Cranial nerves II through XII intact MUSKULOSKELETAL: Able to move all extremities, strength equal bilaterally, patient does have right foot drop PSYCHIATRIC: Alert and oriented to person place and time, appropriate affect - Allied health notes Allied health notes reviewed: nursing - Labs CBC & Chem 7: 06/22/24 05:13 06/22/24 05:13 Labs: Abnormal Lab Results - Last 24 Hours (Table) 06/21/24 06/21/24 06/21/24 Range/Units 06:02 06:02 11:29 WBC 13.3 H (3.8-10.6) k/uL RBC 2.64 L (3.80-5.40) m/uL Hgb 8.3 L (11.4-16.0) gm/dL Hct 26.0 L (34.0-46.0) % Carbon Dioxide (22-30) mmol/L BUN 38 H (7-17) mg/dL Glucose 110 H (74-99) mg/dL POC Glucose (mg/dL) 122 H (70-110) mg/dL 06/21/24 06/21/24 06/22/24 Range/Units 16:53 20:07 05:13 WBC (3.8-10.6) k/uL RBC 2.70 L (3.80-5.40) m/uL Hgb 8.4 L (11.4-16.0) gm/dL Hct 26.2 L (34.0-46.0) % Carbon Dioxide (22-30) mmol/L BUN (7-17) mg/dL Glucose (74-99) mg/dL POC Glucose (mg/dL) 119 H 126 H (70-110) mg/dL 06/22/24 Range/Units 05:13 WBC (3.8-10.6) k/uL RBC (3.80-5.40) m/uL Hgb (11.4-16.0) gm/dL Hct (34.0-46.0) % Carbon Dioxide 31 H (22-30) mmol/L BUN 25 H (7-17) mg/dL Glucose 101 H (74-99) mg/dL POC Glucose (mg/dL) (70-110) mg/dL - Imaging and Cardiology Chest x-ray: image reviewed Assessment and Plan Assessment: Multivessel coronary artery disease, non-ST elevated myocardial infarction this admission, status post four-vessel off-pump CABG Moderate size hiatal hernia found on CT scan, no surgical intervention planned at this time Preoperative nasal screen positive for MSSA, treated Very brief episode of atrial fibrillation pre and postoperative, status post ligation of the left atrial appendage, currently sinus rhythm Postoperative acute blood loss anemia, expected given hemodilution Previous medical history of hypertension Hyperlipidemia, cholesterol 219, LDL 137 Right vocal cord paralysis Tracheostomy 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 status post reversal 50 years ago Depression Severe restrictive lung disease, preoperative FEV1 41% of predicted Chronic back pain, on multiple narcotics Right drop foot Chronic constipation and dysphagia Lifelong non-smoker Plan: Continue to maximize medical therapy with aspirin, statin, Plavix, beta-jason. Will increase beta-jason therapy as tolerated, increased to 75 mg twice daily today Continue losartan for afterload reduction, increased to 50 mg daily yesterday Wean O2 as tolerated. Encourage incentive spirometry use 10 times every hour while awake. Bronchodilators per pulmonology. Home oxygen evaluation demonstrates need for home oxygen Will monitor daily labs and x-rays, electrolyte replacement per protocol, no Lasix today, continue iron/vitamin C Increase activity, ambulate as tolerated. PT/OT/cardiac rehab consulted. May use walker for balance, patient is not to place her full weight on the walker as part of sternal precautions GI/DVT prophylaxis Pain control per current medication regimen Insulin management per internal medicine, patient is not diabetic, hemoglobin A1c 5.8% Continue to monitor record strict accurate intake and output Shower daily Daily weights Discharge planning in progress, anticipate discharge to home with home care later this afternoon More recommendations to follow based on patient's progress
--- NOTE | 2024-06-22 08:18 | XR ---
EXAMINATION TYPE: XR chest 2V DATE OF EXAM: 06/22/2024 6:20 AM COMPARISON: 06/21/2024 CLINICAL INDICATION: Female, 74 years old with history of post cardiac surgery, TECHNIQUE: XR chest 2V view(s) obtained. FINDINGS: The heart size is mildly prominent. The pulmonary vasculature is normal. Left lower lobe infiltrate. Correlate for atelectasis. Sternotomy wires from prior CABG are evident IMPRESSION: 1. Mild left lower lobe infiltrate. Correlate for atelectasis 2. Mild cardiomegaly [facility], , 06/22/2024 8:15 AM
--- NOTE | 2024-06-22 09:09 | P.PN ---
Subjective Progress Note Date: 06/22/24 HPI: This lady s/p aortocoronary bypass surgery doing well. She is in sinus rhythm hemodynamically stable less incisional pain. She is also doing better on incentive spirometry. Will continue current efforts possible discharge today to see Dr. Segal in 2 weeks. PHYSICIAL EXAM: Vitals are stable JVD 1 cm no carotid bruit S1-S2 heard normally short systolic murmur lungs reveal improved air entry abdomen is soft the lower extremities reveal diminished pulses Central nervous system is normal. IMPRESSION: 1. S/p aortocoronary bypass surgery making good progress. 2. Benign hypertension. 3.. 4.. 5.. RECOMMENDATIONS: Continue current therapy okay for discharge to see Dr. Segal in 2 weeks. Continue incentive spirometry and pulmonary toilet. Objective - Vital Signs Vital signs: Vital Signs Temp 97.8 F 06/22/24 04:00 Pulse 100 06/22/24 09:04 Resp 15 06/22/24 04:00 BP 137/73 06/22/24 04:00 Pulse Ox 86 L 06/22/24 09:04 FiO2 40 06/19/24 07:46 Intake & Output 06/21/24 06/22/24 06/22/24 18:59 06:59 18:59 Intake Total 480 240 Output Total 1400 600 Balance -920 -360 Weight 68.6 kg 68.6 kg Intake: Oral 480 240 Output: Urine 1400 600 Other: Voiding Method Bedside Commode Toilet # Voids 1 # Bowel Movements 1 ABP, PAP, CO, CI - Last Documented Arterial Blood Pressure 136/63 Pulmonary Artery Pressure 21/1 Cardiac Output 6.1 Cardiac Index 3.5 - Labs CBC & Chem 7: 06/22/24 05:13 06/22/24 05:13 Labs: Abnormal Lab Results - Last 24 Hours (Table) 06/21/24 06/21/24 06/21/24 Range/Units 11:29 16:53 20:07 RBC (3.80-5.40) m/uL Hgb (11.4-16.0) gm/dL Hct (34.0-46.0) % Carbon Dioxide (22-30) mmol/L BUN (7-17) mg/dL Glucose (74-99) mg/dL POC Glucose (mg/dL) 122 H 119 H 126 H (70-110) mg/dL 06/22/24 06/22/24 Range/Units 05:13 05:13 RBC 2.70 L (3.80-5.40) m/uL Hgb 8.4 L (11.4-16.0) gm/dL Hct 26.2 L (34.0-46.0) % Carbon Dioxide 31 H (22-30) mmol/L BUN 25 H (7-17) mg/dL Glucose 101 H (74-99) mg/dL POC Glucose (mg/dL) (70-110) mg/dL
[2024-06-22] MEDS: METOPROLOL TARTRATE 25 MG TAB PO SCH (09:11)
--- NOTE | 2024-06-22 09:33 | P.PN ---
Subjective Progress Note Date: 06/22/24 Hospital Course: A 74-year-old female with PMH of HTN, history of tracheostomy around 40 years a go, who presented to the ED on 06/10/2024 with chest pain, was found to have elevated troponins and admitted with non-ST VT, heart cath done 06/11/2024 and showed multivessel CAD, calcified left main and LAD, complete occlusion of proximal LAD with collaterals, significant disease involving left circumflex, OM1, PLV, mid codominant RCA, elevated LVEDP. DARYL DARYL showed EF of 55 to 60% with mild tricuspid and mitral regurg. Chest CTA showed no PE, couple pulmonary nodules up to 4 mm. CABG was performed on 06/17/2024, patient was transferred to the ICU in stable condition, intubated, no inotropic support needed during the surgery. intubated on 06/17/2024, extubated 06/18 in the morning to BiPAP, IV Solu-Medrol given for stridor, started on Precedex. JAYE drain to discontinue Postop blood work showed hemoglobin drop from 11.6-8.5 improved after transfusion up to 10.2. 06/19 doing better on nasal cannula, stridor present on exam, will continue Solu- Medrol for 1 more day. Chest tube, JAYE drains, Naik discontinued, insulin drip stopped, monitor in the ICU for 24 more hours. Started on Cozaar 25 daily, metoprolol 50 twice daily Subjective: Awake and alert today, feels better, complains of postop pain, fairly controlled, some shortness of breath Pertinent positives and negatives as discussed above, a complete review of systems was performed and all other systems are negative. 06/20/2024 Patient seen and examined at bedside in ICU. She continues to have cough without sputum production. She is on 2 L nasal cannula satting at 94%. Today's labs significant for WBC 16.2, hemoglobin 8.5 BUN 32, glucose 164, AST 37. Chest x-ray independently interpreted, postsurgical changes, left lower lobe opacity. Order placed by CT surgery for transfer to . 06/21/2024 Patient was seen and examined in ICU. No acute events overnight. She is currently satting at 98% on 2 L nasal cannula. Today's labs significant for WBC 13.3, hemoglobin 8.3, glucose 122. Chest x-ray independently interpreted, similar to previous with postsurgical changes and some improvement to left lower lobe opacity. She is to be transferred to 3 . 06/22/2024 Patient was seen and examined in ICU. No acute events overnight. She is currently satting at 86% when off ooxygen. She was continued on 1L nasal cannula. Today's labs significant for WBC 7.9, Bicarb 31, BUN 25. Chest x-ray independently interpreted, LL lobe infiltrate, possible atelectesis. PHYSICAL EXAMINATION: Vitals reviewed GENERAL: No acute distress. Well developed, well nourished. HEENT: EOMI. No scleral icterus. Normocephalic, atraumatic. CARDIOVASCULAR: S1 and S2 present. No murmurs, rubs, or gallops. surgical dressing clean and dry PULMONARY: Stridor bilaterally ABDOMEN: Soft, nontender, nondistended, No palpable organomegaly. MUSCULOSKELETAL: No apparent joint swelling and deformities. EXTREMITIES: No apparent cyanosis, clubbing, or pedal edema. NEUROLOGICAL: The patient is alert and oriented, Gross neurological examination did not reveal any focal deficits. SKIN: No apparent rashes. Assessment and Plan: A 74-year-old female with PMH of HTN, history of tracheostomy around 40 years ago, who presented to the ED on with chest pain and treated for multivessel CAD with CABG. Multivessel coronary artery disease s/p CABG x4 with JESSICA to LAD 06/17/2024 Acute hypoxic respiratory failure Acute blood loss anemia, postop Leukocytosis, likely reactive postop, improved Small bilateral apical pneumothoraces Hyponatremia, resolved Hypertension -Patient in the ICU, intubated on 06/17/2024, extubated 06/18 in the morning to BiPAP, IV Solu-Medrol given for stridor, 06/19 on nasal cannula, Solu-Medrol discontinued, chest tubes removed -Postop management per cardiothoracic surgery, ICU -Pulmonology following -Continued DAPT, high intensity statins -Continue on Cozaar 25, metoprolol up to 50 twice daily -Pain control per cardiac surgery Continue DuoNebs -Monitor CBC -Repeat chest x-ray in a.m. -PT OT #Prediabetes, A1c 5.8 #Hyperglycemia -Continue Accu-Cheks ACHS, monitor for hypoglycemia Prerenal azotemia, improving BUN 32, continue to monitor Constipation Moderate-sized hiatal hernia -General Surgery following -On MiraLAX 17 g daily Chronic conditions: Chronic back pain-continue Cymbalta 60 twice daily Pulmonary nodules, outpatient follow-up Insomnia-continue trazodone 200 mg nightly F: P.o. E: Replete as needed N: Heart healthy diet Code status: Full code DVT prophylaxis heparin 5000 units SQ every 8 hours Patient is medically optimized and stable for discharge from medical perspective. Thank you for allowing us to participate in the care of this pleasant patient. Do not hesitate to contact us with questions. Someone can be reached from the [facility] hospitalist group all hours of the day at [phone] or via [employer]. I have seen and evaluated the patient today. Discussed with the resident and agree with the residents finding and plan as documented in the resident's note. Changes highlighted in blue font. Objective - Vital Signs Vital signs: Vital Signs Temp 97.8 F 06/22/24 04:00 Pulse 100 06/22/24 09:04 Resp 15 06/22/24 04:00 BP 137/73 06/22/24 04:00 Pulse Ox 86 L 06/22/24 09:04 FiO2 40 06/19/24 07:46 Intake & Output 06/21/24 06/22/24 06/22/24 18:59 06:59 18:59 Intake Total 480 240 Output Total 1400 600 Balance -920 -360 Weight 68.6 kg 68.6 kg Intake: Oral 480 240 Output: Urine 1400 600 Other: Voiding Method Bedside Commode Toilet # Voids 1 # Bowel Movements 1 ABP, PAP, CO, CI - Last Documented Arterial Blood Pressure 136/63 Pulmonary Artery Pressure 21/1 Cardiac Output 6.1 Cardiac Index 3.5 - Labs CBC & Chem 7: 06/22/24 05:13 06/22/24 05:13 Labs: Abnormal Lab Results - Last 24 Hours (Table) 06/21/24 06/21/24 06/21/24 Range/Units 11:29 16:53 20:07 RBC (3.80-5.40) m/uL Hgb (11.4-16.0) gm/dL Hct (34.0-46.0) % Carbon Dioxide (22-30) mmol/L BUN (7-17) mg/dL Glucose (74-99) mg/dL POC Glucose (mg/dL) 122 H 119 H 126 H (70-110) mg/dL 06/22/24 06/22/24 Range/Units 05:13 05:13 RBC 2.70 L (3.80-5.40) m/uL Hgb 8.4 L (11.4-16.0) gm/dL Hct 26.2 L (34.0-46.0) % Carbon Dioxide 31 H (22-30) mmol/L BUN 25 H (7-17) mg/dL Glucose 101 H (74-99) mg/dL POC Glucose (mg/dL) (70-110) mg/dL
[2024-06-22 11:18] LABS: Glucose,Whole Blood 202 mg/dL (70-110)
[2024-06-22] MEDS ORDERED: HYDROcodone/APAP 10-325MG 1 EACH TAB PO PRN (12:29)
--- NOTE | 2024-06-22 13:07 | P.DS ---
Providers Date of admission: 06/11/24 19:10 Expected date of discharge: 06/22/24 Attending physician: Dc Jimenez Consults: 06/10/24 12:01 Consult Physician Urgent Consulting Provider: Ottoniel Patterson Consult Reason/Comments: cp Do you want consulting provider notified?: Yes 06/11/24 14:34 Consult Physician Urgent Consulting Provider: Armani Cho Consult Reason/Comments: cabg Do you want consulting provider notified?: Yes 06/12/24 11:27 Consult Physician Routine Consulting Provider: Austin Hurtado Consult Reason/Comments: Pulmonary evaluation preoperative CABG Do you want consulting provider notified?: Already Contacted 06/13/24 17:42 Consult Physician Routine Consulting Provider: Baron Curiel Consult Reason/Comments: Laryngoscopy, history of tracheostomy Do you want consulting provider notified?: Yes 06/16/24 10:00 Consult to Anesthesia Routine Consulting Provider: Anesthesia,Services Consult Reason/Comments: Cardiac Surgery Pre-Op 06/17/24 13:00 Consult Physician Routine Consulting Provider: Suri Kumar Consult Reason/Comments: diabetic managment Do you want consulting provider notified?: Already Contacted Primary care physician: Stated None Hospital Course: FINAL DIAGNOSIS: Multivessel coronary artery disease, non-ST elevated myocardial infarction this admission Moderate size hiatal hernia found on CT scan, no surgical intervention planned at this time Preoperative nasal screen positive for MSSA, treated Very brief episode of atrial fibrillation pre and postoperative, currently sinus rhythm Postoperative acute blood loss anemia, expected given hemodilution Previous medical history of hypertension Hyperlipidemia, cholesterol 219, LDL 137 Right vocal cord paralysis Tracheostomy 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 status post reversal 50 years ago Depression Severe restrictive lung disease, preoperative FEV1 41% of predicted Chronic back pain, on multiple narcotics Right drop foot Chronic constipation and dysphagia Lifelong non-smoker PRINCIPAL PROCEDURE: Off-pump CABG x 4 with JESSICA to LAD, sequential saphenous vein graft to first obtuse marginal and third obtuse marginal (posterior lateral circumflex branch), saphenous vein graft to posterior descending (terminal circumflex) Bilateral endoscopic harvest of greater saphenous vein Ligation left atrial appendage with 35 mm AtriCure clip DARYL by anesthesia HISTORY OF PRESENT ILLNESS: This is a 74-year-old female patient who does not follow with a primary care physician on a regular basis, although she does follow with a pain clinic physician. She presented to the emergency department at [facility] on June 10, 2024 with complaints of chest pain with radiation to the left shoulder and arm, along with abdominal discomfort and bloating. She denies any other symptomatology. After no relief with Tums she present to the emergency department for evaluation. A twelve-lead EKG was completed which showed sinus tachycardia with nonspecific T wave abnormality with a heart rate of 102 bpm. Initial laboratory results showed a WBC count of 7.1, hemoglobin 14.3, hematocrit 43.9, platelets 312, PT 10.1, INR 0.9, PTT 22.1, D-dimer 1.06, sodium 139, potassium 4.3, chloride 102, CO2 31, BUN 25, creatinine 0.89, glucose 114, calcium 9.2, magnesium 2.0, AST 19, ALT 15, proBNP 52 and serial troponins were as high as 0.057. CTA of the chest showed no evidence of pulmonary embolism, a couple of pulmonary nodules measuring up to 4 mm, and a moderate-sized hiatal hernia. Chest x-ray showed no acute pulmonary process. She was admitted for evaluation and treatment with consultation placed to cardiology. Transthoracic echocardiogram demonstrated normal left ventricular systolic function with EF 55-60%, no obvious wall motion abnormalities, mild mitral and tricuspid valve regurgitation, trace aortic valve regurgitation, and no pericardial or pleural effusion. She underwent cardiac catheterization by Dr. Segal which demonstrated triple-vessel coronary artery disease with totally occluded LAD proximally with very slow antegrade and retrograde filling of the LAD and the diagonal branch, collaterals from the septal glove parts cutter from the right coronary artery and through the obtuse marginal coronary artery, 90% stenosis to the first obtuse marginal coronary artery, 95% stenosis to the left posterior descending coronary artery, 60-70% stenosis to the left circumflex coronary artery, and 90% stenosis to the mid right coronary artery. Consultation was placed to cardiothoracic surgery for further evaluation and treatment recommendations. She was seen initially by Dr. Meadows who recommended surgery surgical myocardial revascularization. The usual perioperative course was discussed in detail with the patient and her family, all risks and benefits were explained, all questions were answered. The patient wanted time to think about it and discuss with her family, but did eventually consent to open heart surgery. She was kept inpatient due to the nature of her disease process. HOSPITAL COURSE: The patient was brought to the preoperative area 06/17/24, prepared in the usual fashion, and subsequently taken to the operating room erasmo Jimenez performed four-vessel off-pump CABG. Upon completion of surgery the patient was transferred to the cardiovascular intensive care unit where she was recovered and monitored hemodynamically. She was extubated the morning after surgery, she did develop some stridor which responded nicely to IV steroids and she avoided having to be reintubated. All lines, tubes, and drips were discontinued when appropriate, and transfer orders were placed for 3 S. cardiac stepdown unit, however there was no bed availability and the patient remained on ICU as a stepdown patient until discharge.Her oxygen was titrated down although she was unable to come off oxygen completely and was discharged with oxygen, she continued to work with physical and occupational therapy, she was tolerating oral diet, her pain was controlled, and she was ready to be discharged to home with [facility] on postoperative day #5. She received written and verbal instruction regarding her medications, activity restrictions, signs and symptoms requiring physician notification, and follow-up appointments. Patient Condition at Discharge: Stable Plan - Discharge Summary Discharge Rx Participant: No New Discharge Prescriptions: New Losartan [Cozaar] 50 mg PO DAILY@1200 #30 tab Ferrous Sulfate [Iron (65 MG Elemental)] 325 mg PO BID-W/MEALS #28 tab Pantoprazole [Protonix] 40 mg PO AC-BRKFST #30 tab Sennosides-Docusate Sodium [Senokot-S] 2 each PO HS PRN tab PRN Reason: Constipation Ascorbic Acid [Vitamin C] 500 mg PO BID-W/MEALS #28 tab Aspirin 325 mg PO DAILY #30 tab Atorvastatin [Lipitor] 80 mg PO HS #30 tab polyethylene glycoL 3350 [Miralax] 17 gm PO DAILY PRN packet PRN Reason: Constipation Clopidogrel [Plavix] 75 mg PO DAILY #30 tab Acetaminophen Tab [Tylenol] 1,000 mg PO Q6HR PRN tab PRN Reason: Fever And/ Or Mild Pain (1-3) Metoprolol Tartrate [Lopressor] 75 mg PO BID #60 tablet Ipratropium-Albuterol Nebulize [Duoneb 0.5 mg-3 mg/3 ml Soln] 3 ml INHALATION QID #90 ml Continue oxyCODONE HCL [OxyCONTIN] 30 mg PO TID PRN PRN Reason: Pain HYDROcodone/APAP 10-325MG [[place] 10-325] 1 tab PO TID PRN PRN Reason: Pain DULoxetine HCL [Cymbalta] 60 mg PO BID traZODone HCL [Desyrel] 200 mg PO HS Discontinued Metoprolol Tartrate [Lopressor] 25 mg PO DAILY Discharge Medication List DULoxetine HCL [Cymbalta] 60 mg PO BID 06/10/24 [History] HYDROcodone/APAP 10-325MG [[place] 10-325] 1 tab PO TID PRN 06/10/24 [History] oxyCODONE HCL [OxyCONTIN] 30 mg PO TID PRN 06/10/24 [History] traZODone HCL [Desyrel] 200 mg PO HS 06/10/24 [History] Acetaminophen Tab [Tylenol] 1,000 mg PO Q6HR PRN tab 06/21/24 [Rx] Ascorbic Acid [Vitamin C] 500 mg PO BID-W/MEALS #28 tab 06/21/24 [Rx] Aspirin 325 mg PO DAILY #30 tab 06/21/24 [Rx] Atorvastatin [Lipitor] 80 mg PO HS #30 tab 06/21/24 [Rx] Clopidogrel [Plavix] 75 mg PO DAILY #30 tab 06/21/24 [Rx] Ferrous Sulfate [Iron (65 MG Elemental)] 325 mg PO BID-W/MEALS #28 tab 06/21/24 [Rx] Losartan [Cozaar] 50 mg PO DAILY@1200 #30 tab 06/21/24 [Rx] Pantoprazole [Protonix] 40 mg PO AC-BRKFST #30 tab 06/21/24 [Rx] Sennosides-Docusate Sodium [Senokot-S] 2 each PO HS PRN tab 06/21/24 [Rx] polyethylene glycoL 3350 [Miralax] 17 gm PO DAILY PRN packet 06/21/24 [Rx] Ipratropium-Albuterol Nebulize [Duoneb 0.5 mg-3 mg/3 ml Soln] 3 ml INHALATION QID #90 ml 06/22/24 [Rx] Metoprolol Tartrate [Lopressor] 75 mg PO BID #60 tablet 06/22/24 [Rx] Follow up Appointment(s)/Referral(s): Helen Koehler, NPC [Nurse Practitioner] - 06/29/24 10:30 am (You will be seen in the surgeon's office behind the hospital in [facility], [address] Office phone number is ; come to the office after your appointment with Dr. Segal-missy carmichael) Janet Segal MD [STAFF PHYSICIAN] - 06/29/24 9:45 am [facility]hab [facility],Cardiac [NON-STAFF] - 4 Weeks (You will receive a phone call in approximately 4-6 weeks for evaluation for cardiac rehab) Dc Jimenez MD [STAFF PHYSICIAN] - 07/21/24 2:00 pm None,Stated [Primary Care Provider] - 1-2 days (Please try to find primary care physician for medical issues other than pain control, continue to see pain specialist for narcotic pain medication) Peter Brewster DO [Medical Doctor] - 1 Week [facility] [NON-STAFF] - 1-2 Days (You should be seen by RN the day after discharge, then 2-3 times per week until you start cardiac rehab; PT/OT should visit at least once, they may continue to visit if necessary) Kenzie Connors MD [STAFF PHYSICIAN] - 07/18/24 10:30 am Ambulatory/Diagnostic Orders: Complete Blood Count w/diff [LAB.AMB] Time Frame: 3 Days, Location: None Selected Comprehensive Metabolic Panel [LAB.AMB] Time Frame: 3 Days, Location: None Selected Activity/Diet/Wound Care/Special Instructions: DISCHARGE INSTRUCTIONS: 1. No driving for 4 weeks, or until physician gives their ok. 2. The patient should sleep in their own bed, no medical bed needed. 3. Stairs are not an issue. If the bedroom is upstairs, it is advised that the patient go up at night and down in the morning for the first week. Go slowly, using handrail and take 1 step at a time. 4. ASHWIN hose are to be worn for 30 days post surgery or until physician discontinues. 5. Heart hugger is to be worn 100% of the time until physician discontinues.(except when showering) 6. No lifting, pushing, or pulling more than 10 pounds for 12 weeks. The physician will advise of any restriction changes. 7. The patient is expected to continue the prescribed walking program. 8. Continue pain control per as needed orders. 9. Continue with incentive spirometry and splinting/heart hugger until otherwise directed by the physician. 10. Must shower daily using liquid antibacterial soap 11. Routine sternal incision care. No powders, lotions, ointments on incisions. No dressings are necessary on incisions unless they are draining. Dermabond tape is to remain on sternal incision until surgeon follow-up. 12. Please call surgeon/FUEL ASSEMBLER for temp greater than 101 F or purulent drainage from incisions. 13. You should weigh yourself daily, record and bring log with you to follow up appointments. 14. All prescriptions given by surgeon for 30 days. Refills need to be filled through timber deadener/primary care physician. 15. A Red armband has been placed on the patient. It should be worn for 30 days post discharge from surgery and will be removed by the cardiac surgeons. If an ER visit is necessary, please make sure the number on the Red armband is called before going to ER. 16. You have been referred to and are expected to begin Cardiac Rehab in approximately 4-6 weeks. 17. Quitting smoking is the most important step you can take to improve your health. For additional information and assistance to quit smoking, please call the [place] tobacco quit line (0-573-IPAO-NOW/ ) or online: [email or web address] -[email or web address]-tobacco HOME HEALTH SERVICES TO PROVIDE: RN SKILLED HOME CARE SERVICES FOR POST-OP SURGICAL PATIENTS WITH THE FOLLOWING: Coronary Artery Bypass Surgery (CABG), Mitral Valve Replacement/Repa ir ( MVR), Aortic Valve Replacement/Repair (AVR) RN TO CONTINUE EDUCATION FROM ``ROAD TO A HEALTH HEART PATIENT EDUCATION MANUAL (GIVEN TO PATIENT IN THE HOSPITAL) MEDICATION RECONCILIATION WITH EDUCATION NEEDED ON FIRST HOME VISIT EMPHASIZE IMPORTANCE OF WEARING BREAST SUPPORT/HEART HUGGER ENCOURAGE USE OF INCENTIVE SPIROMETER 10 X EVERY HOUR WHILE AWAKE ENCOURAGE UTILIZATION OF LOWER EXTREMITY COMPRESSION STOCKINGS/ASHWIN HOSE and ELEVATE LEGS ABOVE LEVEL OF HEART WHILE AT REST. ENCOURAGE AMBULATION 3-5x/day INCREASING TOLERATES, WHILE AVOIDING EXTREMES IN TEMPERATURE FREQUENCY: RN TO OPEN THE PATIENT WITHIN 24 HOURS OF DISCHARGE FROM THE HOSPITAL WITH [place]HE[place] [facility] [place] VISIT 2-3 X A WEEK FOR 4 WEEKS ESTABLISHED BY PATIENT NEEDS. LABORATORY: CBC, CMP TO BE DRAWN ON THE THIRD DAY HOME, (RAN STAT) FAX RESULTS TO [phone]. TELEHEALTH PARAMETERS: WEIGHT: NOTIFY MD OF WEIGHT GAIN OF 2 LBS IN 24 HOURS OR 5 LBS IN ONE WEEK HR: NOTIFY MD OF HR <55 BPM OR HR>100 BPM BP: NOTIFY MD IF BP <90/55 OR BP>140/100 O2 SAT: NOTIFY MD IF PO2<93% ON ROOM AIR SEND TELEHEALTH REPORT TO FURNISHINGS CONSERVATOR AND CARDIOVASCULAR SURGEON THE FIRST WEEK OF CARE AND THEN BI-WEEKLY. PLEASE ADDITIONALLY COMMUNICATE ANY ABNORMALS AND NEW FINDINGS TO THE SURGEONS OFFICE. Discharge Disposition: HOME WITH HOME HEALTH SERVICES
--- NOTE | 2024-06-22 15:11 | P.PN ---
Subjective Progress Note Date: 06/22/24 Principal diagnosis: Postoperative day # 5 off-pump CABG x 4 with JESSICA to LAD, sequential saphenous vein graft to first obtuse marginal and third obtuse marginal (posterior lateral circumflex branch), saphenous vein graft to posterior descending (terminal circumflex), bilateral endoscopic harvest of greater saphenous vein, ligation left atrial appendage with 35 mm AtriCure clip, DARYL by anesthesia Patient is a 74-year-old female with past medical history significant for hyp ertension, previous tracheostomy that was reversed approximately 50 years ago. States that she has had issues with her breathing after a previous suicide attempt and she spent some time on a mechanical ventilator. She has had multiple neck surgeries at the [facility]. She has not followed up with a primary care provider in some time. She is a lifelong non-smoker. Presented to the emergency department back on June 10 with a chief complaint of chest pain. Chest pain described as substernal intermittent and radiating to her left chest and left arm. Lasts approximately 10 to 15 minutes with exertion. Usually subsides with rest or antacids, however, persistent on June 10, so she called her daughter to take her to the emergency department. Denies any associated nausea, diaphoresis, heart palpitations, lightheadedness/syncopal events. Denies any lower extremity swelling. Was found to have elevated troponins and admitted with non-ST elevation [place]. Heart catheterization done on 06/11/2024 showing multivessel coronary artery disease with a calcified left main and LAD, totally occluded proximal LAD with collaterals, significant disease of involving the left circumflex, OM1, PLV, and significant disease in the mid codominant RCA. With elevated LVEDP. Echocardiogram showing preserved left ventricular ejection fraction of 55 to 60%, with mild mitral and tricuspid regurgitation. A surgical consult was placed. Pulmonary was also consulted for surgical clearance. CBC and CMP unremarkable. Recent APTT therapeutic. Chest CTA did not show any evidence of pulmonary embolism. Couple pulmonary nodules measuring up to 4 mm. Stated above, patient is not a non-smoker. Moderate size hiatal hernia. Bedside spirometry performed demonstrating and FEV1 0.85 L or 41% of predicted. Patient is a lifelong nontobacco smoker. Has no known history of COPD. She is currently sitting up in bed on room air oxygen. Nondistressed. She does have hoarse voice. Remote appearing tracheostomy incisional scar. Patient remains on heparin infusion per protocol. Also nit roglycerin paste ordered. Denies any current chest pain. Current vitals: Temperature 97.1 F, heart rate 62 bpm, blood pressure 100/63 mmHg, nontachypneic, 93% on room air oxygen. On 06/14/2024, the patient is being seen for a follow-up. Doing well and she is free of any chest pain and the patient remains on IV heparin. The patient is status post non-ST segment elevation myocardial infarction due to an underlying multivessel coronary artery disease. She is awake and alert and communicating. Denies having any chest pain or shortness of breath. No nausea or emesis and the patient remains in sinus rhythm and hemodynamically stable. The patient is to meet the cardiothoracic surgeon today. Sodium is at 140, BUN is 18 with a creatinine of 1.06. Potassium level is at 4.5. WBC count is at 5.2 with a hemoglobin of 11 and a platelet count of 256. No other significant events overnight. The plan is still still undergo cardiac revascularization surgery and the patient is meeting their cardiothoracic surgeon today. The patient will also have a ENT evaluation by Dr. Beaulieu regarding possibility of vocal cord dysfunction. On 06/15/2024, the patient is resting comfortably in bed. She is free of any chest pain. Scheduled tentatively for cardiac revascularization surgery on 06/17/2024. Meanwhile, the patient had an ENT evaluation and a direct laryngoscopy was also done and the patient was found to have a right vocal cord paralysis. This is probably related to an injury that occurred many years back and the patient required a tracheostomy tube insertion following a suicidal at [facility] and at that time the patient required intubation and long-term mechanical ventilation and tracheostomy tube insertion. Since then, the patient has been hoarse. No stridor. Rest of the medications remain unchanged. The patient remains on IV heparin. Hemodynamically stable. Cardiac rhythm is sinus. On 06/16/2024, no new complaints of the patient's condition remains essentially stable. Using incentive spirometer. Remains on IV heparin. Free of any chest pain or shortness of breath. The patient is scheduled to undergo coronary revascularization surgery on 06/17/2024. Labs were checked. Hemoglobin 11.6, white cell count 6.5, BUN 16 with a creatinine of 0.9 and sodium levels at 141. She remains on room air oxygen. No respiratory difficulties for now. Will continue to follow. 06/17/2024, the patient is being seen in the intensive care unit. The patient was seen immediately after the patient arrived to the intensive care unit following her off-pump four-vessel bypass surgery. The patient had JESSICA to LAD and sequential vein graft to obtuse marginal and third obtuse marginal branch/posterior lateral circumflex branch. Also had a saphenous vein graft to PDA. Postop, the patient was kept intubated on mechanical ventilator and the patient was brought in to the intensive care unit. At this point, the patient is sedated on propofol which is running at 20 mcg/kg/min. The patient arrived to the ICU on Cleviprex drip for blood pressure control and this was weaned off and discontinued. Currently, on assist-control mode rate of 14, tidal volume of 400, FiO2 of 50% with a PEEP of 5. Blood gas showed a pH of 7.43 with a pCO2 of 40 and pO2 of 338. Chest x-ray postop showed adequate positioning of the ET tube, and the patient has a right pleural left pleural and mediastinal chest tube. No evidence of any pneumothorax. There is some mild pulm vascular congestion and left basilar atelectatic change. [place]-Karen catheter is appropriately placed. The patient's cardiac output is at 4.6 with an index of 2.6. The patient is on insulin drip at 1 unit an hour. Cardiac rhythm is sinus. The output from the right right, left and mediastinal chest tube was noted. Output from mediastinal chest tube was 75, left was 50 and right was 0. No evidence of any air leak. Urine output is excellent at this point in time. The blood work showed a WBC count of 8.2 with a hemoglobin 8.5 and a platelet count of 143. Electrolytes are all within normal limits with a BUN of 12 and a creatinine of 0.7. The patient is slightly hypothermic and the patient has a Marcus hugger. Patient is currently postop day #0. On 06/18/2024, the patient is being seen for a follow-up. The patient is currently postop day #1 following coronary artery bypass surgery. The patient underwent an off-pump four-vessel bypass surgery. Noted, the patient had difficulties with weaning as the patient was becoming tachycardic and tachypneic while being checked for weaning parameters. Earlier this morning, the patient was taken off the propofol and Precedex. I noted that the patient was being ventilated through a #7 orotracheal tube. Weaning parameters were somewhat borderline. Nevertheless, the patient was unable to tolerate a spontaneous breathing trial due to a lower tidal volume. I was concerned that the smaller caliber ET tube was affecting her ability to wean. There is also an obvious ongoing concern for a right vocal cord paralysis with upper airway obstruction that may become an issue postextubation. Meanwhile, the patient was hemodynamically stable and doing well. Earlier this morning, her cardiac output was at 5.1 with an index of 2.9. PA pressures were 17/11. CVP was at 3. The chest tube output was noted and there was no evidence of any air leak. The mediastinal chest tube has produced 300 cc since surgery, left pleural 250 cc since surgery and right pleural 45 cc since surgery. The patient was started on mechanical ventilator on assist-control mode at rate of 12, tidal volume of 400, FiO2 of 40% with a PEEP of 5. She was on no pressors. Morning blood gases showed a pH of 7.41 with a pCO2 of 39 and pO2 of 79. Based on all this, I made the decision to extubate the patient to a BiPAP. The patient was extubated to the BiPAP and initially, she started having some tachypnea and subsequently respiratory rate improved. However, she started having audible stridor even at the BiPAP pressure of 14 over 5 cm of water with an FiO2 of 40%. She seems to be more comfortable. She was started on IV Solu-Medrol. She is also on a low- dose Precedex. She is being watched and monitored very closely, may need reintubation. The WBC count is 11.7 with hemoglobin 7.2 and a platelet count of 216. Sodium is at 133, BUN 17 with a creatinine of 0.6. Condition remains quite critical at this point in time and the patient is being monitored closely in the intensive care unit. 06/19/2024, the patient remains extubated. Noted postextubation, the patient encountered significant stridor which ultimately improved and the patient was supported on BiPAP throughout the night and she was given IV Solu-Medrol. Her stridor is less severe on today's evaluation and the patient is improved and the patient is able to talk and his voice is quite muffled still. Nevertheless, she feels much more comfortable. She is complaining of chest wall pain. She was transition to nasal cannula and the patient is currently on 5 L/min and her oxygenation is stable with a pulse ox of 96% on nasal cannula. Output from the chest tubes are minimal. The follow-up chest x-ray from today shows small left- sided pleural effusion. No pneumothorax. All of the chest tubes are in good location. Cardiac rhythm is sinus. Hemoglobin is 8.8. White cell count of 19 with a platelet count of 186. BUN is 17 with a creatinine of 0.7 and sodium levels at 142. She remains on insulin drip for blood sugar control which is running at 4 units an hour. She is using incentive spirometer. Pulling approximately 500. She is on metoprolol 50 mg p.o. twice daily and Cozaar was added at 50 mg p.o. daily. Precedex drip has been discontinued. Patient was seen today on 06/20/2024, patient remains in the ICU as an overflow, patient is hemodynamically stable, on 3 L nasal cannula, achieving 750 cc on incentive spirometry, chest x-ray showed mostly atelectasis specially in the lef t lower lobe area, doubt pneumonia, patient does not seem to be in any distress, she is not requiring any pressors or any inotropes. Plan is to transfer the patient sometime later today to evaluate cardiac floor WBC count is 16.2 hemoglobin 8.5 electrolytes are normal renal profile is normal Patient is now postoperative day #4, I am seeing her on 06/21/2024, patient remains in the ICU as an overflow, she is in sinus rhythm, hemodynamically stable, on nasal cannula at 1 L/min, chest x-ray seems to show improvement in her atelectasis bilaterally compared to yesterday. Patient is able to achieve 1000 cc on her incentive spirometry. She is ambulating with assistance, pain is relatively under control. WBC count is 13.3 hemoglobin 8.3 electrolytes are normal BUN is 38 creatinine 1.03 Seen today on 06/22/2024, she is now postoperative day #5. Patient is doing great, relatively asymptomatic, she still requires oxygen, patient may need home O2 at 1 or 2 L/min, chest x-ray showed improvement in her bibasilar atelectasis, patient clearly has restrictive and obstructive lung disease based on previous PFT, hence having the patient on home O2 and on bronchodilators in the form of DuoNeb is not inappropriate. Patient is being considered for discharge home today. Patient has mostly weakness, occasional cough, some wheezing, no fever no chills no hemoptysis. Objective - Vital Signs Vital signs: Vital Signs Temp 97.9 F 06/22/24 11:24 Pulse 81 06/22/24 11:24 Resp 14 06/22/24 11:24 BP 147/88 06/22/24 11:24 Pulse Ox 94 L 06/22/24 11:24 FiO2 40 06/19/24 07:46 Intake & Output 06/21/24 06/22/24 06/22/24 18:59 06:59 18:59 Intake Total 480 240 Output Total 1400 600 400 Balance -920 -360 -400 Weight 68.6 kg 68.6 kg Intake: Oral 480 240 Output: Urine 1400 600 400 Other: Voiding Method Bedside Commode Toilet Toilet # Voids 1 2 # Bowel Movements 1 ABP, PAP, CO, CI - Last Documented Arterial Blood Pressure 136/63 Pulmonary Artery Pressure 21/1 Cardiac Output 6.1 Cardiac Index 3.5 - Exam CONSTITUTIONAL: Revealed 74-year-old female in no distress RESPIRATORY: Diminished breath sounds at the bases, minimal wheezing on forced expiratory maneuver. CARDIOVASCULAR: Distant S1-S2, no S3 gallop, no murmur. GASTROINTESTINAL: Soft nontender no MAG no rebound no guarding INTEGUMENTARY: Skin is warm and dry NEUROLOGIC: Alert oriented x 3 no gross focal deficit MUSKULOSKELETAL: No deformities no limitation range of motion she does have history of right foot drop PSYCHIATRIC: Normal mood affect and no mental status examination - Labs CBC & Chem 7: 06/22/24 05:13 06/22/24 05:13 Labs: Abnormal Lab Results - Last 24 Hours (Table) 06/21/24 06/21/24 06/22/24 Range/Units 16:53 20:07 05:13 RBC 2.70 L (3.80-5.40) m/uL Hgb 8.4 L (11.4-16.0) gm/dL Hct 26.2 L (34.0-46.0) % Carbon Dioxide (22-30) mmol/L BUN (7-17) mg/dL Glucose (74-99) mg/dL POC Glucose (mg/dL) 119 H 126 H (70-110) mg/dL 06/22/24 06/22/24 Range/Units 05:13 11:16 RBC (3.80-5.40) m/uL Hgb (11.4-16.0) gm/dL Hct (34.0-46.0) % Carbon Dioxide 31 H (22-30) mmol/L BUN 25 H (7-17) mg/dL Glucose 101 H (74-99) mg/dL POC Glucose (mg/dL) 202 H (70-110) mg/dL Assessment and Plan Assessment: Impression: Multivessel coronary artery disease, non-ST elevated myocardial infarction this admission, status post four-vessel off-pump CABG, postoperative day #5 Moderate size hiatal hernia found on CT scan, no surgical intervention planned at this time Very brief episode of atrial fibrillation pre and postoperative, status post ligation of the left atrial appendage, currently sinus rhythm Benign essential hypertension Dyslipidemia History of right vocal cord paralysis Tracheostomy 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 status post reversal 50 years ago History of depression History of restrictive lung disease Chronic back pain, and right foot drop Lifelong non-smoker Recommendation: Continue beta-blockers Plavix statin and aspirin Continue incentive spirometry, and continue ambulation patient to take incentive spirometry with her if discharged home today Continue GI prophylaxis and DVT prophylaxis Agree with discharge planning, follow-up on outpatient basis May need home O2 at 2 L/min May need bronchodilators/DuoNeb updraft 4 times daily and as needed Time with Patient: Less than 30
[2024-06-22 15:52] VITALS: BP 138/95; PULSE 88; RESP 16; TEMP 97.7
== END 2024-06-22 16:10 | disposition home health service (06) | DRG 233 ==
LOC: EC 10:24 → 1SOBS 12:03 → 6NMEDSUR 18:08 → 3SCARD 20:40 → OBSVTOIN 06-11 19:10 → 2SICU 06-17 06:31
PROVIDERS: ADMIT Thoracic Surgery (Cardiothoracic Vascular Surgery); ATTEND Thoracic Surgery (Cardiothoracic Vascular Surgery)
PROC: 4A023N7 Measurement of Cardiac Sampling and Pressure, Left Heart, Percutaneous Approach (ICD-10-PCS; 2024-06-11)
PROC: B2111ZZ Fluoroscopy of Multiple Coronary Arteries using Low Osmolar Contrast (ICD-10-PCS; 2024-06-11)
PROC: 0CJS8ZZ Inspection of Larynx, Via Natural or Artificial Opening Endoscopic (ICD-10-PCS; 2024-06-14)
PROC: 06BQ4ZZ Excision of Left Saphenous Vein, Percutaneous Endoscopic Approach (ICD-10-PCS; 2024-06-17)
PROC: 06BP4ZZ Excision of Right Saphenous Vein, Percutaneous Endoscopic Approach (ICD-10-PCS; 2024-06-17)
PROC: 02L70CK Occlusion of Left Atrial Appendage with Extraluminal Device, Open Approach (ICD-10-PCS; 2024-06-17)
PROC: B24BZZ4 Ultrasonography of Heart with Aorta, Transesophageal (ICD-10-PCS; 2024-06-17)
PROC: 02100Z9 Bypass Coronary Artery, One Artery from Left Internal Mammary, Open Approach (ICD-10-PCS; principal; 2024-06-17 08:00)
PROC: 021209W Bypass Coronary Artery, Three Arteries from Aorta with Autologous Venous Tissue, Open Approach (ICD-10-PCS; 2024-06-17 08:00)
PROC: 5A09457 Assistance with Respiratory Ventilation, 24-96 Consecutive Hours, Continuous Positive Airway Pressure (ICD-10-PCS; 2024-06-18)
DX: I21.4 Non-ST elevation (NSTEMI) myocardial infarction (principal); J96.01 Acute respiratory failure with hypoxia; J38.01 Paralysis of vocal cords and larynx, unilateral; E87.1 Hypo-osmolality and hyponatremia; J44.9 Chronic obstructive pulmonary disease, unspecified; Z93.0 Tracheostomy status; I10 Essential (primary) hypertension; F32.A Depression, unspecified; D62 Acute posthemorrhagic anemia; J98.11 Atelectasis; I25.10 Atherosclerotic heart disease of native coronary artery without angina pectoris; K44.9 Diaphragmatic hernia without obstruction or gangrene; I48.91 Unspecified atrial fibrillation; E78.5 Hyperlipidemia, unspecified; J98.4 Other disorders of lung; G89.29 Other chronic pain; M21.371 Foot drop, right foot; K59.09 Other constipation; K21.9 Gastro-esophageal reflux disease without esophagitis; M54.50 Low back pain, unspecified; G47.00 Insomnia, unspecified; Z86.19 Personal history of other infectious and parasitic diseases; Z91.51 Personal history of suicidal behavior; Z88.8 Allergy status to other drugs, medicaments and biological substances
CPT/HCPCS: 36415; 70490; 71045; 71046; 71250; 71275; 74018; 80048; 80053; 80061; 80074; 81001; 82330; 82805; 83036; 83735; 83880; 84132; 84443; 84484; 85025; 85027; 85379; 85610; 85730; 86850; 86900; 86901; 86920; 87070; 93005; 93306; 93458; 93880; 93922; 93970; 94002; 94003; 94150; 94640; 94660; 96365; 96366; 96375; 99285

== ENCOUNTER 2024-06-30 18:35 | Inpatient (IN) | payer MEDICARE, OTHER ==
[2024-06-30] MEDS: SODIUM CHLORIDE 0.9% 500 ML 500 ML IV STA (19:04)
[2024-06-30 19:05] LABS: Basophils % (A) 0 %; Eosinophils # (A) 0.2 k/uL (0-0.7); Eosinophils % (A) 3 %; HCT 26.6 % (34.0-46.0); HGB 8.5 gm/dL (11.4-16.0); Hypochromasia Slight; Lymphocytes # (A) 0.3 k/uL (1.0-4.8); Lymphocytes % (A) 3 %; MCH 31.5 pg (25.0-35.0); MCHC 32.1 g/dL (31.0-37.0); MCV 98.1 fL (80.0-100.0); Mean Platelet Volume 7.2; Monocytes # (A) 0.5 k/uL (0-1.0); Monocytes % (A) 6 %; Neutrophils # (A) 7.7 k/uL (1.3-7.7); Neutrophils % (A) 87 %; Platelet Count 471 k/uL (150-450); RBC 2.71 m/uL (3.80-5.40); RDW 14.6 % (11.5-15.5); WBC 8.9 k/uL (3.8-10.6)
[2024-06-30] MEDS: methylPREDNISolone SOD SUCCI 125 MG/2 ML VIAL IV STA (19:06)
--- NOTE | 2024-06-30 19:17 | ED ---
General Adult HPI - General Chief complaint: Shortness of Breath Stated complaint: breathing post op Time Seen by Provider: 06/30/24 18:41 Source: patient, family, RN notes reviewed, old records reviewed Mode of arrival: wheelchair Limitations: no limitations - History of Present Illness Initial comments: Patient is a 74-year-old female who presents emergency department complaining of shortness of breath. Has a history of prior tracheostomy status post removal, paralyzed vocal cord, COPD, recent CABG on June 17, 2024. This was done by Dr. Jimenez. Presents emergency department complaining of shortness of breath. Has progressively gotten worse throughout the day today. Started this afternoon. Denies any chest pain. Endorses some nausea and vomiting. Endorses cough, somewhat productive of a clear sputum. This is more over the last few hours as well. Is chronically on 2 L nasal cannula at home. Denies any abdominal pain. Denies any sick contacts. Presents for further evaluation at this time. - Related Data Home Medications Medication Instructions Recorded Confirmed DULoxetine HCL [Cymbalta] 60 mg PO BID 06/10/24 06/30/24 HYDROcodone/APAP 10-325MG [[place] 1 tab PO TID PRN 06/10/24 06/30/24 10-325] oxyCODONE HCL [OxyCONTIN] 30 mg PO TID PRN 06/10/24 06/30/24 traZODone HCL [Desyrel] 200 mg PO HS 06/10/24 06/30/24 Ipratropium-Albuterol Nebulize 3 ml INHALATION RT-QID 06/30/24 06/30/24 [Duoneb 0.5 mg-3 mg/3 ml Soln] Sennosides-Docusate Sodium 2 tab PO HS PRN 06/30/24 06/30/24 [Senokot-S] Previous Rx's Medication Instructions Recorded Acetaminophen Tab [Tylenol] 1,000 mg PO Q6HR PRN tab 06/21/24 Ascorbic Acid [Vitamin C] 500 mg PO BID-W/MEALS #28 tab 06/21/24 Aspirin 325 mg PO DAILY #30 tab 06/21/24 Atorvastatin [Lipitor] 80 mg PO HS #30 tab 06/21/24 Clopidogrel [Plavix] 75 mg PO DAILY #30 tab 06/21/24 Ferrous Sulfate [Iron (65 MG 325 mg PO BID-W/MEALS #28 tab 06/21/24 Elemental)] Losartan [Cozaar] 50 mg PO DAILY@1200 #30 tab 06/21/24 Pantoprazole [Protonix] 40 mg PO AC-BRKFST #30 tab 06/21/24 polyethylene glycoL 3350 [Miralax] 17 gm PO DAILY PRN packet 06/21/24 Metoprolol Tartrate [Lopressor] 75 mg PO BID #60 tablet 06/22/24 Allergies Allergy/AdvReac Type Severity Reaction Status Date / Time lorazepam [From Ativan] Allergy Unknown Verified 06/30/24 20:07 Review of Systems ROS Statement: Those systems with pertinent positive or pertinent negative responses have been documented in the HPI. Review of Systems: CONST: Denies fever EYES: Denies blurry vision ENT: Denies nasal congestion C/V: Denies Chest pain RESP: Endorses shortness of breath GI: Denies abdominal pain : Denies dysuria SKIN: Denies rash. MSK: Denies joint pain. NEURO: Denies headache ROS Other: All systems not noted in ROS Statement are negative. 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 History of Any Multi-Drug Resistant Organisms: None Reported Past Surgical History: Back Surgery, Orthopedic Surgery Additional Past Surgical History / Comment(s): trachea surgery Past Anesthesia/Blood Transfusion Reactions: No Reported Reaction Past Psychological History: Depression Smoking Status: Never smoker Past Alcohol Use History: None Reported Past Drug Use History: None Reported - Past Family History Father Family Medical History: Cancer, Dementia Mother Additional Family Medical History / Comment(s): Gastrointestinal issues General Exam - General Exam Comments Initial Comments: General: Appears in mild distress. HEAD: Normal with no signs of head trauma. EYES: PERRLA, EOMI, conjunctiva normal, no discharge. ENT: Hearing grossly intact, normal oropharynx. RESPIRATORY: Coarse breath sounds bilaterally. Increased work of breathing. Chronic hypoxic respiratory failure. Ranging between 90 and 95% on 2 to 3 L nasal cannula which is near baseline. C/V: Borderline tachycardia. Regular rhythm.. S1 and S2 auscultated, no edema, peripheral pulses 2+ and intact throughout ABD: Abd is soft, nontender, nondistended EXT: Normal range of motion, no obvious deformity SKIN: No rashes or lesions observed on exposed skin. NEURO: Alert and oriented x 4. Limitations: no limitations Course Vital Signs 06/30/24 06/30/24 06/30/24 18:38 19:21 19:26 Temperature 99.0 F Pulse Rate 116 H 105 H 103 H Respiratory 44 H Rate Blood Pressure 123/75 O2 Sat by Pulse 95 Oximetry 06/30/24 06/30/24 06/30/24 20:09 20:30 21:01 Temperature Pulse Rate 106 H 112 H 125 H Respiratory 22 24 Rate Blood Pressure 158/81 144/102 O2 Sat by Pulse 94 L 92 L Oximetry 06/30/24 06/30/24 21:07 21:54 Temperature 101.0 F H Pulse Rate 120 H 105 H Respiratory 22 Rate Blood Pressure 154/83 O2 Sat by Pulse 94 L Oximetry Medical Decision Making - Medical Decision Making Was pt. sent in by a medical professional or institution (, PA, SUPERVISOR PAPER MACHINE, urgent care, hospital, or longterm...) When possible be specific @ -No Did you speak to anyone other than the patient for history (EMS, parent, family, police, friend...)? What history was obtained from this source @ -Patient's daughter assist with patient's past medical history. Apparently attended multiple doctors appointments yesterday. Began experiencing symptoms today. Is normally on oxygen at home. Did you review nursing and triage notes (agree or disagree)? Why? @ -I reviewed and agree with nursing and triage notes Were old charts reviewed (outside hosp., previous admission, EMS record, old E KG, old radiological studies, urgent care reports/EKG's, longterm records)? Report findings @ -Reviewed old charts from June 2024 admission for CABG surgery. This includes EKG from June 17 which appears relatively unchanged when compared with today's EKG. Differential Diagnosis (chest pain, altered mental status, abdominal pain women, abdominal pain men, vaginal bleeding, weakness, fever, dyspnea, syncope, headache, dizziness, GI bleed, back pain, seizure, CVA, palpatations, mental health, musculoskeletal)? @ -Differential Dyspnea: Coronary syndrome, arrhythmia, tamponade, asthma, COPD, pulmonary embolism, pneumonia, pneumothorax, pulmonary effusion, anaphylaxis, diabetic ketoacidosis, flailed chest, pulmonary contusion, diaphragmatic rupture, anemia, neuromuscular, this is not meant to be an all-inclusive list. EKG interpreted by me (3pts min.). @ -As above X-rays interpreted by me (1pt min.). @ -Chest x-ray reveals possible pneumonia. CT interpreted by me (1pt min.). @ -CT PE negative for pulmonary embolism. Trace bilateral pleural effusions present. U/S interpreted by me (1pt. min.). @ -None done What testing was considered but not performed or refused? (CT, X-rays, U/S, labs)? Why? @ -None What meds were considered but not given or refused? Why? @ -None Did you discuss the management of the patient with other professionals (professionals i.e. , PA, SUPERVISOR PAPER MACHINE, lab, RT, psych nurse, social service coordinator, ceramic engineering professor, teacher, credit or loans officer, case resource manager)? Give summary @ -I did discuss the case with on-call cardiothoracic surgeon, Dr. Clemente who is in agreement with plan for trending the troponin. Discussed involving cardiology however patient would like to hold at this time. They will involve cardiology if needed. They will evaluate the patient in morning and was in agreement plan for trending the troponins. I spoke with the admitting provider, Dr. Camejo who accepted the admission. Was smoking cessation discussed for >3mins.? @ -No Was critical care preformed (if so, how long)? @ -yes, 35 minutes Were there social determinants of health that impacted care today? How? (Homelessness, low income, unemployed, alcoholism, drug addiction, transportat ion, low edu. Level, literacy, decrease access to med. care, longterm, rehab)? @ -No Was there de-escalation of care discussed even if they declined (Discuss DNR or withdrawal of care, Hospice)? DNR status @ -No What co-morbidities impacted this encounter? (DM, HTN, Smoking, COPD, CAD, Cancer, CVA, ARF, Chemo, Hep., AIDS, mental health diagnosis, sleep apnea, morbid obesity)? @ -COPD, CABG Was patient admitted / discharged? Hospital course, mention meds given and route, prescriptions, significant lab abnormalities, going to OR and other pertinent info. @ -Based on the patient's presentation and physical exam, presents emergency department complaining of shortness of breath. Patient does have some increased work of breathing. Patient does have coarse breath sounds with wheezing bilaterally. Will patent obtain generalized cardiopulmonary workup. Patient was in agreement this plan. She will be given a small fluid bolus as well as 2 breathing treatments, IV Solu-Medrol. Patient was in agreement this plan. EKG showed sinus tachycardia but no signs of acute ischemia.Chest x-ray returned remarkable for possible pneumonia. Labs remarkable for chronic anemia with a hemoglobin of 8.5. D-dimer was elevated at 5.[address] PE will be obtained. CT PE negative. Troponin was elevated at 0.194 and BNP was elevated at 2800. Patient is influenza A positive. Cardiac enzyme elevation likely related to recent CABG. Patient was given 324 mg of aspirin as well as started on Tamiflu, and antibiotics Rocephin and azithromycin for pneumonia. Will monitor fluid intake closely. Patient now has a fever and is meeting sepsis criteria considering heart rate as well as fever. Sepsis is likely secondary to influenza and pneumonia. Patient did meet sepsis criteria at 1947. Blood culture was sent. Patient started on empiric antibiotics. Patient will not be provided the 30 cc/kg fluid bolus as the patient's BNP is elevated and with recent CABG I do not want to volume overload the patient over concern for possible volume overload state. Pressures are within acceptable limits and we will continue to monitor. I did discuss the case with on-call cardiothoracic surgeon, Dr. Clemente who is in agreement with plan for trending the troponin. Discussed involving cardiology however patient would like to hold at this time. They will involve cardiology if needed. They will evaluate the patient in morning and was in agreement plan for trending the troponins. Pulmonology will evaluate the patient for pneumonia, COPD, flu. Will continue with IV steroids, breathing treatments, antibiotics, Tamiflu. Patient was in agreement this plan. Family was in agreement this plan. She is resting comfortably at this time. Vital signs other than tachycardia within acceptable limits but patient did not take her evening dose of metoprolol and as stated above, was febrile at this time. Given Tylenol will continue to monitor. I spoke with the admitting provider, Dr. Camejo who accepted the admission. Undiagnosed new problem with uncertain prognosis? @ -No Drug Therapy requiring intensive monitoring for toxicity (Heparin, Nitro, Insulin, Cardizem)? @ -No Were any procedures done? @ -No Diagnosis/symptom? @ -Sepsis secondary to influenza, pneumonia. Recent CABG with elevated t roponin. Chronic hypoxic respiratory failure Acute, or Chronic, or Acute on Chronic? @ -Acute Uncomplicated (without systemic symptoms) or Complicated (systemic symptoms)? @ -Complicated Side effects of treatment? @ -None Exacerbation, Progression, or Severe Exacerbation] @ -No Poses a threat to life or bodily function? @ -Yes - Lab Data Result diagrams: 06/30/24 18:54 06/30/24 18:54 Lab Results 06/30/24 06/30/24 06/30/24 Range/Units 18:54 18:54 18:54 WBC 8.9 (3.8-10.6) k/uL RBC 2.71 L (3.80-5.40) m/uL Hgb 8.5 L (11.4-16.0) gm/dL Hct 26.6 L (34.0-46.0) % MCV 98.1 (80.0-100.0) fL MCH 31.5 (25.0-35.0) pg MCHC 32.1 (31.0-37.0) g/dL RDW 14.6 (11.5-15.5) % Plt Count 471 H (150-450) k/uL MPV 7.2 Neutrophils % 87 % Lymphocytes % 3 % Monocytes % 6 % Eosinophils % 3 % Basophils % 0 % Neutrophils # 7.7 (1.3-7.7) k/uL Lymphocytes # 0.3 L (1.0-4.8) k/uL Monocytes # 0.5 (0-1.0) k/uL Eosinophils # 0.2 (0-0.7) k/uL Basophils # 0.0 (0-0.2) k/uL Hypochromasia Slight PT 10.3 (10.0-12.5) sec INR 0.9 (<1.2) APTT 24.6 (22.0-30.0) sec D-Dimer 5.44 H (<0.60) mg/L FEU VBG pH (7.31-7.41) VBG pCO2 (37-51) mmHg VBG HCO3 (24-28) mmol/L Sodium (137-145) mmol/L Potassium (3.5-5.1) mmol/L Chloride (98-107) mmol/L Carbon Dioxide (22-30) mmol/L Anion Gap mmol/L BUN (7-17) mg/dL Creatinine (0.52-1.04) mg/dL Est GFR (CKD-EPI)AfAm (>60 ml/min/1.73 sqM) Est GFR (CKD-EPI)NonAf (>60 ml/min/1.73 sqM) Glucose (74-99) mg/dL Plasma Lactic Acid [place] (0.7-2.0) mmol/L Calcium (8.4-10.2) mg/dL Magnesium (1.6-2.3) mg/dL Total Bilirubin (0.2-1.3) mg/dL AST (14-36) U/L ALT (4-34) U/L Alkaline Phosphatase (38-126) U/L Troponin I (0.000-0.034) ng/mL NT-Pro-B Natriuret Pep pg/mL Total Protein (6.3-8.2) g/dL Albumin (3.5-5.0) g/dL Urine Color Yellow Urine Appearance Clear (Clear) Urine pH 6.0 (5.0-8.0) Ur Specific [place] 1.050 H (1.001-1.035) Urine Protein Trace H (Negative) Urine Glucose (UA) Negative (Negative) Urine Ketones Negative (Negative) Urine Blood Negative (Negative) Urine Nitrite Negative (Negative) Urine Bilirubin Negative (Negative) Urine Urobilinogen 2.0 (<2.0) mg/dL Ur Leukocyte Esterase Negative (Negative) Influenza Type A (PCR) (Not Detectd) Influenza Type B (PCR) (Not Detectd) RSV (PCR) (Not Detectd) SARS-CoV-2 (PCR) (Not Detectd) 06/30/24 06/30/24 06/30/24 Range/Units 18:54 18:54 18:54 WBC (3.8-10.6) k/uL RBC (3.80-5.40) m/uL Hgb (11.4-16.0) gm/dL Hct (34.0-46.0) % MCV (80.0-100.0) fL MCH (25.0-35.0) pg MCHC (31.0-37.0) g/dL RDW (11.5-15.5) % Plt Count (150-450) k/uL MPV Neutrophils % % Lymphocytes % % Monocytes % % Eosinophils % % Basophils % % Neutrophils # (1.3-7.7) k/uL Lymphocytes # (1.0-4.8) k/uL Monocytes # (0-1.0) k/uL Eosinophils # (0-0.7) k/uL Basophils # (0-0.2) k/uL Hypochromasia PT (10.0-12.5) sec INR (<1.2) APTT (22.0-30.0) sec D-Dimer (<0.60) mg/L FEU VBG pH (7.31-7.41) VBG pCO2 (37-51) mmHg VBG HCO3 (24-28) mmol/L Sodium 138 (137-145) mmol/L Potassium 4.1 (3.5-5.1) mmol/L Chloride 97 L (98-107) mmol/L Carbon Dioxide 34 H (22-30) mmol/L Anion Gap 7 mmol/L BUN 18 H (7-17) mg/dL Creatinine 0.83 (0.52-1.04) mg/dL Est GFR (CKD-EPI)AfAm 81 (>60 ml/min/1.73 sqM) Est GFR (CKD-EPI)NonAf 70 (>60 ml/min/1.73 sqM) Glucose 135 H (74-99) mg/dL Plasma Lactic Acid [place] 1.2 (0.7-2.0) mmol/L Calcium 8.8 (8.4-10.2) mg/dL Magnesium 2.0 (1.6-2.3) mg/dL Total Bilirubin 0.6 (0.2-1.3) mg/dL AST 20 (14-36) U/L ALT 12 (4-34) U/L Alkaline Phosphatase 70 (38-126) U/L Troponin I 0.194 H* (0.000-0.034) ng/mL NT-Pro-B Natriuret Pep 2830 pg/mL Total Protein 6.1 L (6.3-8.2) g/dL Albumin 3.6 (3.5-5.0) g/dL Urine Color Urine Appearance (Clear) Urine pH (5.0-8.0) Ur Specific [place] (1.001-1.035) Urine Protein (Negative) Urine Glucose (UA) (Negative) Urine Ketones (Negative) Urine Blood (Negative) Urine Nitrite (Negative) Urine Bilirubin (Negative) Urine Urobilinogen (<2.0) mg/dL Ur Leukocyte Esterase (Negative) Influenza Type A (PCR) (Not Detectd) Influenza Type B (PCR) (Not Detectd) RSV (PCR) (Not Detectd) SARS-CoV-2 (PCR) (Not Detectd) 06/30/24 06/30/24 Range/Units 18:54 19:48 WBC (3.8-10.6) k/uL RBC (3.80-5.40) m/uL Hgb (11.4-16.0) gm/dL Hct (34.0-46.0) % MCV (80.0-100.0) fL MCH (25.0-35.0) pg MCHC (31.0-37.0) g/dL RDW (11.5-15.5) % Plt Count (150-450) k/uL MPV Neutrophils % % Lymphocytes % % Monocytes % % Eosinophils % % Basophils % % Neutrophils # (1.3-7.7) k/uL Lymphocytes # (1.0-4.8) k/uL Monocytes # (0-1.0) k/uL Eosinophils # (0-0.7) k/uL Basophils # (0-0.2) k/uL Hypochromasia PT (10.0-12.5) sec INR (<1.2) APTT (22.0-30.0) sec D-Dimer (<0.60) mg/L FEU VBG pH 7.42 H (7.31-7.41) VBG pCO2 54 H (37-51) mmHg VBG HCO3 34 H (24-28) mmol/L Sodium (137-145) mmol/L Potassium (3.5-5.1) mmol/L Chloride (98-107) mmol/L Carbon Dioxide (22-30) mmol/L Anion Gap mmol/L BUN (7-17) mg/dL Creatinine (0.52-1.04) mg/dL Est GFR (CKD-EPI)AfAm (>60 ml/min/1.73 sqM) Est GFR (CKD-EPI)NonAf (>60 ml/min/1.73 sqM) Glucose (74-99) mg/dL Plasma Lactic Acid [place] (0.7-2.0) mmol/L Calcium (8.4-10.2) mg/dL Magnesium (1.6-2.3) mg/dL Total Bilirubin (0.2-1.3) mg/dL AST (14-36) U/L ALT (4-34) U/L Alkaline Phosphatase (38-126) U/L Troponin I (0.000-0.034) ng/mL NT-Pro-B Natriuret Pep pg/mL Total Protein (6.3-8.2) g/dL Albumin (3.5-5.0) g/dL Urine Color Urine Appearance (Clear) Urine pH (5.0-8.0) Ur Specific [place] (1.001-1.035) Urine Protein (Negative) Urine Glucose (UA) (Negative) Urine Ketones (Negative) Urine Blood (Negative) Urine Nitrite (Negative) Urine Bilirubin (Negative) Urine Urobilinogen (<2.0) mg/dL Ur Leukocyte Esterase (Negative) Influenza Type A (PCR) Detected A (Not Detectd) Influenza Type B (PCR) Not Detected (Not Detectd) RSV (PCR) Not Detected (Not Detectd) SARS-CoV-2 (PCR) Not Detected (Not Detectd) - EKG Data -: EKG Interpreted by Me EKG Comments: 12-lead Electrocardiogram Interpretation Note EKG was reviewed and interpreted by myself. 12-lead ECG performed at 1844 is interpreted by me as revealing sinus tachycardia at a rate of 104 beats per minute. [place] is normal. MD interval is 142 ms, QRS durations 89 ms, QTc is 383 ms.. There were no ST or T wave abnormalities to suggest myocardial ischemia or injury. R wave progression across the precordium was satisfactory. By my interpretation this EKG is non-diagnostic for acute ischemia. Critical Care Time Critical Care Time: Yes Total Critical Care Time: 35 Disposition Clinical Impression: Sepsis, Chronic hypoxic respiratory failure, COPD (chronic obstructive pulmonary disease), Influenza A, Pneumonia, Elevated troponin Disposition: ADMITTED IP TO THIS HOSP Condition: Serious Referrals: None,Stated [Primary Care Provider] - 1-2 days Time of Disposition: 22:00
[2024-06-30] MEDS: IPRATROPIUM-ALBUTEROL 3 ML NEB INHALATION STA ×2 (19:19→20:33)
--- NOTE | 2024-06-30 19:25 | XR ---
EXAMINATION TYPE: XR chest 1V portable DATE OF EXAM: 06/30/2024 6:56 PM COMPARISON: 06/22/2024 CLINICAL INDICATION: Female, 74 years old with history of shortness of breath, TECHNIQUE: XR chest 1V portable view(s) obtained. FINDINGS: The heart size is enlarged. The pulmonary vasculature is normal. Retrocardiac infiltrate may be present. Small left pleural effusion is present. IMPRESSION: 1. Cardiomegaly. 2. Retrocardiac infiltrate with a small left pleural effusion. [facility], Workstation: [email or web address], 06/30/2024 7:23 PM
[2024-06-30 19:26] LABS: ALT 12 U/L (4-34); AST 20 U/L (14-36); African American GFR (CKD) 81 (>60 ml/min/1.73 sqM); Albumin 3.6 g/dL (3.5-5.0); Alkaline Phosphatase 70 U/L (38-126); Anion Gap 7 mmol/L; Blood Urea Nitrogen 18 mg/dL (7-17); Calcium 8.8 mg/dL (8.4-10.2); Carbon Dioxide 34 mmol/L (22-30); Chloride 97 mmol/L (98-107); Glucose 135 mg/dL (74-99); Non-African American GFR(CKD) 70 (>60 ml/min/1.73 sqM); Potassium 4.1 mmol/L (3.5-5.1); Sodium 138 mmol/L (137-145); Total Bilirubin 0.6 mg/dL (0.2-1.3); Total Protein 6.1 g/dL (6.3-8.2)
[2024-06-30 19:33] LABS: NT-Pro-B-Type Natriuretic Pept 2830 pg/mL
[2024-06-30 19:40] LABS: INR 0.9 (<1.2); Partial Thromboplastin Time 24.6 sec (22.0-30.0); Prothrombin Time 10.3 sec (10.0-12.5)
[2024-06-30 19:41] LABS: Influenza A Detected (Not Detectd); Influenza B Not Detected (Not Detectd); RSV Not Detected (Not Detectd)
[2024-06-30] MEDS ORDERED: PNEUMONIA PROTOCOL UTILIZED 1 EACH MISC PO PRN (19:47)
[2024-06-30 19:57] LABS: VBG PH 7.42 (7.31-7.41)
[2024-06-30] MEDS: ASPIRIN 81 MG PO STA (20:28)
[2024-06-30] MEDS: OSELTAMIVIR 75 MG CAP PO STA (20:29)
[2024-06-30] MEDS: oxyCODONE ER 15 MG TAB.ER.12H PO STA (20:43)
[2024-06-30] MEDS: IPRATROPIUM-ALBUTEROL 3 ML NEB INHALATION PRN (21:01)
[2024-06-30 21:29] LABS: Appearance,Urine Clear (Clear); Bilirubin,Urine Negative (Negative); Blood,Urine Negative (Negative); Color,Urine Yellow; Glucose,Urine (UA) Negative (Negative); Ketones,Urine Negative (Negative); Leukocyte Esterase,Urine Negative (Negative); Nitrite,Urine Negative (Negative); Protein,Urine Trace (Negative)
[2024-06-30] MEDS: AZITHROMYCIN 500 MG in SODIUM CHLORIDE 0.9% 250 ML IVPB STA (21:38)
--- NOTE | 2024-06-30 21:42 | CT ---
EXAMINATION TYPE: CT chest angio for PE DATE OF EXAM: 06/30/2024 8:20 PM COMPARISON: None. CLINICAL INDICATION: Female, 74 years old with history of eval for PE, R/O PE. Attempts to acquire ad ditional history were unsuccessful. The patient has paralyzed vocal cords and no other history could be obtained. TECHNIQUE: CT of the chest is performed on a spiral scan at 2 mm thick sections. Study is performed with intravenous contrast timed for evaluation for pulmonary embolism. This will limit additional po rtions of the evaluation. 3-D MIP images reconstructed by the technologist are reviewed on the compu ter in the coronal and sagittal planes. Contrast used:80 ml mL of Isovue 370 with IV Contrast, (none if empty) Oral contrast used: (none if empty) CT DLP: 428.9 mGycm, Automated exposure control for dose reduction was used. FINDINGS: No persistent filling defects are evident to suggest an acute pulmonary embolism. No mediastinal or hilar adenopathy enlarged by CT criteria is evident. The ascending aorta diameter at the level of the main pulmonary artery is 3.3 cm. The main pulmonary artery diameter at the bifurcation is 3.0 cm. Small bilateral pleural effusions are present. Limited CT sections were through the upper abdomen. Upper abdomen appears unremarkable. IMPRESSION: 1. No acute pulmonary embolism. 2. Small bilateral pleural effusions [facility], Workstation: [facility], 06/30/2024 9:39 PM
[2024-06-30] MEDS ORDERED: ONDANSETRON 4 MG/2 ML VIAL IVP PRN (22:00)
[2024-06-30] MEDS ORDERED: ACETAMINOPHEN TAB 325 MG TAB PO PRN (22:00)
[2024-06-30] MEDS ORDERED: NALOXONE 0.4 MG/ML 1 ML VIAL IV PRN (22:00)
[2024-06-30] MEDS: ACETAMINOPHEN TAB 500 MG TAB PO STA (22:09)
[2024-06-30] MEDS: traZODone HCL 100 MG TAB PO SCH (22:12)
[2024-06-30] MEDS: DULoxetine HCL 60 MG CAPSULE.DR PO SCH (22:12)
[2024-06-30] MEDS: METOPROLOL TARTRATE 25 MG TAB PO SCH (23:20)
[2024-06-30] MEDS: ONDANSETRON 4 MG/2 ML VIAL IVP STA (23:20)
[2024-06-30] MEDS: HEPARIN SODIUM,PORCINE 5,000 UNIT/ML 1 ML VIAL SQ SCH (23:20)
--- NOTE | 2024-07-01 00:31 | P.HPIM ---
History of Present Illness H&P Date: 06/30/24 Chief Complaint: Shortness of breath Patient is a 74-year-old female with past medical history of hypertension and history of tracheostomy around 40 years ago, paralyzed vocal cord, COPD, and recent CABG on June 17, 2024 who presented to the ED with a chief complaint of shortness of breath. Patient states her symptoms started today progressively got worse. She also endorses some centralized chest pain with no radiation and endorses inability to take deep breaths. He also reports a cough with clear sputum. Patient states that she wears 2 L nasal cannula of oxygen at home. Patient also endorses orthopnea and states she has to sleep propped up with 3 pillows. She also states she has some nausea she denies fevers, chills, vomiting, diarrhea. It is of note that patient had recent admission on 06/10/2024 for chest pain and was admitted for NSTEMI. Patient underwent cardiac catheterization the following day and was found to have calcified left main and LAD, totally occluded proximal LAD with collaterals noted, significant disease in the left circumflex, OM1, left PLV, and mid codominant RCA with elevated LVEDP. Cardiothoracic surgery was consulted and patient underwent four-vessel CABG. Patient was monitored in the ICU postoperatively routinely without c omplication and patient was discharged home on the with dual antiplatelet therapy and close follow-up with CT surgery, cardio. Review of systems: Pertinent positives and negatives as discussed in HPI, a complete review of systems was performed and all other systems are negative. Allergies: Ativan PCP: Denies having Social history: Tobacco: Denies Alcohol: None Recreational drugs: None Travel: None Sick contacts: None Physical examination: Vitals on admission temperature 99 degrees, heart rate 116 bpm, respiratory rate 44, blood pressure 123/75, saturating 95% on 4 L nasal cannula General: Mild distress, somewhat tremulous, appears at stated age, some conversational dyspnea noted, currently on 4 L nasal cannula, patient has soft voice due to known history of vocal cord paralysis Derm: warm, dry, intact Head: atraumatic, normocephalic, symmetric Eyes: anicteric sclera Mouth: no lip lesion, mucus membranes moist Cardiovascular: S1 S2 reg, no murmur Lungs: Coarse breath sounds bilaterally, increased work of breathing, shallow breaths, no wheezing noted Abdominal: soft, nondistended, epigastric tenderness, no abdominal bruits Extremities: No cyanosis, clubbing, or pedal edema. Neuro: alert Oriented to time person and place, Gross neurological examination did not reveal any focal deficits. Cranial nerves II to XII grossly intact. Bilateral upper and lower extremity muscle strength intact and sensation intact. patient has preexisting right foot drop Psych: Ill appearing surgical site looks clean dry and well healing , no surrounding erythema or drainage Assessment/Plan: Patient is a 74-year-old female with past medical history of hypertension and history of tracheostomy with paralyzed vocal cord, COPD and recent CABG presented with chief complaint of shortness of breath. Case was discussed with the ED physician and patient will be admitted to internal medicine service for further management of sepsis, acute on chronic hypoxic respiratory failure, acute COPD exacerbation. Labs on admission show WBC 6.9, hemoglobin 8.5, MCV 98, platelets 471. PT 10.3, INR 0.9, PTT 24.6. D-dimer 5.44. Sodium 138, potassium 4.1, chloride 97, bicarb 34, BUN 18, creatinine 0.83, glucose 135. Lactate 1.2. Calcium 8.8. Magnesium 2.0. LFTs unremarkable. Troponin 0.194. UA unremarkable. VBG pH 7.42, pCO2 54, bicarb 34. Active: Sepsis secondary to influenza A pneumonia Acute on chronic hypoxic respiratory failure Acute COPD exacerbation VBG pH 7.42, pCO2 54, bicarb 34. Cepheid positive for influenza A CXR shows cardiomegaly, retrocardiac infiltrate with small left pleural effusion Currently on 4 L nasal cannula Wean oxygen as tolerated to maintain oxygen saturations of greater than 94% DuoNebs every 4 hours as needed Consult pulmonology s/p one time dose azithromycin 500 mg s/p one time dose of ceftriaxone 2 g ivpb Continue Tamiflu 75 mg twice daily x 5 days Continue Solu-Medrol 40 mg every 8 hours Initiate LR 75 mL/h Check procalcitonin, then may discontinue antibiotics Obtain morning CBC Blood cultures Sputum culture Legionella antigen and culture Elevated D-dimer of 5.44, most likely secondary to recent surgery CTA was negative for PE, but did show small bilateral pleural effusions Elevated troponin of 0.194 in setting of recent CABG EKG independently interpreted as sinus tachycardia with ventricular rate of 104 bpm and QTc of 383 ms, no acute ST wave changes suggestive of ischemia Will continue to trend Consult CT surgery Continue Lipitor 80 mg p.o. at bedtime Continue Plavix 75 mg daily Continue Cozaar 50 mg daily Continue Lopressor 75 mg twice daily Hyperglycemia in prediabetic, A1c of 5.8 Continue Accu-Cheks ACHS Low insulin sliding scale Hypoglycemia precautions acute on chronic anemia , post surgical Hgb 8.5 , continue to monitor denies bleeding Chronic: Chronic back pain Continue Cymbalta 60 twice daily Insomnia Continue trazodone 200 mg nightly GERD Continue Protonix 40 mg daily F: LR at 75 mL/h E: Replete as needed N: Heart healthy DVT prophylaxis: Heparin 5000 units subcu every 8 hours The patient is admitted with an anticipated more than 2 midnight stay for evalua tion of sepsis, acute on chronic hypoxic respiratory failure, acute COPD exacerbation. CODE STATUS: Full code Discussed with: Patient Anticipated discharge place: Ending clinical course I have seen and evaluated the patient today. I Discussed the case with the resident and agree with the resident's findings I edited the assessment and plan as necessary as documented in the resident's note. 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 History of Any Multi-Drug Resistant Organisms: None Reported Past Surgical History: Back Surgery, Orthopedic Surgery Additional Past Surgical History / Comment(s): trachea surgery Past Anesthesia/Blood Transfusion Reactions: No Reported Reaction Past Psychological History: Depression Smoking Status: Never smoker Past Alcohol Use History: None Reported Past Drug Use History: None Reported - Past Family History Father Family Medical History: Cancer, Dementia Mother Additional Family Medical History / Comment(s): Gastrointestinal issues Medications and Allergies Home Medications Medication Instructions Recorded Confirmed Type DULoxetine HCL [Cymbalta] 60 mg PO BID 06/10/24 06/30/24 History HYDROcodone/APAP 10-325MG [Brice 1 tab PO TID PRN 06/10/24 06/30/24 History 10-325] oxyCODONE HCL [OxyCONTIN] 30 mg PO TID PRN 06/10/24 06/30/24 History traZODone HCL [Desyrel] 200 mg PO HS 06/10/24 06/30/24 History Acetaminophen Tab [Tylenol] 1,000 mg PO Q6HR PRN tab 06/21/24 06/30/24 Rx Ascorbic Acid [Vitamin C] 500 mg PO BID-W/MEALS #28 tab 06/21/24 06/30/24 Rx Aspirin 325 mg PO DAILY #30 tab 06/21/24 06/30/24 Rx Atorvastatin [Lipitor] 80 mg PO HS #30 tab 06/21/24 06/30/24 Rx Clopidogrel [Plavix] 75 mg PO DAILY #30 tab 06/21/24 06/30/24 Rx Ferrous Sulfate [Iron (65 MG 325 mg PO BID-W/MEALS #28 tab 06/21/24 06/30/24 Rx Elemental)] Losartan [Cozaar] 50 mg PO DAILY@1200 #30 tab 06/21/24 06/30/24 Rx Pantoprazole [Protonix] 40 mg PO AC-BRKFST #30 tab 06/21/24 06/30/24 Rx polyethylene glycoL 3350 [Miralax] 17 gm PO DAILY PRN packet 06/21/24 06/30/24 Rx Metoprolol Tartrate [Lopressor] 75 mg PO BID #60 tablet 06/22/24 06/30/24 Rx Ipratropium-Albuterol Nebulize 3 ml INHALATION RT-QID 06/30/24 06/30/24 History [Duoneb 0.5 mg-3 mg/3 ml Soln] Sennosides-Docusate Sodium 2 tab PO HS PRN 06/30/24 06/30/24 History [Senokot-S] Allergies Allergy/AdvReac Type Severity Reaction Status Date / Time lorazepam [From Ativan] Allergy Unknown Verified 06/30/24 20:07 Physical Exam Vitals: Vital Signs Temp Pulse Resp BP Pulse Ox 06/30/24 21:54 101.0 F H 105 H 22 154/83 94 L 06/30/24 21:07 120 H 06/30/24 21:01 125 H 06/30/24 20:30 112 H 24 144/102 92 L 06/30/24 20:09 106 H 22 158/81 94 L 06/30/24 19:26 103 H 06/30/24 19:21 105 H 06/30/24 18:38 99.0 F 116 H 44 H 123/75 95 Intake and Output 06/30/24 06/30/24 06/30/24 06:59 14:59 22:59 Other: Weight 68.039 kg Results CBC & Chem 7: 07/01/24 03:20 07/01/24 03:20 Labs: Abnormal Lab Results - Last 24 Hours (Table) 06/30/24 06/30/24 06/30/24 Range/Units 18:54 18:54 18:54 RBC 2.71 L (3.80-5.40) m/uL Hgb 8.5 L (11.4-16.0) gm/dL Hct 26.6 L (34.0-46.0) % Plt Count 471 H (150-450) k/uL Lymphocytes # 0.3 L (1.0-4.8) k/uL D-Dimer 5.44 H (<0.60) mg/L FEU VBG pH (7.31-7.41) VBG pCO2 (37-51) mmHg VBG HCO3 (24-28) mmol/L Chloride (98-107) mmol/L Carbon Dioxide (22-30) mmol/L BUN (7-17) mg/dL Glucose (74-99) mg/dL Troponin I (0.000-0.034) ng/mL Total Protein (6.3-8.2) g/dL Ur Specific [place] 1.050 H (1.001-1.035) Urine Protein Trace H (Negative) Influenza Type A (PCR) (Not Detectd) 06/30/24 06/30/24 06/30/24 Range/Units 18:54 18:54 18:54 RBC (3.80-5.40) m/uL Hgb (11.4-16.0) gm/dL Hct (34.0-46.0) % Plt Count (150-450) k/uL Lymphocytes # (1.0-4.8) k/uL D-Dimer (<0.60) mg/L FEU VBG pH (7.31-7.41) VBG pCO2 (37-51) mmHg VBG HCO3 (24-28) mmol/L Chloride 97 L (98-107) mmol/L Carbon Dioxide 34 H (22-30) mmol/L BUN 18 H (7-17) mg/dL Glucose 135 H (74-99) mg/dL Troponin I 0.194 H* (0.000-0.034) ng/mL Total Protein 6.1 L (6.3-8.2) g/dL Ur Specific [place] (1.001-1.035) Urine Protein (Negative) Influenza Type A (PCR) Detected A (Not Detectd) 06/30/24 Range/Units 19:48 RBC (3.80-5.40) m/uL Hgb (11.4-16.0) gm/dL Hct (34.0-46.0) % Plt Count (150-450) k/uL Lymphocytes # (1.0-4.8) k/uL D-Dimer (<0.60) mg/L FEU VBG pH 7.42 H (7.31-7.41) VBG pCO2 54 H (37-51) mmHg VBG HCO3 34 H (24-28) mmol/L Chloride (98-107) mmol/L Carbon Dioxide (22-30) mmol/L BUN (7-17) mg/dL Glucose (74-99) mg/dL Troponin I (0.000-0.034) ng/mL Total Protein (6.3-8.2) g/dL Ur Specific [place] (1.001-1.035) Urine Protein (Negative) Influenza Type A (PCR) (Not Detectd)
[2024-07-01] MEDS ORDERED: DEXTROSE 50% SYRINGE 50 ML IVP PRN ×2 (03:12)
[2024-07-01 03:41] LABS: Basophils % (A) 0 %; Eosinophils % (A) 0 %; HCT 24.4 % (34.0-46.0); HGB 7.7 gm/dL (11.4-16.0); Hypochromasia Marked; Lymphocytes # (A) 0.3 k/uL (1.0-4.8); Lymphocytes % (A) 5 %; MCH 31.5 pg (25.0-35.0); MCHC 31.5 g/dL (31.0-37.0); MCV 100.1 fL (80.0-100.0); Macrocytosis Slight; Mean Platelet Volume 6.8; Monocytes # (A) 0.1 k/uL (0-1.0); Monocytes % (A) 2 %; Neutrophils # (A) 5.5 k/uL (1.3-7.7); Neutrophils % (A) 92 %; Platelet Count 394 k/uL (150-450); RBC 2.43 m/uL (3.80-5.40); WBC 6.1 k/uL (3.8-10.6)
[2024-07-01] MEDS: methylPREDNISolone SOD SUCCI 40 MG/ML 1 ML VIAL IV SCH (03:51)
[2024-07-01] MEDS: HYDROcodone/APAP 10-325MG 1 EACH TAB PO PRN (03:51)
[2024-07-01] MEDS: LACTATED RINGERS 1,000 ML IV SCH (03:52)
[2024-07-01 04:26] LABS: Anion Gap 5 mmol/L; Blood Urea Nitrogen 17 mg/dL (7-17); Carbon Dioxide 35 mmol/L (22-30); Chloride 96 mmol/L (98-107); Glucose 162 mg/dL (74-99); Potassium 4.7 mmol/L (3.5-5.1); Sodium 136 mmol/L (137-145)
[2024-07-01 04:27] LABS: ALT 15 U/L (4-34); AST 24 U/L (14-36); African American GFR (CKD) 81 (>60 ml/min/1.73 sqM); Albumin 3.3 g/dL (3.5-5.0); Alkaline Phosphatase 73 U/L (38-126); Calcium 8.4 mg/dL (8.4-10.2); Non-African American GFR(CKD) 70 (>60 ml/min/1.73 sqM); Total Bilirubin 0.3 mg/dL (0.2-1.3); Total Protein 5.6 g/dL (6.3-8.2)
[2024-07-01 06:18] LABS: Glucose,Whole Blood 167 mg/dL (70-110)
[2024-07-01] MEDS: PANTOPRAZOLE 40 MG TABLET PO SCH (06:21)
[2024-07-01] MEDS: INSULIN ASPART (NovoLOG) 100 UNIT/ML VIAL SQ SCH (06:21)
--- NOTE | 2024-07-01 07:59 | XR ---
EXAMINATION TYPE: XR chest 1V portable DATE OF EXAM: 07/01/2024 CLINICAL HISTORY: Pneumonia progress study. TECHNIQUE: Single AP portable semiupright view of the chest is obtained. COMPARISON: Chest x-ray and CT from one day earlier FINDINGS: Overlying Sternal wires and left atrial appendage are redemonstrated. There is cardiomegal y with small bilateral pleural effusions and left greater than right bibasilar opacities redemonstrat ed. Upper lungs remain clear. Osseous structures are intact. IMPRESSION: Persistent cardiomegaly with small bilateral pleural effusions and left greater than righ t bibasilar acute infiltrate and/or atelectasis. [facility], , 07/01/2024 7:57 AM
[2024-07-01] MEDS ORDERED: OSELTAMIVIR 75 MG CAP PO SCH (09:00)
[2024-07-01] MEDS ORDERED: AZITHROMYCIN 500 MG TAB PO SCH (09:00)
[2024-07-01] MEDS ORDERED: ASPIRIN 325 MG TAB PO SCH (09:00)
[2024-07-01] MEDS: OSELTAMIVIR 30 MG CAP PO SCH ×2 (09:04→19:34)
[2024-07-01] MEDS: oxyCODONE ER 10 MG TAB.ER.12H PO PRN (09:05)
[2024-07-01] MEDS: CLOPIDOGREL 75 MG TAB PO SCH (09:05)
[2024-07-01] MEDS: ASPIRIN 81 MG PO SCH (09:05)
[2024-07-01] MEDS: oxyCODONE ER 20 MG TAB.ER.12H PO PRN (09:06)
[2024-07-01 11:30] LABS: Glucose,Whole Blood 157 mg/dL (70-110)
--- NOTE | 2024-07-01 11:31 | P.GSCN ---
History of Present Illness Consult date: 07/01/24 Reason for Consult: Known to our service, open heart less than 30 days ago Requesting physician: Vignesh Miller History of present illness: This is a 74-year-old female patient who does not follow with a primary care physician on a regular basis, although she does follow with a pain clinic physician. She has a previous medical history of multivessel coronary artery disease, non-ST elevated myocardial infarction on recent admission, status post four-vessel off-pump CABG 06/17/24, moderate size hiatal hernia found on CT scan with no surgical intervention planned, brief episode of atrial fibrillation pre and postoperative, hypertension, hyperlipidemia, right vocal cord paralysis, tracheostomy 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 status post reversal 50 years ago, depression, severe restrictive lung disease, chronic back pain on multiple narcotics, right drop foot, chronic constipation and dysphagia, lifelong non-smoker. She presented to the emergency department at [facility] on June 10, 2024 with complaints of chest pain and was ruled in for non-STEMI. She underwent heart catheterization revealing multivessel coronary artery disease and underwent four-vessel CABG. She was extubated the morning after surgery, she did develop some stridor which responded nicely to IV steroids and she avoided having to be reintubated. All lines, tubes, and drips were discontinued when appropriate, and transfer orders were placed for 3 S. cardiac stepdown unit, however there was no bed availability and the patient remained in ICU as a stepdown patient until discharge. Her oxygen was titrated down although she was unable to come off oxygen completely and was discharged with oxygen, she continued to work with physical and occupational therapy, she was tolerating oral diet, her pain was controlled, and she was discharged to home with [facility] on postoperative day #5. She was recovering ad equately at home and did follow-up with cardiothoracic surgery as well as cardiology on Saturday, June 29, 2024. She continued to need oxygen but was tolerating well. Unfortunately yesterday she began to feel more short of breath, had some nausea, and was very sleepy so she presented to [facility] emergency room for evaluation and treatment. Chest x-ray revealed cardiomegaly and retrocardiac infiltrate with small left pleural effusion. Chest CTA was also completed demonstrating no pulmonary embolism, small bilateral pleural effusions. Lab work revealed no leukocytosis with WBC 6.1, hemoglobin 7.7 (somewhat expected given recent postsurgical anemia), creatinine 0.83, troponins 0.194 (expected after recent heart surgery), procalcitonin negative at 0.09, and viral screen was positive for influenza type A. She was started on Tamiflu and IV Solu-Medrol and admitted for evaluation and treatment with consultation placed to cardiothoracic surgery as she is known to our servic e from recent surgery. Review of Systems Review of systems was completed and was negative except as noted - Cardiovascular Reports as per HPI, Reports dyspnea on exertion, Reports shortness of breath Past Medical History Past Medical History: Coronary Artery Disease (CAD), COPD, Hyperlipidemia, Hypertension, Myocardial Infarction ([place]) Additional Past Medical History / Comment(s): Dropfoot to her right foot, tracheostomy for 10 years with reversal 50 years ago, dysphagia and co nstipation. History of Any Multi-Drug Resistant Organisms: None Reported Past Surgical History: Back Surgery, Coronary Bypass/CABG, Orthopedic Surgery Additional Past Surgical History / Comment(s): Tracheostomy with reversal; four- vessel off-pump CABG 06/17/2024 Past Anesthesia/Blood Transfusion Reactions: No Reported Reaction Past Psychological History: Depression Additional Psychological History / Comment(s): Previous suicide attempt decades ago (family not aware) Smoking Status: Never smoker Past Alcohol Use History: None Reported Past Drug Use History: None Reported - Past Family History Father Family Medical History: Cancer, Dementia Mother Additional Family Medical History / Comment(s): Gastrointestinal issues Medications and Allergies Home Medications Medication Instructions Recorded Confirmed Type DULoxetine HCL [Cymbalta] 60 mg PO BID 06/10/24 06/30/24 History HYDROcodone/APAP 10-325MG [[place] 1 tab PO TID PRN 06/10/24 06/30/24 History 10-325] oxyCODONE HCL [OxyCONTIN] 30 mg PO TID PRN 06/10/24 06/30/24 History traZODone HCL [Desyrel] 200 mg PO HS 06/10/24 06/30/24 History Acetaminophen Tab [Tylenol] 1,000 mg PO Q6HR PRN tab 06/21/24 06/30/24 Rx Ascorbic Acid [Vitamin C] 500 mg PO BID-W/MEALS #28 tab 06/21/24 06/30/24 Rx Aspirin 325 mg PO DAILY #30 tab 06/21/24 06/30/24 Rx Atorvastatin [Lipitor] 80 mg PO HS #30 tab 06/21/24 06/30/24 Rx Clopidogrel [Plavix] 75 mg PO DAILY #30 tab 06/21/24 06/30/24 Rx Ferrous Sulfate [Iron (65 MG 325 mg PO BID-W/MEALS #28 tab 06/21/24 06/30/24 Rx Elemental)] Losartan [Cozaar] 50 mg PO DAILY@1200 #30 tab 06/21/24 06/30/24 Rx Pantoprazole [Protonix] 40 mg PO AC-BRKFST #30 tab 06/21/24 06/30/24 Rx polyethylene glycoL 3350 [Miralax] 17 gm PO DAILY PRN packet 06/21/24 06/30/24 Rx Metoprolol Tartrate [Lopressor] 75 mg PO BID #60 tablet 06/22/24 06/30/24 Rx Ipratropium-Albuterol Nebulize 3 ml INHALATION RT-QID 06/30/24 06/30/24 History [Duoneb 0.5 mg-3 mg/3 ml Soln] Sennosides-Docusate Sodium 2 tab PO HS PRN 06/30/24 06/30/24 History [Senokot-S] Allergies Allergy/AdvReac Type Severity Reaction Status Date / Time lorazepam [From Ativan] Allergy Unknown Verified 06/30/24 20:07 Surgical - Exam Vital Signs Temp Pulse Resp BP Pulse Ox 99.0 F 116 H 44 H 123/75 95 06/30/24 18:38 06/30/24 18:38 06/30/24 18:38 06/30/24 18:38 06/30/24 18:38 CONSTITUTIONAL: Awake and alert, appears comfortable, cooperative, well-develope d, well-nourished, no pain, no acute distress EYES: Pupils equal, round, reactive to light, normal ocular movement ENT: Moist mucous membranes without oral lesions present NECK: No masses, no bruits, trachea midline RESPIRATORY: Lungs sounds diminished with coarse breath sounds in the bases. R espirations even, nonlabored. Currently on 3 L nasal cannula with oxygen saturation 95%. Strong cough CARDIOVASCULAR: S1, S2 present. Regular rate and rhythm, sinus rhythm on telemetry. Sternum stable. Palpable peripheral pulses bilaterally. No edema present. No calf pain or tenderness noted GASTROINTESTINAL: Abdomen soft, nontender, nondistended without masses or organomegaly noted. There is no rebound or guarding present. Active bowel sounds present 4 quadrants. GENITOURINARY: Deferred INTEGUMENTARY: Skin is warm and dry NEUROLOGIC: Cranial nerves II through XII intact, normal coordination, no obvious motor or sensory deficits, speech is normal MUSKULOSKELETAL: Able to move all extremities, strength equal bilaterally, normal posture PSYCHIATRIC: Alert and oriented to person place and time, appropriate affect, intact judgment and insight Results - Labs 07/01/24 03:20 07/01/24 03:20 Abnormal Lab Results - Last 24 Hours (Table) 06/30/24 06/30/24 06/30/24 Range/Units 18:54 18:54 18:54 RBC 2.71 L (3.80-5.40) m/uL Hgb 8.5 L (11.4-16.0) gm/dL Hct 26.6 L (34.0-46.0) % MCV (80.0-100.0) fL Plt Count 471 H (150-450) k/uL Lymphocytes # 0.3 L (1.0-4.8) k/uL D-Dimer 5.44 H (<0.60) mg/L FEU VBG pH (7.31-7.41) VBG pCO2 (37-51) mmHg VBG HCO3 (24-28) mmol/L Sodium (137-145) mmol/L Chloride (98-107) mmol/L Carbon Dioxide (22-30) mmol/L BUN (7-17) mg/dL Glucose (74-99) mg/dL POC Glucose (mg/dL) (70-110) mg/dL Troponin I (0.000-0.034) ng/mL Total Protein (6.3-8.2) g/dL Albumin (3.5-5.0) g/dL Ur Specific [place] 1.050 H (1.001-1.035) Urine Protein Trace H (Negative) Influenza Type A (PCR) (Not Detectd) 06/30/24 06/30/24 06/30/24 Range/Units 18:54 18:54 18:54 RBC (3.80-5.40) m/uL Hgb (11.4-16.0) gm/dL Hct (34.0-46.0) % MCV (80.0-100.0) fL Plt Count (150-450) k/uL Lymphocytes # (1.0-4.8) k/uL D-Dimer (<0.60) mg/L FEU VBG pH (7.31-7.41) VBG pCO2 (37-51) mmHg VBG HCO3 (24-28) mmol/L Sodium (137-145) mmol/L Chloride 97 L (98-107) mmol/L Carbon Dioxide 34 H (22-30) mmol/L BUN 18 H (7-17) mg/dL Glucose 135 H (74-99) mg/dL POC Glucose (mg/dL) (70-110) mg/dL Troponin I 0.194 H* (0.000-0.034) ng/mL Total Protein 6.1 L (6.3-8.2) g/dL Albumin (3.5-5.0) g/dL Ur Specific [place] (1.001-1.035) Urine Protein (Negative) Influenza Type A (PCR) Detected A (Not Detectd) 06/30/24 06/30/24 07/01/24 Range/Units 19:48 23:51 03:20 RBC (3.80-5.40) m/uL Hgb (11.4-16.0) gm/dL Hct (34.0-46.0) % MCV (80.0-100.0) fL Plt Count (150-450) k/uL Lymphocytes # (1.0-4.8) k/uL D-Dimer (<0.60) mg/L FEU VBG pH 7.42 H (7.31-7.41) VBG pCO2 54 H (37-51) mmHg VBG HCO3 34 H (24-28) mmol/L Sodium (137-145) mmol/L Chloride (98-107) mmol/L Carbon Dioxide (22-30) mmol/L BUN (7-17) mg/dL Glucose (74-99) mg/dL POC Glucose (mg/dL) (70-110) mg/dL Troponin I 0.175 H* 0.171 H* (0.000-0.034) ng/mL Total Protein (6.3-8.2) g/dL Albumin (3.5-5.0) g/dL Ur Specific [place] (1.001-1.035) Urine Protein (Negative) Influenza Type A (PCR) (Not Detectd) 07/01/24 07/01/24 07/01/24 Range/Units 03:20 03:20 06:16 RBC 2.43 L (3.80-5.40) m/uL Hgb 7.7 L (11.4-16.0) gm/dL Hct 24.4 L (34.0-46.0) % MCV 100.1 H (80.0-100.0) fL Plt Count (150-450) k/uL Lymphocytes # 0.3 L (1.0-4.8) k/uL D-Dimer (<0.60) mg/L FEU VBG pH (7.31-7.41) VBG pCO2 (37-51) mmHg VBG HCO3 (24-28) mmol/L Sodium 136 L (137-145) mmol/L Chloride 96 L (98-107) mmol/L Carbon Dioxide 35 H (22-30) mmol/L BUN (7-17) mg/dL Glucose 162 H (74-99) mg/dL POC Glucose (mg/dL) 167 H (70-110) mg/dL Troponin I (0.000-0.034) ng/mL Total Protein 5.6 L (6.3-8.2) g/dL Albumin 3.3 L (3.5-5.0) g/dL Ur Specific [place] (1.001-1.035) Urine Protein (Negative) Influenza Type A (PCR) (Not Detectd) Microbiology - Last 24 Hours (Table) 06/30/24 22:15 Gram Stain - Preliminary Sputum Diabetes panel 06/30/24 07/01/24 Range/Units 18:54 03:20 Sodium 138 136 L (137-145) mmol/L Potassium 4.1 4.7 (3.5-5.1) mmol/L Chloride 97 L 96 L (98-107) mmol/L Carbon Dioxide 34 H 35 H (22-30) mmol/L BUN 18 H 17 (7-17) mg/dL Creatinine 0.83 0.83 (0.52-1.04) mg/dL Glucose 135 H 162 H (74-99) mg/dL Calcium 8.8 8.4 (8.4-10.2) mg/dL AST 20 24 (14-36) U/L ALT 12 15 (4-34) U/L Alkaline Phosphatase 70 73 (38-126) U/L Total Protein 6.1 L 5.6 L (6.3-8.2) g/dL Albumin 3.6 3.3 L (3.5-5.0) g/dL Calcium panel 06/30/24 07/01/24 Range/Units 18:54 03:20 Calcium 8.8 8.4 (8.4-10.2) mg/dL Albumin 3.6 3.3 L (3.5-5.0) g/dL Pituitary panel 06/30/24 07/01/24 Range/Units 18:54 03:20 Sodium 138 136 L (137-145) mmol/L Potassium 4.1 4.7 (3.5-5.1) mmol/L Chloride 97 L 96 L (98-107) mmol/L Carbon Dioxide 34 H 35 H (22-30) mmol/L BUN 18 H 17 (7-17) mg/dL Creatinine 0.83 0.83 (0.52-1.04) mg/dL Glucose 135 H 162 H (74-99) mg/dL Calcium 8.8 8.4 (8.4-10.2) mg/dL Adrenal panel 06/30/24 07/01/24 Range/Units 18:54 03:20 Sodium 138 136 L (137-145) mmol/L Potassium 4.1 4.7 (3.5-5.1) mmol/L Chloride 97 L 96 L (98-107) mmol/L Carbon Dioxide 34 H 35 H (22-30) mmol/L BUN 18 H 17 (7-17) mg/dL Creatinine 0.83 0.83 (0.52-1.04) mg/dL Glucose 135 H 162 H (74-99) mg/dL Calcium 8.8 8.4 (8.4-10.2) mg/dL Total Bilirubin 0.6 0.3 (0.2-1.3) mg/dL AST 20 24 (14-36) U/L ALT 12 15 (4-34) U/L Alkaline Phosphatase 70 73 (38-126) U/L Total Protein 6.1 L 5.6 L (6.3-8.2) g/dL Albumin 3.6 3.3 L (3.5-5.0) g/dL - Imaging Chest x-ray: report reviewed, image reviewed CT scan - chest: report reviewed, image reviewed EKG: image reviewed Assessment and Plan Assessment: Acute on chronic hypoxic respiratory failure Influenza A Progressive shortness of breath, secondary to above History of multivessel coronary artery disease, non-ST elevated myocardial infarction on recent admission, status post four-vessel off-pump CABG 06/17/24 Moderate size hiatal hernia found on CT scan with no surgical intervention planned Brief episode of atrial fibrillation pre and postoperative, status post ligation of the left atrial appendage, no anticoagulation necessary Hypertension Hyperlipidemia Right vocal cord paralysis Tracheostomy 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 status post reversal 50 years ago Depression Severe COPD, on home oxygen since last admission Chronic back pain on multiple narcotics Right drop foot, walks with cane Chronic constipation and dysphagia Lifelong non-smoker Plan: The patient was seen and examined sitting up in bed on the cardiac stepdown unit in no acute distress. She does appear somewhat short of breath. States she already feels better than when she came in. She was just seen 2 days ago in the cardiac surgery office and was doing well other than shortness of breath with exertion, remains on home oxygen. She was also seen on Thursday by cardiology with no medication changes made. The case was discussed last night with Dr. Clemente on-call for cardiothoracic surgery by the emergency room physicians, as well as this morning. Our recommendations are to continue with Tamiflu and dino roids. Continue current medication regimen. Increase activity as tolerated. Sternal precautions. Shower daily. The patient should be discharged to home with home care as soon as possible, longer length of stay in the hospital increases risk of con-commitment infection. Tamiflu is the appropriate treatment for influenza A. Will place follow-up appointments on discharge plan. Will continue to follow while hospitalized. Thank you for this consult, we will continue to follow along while hospitalized and make further recommendations as appropriate. I have personally seen and examined the patient, performed the documentation and the assessment and plan as written. Number of minutes spent on the visit: 30. ROYA Garcia
[2024-07-01] MEDS: IPRATROPIUM-ALBUTEROL 3 ML NEB INHALATION SCH (11:59)
[2024-07-01] MEDS: LOSARTAN 50 MG TAB PO SCH (12:23)
[2024-07-01] MEDS: FERROUS SULFATE 325 MG TAB PO SCH (12:23)
[2024-07-01] MEDS: SENNOSIDES-DOCUSATE SODIUM 1 EACH TAB PO PRN (12:27)
--- NOTE | 2024-07-01 13:35 | P.CNPUL ---
History of Present Illness Consult date: 07/01/24 Requesting physician: Eulalio Camejo Reason for consult: dyspnea, cough, hypoxemia, pneumonia Chief complaint: Shortness of breath. History of present illness: Pulmonary consult dated July 01, 2024. 74-year-old female who presents to the emergency department on June 30, complaining of shortness of breath. The patient has an extensive history including previous tracheostomy, paralyzed vocal cord, COPD, and recent bypass surgery done by Dr. Jimenez, June 17, 2024. The patient is seen today in room 362. She is on 3 L of oxygen. She is getting LR at 110 cc an hour. We were asked to see her for her shortness of breath. The patient apparently did test positive for influenza A. She is currently on Tamiflu. She is resting comfortably in bed. Current labs include a white count 6.1, hemoglobin 7.7, hematocrit 24.4, and a platelet count of 394,000. Sodium 136, potassium 4.7, chloride 96, CO2 25, glucose 157. Troponin was 0.175 and 0.171. Procalcitonin level was normal at 0.09. Her urine Legionella Test Was Negative. Sputum sampling is currently negative or pending. Chest x-ray shows some cardiomegaly, small bilateral effusions, and possible bibasilar infiltrate, left greater than right. Review of Systems REVIEW OF SYSTEMS: CONSTITUTIONAL: [Negative.] NEUROLOGIC: [ Negative.] HEENT: [ Negative.] CARDIAC: [Negative.] PULMONARY: Shortness of breath, with cough, mostly nonproductive. GI: [Negative.] : [Negative.] RHEUMATOLOGIC: [ Negative.] IMMUNOLOGIC: [ Negative.] ENDOCRINE: [Negative. ] DERMATOLOGIC: [Negative.] Past Medical History Past Medical History: Coronary Artery Disease (CAD), COPD, Hyperlipidemia, Hypertension, Myocardial Infarction ([place]) Additional Past Medical History / Comment(s): 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 History of Any Multi-Drug Resistant Organisms: None Reported Past Surgical History: Back Surgery, Coronary Bypass/CABG, Orthopedic Surgery Additional Past Surgical History / Comment(s): Tracheostomy with reversal; four- vessel off-pump CABG 06/17/2024 Past Anesthesia/Blood Transfusion Reactions: No Reported Reaction Past Psychological History: Depression Additional Psychological History / Comment(s): Previous suicide attempt decades ago (family not aware) Smoking Status: Never smoker Past Alcohol Use History: None Reported Past Drug Use History: None Reported - Past Family History Father Family Medical History: Cancer, Dementia Mother Additional Family Medical History / Comment(s): Gastrointestinal issues Medications and Allergies Home Medications Medication Instructions Recorded Confirmed Type DULoxetine HCL [Cymbalta] 60 mg PO BID 06/10/24 06/30/24 History HYDROcodone/APAP 10-325MG [[place] 1 tab PO TID PRN 06/10/24 06/30/24 History 10-325] oxyCODONE HCL [OxyCONTIN] 30 mg PO TID PRN 06/10/24 06/30/24 History traZODone HCL [Desyrel] 200 mg PO HS 06/10/24 06/30/24 History Acetaminophen Tab [Tylenol] 1,000 mg PO Q6HR PRN tab 06/21/24 06/30/24 Rx Ascorbic Acid [Vitamin C] 500 mg PO BID-W/MEALS #28 tab 06/21/24 06/30/24 Rx Aspirin 325 mg PO DAILY #30 tab 06/21/24 06/30/24 Rx Atorvastatin [Lipitor] 80 mg PO HS #30 tab 06/21/24 06/30/24 Rx Clopidogrel [Plavix] 75 mg PO DAILY #30 tab 06/21/24 06/30/24 Rx Ferrous Sulfate [Iron (65 MG 325 mg PO BID-W/MEALS #28 tab 06/21/24 06/30/24 Rx Elemental)] Losartan [Cozaar] 50 mg PO DAILY@1200 #30 tab 06/21/24 06/30/24 Rx Pantoprazole [Protonix] 40 mg PO AC-BRKFST #30 tab 06/21/24 06/30/24 Rx polyethylene glycoL 3350 [Miralax] 17 gm PO DAILY PRN packet 06/21/24 06/30/24 Rx Metoprolol Tartrate [Lopressor] 75 mg PO BID #60 tablet 06/22/24 06/30/24 Rx Ipratropium-Albuterol Nebulize 3 ml INHALATION RT-QID 06/30/24 06/30/24 History [Duoneb 0.5 mg-3 mg/3 ml Soln] Sennosides-Docusate Sodium 2 tab PO HS PRN 06/30/24 06/30/24 History [Senokot-S] Allergies Allergy/AdvReac Type Severity Reaction Status Date / Time lorazepam [From Ativan] Allergy Unknown Verified 06/30/24 20:07 Physical Exam Osteopathic Statement: *. No significant issues noted on an osteopathic structural exam other than those noted in the History and Physical/Consult. Vitals: Vital Signs Temp Pulse Pulse Resp BP BP Pulse Ox 07/01/24 12:10 96 07/01/24 11:59 92 07/01/24 11:30 98.1 F 80 20 123/73 94 L 07/01/24 09:28 111 H 20 07/01/24 09:16 111 H 18 07/01/24 08:00 97.8 F 73 20 137/83 95 07/01/24 04:00 97.7 F 81 16 120/76 93 L 06/30/24 23:20 98.4 F 107 H 16 124/71 91 L 06/30/24 22:58 105 H 20 116/70 96 06/30/24 21:54 101.0 F H 105 H 22 154/83 94 L 06/30/24 21:07 120 H 06/30/24 21:01 125 H 06/30/24 20:30 112 H 24 144/102 92 L 06/30/24 20:09 106 H 22 158/81 94 L 06/30/24 19:26 103 H 06/30/24 19:21 105 H 06/30/24 18:38 99.0 F 116 H 44 H 123/75 95 Intake and Output 06/30/24 07/01/24 07/01/24 22:59 06:59 14:59 Intake Total 540 118 Balance 540 118 Intake: Oral 540 118 Other: Voiding Method Toilet Weight 68.039 kg 68 kg No acute distress, oriented 3. Currently on 3 L. No respiratory distress. HEENT examination is grossly unremarkable. Mucous membranes are moist. No oral lesions. Neck supple. Full range of motion. No adenopathy thyromegaly or neck vein distention. Cardiovascular examination reveals regular rhythm rate. S1-S2 normal. No S3 or S4. No discernible murmur noted. Lungs reveal scattered rhonchi and crackles. No wheezes. Breath sounds equal. Saturations are adequate. Abdomen soft bowel sounds are heard. No masses or tenderness. Extremities are intact. No cyanosis clubbing or edema. Skin is without rash or lesion. Neurologic examination is brief but nonfocal. Results - Laboratory Findings CBC and BMP: 07/01/24 03:20 07/01/24 03:20 PT/INR, D-dimer PT 10.3 sec (10.0-12.5) 06/30/24 18:54 INR 0.9 (<1.2) 06/30/24 18:54 D-Dimer 5.44 mg/L FEU (<0.60) H 06/30/24 18:54 Abnormal lab findings: Abnormal Labs 06/30/24 06/30/24 06/30/24 18:54 18:54 18:54 RBC 2.71 L Hgb 8.5 L Hct 26.6 L MCV Plt Count 471 H Lymphocytes # 0.3 L D-Dimer 5.44 H VBG pH VBG pCO2 VBG HCO3 Sodium Chloride Carbon Dioxide BUN Glucose POC Glucose (mg/dL) Troponin I Total Protein Albumin Ur Specific [place] 1.050 H Urine Protein Trace H Influenza Type A (PCR) 06/30/24 06/30/24 06/30/24 18:54 18:54 18:54 RBC Hgb Hct MCV Plt Count Lymphocytes # D-Dimer VBG pH VBG pCO2 VBG HCO3 Sodium Chloride 97 L Carbon Dioxide 34 H BUN 18 H Glucose 135 H POC Glucose (mg/dL) Troponin I 0.194 H* Total Protein 6.1 L Albumin Ur Specific [place] Urine Protein Influenza Type A (PCR) Detected A 06/30/24 06/30/24 07/01/24 19:48 23:51 03:20 RBC Hgb Hct MCV Plt Count Lymphocytes # D-Dimer VBG pH 7.42 H VBG pCO2 54 H VBG HCO3 34 H Sodium Chloride Carbon Dioxide BUN Glucose POC Glucose (mg/dL) Troponin I 0.175 H* 0.171 H* Total Protein Albumin Ur Specific [place] Urine Protein Influenza Type A (PCR) 07/01/24 07/01/24 07/01/24 03:20 03:20 06:16 RBC 2.43 L Hgb 7.7 L Hct 24.4 L MCV 100.1 H Plt Count Lymphocytes # 0.3 L D-Dimer VBG pH VBG pCO2 VBG HCO3 Sodium 136 L Chloride 96 L Carbon Dioxide 35 H BUN Glucose 162 H POC Glucose (mg/dL) 167 H Troponin I Total Protein 5.6 L Albumin 3.3 L Ur Specific [place] Urine Protein Influenza Type A (PCR) 07/01/24 11:29 RBC Hgb Hct MCV Plt Count Lymphocytes # D-Dimer VBG pH VBG pCO2 VBG HCO3 Sodium Chloride Carbon Dioxide BUN Glucose POC Glucose (mg/dL) 157 H Troponin I Total Protein Albumin Ur Specific [place] Urine Protein Influenza Type A (PCR) - Diagnostic Findings Chest x-ray: image reviewed CT scan - chest: image reviewed Assessment and Plan Assessment: Acute shortness of breath, with hypoxemic respiratory failure, secondary to influenza A induced viral bronchiolitis. Recent bypass surgery, June 17, 2024. History of hypertension and coronary artery disease. Prior history of respiratory failure, requiring tracheostomy, and subsequent reversal. History of depression. Plan: Plan dated July 01, 2024. The patient is seen today in room 362. The patient is currently on 3 L of oxygen. She is resting comfortably in bed. She is getting lactated Ringer's at 110 cc an hour. The patient had a recent bypass surgery on June 17, 2024. She is admitted with a diagnosis of influenza A infection, and shortness of breath. The patient is currently on Tamiflu. The patient is getting breathing treatments. She got doses of ceftriaxone, and azithromycin in the emergency department. Procalcitonin level was normal at 0.09. She is also getting Solu- Medrol 40 mg every 8 hours. No additional recommendations are made. Time with Patient: Greater than 30
[2024-07-01 16:14] LABS: Glucose,Whole Blood 145 mg/dL (70-110)
--- NOTE | 2024-07-01 16:14 | P.PN ---
Subjective Progress Note Date: 07/01/24 Patient is a 74-year-old female with past medical history of hypertension and history of tracheostomy around 40 years ago, paralyzed vocal cord, COPD, and recent CABG on June 17, 2024 who presented to the ED with a chief complaint of shortness of breath. Patient states her symptoms started today progressively got worse. She also endorses some centralized chest pain with no radiation and endorses inability to take deep breaths. He also reports a cough with clear sputum. Patient states that she wears 2 L nasal cannula of oxygen at home. Patient also endorses orthopnea and states she has to sleep propped up with 3 pillows. She also states she has some nausea she denies fevers, chills, vomiting, diarrhea. It is of note that patient had recent admission on 06/10/2024 for chest pain and was admitted for NSTEMI. Patient underwent cardiac catheterization the following day and was found to have calcified left main and LAD, totally occluded proximal LAD with collaterals noted, significant disease in the left circumflex, OM1, left PLV, and mid codominant RCA with elevated LVEDP. Cardiothoracic surgery was consulted and patient underwent four-vessel CABG. Patient was monitored in the ICU postoperatively routinely without complication and patient was discharged home on the with dual antiplatelet therapy and close follow-up with CT surgery, cardio. 07/01/2024 Patient seen and examined at bedside. No events overnight. She states breathing has not improved significantly. She has had no BM for several days. No other complaints at this time. Review of systems: Pertinent positives and negatives as discussed in HPI, a complete review of systems was performed and all other systems are negative. Physical examination: Vitals reviewed General: No acute distress, appears at stated age, patient has soft voice due to known history of vocal cord paralysis and previous tracheostomy Derm: warm, dry, intact Head: atraumatic, normocephalic, symmetric Eyes: anicteric sclera Mouth: no lip lesion, mucus membranes moist Cardiovascular: S1 S2 reg, no murmur Lungs: Wheezing bilaterally Abdominal: soft, nondistended, epigastric tenderness, no abdominal bruits Extremities: No cyanosis, clubbing, or pedal edema. Neuro: alert Oriented to time person and place, Gross neurological examination did not reveal any focal deficits. Cranial nerves II to XII grossly intact. Bilateral upper and lower extremity muscle strength intact and sensation intact. patient has preexisting right foot drop Psych: Ill appearing surgical site looks clean dry and well healing , no surrounding erythema or d rainage Today's findings: Labs WBC 6.1, hemoglobin 7.7, MCV 100.1, platelets 394, sodium 136, bicarb 35, glucose 162, troponin 0.171 Chest x-ray independently interpreted as cardiomegaly with left-sided pleural effusion Sputum, blood, Legionella culture pending Assessment/Plan: Patient is a 74-year-old female with past medical history of hypertension and history of tracheostomy with paralyzed vocal cord, COPD and recent CABG presented with chief complaint of shortness of breath. Case was discussed with the ED physician and patient will be admitted to internal medicine service for further management of sepsis, acute on chronic hypoxic respiratory failure, acute COPD exacerbation. Active: Sepsis secondary to influenza A pneumonia Acute on chronic hypoxic respiratory failure Acute COPD exacerbation Initial VBG pH 7.42, pCO2 54, bicarb 34. positive for influenza A CXR shows cardiomegaly, retrocardiac infiltrate with small left pleural effusion s/p one time dose azithromycin 500 mg and ceftriaxone 2 g ivpb Procalcitonin 0.09, no antibiotics for now Blood, sputum culture, Legionella antigen and culture pending Continue LR 110 mL/h Continue oxygen, wean as tolerated to maintain oxygen saturations of greater than 94% DuoNebs every 4 hours as needed, Continue Solu-Medrol 40 mg every 8 hours Continue Tamiflu 30 mg every 12 hour, renally dosing per pharmacy x 5 days Pulmonology following Elevated D-dimer of 5.44, most likely secondary to recent surgery CTA was negative for PE, but did show small bilateral pleural effusions Elevated troponin of 0.194 in setting of recent CABG EKG independently interpreted as sinus tachycardia with ventricular rate of 104 bpm and QTc of 383 ms, no acute ST wave changes suggestive of ischemia Will continue to trend Consult CT surgery Continue Lipitor 80 mg p.o. at bedtime Continue Plavix 75 mg daily, and aspirin 81 mg daily Continue Cozaar 50 mg daily Continue Lopressor 75 mg twice daily Hyperglycemia in prediabetic, A1c of 5.8 Continue Accu-Cheks ACHS Low insulin sliding scale Hypoglycemia precautions acute on chronic anemia , post surgical Hgb 8.5 , continue to monitor denies bleeding Chronic: Chronic back pain Continue Cymbalta 60 twice daily Insomnia Continue trazodone 200 mg nightly GERD Continue Protonix 40 mg daily F: LR at 110 mL/h E: Replete as needed N: Heart healthy DVT prophylaxis: Heparin 5000 units subcu every 8 hours CODE STATUS: Full code Discussed with: Patient Anticipated discharge place: Ending clinical course I have seen and evaluated the patient today. I Discussed the case with the resident and agree with the resident's findings I edited the assessment and plan as necessary as documented in the resident's note. Objective - Vital Signs Vital signs: Vital Signs Temp 97.7 F 07/01/24 04:00 Pulse 81 07/01/24 04:00 Resp 16 07/01/24 04:00 BP 120/76 07/01/24 04:00 Pulse Ox 93 L 07/01/24 04:00 FiO2 Intake & Output 06/30/24 07/01/24 07/01/24 18:59 06:59 18:59 Intake Total 540 Balance 540 Weight 68.039 kg 68 kg Intake: Oral 540 Other: Voiding Method Toilet - Labs CBC & Chem 7: 07/01/24 03:20 07/01/24 03:20 Labs: Abnormal Lab Results - Last 24 Hours (Table) 06/30/24 06/30/24 06/30/24 Range/Units 18:54 18:54 18:54 RBC 2.71 L (3.80-5.40) m/uL Hgb 8.5 L (11.4-16.0) gm/dL Hct 26.6 L (34.0-46.0) % MCV (80.0-100.0) fL Plt Count 471 H (150-450) k/uL Lymphocytes # 0.3 L (1.0-4.8) k/uL D-Dimer 5.44 H (<0.60) mg/L FEU VBG pH (7.31-7.41) VBG pCO2 (37-51) mmHg VBG HCO3 (24-28) mmol/L Sodium (137-145) mmol/L Chloride (98-107) mmol/L Carbon Dioxide (22-30) mmol/L BUN (7-17) mg/dL Glucose (74-99) mg/dL POC Glucose (mg/dL) (70-110) mg/dL Troponin I (0.000-0.034) ng/mL Total Protein (6.3-8.2) g/dL Albumin (3.5-5.0) g/dL Ur Specific [place] 1.050 H (1.001-1.035) Urine Protein Trace H (Negative) Influenza Type A (PCR) (Not Detectd) 06/30/24 06/30/24 06/30/24 Range/Units 18:54 18:54 18:54 RBC (3.80-5.40) m/uL Hgb (11.4-16.0) gm/dL Hct (34.0-46.0) % MCV (80.0-100.0) fL Plt Count (150-450) k/uL Lymphocytes # (1.0-4.8) k/uL D-Dimer (<0.60) mg/L FEU VBG pH (7.31-7.41) VBG pCO2 (37-51) mmHg VBG HCO3 (24-28) mmol/L Sodium (137-145) mmol/L Chloride 97 L (98-107) mmol/L Carbon Dioxide 34 H (22-30) mmol/L BUN 18 H (7-17) mg/dL Glucose 135 H (74-99) mg/dL POC Glucose (mg/dL) (70-110) mg/dL Troponin I 0.194 H* (0.000-0.034) ng/mL Total Protein 6.1 L (6.3-8.2) g/dL Albumin (3.5-5.0) g/dL Ur Specific [place] (1.001-1.035) Urine Protein (Negative) Influenza Type A (PCR) Detected A (Not Detectd) 06/30/24 06/30/24 07/01/24 Range/Units 19:48 23:51 03:20 RBC (3.80-5.40) m/uL Hgb (11.4-16.0) gm/dL Hct (34.0-46.0) % MCV (80.0-100.0) fL Plt Count (150-450) k/uL Lymphocytes # (1.0-4.8) k/uL D-Dimer (<0.60) mg/L FEU VBG pH 7.42 H (7.31-7.41) VBG pCO2 54 H (37-51) mmHg VBG HCO3 34 H (24-28) mmol/L Sodium (137-145) mmol/L Chloride (98-107) mmol/L Carbon Dioxide (22-30) mmol/L BUN (7-17) mg/dL Glucose (74-99) mg/dL POC Glucose (mg/dL) (70-110) mg/dL Troponin I 0.175 H* 0.171 H* (0.000-0.034) ng/mL Total Protein (6.3-8.2) g/dL Albumin (3.5-5.0) g/dL Ur Specific [place] (1.001-1.035) Urine Protein (Negative) Influenza Type A (PCR) (Not Detectd) 07/01/24 07/01/24 07/01/24 Range/Units 03:20 03:20 06:16 RBC 2.43 L (3.80-5.40) m/uL Hgb 7.7 L (11.4-16.0) gm/dL Hct 24.4 L (34.0-46.0) % MCV 100.1 H (80.0-100.0) fL Plt Count (150-450) k/uL Lymphocytes # 0.3 L (1.0-4.8) k/uL D-Dimer (<0.60) mg/L FEU VBG pH (7.31-7.41) VBG pCO2 (37-51) mmHg VBG HCO3 (24-28) mmol/L Sodium 136 L (137-145) mmol/L Chloride 96 L (98-107) mmol/L Carbon Dioxide 35 H (22-30) mmol/L BUN (7-17) mg/dL Glucose 162 H (74-99) mg/dL POC Glucose (mg/dL) 167 H (70-110) mg/dL Troponin I (0.000-0.034) ng/mL Total Protein 5.6 L (6.3-8.2) g/dL Albumin 3.3 L (3.5-5.0) g/dL Ur Specific [place] (1.001-1.035) Urine Protein (Negative) Influenza Type A (PCR) (Not Detectd) Microbiology - Last 24 Hours (Table) 06/30/24 22:15 Gram Stain - Preliminary Sputum
[2024-07-01] MEDS: ATORVASTATIN 80 MG TAB PO SCH (19:33)
[2024-07-01 20:19] LABS: Glucose,Whole Blood 99 mg/dL (70-110)
[2024-07-02 06:53] LABS: ALT 50 U/L (4-34); AST 74 U/L (14-36); African American GFR (CKD) 86 (>60 ml/min/1.73 sqM); Albumin 3.3 g/dL (3.5-5.0); Alkaline Phosphatase 96 U/L (38-126); Anion Gap 3 mmol/L; Blood Urea Nitrogen 21 mg/dL (7-17); Calcium 8.5 mg/dL (8.4-10.2); Carbon Dioxide 37 mmol/L (22-30); Chloride 97 mmol/L (98-107); Glucose 130 mg/dL (74-99); Non-African American GFR(CKD) 75 (>60 ml/min/1.73 sqM); Potassium 4.6 mmol/L (3.5-5.1); Sodium 137 mmol/L (137-145); Total Bilirubin 0.4 mg/dL (0.2-1.3); Total Protein 5.5 g/dL (6.3-8.2)
[2024-07-02 07:08] LABS: Basophils % (A) 0 %; Eosinophils % (A) 0 %; HCT 24.5 % (34.0-46.0); HGB 7.8 gm/dL (11.4-16.0); Hypochromasia Moderate; Lymphocytes # (A) 0.6 k/uL (1.0-4.8); Lymphocytes % (A) 9 %; MCH 31.5 pg (25.0-35.0); MCHC 31.6 g/dL (31.0-37.0); MCV 99.5 fL (80.0-100.0); Macrocytosis Slight; Mean Platelet Volume 7.5; Monocytes # (A) 0.4 k/uL (0-1.0); Monocytes % (A) 5 %; Neutrophils # (A) 5.8 k/uL (1.3-7.7); Neutrophils % (A) 85 %; Platelet Count 430 k/uL (150-450); RBC 2.46 m/uL (3.80-5.40); RDW 14.5 % (11.5-15.5); WBC 6.9 k/uL (3.8-10.6)
[2024-07-02 07:44] LABS: Glucose,Whole Blood 146 mg/dL (70-110)
[2024-07-02] MEDS: polyethylene glycoL 3350 17 GM POWD.PACK PO PRN (08:24)
[2024-07-02 10:26] VITALS: RESP 18
[2024-07-02 11:27] LABS: Glucose,Whole Blood 200 mg/dL (70-110)
--- NOTE | 2024-07-02 11:33 | P.PN ---
Subjective Progress Note Date: 07/02/24 Principal diagnosis: Shortness of breath. Pulmonary consult dated July 01, 2024. 74-year-old female who presents to the emergency department on June 30, complaining of shortness of breath. The patient has an extensive history including previous tracheostomy, paralyzed vocal cord, COPD, and recent bypass surgery done by Dr. Jimenez, June 17, 2024. The patient is seen today in room 362. She is on 3 L of oxygen. She is getting LR at 110 cc an hour. We were asked to see her for her shortness of breath. The patient apparently did test positive for influenza A. She is currently on Tamiflu. She is resting comfortably in bed. Current labs include a white count 6.1, hemoglobin 7.7, hematocrit 24.4, and a platelet count of 394,000. Sodium 136, potassium 4.7, c hloride 96, CO2 25, glucose 157. Troponin was 0.175 and 0.171. Procalcitonin level was normal at 0.09. Her urine Legionella Test Was Negative. Sputum sampling is currently negative or pending. Chest x-ray shows some cardiomegaly, small bilateral effusions, and possible bibasilar infiltrate, left greater than right. Progress note dated July 02, 2024. 74-year-old female seen again in room 362. She is currently on 2 L. She did test positive for influenza A. She is not receiving any IV fluids. She is laying flat in bed. No respiratory distress. She is awake and alert. No coughing, wheezing, or audible adventitious lung sounds. Current labs include a white count 6.9, hemoglobin 7.8, hematocrit 24.5, and a platelet count of 430,000. Sodium 137, potassium 4.6, chlorides 97, CO2 37, BUN 21, creatinine 0.79. Objective - Vital Signs Vital signs: Vital Signs Temp 97.9 F 07/02/24 08:00 Pulse 80 07/02/24 08:00 Resp 18 07/02/24 08:00 BP 163/93 07/02/24 08:00 Pulse Ox 97 07/02/24 08:00 FiO2 Intake & Output 07/01/24 07/02/24 07/02/24 18:59 06:59 18:59 Intake Total 236 658 0 Balance 236 658 0 Weight 68.5 kg Intake: Oral 236 658 0 Other: Voiding Method Toilet Toilet # Voids 2 1 1 - Exam No acute distress, oriented 3. Currently on 2 L. No respiratory distress. HEENT examination is grossly unremarkable. Mucous membranes are moist. No oral lesions. Neck supple. Full range of motion. No adenopathy thyromegaly or neck vein distention. Cardiovascular examination reveals regular rhythm rate. S1-S2 normal. No S3 or S4. No discernible murmur noted. Lungs reveal scattered rhonchi and crackles. No wheezes. Breath sounds equal. Saturations are adequate. Abdomen soft bowel sounds are heard. No masses or tenderness. Extremities are intact. No cyanosis clubbing or edema. Skin is without rash or lesion. Neurologic examination is brief but nonfocal. - Labs CBC & Chem 7: 07/02/24 05:44 07/02/24 05:44 Labs: Abnormal Lab Results - Last 24 Hours (Table) 07/01/24 07/01/24 07/02/24 Range/Units 11:29 16:12 05:44 RBC 2.46 L (3.80-5.40) m/uL Hgb 7.8 L (11.4-16.0) gm/dL Hct 24.5 L (34.0-46.0) % Lymphocytes # 0.6 L (1.0-4.8) k/uL Chloride (98-107) mmol/L Carbon Dioxide (22-30) mmol/L BUN (7-17) mg/dL Glucose (74-99) mg/dL POC Glucose (mg/dL) 157 H 145 H (70-110) mg/dL AST (14-36) U/L ALT (4-34) U/L Total Protein (6.3-8.2) g/dL Albumin (3.5-5.0) g/dL 07/02/24 07/02/24 07/02/24 Range/Units 05:44 06:09 11:25 RBC (3.80-5.40) m/uL Hgb (11.4-16.0) gm/dL Hct (34.0-46.0) % Lymphocytes # (1.0-4.8) k/uL Chloride 97 L (98-107) mmol/L Carbon Dioxide 37 H (22-30) mmol/L BUN 21 H (7-17) mg/dL Glucose 130 H (74-99) mg/dL POC Glucose (mg/dL) 146 H 200 H (70-110) mg/dL AST 74 H (14-36) U/L ALT 50 H (4-34) U/L Total Protein 5.5 L (6.3-8.2) g/dL Albumin 3.3 L (3.5-5.0) g/dL Microbiology - Last 24 Hours (Table) 06/30/24 19:47 Blood Culture - Preliminary Blood Assessment and Plan Assessment: Acute shortness of breath, with hypoxemic respiratory failure, secondary to influenza A induced viral bronchiolitis. Recent bypass surgery, June 17, 2024. History of hypertension and coronary artery disease. Prior history of respiratory failure, requiring tracheostomy, and subsequent reversal. History of depression. Plan: Plan dated July 01, 2024. The patient is seen today in room 362. The patient is currently on 3 L of oxygen. She is resting comfortably in bed. She is getting lactated Ringer's at 110 cc an hour. The patient had a recent bypass surgery on June 17, 2024. She is admitted with a diagnosis of influenza A infection, and shortness of breath. The patient is currently on Tamiflu. The patient is getting breathing treatments. She got doses of ceftriaxone, and azithromycin in the emergency department. Procalcitonin level was normal at 0.09. She is also getting Solu- Medrol 40 mg every 8 hours. No additional recommendations are made. Plan dated June 09, 2024. The patient is seen today in room 362. She is currently on 2 L. She is laying flat in bed. She is not having any respiratory distress. The patient had previous bypass surgery on June 17, 2024. She did test positive for influenza A, and was started on Tamiflu 75 mg twice a day, for 5 days. The patient's overall respiratory status is stable. She did receive some antibiotics in the emergency department, but they were discontinued, and lieu of the normal procalcitonin level of 0.09. Labs, x-rays, and all medications are reviewed. Prognosis is thought to be good. Time with Patient: Less than 30
[2024-07-02 13:03] VITALS: BP 126/78; PULSE 70; TEMP 97.5
[2024-07-02] MEDS: MAGNESIUM CITRATE 296 ML BOTTLE PO STA (13:57)
--- NOTE | 2024-07-02 17:48 | P.DS ---
Providers Date of admission: 06/30/24 22:10 Expected date of discharge: 07/02/24 Attending physician: Eulalio Camejo MD Consults: 06/30/24 21:47 Consult Physician Routine Consulting Provider: Jose Alberto Clemente Consult Reason/Comments: recent CABG, elevated troponin Do you want consulting provider notified?: Already Contacted 06/30/24 22:00 Consult Physician Routine Consulting Provider: Austin Hurtado Consult Reason/Comments: copd, influenza a, pneumonia Do you want consulting provider notified?: Yes Primary care physician: Stated None Hospital Course: Discharge diagnoses; Sepsis secondary to influenza A pneumonia Acute on chronic hypoxic respiratory failure Acute COPD exacerbation Elevated D-dimer, secondary to recent surgery Elevated troponin, in setting of recent CABG Hyperglycemia in prediabetic acute on chronic anemia , post surgical Chronic back pain Insomnia GERD Hospital course; Patient is a 74-year-old female with past medical history of hypertension and history of tracheostomy around 40 years ago, paralyzed vocal cord, COPD, and recent CABG on June 17, 2024 who presented to the ED with a chief complaint of shortness of breath. Patient states her symptoms started today progressively got worse. She also endorses some centralized chest pain with no radiation and endorses inability to take deep breaths. He also reports a cough with clear sputum. Patient states that she wears 2 L nasal cannula of oxygen at home. Patient also endorses orthopnea and states she has to sleep propped up with 3 pillows. She also states she has some nausea she denies fevers, chills, vomiting, diarrhea. It is of note that patient had recent admission on 06/10/2024 for chest pain and was admitted for NSTEMI. Patient underwent cardiac catheterization the following day and was found to have calcified left main and LAD, totally occluded proximal LAD with collaterals noted, significant disease in the left circumflex, OM1, left PLV, and mid codominant RCA with elevated LVEDP. Cardiothoracic surgery was consulted and patient underwent four-vessel CABG. Patient was monitored in the ICU postoperatively routinely without complication and patient was discharged home on the with dual antiplatelet therapy and close follow-up with CT surgery, cardio. During hospital stay patient treated for sepsis secondary to influenza A pneumonia with acute on chronic respiratory failure and acute COPD exacerbation. Patient symptoms improved during hospital stay with treatment. Patient discharge to home in stable condition. She is discharged with new medications prednisone, Tamiflu and lactulose. She is to continue her home medications. She is to follow-up with pulmonology, academic internal medicine or her PCP and CT surgical team. Physical examination: Vitals reviewed General: No acute distress, appears at stated age, patient has soft voice due to known history of vocal cord paralysis and previous tracheostomy Derm: warm, dry, intact Head: atraumatic, normocephalic, symmetric Eyes: anicteric sclera Mouth: no lip lesion, mucus membranes moist Cardiovascular: S1 S2 reg, no murmur Lungs: Wheezing bilaterally Abdominal: soft, nondistended, epigastric tenderness, no abdominal bruits Extremities: No cyanosis, clubbing, or pedal edema. Neuro: alert Oriented to time person and place, Gross neurological examination did not reveal any focal deficits. Cranial nerves II to XII grossly intact. Bilateral upper and lower extremity muscle strength intact and sensation intact. patient has preexisting right foot drop Psych: Ill appearing surgical site looks clean dry and well healing , no surrounding erythema or drainage Dictation was produced using [employer] dictation software. please excuse any grammatical, word or spelling errors. I saw and evaluated the patient during the lee and critical portions of this encounter, and discussed the case in detail with the resident author of this note, I agree with the Assessment and Plan, and my changes, if any, are highlighted in blue. Pharmacy called to discuss lactulose 30 g twice daily order, we adjusted the order to 30 g twice a day as needed until constipation is resolved. Patient Condition at Discharge: Stable Plan - Discharge Summary Discharge Rx Participant: Yes New Discharge Prescriptions: New predniSONE [Deltasone] 40 mg PO DAILY #6 tab Oseltamivir [Tamiflu] 75 mg PO Q12HR #8 cap Lactulose [Cephulac] 30 gm PO BID #10 ml Continue oxyCODONE HCL [OxyCONTIN] 30 mg PO TID PRN PRN Reason: Pain HYDROcodone/APAP 10-325MG [Pacific 10-325] 1 tab PO TID PRN PRN Reason: Pain Losartan [Cozaar] 50 mg PO DAILY@1200 #30 tab Ferrous Sulfate [Iron (65 MG Elemental)] 325 mg PO BID-W/MEALS #28 tab Pantoprazole [Protonix] 40 mg PO AC-BRKFST #30 tab Ascorbic Acid [Vitamin C] 500 mg PO BID-W/MEALS #28 tab DULoxetine HCL [Cymbalta] 60 mg PO BID traZODone HCL [Desyrel] 200 mg PO HS Aspirin 325 mg PO DAILY #30 tab Atorvastatin [Lipitor] 80 mg PO HS #30 tab polyethylene glycoL 3350 [Miralax] 17 gm PO DAILY PRN packet PRN Reason: Constipation Clopidogrel [Plavix] 75 mg PO DAILY #30 tab Acetaminophen Tab [Tylenol] 1,000 mg PO Q6HR PRN tab PRN Reason: Fever And/ Or Mild Pain (1-3) Metoprolol Tartrate [Lopressor] 75 mg PO BID #60 tablet Ipratropium-Albuterol Nebulize [Duoneb 0.5 mg-3 mg/3 ml Soln] 3 ml INHALATION RT-QID Sennosides-Docusate Sodium [Senokot-S] 2 tab PO HS PRN PRN Reason: Constipation Discharge Medication List DULoxetine HCL [Cymbalta] 60 mg PO BID 06/10/24 [History] HYDROcodone/APAP 10-325MG [Pacific 10-325] 1 tab PO TID PRN 06/10/24 [History] oxyCODONE HCL [OxyCONTIN] 30 mg PO TID PRN 06/10/24 [History] traZODone HCL [Desyrel] 200 mg PO HS 06/10/24 [History] Acetaminophen Tab [Tylenol] 1,000 mg PO Q6HR PRN tab 06/21/24 [Rx] Ascorbic Acid [Vitamin C] 500 mg PO BID-W/MEALS #28 tab 06/21/24 [Rx] Aspirin 325 mg PO DAILY #30 tab 06/21/24 [Rx] Atorvastatin [Lipitor] 80 mg PO HS #30 tab 06/21/24 [Rx] Clopidogrel [Plavix] 75 mg PO DAILY #30 tab 06/21/24 [Rx] Ferrous Sulfate [Iron (65 MG Elemental)] 325 mg PO BID-W/MEALS #28 tab 06/21/24 [Rx] Losartan [Cozaar] 50 mg PO DAILY@1200 #30 tab 06/21/24 [Rx] Pantoprazole [Protonix] 40 mg PO AC-BRKFST #30 tab 06/21/24 [Rx] polyethylene glycoL 3350 [Miralax] 17 gm PO DAILY PRN packet 06/21/24 [Rx] Metoprolol Tartrate [Lopressor] 75 mg PO BID #60 tablet 06/22/24 [Rx] Ipratropium-Albuterol Nebulize [Duoneb 0.5 mg-3 mg/3 ml Soln] 3 ml INHALATION RT-QID 06/30/24 [History] Sennosides-Docusate Sodium [Senokot-S] 2 tab PO HS PRN 06/30/24 [History] Lactulose [Cephulac] 30 gm PO BID #10 ml 07/02/24 [Rx] Oseltamivir [Tamiflu] 75 mg PO Q12HR #8 cap 07/02/24 [Rx] predniSONE [Deltasone] 40 mg PO DAILY #6 tab 07/02/24 [Rx] Follow up Appointment(s)/Referral(s): Janet Segal MD [STAFF PHYSICIAN] - As Needed (Was seen in the cardiology office June 29, 2024, continue to follow-up as scheduled) Rehab [facility],Cardiac [NON-STAFF] - 4 Weeks (You will receive a phone call in approximately 4-6 weeks for evaluation for cardiac rehab) Dc Jimenez MD [STAFF PHYSICIAN] - 07/21/24 2:00 pm None,Stated [Primary Care Provider] - 1-2 days (Follow up with your pain clinic doctor for narcotics) Peter Brewster DO [Medical Doctor] - As Needed [facility] [NON-STAFF] - 1-2 Days Kenzie Connors MD [STAFF PHYSICIAN] - 07/18/24 10:30 am Patient Instructions/Handouts: Oseltamivir (By mouth), Influenza (DC), COPD (Chronic Obstructive Pulmonary Disease) (DC) Activity/Diet/Wound Care/Special Instructions: DISCHARGE INSTRUCTIONS: 1. No driving for 4 weeks, or until physician gives their ok. 2. The patient should sleep in their own bed, no medical bed needed. 3. Stairs are not an issue. If the bedroom is upstairs, it is advised that the patient go up at night and down in the morning for the first week. Go slowly, using handrail and take 1 step at a time. 4. ASHWIN hose are to be worn for 30 days post surgery or until physician discontinues. 5. Heart hugger is to be worn 100% of the time until physician discontinues.(except when showering) 6. No lifting, pushing, or pulling more than 10 pounds for 12 weeks. The physician will advise of any restriction changes. 7. The patient is expected to continue the prescribed walking program. 8. Continue pain control per as needed orders. 9. Continue with incentive spirometry and splinting/heart hugger until otherwise directed by the physician. 10. Must shower daily using liquid antibacterial soap 11. Routine sternal incision care. No powders, lotions, ointments on incisions. No dressings are necessary on incisions unless they are draining. Dermabond tape is to remain on sternal incision until surgeon follow-up. 12. Please call surgeon/ATTENDANT HONOR BAR for temp greater than 101 F or purulent drainage from incisions. 13. You should weigh yourself daily, record and bring log with you to follow up appointments. 14. All prescriptions given by surgeon for 30 days. Refills need to be filled through straightedge worker/primary care physician. 15. A Red armband has been placed on the patient. It should be worn for 30 days post discharge from surgery and will be removed by the cardiac surgeons. If an ER visit is necessary, please make sure the number on the Red armband is called before going to ER. 16. You have been referred to and are expected to begin Cardiac Rehab in approximately 4-6 weeks. HOME HEALTH SERVICES TO PROVIDE: RN SKILLED HOME CARE SERVICES FOR POST-OP SURGICAL PATIENTS WITH THE FOLLOWING: Coronary Artery Bypass Surgery (CABG), Mitral Valve Replacement/Repair ( MVR), Aortic Valve Replacement/Repair (AVR) RN TO CONTINUE EDUCATION FROM ``ROAD TO A HEALTH HEART PATIENT EDUCATION MANUAL (GIVEN TO PATIENT IN THE HOSPITAL) MEDICATION RECONCILIATION WITH EDUCATION NEEDED ON FIRST HOME VISIT EMPHASIZE IMPORTANCE OF WEARING BREAST SUPPORT/HEART HUGGER ENCOURAGE USE OF INCENTIVE SPIROMETER 10 X EVERY HOUR WHILE AWAKE ENCOURAGE UTILIZATION OF LOWER EXTREMITY COMPRESSION STOCKINGS/ASHWIN HOSE and ELEVATE LEGS ABOVE LEVEL OF HEART WHILE AT REST. ENCOURAGE AMBULATION 3-5x/day INCREASING TOLERATES, WHILE AVOIDING EXTREMES IN TEMPERATURE FREQUENCY: RN TO OPEN THE PATIENT WITHIN 24 HOURS OF DISCHARGE FROM THE HOSPITAL WITH TELEHEALTH INSTALLED AT [facility], RN TO VISIT 2-3 X A WEEK FOR 4 WEEKS ESTABLISHED BY PATIENT NEEDS. LABORATORY: CBC, CMP TO BE DRAWN ON THE THIRD DAY HOME, (RAN STAT) FAX RESULTS TO [phone]. TELEHEALTH PARAMETERS: WEIGHT: NOTIFY MD OF WEIGHT GAIN OF 2 LBS IN 24 HOURS OR 5 LBS IN ONE WEEK HR: NOTIFY MD OF HR <55 BPM OR HR>100 BPM BP: NOTIFY MD IF BP <90/55 OR BP>140/100 O2 SAT: NOTIFY MD IF PO2<93% ON ROOM AIR SEND TELEHEALTH REPORT TO PREMIUM SERVICE REPRESENTATIVE AND CARDIOVASCULAR SURGEON THE FIRST WEEK OF CARE AND THEN BI-WEEKLY. PLEASE ADDITIONALLY COMMUNICATE ANY ABNORMALS AND NEW FINDINGS TO THE SURGEONS OFFICE. Discharge Disposition: HOME SELF-CARE
== END 2024-07-02 14:14 | disposition home health service (06) | DRG 871 ==
LOC: EC 18:35 → 3SCARD 22:10
PROVIDERS: ADMIT Internal Medicine; ATTEND Internal Medicine
DX: A41.89 Other specified sepsis (principal); I21.4 Non-ST elevation (NSTEMI) myocardial infarction; J10.01 Influenza due to other identified influenza virus with the same other identified influenza virus pneumonia; J96.21 Acute and chronic respiratory failure with hypoxia; J38.01 Paralysis of vocal cords and larynx, unilateral; R13.10 Dysphagia, unspecified; J38.00 Paralysis of vocal cords and larynx, unspecified; J44.0 Chronic obstructive pulmonary disease with (acute) lower respiratory infection; F32.A Depression, unspecified; D64.9 Anemia, unspecified; J21.9 Acute bronchiolitis, unspecified; J44.1 Chronic obstructive pulmonary disease with (acute) exacerbation; E78.5 Hyperlipidemia, unspecified; G47.00 Insomnia, unspecified; G89.29 Other chronic pain; M54.9 Dorsalgia, unspecified; I25.10 Atherosclerotic heart disease of native coronary artery without angina pectoris; I48.91 Unspecified atrial fibrillation; J10.1 Influenza due to other identified influenza virus with other respiratory manifestations; K21.9 Gastro-esophageal reflux disease without esophagitis; K59.09 Other constipation; M21.371 Foot drop, right foot; R73.03 Prediabetes; Z99.81 Dependence on supplemental oxygen; Z20.822 Contact with and (suspected) exposure to COVID-19; Z28.21 Immunization not carried out because of patient refusal; Z79.02 Long term (current) use of antithrombotics/antiplatelets; Z79.82 Long term (current) use of aspirin; Z79.899 Other long term (current) drug therapy; Z91.51 Personal history of suicidal behavior; Z95.1 Presence of aortocoronary bypass graft; Z28.310 Unvaccinated for COVID-19; Z79.891 Long term (current) use of opiate analgesic
CPT/HCPCS: 36415; 71045; 71275; 80053; 81003; 82803; 83605; 83735; 83880; 84145; 84484; 85025; 85379; 85610; 85730; 87040; 87070; 87205; 87449; 87636; 93005; 94640; 96361; 96365; 96367; 96375; 99291

== ENCOUNTER → 2024-08-17 | Outpatient (CLI) | payer MEDICARE, OTHER ==
[2024-08-17 15:01] LABS: ALT 11 U/L (8-44); AST 15 U/L (13-35); Albumin 4.1 g/dL (3.8-4.9); Albumin/Globulin Ratio 1.64 Ratio (1.60-3.17); Alkaline Phosphatase 111 U/L (41-126); BUN/Creat Ratio 25.33 Ratio (12.00-20.00); Blood Urea Nitrogen 22.8 mg/dL (9.0-27.0); Calcium 9.3 mg/dL (8.7-10.3); Chloride 104 mmol/L (96-109); Chol/HDL Ratio 2.84 Ratio; Globulin 2.5 g/dL (1.6-3.3); Glucose 117 mg/dL (70-110); LDL Cholesterol,Calculated 67.5 mg/dL (0.0-131.0); Potassium 4.6 mmol/L (3.5-5.5); Sodium 141 mmol/L (135-145); Total Bilirubin 0.3 mg/dL (0.3-1.2); Total Protein 6.6 g/dL (6.2-8.2); VLDL Calculation 19.26 mg/dL (5.00-40.00)
== END | disposition home or self-care (01) ==
LOC: LABWHC1 08:15
PROVIDERS: ATTEND Internal Medicine Interventional Cardiology
DX: I10 Essential (primary) hypertension (principal); E78.2 Mixed hyperlipidemia
CPT/HCPCS: 36415; 80053; 80061